=== PATIENT | female | born 1950 | race Caucasian/White ===

== ENCOUNTER → 2017-07-25 09:33 | Outpatient (CLI) | payer MEDICARE, OTHER, SELFPAY | PROVIDERS: Family Provider Family Medicine; PCP Family Medicine; Visit Provider Family Medicine | DX: R29.898 Other symptoms and signs involving the musculoskeletal system (principal) | CPT/HCPCS: 95886; 95907 ==

== ENCOUNTER → 2017-09-23 11:58 | Outpatient (CLI) | payer MEDICARE, OTHER, SELFPAY ==
--- NOTE | 2017-09-23 | DI.RAD.S_ITS ---
PROCEDURE: XR HIP W PEL IF DONE LT 2V INDICATIONS: left hip pain, osteoporosis TECHNIQUE: 2 views of the hip were acquired. COMPARISON: None. FINDINGS: Bones: No fractures or dislocations. No suspicious bony lesions. The visualized pelvic ring appears intact. Mild to moderate degenerative narrowing of the hip. No erosions. Minimal periarticular osteophytes. No gross osteoporosis. Soft tissues: No suspicious soft tissue calcifications or masses. IMPRESSION: Mild to moderate degenerative left hip narrowing. Dictated by: Pooja Hernandez M.D. on 09/23/2017 at 14:23 Approved by: Pooja Hernandez M.D. on 09/23/2017 at 14:24
== END ==
PROVIDERS: Family Provider Family Medicine; PCP Family Medicine; Visit Provider Family Medicine
DX: M16.12 Unilateral primary osteoarthritis, left hip (principal); M25.552 Pain in left hip
CPT/HCPCS: 73502

== ENCOUNTER → 2017-09-27 10:08 | Outpatient (CLI) | payer MEDICARE, OTHER, SELFPAY | PROVIDERS: Family Provider Family Medicine; PCP Family Medicine; Visit Provider Family Medicine | DX: M81.0 Age-related osteoporosis without current pathological fracture (principal); Z78.0 Asymptomatic menopausal state; E07.9 Disorder of thyroid, unspecified; Z82.62 Family history of osteoporosis | CPT/HCPCS: 77080 ==

== ENCOUNTER → 2019-04-29 09:15 | Outpatient (CLI) | payer MEDICARE, OTHER, SELFPAY ==
[2019-04-29 09:33] LABS: Bacteria Urine None Seen; RBC Urine None Seen (0-5/HPF); WBC Urine None Seen (0-5/HPF)
[2019-04-29 10:13] LABS: Add Manual Diff / Slide Review NO; Basophils Absolute Auto 100 /uL (0-100); Basophils Percent Auto 1.3 % (0-2); Eosinophils Absolute Auto 300 /uL (0-450); Eosinophils Percent Auto 5.7 % (2-4); Hematocrit 39.6 % (36-46); Hemoglobin 13.4 g/dL (12.0-16.0); Lymphocytes Absolute Auto 1600 /uL (1100-4500); Mean Corpuscular HGB Conc 33.7 % (30-36); Mean Corpuscular Hemoglobin 28.3 PG (26-34); Mean Corpuscular Volume 83.9 fL (80-100); Monocytes Absolute Auto 300 /uL (0-900); Monocytes Percent Auto 6.8 % (3-14); Neutrophils Absolute Auto 2600 /uL (1500-7000); Neutrophils Percent Auto 53.2 % (50-75); Platelet Count 252 X10^3/uL (150-400); Red Blood Cell Count 4.72 X10^6/uL (4.0-5.2); Red Cell Distribution Width 14.5 % (11.6-14.8); White Blood Cell Count 4.9 X10^3/uL (4.5-11.0)
[2019-04-29 10:21] LABS: Hemoglobin A1C% w Est Avg Glu 5.8 % (4.0-6.0)
[2019-04-29 10:24] LABS: Appearance Urine UA CLEAR; Bilirubin Urine UA NEGATIVE (NEGATIVE); Color Urine UA YELLOW; Glucose Urine UA NEGATIVE (Negative); Ketones Urine UA TRACE (NEGATIVE); Leukocyte Esterase Urine UA NEGATIVE (NEGATIVE); Nitrite Urine UA NEGATIVE (Negative); Occult Blood Urine UA NEGATIVE (Negative); Protein Urine UA NEGATIVE (Negative); Specific Gravity Urine UA 1.025 (1.000-1.035); Urobilinogen Urine UA 0.2 E.U./dL (0.2)
[2019-04-29 10:40] LABS: Culture Indicated Urine Cult Not Indicated; Urine Comments Microscopic Normal
[2019-04-29 11:15] LABS: Blood Urea Nitrogen 16 mg/dL (7-17); Calcium 9.8 mg/dL (8.4-10.2); Carbon Dioxide 29 mmol/L (22-32); Chloride 105 mmol/L (98-107); Estimated Glomerular Filt Rate > 60.0 mL/min (>60); Glucose 108 mg/dL (80-110); HEMOLYSIS < 15 (0-50); Potassium 4.4 mmol/L (3.4-5.1); Sodium 141 mmol/L (137-145)
== END ==
PROVIDERS: Family Provider Family Medicine; PCP Student in an Organized Health Care Education/Training Program; Referring Provider Orthopaedic Surgery; Visit Provider Orthopaedic Surgery
DX: Z01.818 Encounter for other preprocedural examination (principal); Z01.812 Encounter for preprocedural laboratory examination; N39.9 Disorder of urinary system, unspecified; Z13.1 Encounter for screening for diabetes mellitus; R73.9 Hyperglycemia, unspecified
CPT/HCPCS: 36415; 80048; 81001; 83036; 85025; 93005

== ENCOUNTER → 2019-05-08 09:37 | Outpatient (CLI) | payer MEDICARE, OTHER, SELFPAY ==
--- NOTE | 2019-05-08 09:42 | DI.MRI.S_ITS ---
PROCEDURE: MR KNEE LT WO CON INDICATIONS: PAIN OF LEFT KNEE TECHNIQUE: Noncontrast sagittal PD fast spin echo and T2 fast spin echo with fat saturation, sagittal 3-D FLASH with fat saturation; coronal T1 spin echo and PD fast spin echo with fat saturation, and axial PD fast spin echo with fat saturation through the knee. COMPARISON: [facility], MR, KNEE WITHOUT CONTRAST, 10/21/2014, 8:54. FINDINGS: Image quality: Excellent. Menisci: The medial and lateral menisci demonstrate normal morphology and internal signal. The meniscal root ligaments appear intact. Cruciate ligaments: Sprain and myxoid degenerative changes within the anterior cruciate ligament is seen. No evidence of ACL rupture. PCL is intact. Medial structures: The medial collateral ligament appears intact. The posterior oblique ligament, semimembranosus tendon insertions, oblique popliteal ligament, and meniscocapsular junction appear intact. Visualized portions of the pes anserinus tendons appear normal. No abnormal bursal fluid. Lateral structures: The lateral collateral ligament, long and short heads of the biceps femoris tendon appear intact. The popliteus tendon appears normal; the popliteofibular ligament appears intact. The posterosuperior and anteroinferior popliteomeniscal fascicles appear intact. The arcuate and fabellofibular ligaments appear intact, on either side of the lateral inferior geniculate artery. Iliotibial band appears normal. Anterior structures: The quadriceps and patellar tendons appear intact. Patella isabel is again seen unchanged from prior study. No femoral trochlear dysplasia or ventral trochlear prominence. No edema in the infrapatellar fat pad. Bones and cartilage: Severe patellofemoral compartment osteophytic changes are again seen, progressed since previous study with joint space narrowing, subchondral sclerosis and cyst formation, and mild marrow edema. Small osteochondral lesions are likely present. Prominent marginal osteophyte formation is also seen. 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 Joint space: There is small to moderate amount of joint fluid. No Carbone's cyst. Normal appearing synovial plicae are incidentally noted. IMPRESSION: 1. 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 No fracture or dislocation. Patella isabel is unchanged. 2. Moderate osteophytic changes and chondromalacia in medial and lateral femorotibial compartments. 3. Degenerative changes in the anterior cruciate ligament. No ACL rupture. No definite focal meniscal tear. Dictated by: Kevin Redd M.D. on 05/08/2019 at 14:43 Approved by: Kevin Redd M.D. on 05/08/2019 at 14:53
== END ==
PROVIDERS: Family Provider Family Medicine; PCP Student in an Organized Health Care Education/Training Program; Referring Provider Orthopaedic Surgery; Visit Provider Orthopaedic Surgery
DX: M25.562 Pain in left knee (principal); M22.42 Chondromalacia patellae, left knee; M25.762 Osteophyte, left knee
CPT/HCPCS: 73721

== ENCOUNTER → 2019-05-25 12:22 | Outpatient (CLI) | payer MEDICARE, OTHER, SELFPAY ==
--- NOTE | 2019-05-25 | DI.MG.S_ITS ---
BILATERAL DIGITAL SCREENING MAMMOGRAM 3D/2D WITH CAD: 05/25/2019 CLINICAL: Routine screening. Routine screening. Comparison is made to exams dated: 05/07/2017 mammogram, 02/21/2016 mammogram, and 12/24/2013 mammogram - [facility]. The tissue of both breasts is predominantly fatty. Current study was also evaluated with a Computer Aided Detection (CAD) system. No significant masses, calcifications, or other findings are seen in either breast. There has been no significant interval change. IMPRESSION: NEGATIVE There is no mammographic evidence of malignancy. A 1 year screening mammogram is recommended. This exam was interpreted at Station ID: [id number]. NOTE: For mammograms, a report in lay terms will be sent to the patient. Approximately 15% of breast malignancies will not be visualized mammographically. In the management of a palpable breast mass, a negative mammogram must not discourage biopsy of a clinically suspicious lesion. Electronically Signed By: Kyle mantilla/melba:05/25/2019 19:04:23 letter sent: Normal Exam ACR BI-RADS Category 1: Negative [id number]
== END ==
PROVIDERS: Family Provider Family Medicine; PCP Student in an Organized Health Care Education/Training Program; Referring Provider Student in an Organized Health Care Education/Training Program; Visit Provider Student in an Organized Health Care Education/Training Program
DX: Z12.31 Encounter for screening mammogram for malignant neoplasm of breast (principal)
CPT/HCPCS: 77063; 77067

== ENCOUNTER → 2019-07-31 07:55 | Outpatient (CLI) | payer MEDICARE, OTHER, SELFPAY ==
--- NOTE | 2019-07-31 08:02 | DI.ECHO.S_ITS ---
Echocardiogram Report + + :Name: ELISEO DIALLO Study Date: 07/31/2019 Height: 61 in : :[facility] Weight: 206 lb : : Gender: Female BSA: 1.9 m2 : :: 1950 Age: 69 yrs BP: 132/80 mmHg: :Reason For Study: SOB : :Ordering Physician: Radha Conway Performed By: Aline Page : + + Interpretation Summary The left ventricle is normal in size, wall thickness, and systolic function without any focal wall motion abnormalities. The ejection fraction is estimated to be 60-65%. Diastolic parameters suggest a relaxation abnormality of the left ventricle, consistent with probable normal filling pressures. The right ventricle is normal in size and function. Pulmonary artery pressures cannot be estimated because of the lack of a measurable TR jet velocity. The left atrium is moderately dilated. Right atrial size is normal. There is no significant valvular heart disease. The aortic root is normal size. Procedure: A two-dimensional transthoracic echocardiogram with color flow and Doppler was performed. The study quality was technically adequate. There is no prior echocardiogram noted for this patient. The patient was in normal sinus rhythm during the exam. Left Ventricle: The left ventricle is normal in size, wall thickness, and systolic function without any focal wall motion abnormalities. The ejection fraction is estimated to be 60-65%. Diastolic parameters suggest a relaxation abnormality of the left ventricle, consistent with probable normal filling pressures. Right Ventricle: The right ventricle is normal in size and function. Atria: The left atrium is moderately dilated. Right atrial size is normal. There is no Doppler evidence for an interatrial shunt. Mitral Valve: The mitral valve leaflets appear mildly thickened, but open well. There is mild mitral annular calcification. There is trace mitral regurgitation. Aortic Valve: The aortic valve is trileaflet. The aortic valve opens well. There is trace aortic regurgitation. Tricuspid Valve: The tricuspid valve is normal in structure and function. There is a trace or physiologic amount of tricuspid regurgitation. Pulmonary artery pressures cannot be estimated because of the lack of a measurable TR jet velocity. Pulmonic Valve: The pulmonic valve is not well seen, but is grossly normal. There is trace pulmonic regurgitation. There is no significant valvular heart disease. Great Vessels: The aortic root is normal size. The ascending aorta is normal in size. The pulmonary artery is normal size. The IVC is of normal diameter and collapses greater than 50% with a sniff. This suggests a low right atrial pressure of 3 mm Hg. Pericardium/ Pleura There is no pericardial effusion. There is no pleural effusion. MMode/2D Measurements & Calculations LVIDd: 4.2 cm LVOT diam: 1.9 cm LVIDs: 3.2 cm Ao root diam: 2.7 cm FS: 24.9 % asc Aorta Diam: 3.0 cm EPSS: 0.45 cm IVSd: 0.72 cm LVPWd: 2.3 cm LV box. diameter/BSA (cm/m^2): 2.2 LV sys. diameter/BSA (cm/m^2): 1.6 LA A2 area: 22.7 cm2 RA long axis: 4.4 cm LA A4 area: 27.2 cm2 RA area: 15.6 cm2 LA length (vol): 5.8 cm RA vol: 47.0 ml LA vol: 91.1 ml RA : 24.6 ml/m2 LA vol index: 47.6 ml/m2 IVC diam: 2.1 cm RVD1 (basal): 4.0 cm Doppler Measurements & Calculations Ao V2 max: 154.7 cm/sec LVOT Max Silvestre: 95.6 cm/sec Ao V2 mean: 107.7 cm/sec LV V1 max P.7 mmHg Ao max P.6 mmHg LV V1 VTI: 20.9 cm Ao mean P.0 mmHg AGNES(I,D): 1.7 cm2 Ao V2 VTI: 33.2 cm AGNES(V,D): 1.7 cm2 sev ratio: 0.63 AGNES indexed to BSA (cm^2/m^2): 0.90 MV E max silvestre: 93.6 cm/sec TR max silvestre: 220.2 cm/sec MV A max silvestre: 118.9 cm/sec TR max P.4 mmHg MV E/A: 0.79 PA V2 max: 84.9 cm/sec Med Peak E' Silvestre: 6.0 cm/sec PA V2 mean: 63.4 cm/sec E/E' med: 15.6 PA mean P.7 mmHg Lat Peak E' Silvestre: 9.5 cm/sec PA pr(Accel): 33.3 mmHg E/E' lat: 9.9 PA Accel Time: 0.10 sec E/e' average: 12.7 MV dec time: 0.19 sec SV(LVOT): 57.2 ml _ Reading Physician:03:39 PM
[2019-07-31 11:42] LABS: Troponin I < 0.012 ng/mL (0.01-0.034)
== END ==
PROVIDERS: Family Provider Family Medicine; PCP Student in an Organized Health Care Education/Training Program; Referring Provider Internal Medicine; Visit Provider Internal Medicine
DX: R06.02 Shortness of breath (principal); R06.00 Dyspnea, unspecified
CPT/HCPCS: 71046; 84484; 93306

== ENCOUNTER → 2019-07-31 11:23 | Outpatient (CLI) | payer MEDICARE, OTHER, SELFPAY ==
--- NOTE | 2019-07-31 | DI.RAD.S_ITS ---
PROCEDURE: XR CHEST 2V INDICATIONS: Dyspnea TECHNIQUE: 2 views of the chest were acquired. COMPARISON: None. FINDINGS: Surgical changes and devices: None. Lungs and pleura: Lungs are clear. No pleural effusions or pneumothorax. Mediastinum: Mediastinal contours are normal. Heart size is normal. Bones and chest wall: No suspicious bony abnormalities. Soft tissues appear unremarkable. IMPRESSION: Normal for age, source of current dyspnea symptoms is not seen. Dictated by: Robert Araiza M.D. on 07/31/2019 at 12:29 Approved by: Robert Araiza M.D. on 07/31/2019 at 12:29
== END ==
PROVIDERS: Family Provider Family Medicine; PCP Student in an Organized Health Care Education/Training Program; Referring Provider Student in an Organized Health Care Education/Training Program; Visit Provider Student in an Organized Health Care Education/Training Program
DX: R06.00 Dyspnea, unspecified (principal)
CPT/HCPCS: 71046

== ENCOUNTER 2019-08-11 22:17 | Emergency (ER) | payer MEDICARE, OTHER, SELFPAY ==
--- NOTE | 2019-08-11 22:28 | DI.RAD.S_ITS ---
PROCEDURE: XR CHEST 1V INDICATIONS: chest pain TECHNIQUE: One view of the chest was acquired. COMPARISON: [facility], CR, XR CHEST 2V, 07/31/2019, 11:27. FINDINGS: Surgical changes and devices: None. Lungs and pleura: Lungs are clear. No pleural effusions or pneumothorax. Mediastinum: Mediastinal contours appear normal. Heart size is normal. Bones and chest wall: No suspicious bony lesions. Overlying soft tissues appear unremarkable. IMPRESSION: No acute cardiopulmonary disease process. Dictated by: Mini Soto MD, PhD on 08/12/2019 at 8:03 Approved by: Mini Soto MD, PhD on 08/12/2019 at 8:04
[2019-08-11 22:34] VITALS: BP 176/74; PULSE 85; RESP 16; TEMP 36.7; O2SAT 97
[2019-08-11 22:37] LABS: Add Manual Diff / Slide Review NO; Basophils Absolute Auto 100 /uL (0-100); Basophils Percent Auto 1.3 % (0-2); Eosinophils Absolute Auto 200 /uL (0-450); Eosinophils Percent Auto 3.1 % (2-4); Hematocrit 40.3 % (36-46); Hemoglobin 13.7 g/dL (12.0-16.0); Lymphocytes Absolute Auto 2800 /uL (1100-4500); Lymphocytes Percent Auto 42.2 % (25-40); Mean Corpuscular Hemoglobin 28.6 PG (26-34); Monocytes Absolute Auto 600 /uL (0-900); Monocytes Percent Auto 8.8 % (3-14); Neutrophils Absolute Auto 2900 /uL (1500-7000); Neutrophils Percent Auto 44.6 % (50-75); Platelet Count 244 X10^3/uL (150-400); Red Blood Cell Count 4.79 X10^6/uL (4.0-5.2); Red Cell Distribution Width 14.1 % (11.6-14.8); White Blood Cell Count 6.5 X10^3/uL (4.5-11.0)
[2019-08-11 22:46] LABS: Alanine Aminotransferase 24 IU/L (<35); Albumin 4.7 g/dL (3.5-5.0); Albumin Globulin Ratio 1.3 (1.0-2.8); Alkaline Phosphatase 97 U/L (38-126); Aspartate Aminotransferase 31 IU/L (14-36); BUN Creatinine Ratio 18.6 (6-22); Bilirubin Total 0.6 mg/dL (0.2-1.3); Blood Urea Nitrogen 16 mg/dL (7-17); Calcium 9.6 mg/dL (8.4-10.2); Carbon Dioxide 26 mmol/L (22-32); Chloride 104 mmol/L (98-107); Creatine Kinase 73 U/L (30-135); Estimated Glomerular Filt Rate > 60.0 mL/min (>60); Globulin 3.6 g/dL (1.7-4.1); Glucose 96 mg/dL (80-110); HEMOLYSIS < 15 (0-50); Lipase 123 U/L (23-300); PTT Partial Thromboplastin Tim 31 SECONDS (26.4-36.2); Potassium 3.8 mmol/L (3.4-5.1); Sodium 138 mmol/L (137-145); Total Protein 8.3 g/dL (6.3-8.2)
[2019-08-11 22:58] LABS: Troponin I < 0.012 ng/mL (0.01-0.034)
--- NOTE | 2019-08-11 23:08 | ED_ITS ---
HPI - Chest Pain General Chief Complaint: Chest Pain Stated Complaint: CHEST PAIN Time Seen by Provider: 08/11/19 22:32 Source: patient Mode of arrival: Ambulatory Limitations: no limitations History of Present Illness HPI narrative: Patient is a 69-year-old female here for evaluation of left-sided chest pain. She states that multiple times last evening with the last episode being approximately 1 hour ago she has had sharp left-sided chest pain. Does not seem to be associated with any other symptoms to include shortness of breath. She was sitting at the time of the onset Not worse with palpation or movement or breathing. She has never had anything like this in the past. She states that it has lasted about 4-5 minutes and then completely resolved. It did occur her several times last evening. She is not currently having any symptoms. She states that she is currently being worked up by her primary d anthony for ?heart issues ?she states that she does not remember if she has ever had a stress test but is scheduled later this week to be sent to [place] for what sounds like a Holter monitor. Related Data Home Medications Medication Instructions Recorded Confirmed aspirin 81 mg PO BEDTIME #0 11/12/11 06/01/19 epinephrine 0.3 mg IM PRN PRN #0 11/12/11 06/01/19 levothyroxine [Synthroid] 125 mcg PO QDAY@0600 #0 11/12/11 06/01/19 montelukast [Singulair] 10 mg PO QPM #0 11/12/11 06/01/19 sumatriptan succinate [Imitrex] 100 mg PO PRN PRN #0 11/12/11 06/01/19 tolterodine [Detrol LA] 4 mg PO QDAY #0 11/12/11 06/01/19 topiramate [Topamax] 25 mg PO HS #0 11/12/11 06/01/19 Respironics Dreamstation CPAP #1 ea 07/31/18 07/31/18 vit C,Z-Df-ocsrq-lutein-zeaxan 1 tab PO BID 06/01/19 06/01/19 [PreserVision AREDS-2] Allergies Allergy/AdvReac Type Severity Reaction Status Date / Time amoxicillin [AMOXICILLIN] Allergy Severe YEAST Unverified 05/05/19 15:16 INFECTION, RED BLISTERS, ITCHING cephalexin [CEPHALEXIN] Allergy Severe YEAST Unverified 05/05/19 15:16 INFECTION, BLISTERS, ITCHING Sulfa (Sulfonamide Allergy Severe Rash, Verified 06/01/19 09:12 Antibiotics) blisters, itching adhesive [ADHESIVE] Allergy Intermediate NEX CARE Unverified 05/05/19 15:16 BANDAIDS - RASH, BLISTER, ITCHING clavulanic acid Allergy Unknown PT DOES Unverified 05/05/19 15:16 [From AUGMENTIN] NOT RECALL Review of Systems Constitutional Constitutional: Denies fever(s) and Denies headache(s) ENT Ears, Nose, Mouth, and Throat: Denies headache(s) Cardiovascular Cardiovascular: Denies chest pain and Denies dyspnea Respiratory Respiratory: Denies cough and Denies dyspnea Gastrointestinal Gastrointestinal: Denies abdominal pain, Denies nausea and Denies vomiting Genitourinary Genitourinary: Denies dysuria Musculoskeletal Musculoskeletal: Denies myalgias and Denies arthralgias Integumentary/Breasts Skin/Breast: Denies lesions and Denies rash Neurologic Neurologic: Denies behavioral changes and Denies headache(s) Psychiatric Psychiatric: Denies behavioral changes Hematologic/Lymphatic Hematologic/Lymphatic: Denies easy bleeding and Denies easy bruising Allergic/Immunologic Allergic/Immunologic: Denies urticaria Patient History Medical History Hypothyroidism (Chronic) Migraine headache (Chronic) Obesity (Chronic) Obstructive sleep apnea of adult (Chronic) Overactive bladder (Chronic) Primary insomnia (Chronic) Snoring (Inactive) Stress at home (Suspected) Surgical History (Updated 06/01/19 @ 09:19 by Naty Hendricks RN) H/O right wrist surgery (Acute 1965) History of arthroplasty of right knee (Acute 12/01/14) History of surgery (Acute) History of surgery (Acute 01/18/15) Hx of bilateral cataract extraction (Acute 01/2019) Social History marital status: details: to Gianni household members: spouse, family and children lives independently: Yes caregiver/support person: Yes (she is taking over the 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 of caregiver for ) housing: house Smoking Status: Never smoker alcohol intake: former substance use type: does not use Smoking Status: Never smoker Substance Use Type: does not use Exam Initial Vital Signs Initial Vital Signs: Vital Signs Temperature 98.1 F 08/11/19 22:34 Pulse Rate 85 08/11/19 22:34 Respiratory Rate 16 08/11/19 22:34 Blood Pressure 176/74 H 08/11/19 22:34 Pulse Oximetry 97 08/11/19 22:34 Const General: cooperative, healthy appearing, comfortable, well developed and well groomed Limitations: mental status not altered HENMT Head: normal to inspection and normocephalic Chest Chest: No crepitus and No tenderness Resp Effort & Inspection: normal respiratory effort Auscultation: clear to auscultation bilaterally Cardio Rate: regular rate Rhythm: regular rhythm GI Inspection: non-distended Palpation: soft Skin Lesions: no lesions Rashes: no rashes Neuro General: alert, awake and oriented x3 Cognition: normal cognition Speech: speech normal Extrem General: normal to inspection and capillary refill normal Psych Appearance: grossly normal and well kempt Scores GCS [place] coma scale eye opening: Spontaneous [place] coma scale verbal response: Orientated Shelli coma scale motor response: Obey commands Shelli coma scale total score: 15 HEART Score Heart Score history: Slightly Suspicious Heart Score EKG: Non-Specific repolarization disturbance Heart Score Age: > or = 65 years old Heart Score risk factors: No known risk factors Heart Score troponin: < or = to normal limit Heart Score Total: 3 Course Orders Ordered: ED Orders 08/11/19 22:28 XR chest 1V Stat Complete Blood Count AUTO DIFF Stat Comprehensive Metabolic Panel Stat Lipase Stat Partial Thromboplastin Time Stat Prothrombin Time INR Stat Troponin & CK Cardiac Panel Stat EKG-12 Lead Stat 08/12/19 01:25 Troponin I Stat Vital Signs Vital signs: Vital Signs - 8 hr 08/11/19 22:34 08/12/19 00:44 08/12/19 01:18 Temperature 98.1 F Pulse Rate 85 70 70 Respiratory Rate 16 18 18 Blood Pressure 176/74 H Blood Pressure [Right Arm] 160/70 H 156/72 H Pulse Oximetry 97 98 98 MDM - Chest Pain Lab Data Attestation: I reviewed the patient's lab results. Result diagrams: 08/11/19 22:28 08/11/19 22:28 Labs: Lab Results 08/11/19 08/11/19 08/11/19 Range/Units 22:28 22:28 22:28 WBC 6.5 (4.5-11.0) X10^3/uL RBC 4.79 (4.0-5.2) X10^6/uL Hgb 13.7 (12.0-16.0) g/dL Hct 40.3 (36-46) % MCV 84.0 (80-100) fL MCH 28.6 (26-34) PG MCHC 34.0 (30-36) % RDW 14.1 (11.6-14.8) % Plt Count 244 (150-400) X10^3/uL Neut % (Auto) 44.6 L (50-75) % Lymph % (Auto) 42.2 H (25-40) % Sutton % (Auto) 8.8 (3-14) % Eos % (Auto) 3.1 (2-4) % Baso % (Auto) 1.3 (0-2) % Neut # (Auto) 2900 (7462-8087) /uL Lymph # (Auto) 2800 (6275-0159) /uL Sutton # (Auto) 600 (0-900) /uL Eos # (Auto) 200 (0-450) /uL Baso # (Auto) 100 (0-100) /uL PT 12.0 (10.1-12.7) SECONDS INR 1.0 (0.9-1.3) APTT 31 (26.4-36.2) SECONDS Sodium 138 (137-145) mmol/L Potassium 3.8 (3.4-5.1) mmol/L Chloride 104 (98-107) mmol/L Carbon Dioxide 26 (22-32) mmol/L BUN 16 (7-17) mg/dL Creatinine 0.86 (0.52-1.04) mg/dL Estimated GFR > 60.0 (>60) mL/min BUN/Creatinine Ratio 18.6 (6-22) Glucose 96 (80-110) mg/dL Calcium 9.6 (8.4-10.2) mg/dL Total Bilirubin 0.6 (0.2-1.3) mg/dL AST 31 (14-36) IU/L ALT 24 (<35) IU/L Alkaline Phosphatase 97 (38-126) U/L Total Creatine Kinase 73 (30-135) U/L CK-MB (CK-2) TNP CK-MB (CK-2) Rel Index TNP Troponin I < 0.012 (0.01-0.034) ng/mL Total Protein 8.3 H (6.3-8.2) g/dL Albumin 4.7 (3.5-5.0) g/dL Globulin 3.6 (1.7-4.1) g/dL Albumin/Globulin Ratio 1.3 (1.0-2.8) Lipase 123 (23-300) U/L 05/27/20 Range/Units 01:25 WBC (4.5-11.0) X10^3/uL RBC (4.0-5.2) X10^6/uL Hgb (12.0-16.0) g/dL Hct (36-46) % MCV (80-100) fL MCH (26-34) PG MCHC (30-36) % RDW (11.6-14.8) % Plt Count (150-400) X10^3/uL Neut % (Auto) (50-75) % Lymph % (Auto) (25-40) % Sutton % (Auto) (3-14) % Eos % (Auto) (2-4) % Baso % (Auto) (0-2) % Neut # (Auto) (2189-3919) /uL Lymph # (Auto) (8774-2497) /uL Sutton # (Auto) (0-900) /uL Eos # (Auto) (0-450) /uL Baso # (Auto) (0-100) /uL PT (10.1-12.7) SECONDS INR (0.9-1.3) APTT (26.4-36.2) SECONDS Sodium (137-145) mmol/L Potassium (3.4-5.1) mmol/L Chloride (98-107) mmol/L Carbon Dioxide (22-32) mmol/L BUN (7-17) mg/dL Creatinine (0.52-1.04) mg/dL Estimated GFR (>60) mL/min BUN/Creatinine Ratio (6-22) Glucose (80-110) mg/dL Calcium (8.4-10.2) mg/dL Total Bilirubin (0.2-1.3) mg/dL AST (14-36) IU/L ALT (<35) IU/L Alkaline Phosphatase (38-126) U/L Total Creatine Kinase (30-135) U/L CK-MB (CK-2) CK-MB (CK-2) Rel Index Troponin I < 0.012 (0.01-0.034) ng/mL Total Protein (6.3-8.2) g/dL Albumin (3.5-5.0) g/dL Globulin (1.7-4.1) g/dL Albumin/Globulin Ratio (1.0-2.8) Lipase (23-300) U/L Imaging Data Chest x-ray: Attestation: I personally reviewed and interpreted this imaging study as follows: My Impression: No pneumonia, no pneumothorax, unremarkable exam ECG Data Attestation: I personally reviewed and interpreted this ECG as follows: Prior ECG tracings: not available for review Interpretation: Sinus rhythm Ventricular rate 82 Normal QRS Normal QTC LVH MDM Narrative Medical decision making narrative: EKG is unremarkable, troponins negative x2, chest x-ray is unremarkable. I did discuss the case with Dr. Mckeon who is on-call for the patient's primary doctor. She will let the patient's primary doctor no tomorrow or have the clinic in in touch with the patient about scheduling a stress test as an outpatient. Discussed return precautions and follow-up instructions with the patient. She expressed understanding and agr eement. Discharge Plan Departure Patient Disposition: Home Clinical Impression: Atypical chest pain Instructions: DI for Atypical Chest Pain Activity Restrictions/Additional Instructions: You should be receiving a call tomorrow morning from your primary doctor's office about scheduling a stress test as an outpatient. If you have not heard from them by noon please give him a call for follow-up. Continue all of your medications as directed. Return to the emergency department for any new or worsening symptoms Prescriptions: No Action tolterodine [Detrol LA] 4 MG capsule,extended release 24hr 4 mg PO QDAY Qty: 0 RF: 0 topiramate [Topamax] 25 MG tablet 25 mg PO HS Qty: 0 RF: 0 levothyroxine [Synthroid] 125 MCG tablet 125 mcg PO QDAY@0600 Qty: 0 RF: 0 aspirin 81 mg Tablet,Delayed Release (Dr/Ec) 81 mg PO BEDTIME Qty: 0 RF: 0 montelukast [Singulair] 10 MG tablet 10 mg PO QPM Qty: 0 RF: 0 sumatriptan succinate [Imitrex] 100 MG tablet 100 mg PO PRN PRN (Reason: Migraine Headache) Qty: 0 RF: 0 epinephrine 0.1 mg/0.1 mL Auto-Injector 0.3 mg IM PRN PRN (Reason: Allergy reaction) Qty: 0 RF: 0 PreserVision AREDS-2 [id number] ij-[id number]-[id number]-mg Capsule 1 tab PO BID RF: 0 (DME) Respironics Dreamstation CPAP Qty: 1 RF: 0 Referrals: Irene Hyde MD [Primary Care Provider] -
[2019-08-12 00:44] VITALS: BP 160/70; PULSE 70; RESP 18; O2SAT 98
[2019-08-12 01:18] VITALS: BP 156/72; PULSE 70; RESP 18; O2SAT 98
[2019-08-12 01:57] LABS: Troponin I < 0.012 ng/mL (0.01-0.034)
== END 2019-08-12 02:26 | disposition home or self-care (01) ==
PROVIDERS: Emergency Provider Emergency Medicine; Family Provider Family Medicine; PCP Student in an Organized Health Care Education/Training Program
DX: R07.89 Other chest pain (principal)
CPT/HCPCS: 36415; 71045; 80053; 82550; 83690; 84484; 85025; 85610; 85730; 93005; 99284

== ENCOUNTER → 2019-09-24 12:04 | Outpatient (CLI) | payer MEDICARE, OTHER, SELFPAY ==
[2019-09-24 14:01] LABS: Cholesterol 219 mg/dL (140-199); HDL Cholesterol 44 mg/dL (40-60); LDL Cholesterol Calculated 131 mg/dL (<100); Triglycerides 222 mg/dL (35-150)
== END ==
PROVIDERS: Family Provider Family Medicine; PCP Student in an Organized Health Care Education/Training Program; Referring Provider Internal Medicine Cardiovascular Disease; Visit Provider Internal Medicine Cardiovascular Disease
DX: Z00.00 Encounter for general adult medical examination without abnormal findings (principal); I10 Essential (primary) hypertension
CPT/HCPCS: 36415; 80061

== ENCOUNTER → 2019-12-17 10:32 | Outpatient (CLI) | payer MEDICARE, OTHER, SELFPAY ==
[2019-12-17 10:55] LABS: RBC Urine None Seen (0-5/HPF)
[2019-12-17 11:29] LABS: Add Manual Diff / Slide Review NO; Basophils Absolute Auto 0 /uL (0-100); Basophils Percent Auto 0.8 % (0-2); Eosinophils Absolute Auto 200 /uL (0-450); Eosinophils Percent Auto 4.7 % (2-4); Hematocrit 38.9 % (36-46); Hemoglobin 12.9 g/dL (12.0-16.0); Lymphocytes Absolute Auto 1400 /uL (1100-4500); Lymphocytes Percent Auto 32.4 % (25-40); Mean Corpuscular HGB Conc 33.2 % (30-36); Mean Corpuscular Hemoglobin 27.9 PG (26-34); Mean Corpuscular Volume 84.2 fL (80-100); Monocytes Absolute Auto 300 /uL (0-900); Monocytes Percent Auto 6.6 % (3-14); Neutrophils Absolute Auto 2300 /uL (1500-7000); Neutrophils Percent Auto 55.5 % (50-75); Platelet Count 208 X10^3/uL (150-400); Red Blood Cell Count 4.61 X10^6/uL (4.0-5.2); Red Cell Distribution Width 14.6 % (11.6-14.8); White Blood Cell Count 4.2 X10^3/uL (4.5-11.0)
[2019-12-17 11:32] LABS: Hemoglobin A1C% w Est Avg Glu 5.9 % (4.0-6.0)
[2019-12-17 12:23] LABS: HEMOLYSIS < 15 (0-50); Potassium 4.1 mmol/L (3.4-5.1)
[2019-12-17 12:24] LABS: BUN Creatinine Ratio 22.5 (6-22); Blood Urea Nitrogen 16 mg/dL (7-17); Calcium 9.3 mg/dL (8.4-10.2); Carbon Dioxide 29 mmol/L (22-32); Chloride 106 mmol/L (98-107); Estimated Glomerular Filt Rate > 60.0 mL/min (>60); Glucose 101 mg/dL (80-110); Sodium 139 mmol/L (137-145)
[2019-12-17 13:00] LABS: Appearance Urine UA CLEAR; Bilirubin Urine UA NEGATIVE (NEGATIVE); Color Urine UA YELLOW; Glucose Urine UA NEGATIVE (Negative); Ketones Urine UA NEGATIVE (NEGATIVE); Leukocyte Esterase Urine UA TRACE (NEGATIVE); Nitrite Urine UA NEGATIVE (Negative); Occult Blood Urine UA NEGATIVE (Negative); Protein Urine UA NEGATIVE (Negative); Specific Gravity Urine UA 1.015 (1.000-1.035); Urobilinogen Urine UA 0.2 E.U./dL (0.2)
[2019-12-17 13:18] LABS: Bacteria Urine Few (2-10); Culture Indicated Urine Specimen Cultured; Mucus Urine 1+ (Negative); Squamous Epithelial Cell Urine 1-5 /HPF (0-5/HPF); WBC Urine 1-5/HPF (0-5/HPF)
== END ==
PROVIDERS: Family Provider Family Medicine; PCP Student in an Organized Health Care Education/Training Program; Referring Provider Orthopaedic Surgery; Visit Provider Orthopaedic Surgery
DX: Z01.818 Encounter for other preprocedural examination (principal); Z01.812 Encounter for preprocedural laboratory examination; R73.9 Hyperglycemia, unspecified; N39.0 Urinary tract infection, site not specified
CPT/HCPCS: 36415; 80048; 81001; 83036; 85025; 87086; 93005

== ENCOUNTER → 2020-01-02 10:50 | Outpatient (CLI) | payer MEDICARE, OTHER, SELFPAY ==
[2020-01-04 05:53] LABS: COVID19 Sendout Not Detected (Not Detect)
== END ==
PROVIDERS: Family Provider Family Medicine; PCP Student in an Organized Health Care Education/Training Program; Visit Provider Physician Assistant
DX: Z01.812 Encounter for preprocedural laboratory examination (principal)
CPT/HCPCS: 87635

== ENCOUNTER 2020-01-05 06:12 | Day surgery (SDC) | payer MEDICARE, OTHER, SELFPAY ==
[2019-12-29 09:48] VITALS: BMI 34.5
[2020-01-05] VITALS (22 sets, daily range): BP systolic 102–132; BP diastolic 47–74; PULSE 68–81; RESP 10–18; TEMP 35.8–36.8; O2SAT 93–99; BMI 34.2
--- NOTE | 2020-01-05 | DI.RAD.S_ITS ---
PROCEDURE: XR KNEE LT 1TO2V INDICATIONS: post op TECHNIQUE: To view(s) of the knee acquired. COMPARISON: Merged With [facility], [facility], KNEE 3V RIGHT, 05/04/2017, 0:38. Merged With [facility], [facility], KNEE 1-2 VIEWS RIGHT, 12/01/2014, 16:23. FINDINGS: Bones: Patient is status post left knee joint arthroplasty. Hardware components are in expected positions. Visualized bony structures are intact. Soft tissues: Overlying postoperative changes are noted. IMPRESSION: Normal alignment after total knee arthroplasty on the left, earlier today. Dictated by: Robert Araiza M.D. on 01/05/2020 at 10:52 Approved by: Robert Araiza M.D. on 01/05/2020 at 10:53
[2020-01-05] MEDS: LACTATED RINGERS 1,000 ML 42 ML IV (07:17)
--- NOTE | 2020-01-05 07:35 | PM.PREOP ---
Pre-operative Note COVID-19 COVID-19 status: Negative Interval Note History & Physical reviewed/Exam performed by Physician: Yes Changes to H&P: No
[2020-01-05] MEDS: CLINDAMYCIN 900 MG/50 ML PIGGYBACK 50 MG IV (07:46)
--- NOTE | 2020-01-05 07:49 | PM.OP.1 ---
Operative Date/Time/Diagnoses Date of procedure: 01/05/20 Time of procedure: 07:59 Pre-op diagnosis: left knee OA Post-op diagnosis: same Procedure & Clinicians Procedure: left total knee arthroplasty Same procedure as scheduled: Yes Indications: The patient has had progressively worsening left knee pain with radiographic changes consistent with arthritis. Non-operative management has failed and the patient has requested total knee replacement. The risks, benefits and alternatives to surgery were discussed with the patient prior to proceeding. Risks discussed included, but were not limited to, failure to relieve pain, stiffness, infection, nerve damage, deep venous thrombosis, pulmonary embolism, stroke, coma, heart attack, permanent paralysis and , as well as the potential need for eventual revision of the prosthetic. Surgeon: Maritza Stone Freelance Programmer/App Developer: Tanner Parra Anesthesia Type: General and Spinal Operative Notes Findings: severe left knee osteoarthritis especially patellofemoral joint, good stability and alignment Closure Type: primary Specimen(s): none sent Prosthetic devices, grafts, tissues, transplants, or devices: Stone and Nephew Journey BCS 2 size 4 left femur, size 3 left tibia, +10 poly, 32 x 7.5 patella Applied: drain(s) Estimated Blood Loss (mL): 200 Blood products transfused: none Tourniquet time (min): 66 Procedure in detail: The patient was seen in the pre-operative area, where the patient identified the left knee as the operative site and this was marked with my initials. The patient received pre-operative antibiotics, and was taken to the operating room and placed on the operative table in the supine position. After satisfactory anesthesia, a interactive multimedia designer out was performed. The left leg was encircled with a tourniquet about the proximal thigh, and the leg was prepared from the toes to the tourniquet with ChloroPrep in the usual fashion and draped through sterile drapes. The leg was elevated and exsanguinated with Eschmark bandage and the tourniquet inflated to [250] mmHg pressure. The knee was approached through an approximately 18 cm incision centered over the patella and carried into the knee through a medial parapatellar arthrotomy. A portion of the medial and lateral meniscus was resected. Soft tissue was carefully mobilized around the patella the patella was measured with a caliper. Bone was resected from the patella and the patellar height was reconstituted with up an appropriate sized patellar component. For a cover was then placed on the patella. A small amount of additional medial and lateral meniscus was resected. The visionary guide fit well to the distal femur. It looked like an appropriate distal femoral cut and the cut was made without difficulty. The rotation was assessed and the appropriate size femoral guide was placed on the distal femur and finishing cuts were made. There is no evidence of notching. The anterior, posterior and chamfer cuts were then made. The posterior osteophytes and soft tissues were then removed. The posterior capsule was injected with part of a mixture of 60 ml 0.25% Marcaine mixed with 20 ml Exparel for post operative pain control. The remainder of this mixture was injected into the capsule and subcutaneous tissues during cement curing. The tibia was prepared and the visionaire guide fit well to the distal tibia. The rotation was assessed. The patient was placed in extension residual medial and lateral meniscus as well as any residual bone was carefully resected. [No] additional tibia was resected. Hemostasis was achieved especially posteriorly. Additional local was injected into the posterior capsule. The extension gap was assessed and additional releases for gap balancing were performed as necessary. It was checked with the gap multimedia artist. The femoral component was trial was placed and the notch was finished. Trial tibial and femoral components were then placed and the knee placed through a range of motion. Range of motion was [0-130], with good stability throughout the range. The trials were then removed, and the tibia was finished. The bone was prepared with pulsatile lavage, and dried with a sponge. Cement was applied and the final prosthetics placed. Excess cement was removed during and after cement curing. A brief Betadine soak was performed. After confirming there was no extruded cement posteriorly, the final tibial insert was placed. The knee was copiously irrigated and the tourniquet deflated. Hemostasis was obtained with the [ Bovie]. A drain was placed and brought out superolaterally. The capsule was closed with interrupted Vicryl suture. The subcutaneous layer was closed with barbed sutures, and the skin with a running 3-0 V-Lock suture and Surgical glue. An Aquacel Ag dressing was applied and the patient was taken to recovery having tolerated the procedure well. Complications: none Post-operative Condition: stable Disposition: Acute Care Plan for aftercare: The patient will be maintained on a standard total knee replacement protocol with weight bearing as tolerated. The patient will receive aspirin and sequential compression devices for DVT prophylaxis. The patient will be discharged home when safe for the home environment.
[2020-01-05] MEDS: VANCOMYCIN 1,000 MG/200 ML PIGGYBACK 200 MG IV ×2 (08:02→21:04)
[2020-01-05] MEDS: TRANEXAMIC ACID 1,000 MG VIAL 2000 MG INJ ×2 (08:10→09:32)
--- NOTE | 2020-01-05 08:24 | SUR.OPER ---
Supine on padded OR bed. Pillow under head, arms secured on padded armboards <90 degree abduction. Safety belt across torso. Non-operative leg secured with tape over blanket over lower leg. Operative leg secured in DeMayo/Roni positioner. Foam padded brace at thigh of operative leg.
[2020-01-05] MEDS: BUPIVACAINE LIPOSOME 266 MG/20 ML VIAL INJ (08:34)
[2020-01-05] MEDS: BUPIVACAINE 0.25% W/ EPI 30 ML VIAL 60 ML INJ (08:34)
[2020-01-05] MEDS: SODIUM CHLORIDE IRRIG SOLUTION 250 ML, POVIDONE-IODINE SPONGE STICKS 1 APPLIC IRR (08:35)
[2020-01-05] MEDS: fentaNYL 100 MCG/2 ML INJ IV ×2 (10:16→10:32)
--- NOTE | 2020-01-05 10:16 | PC.NURSE ---
Day shift: Pt not on AC unit at this time (1017).
[2020-01-05] MEDS: ACETAMINOPHEN 325 MG TABLET 975 MG PO (10:48)
[2020-01-05] MEDS: ONDANSETRON 4 MG/2 ML INJ IV (10:49)
[2020-01-05] MEDS: OXYCODONE IR 5 MG TABLET PO ×2 (10:49→12:15)
[2020-01-05] MEDS: HYDROMORPHONE 2 MG INJ IV ×2 (10:57→11:11)
--- NOTE | 2020-01-05 11:52 | PC.NURSE ---
Day shift: Pt on unit from PACU at approx 1150. She is A&Ox3. Denies nausea. NITHYA wrap is CDI. SCD's on. Oriented to room and call light. Agrees to not get OOB w/o help from staff. Bed alarm is on. Daughter in room for support. Matthew-vac patent and unclamped at this time. Pt able to wiggle toes and said yes to feeling touch BLE's. Call light in reach.
[2020-01-05] MEDS: LACTATED RINGERS 1,000 ML 100 ML IV ×2 (12:11→21:05)
[2020-01-05] MEDS: IBUPROFEN 400 MG TABLET PO ×3 (12:16→21:05)
[2020-01-05] MEDS: HYDROMORPHONE 4 MG TABLET PO ×3 (12:53→21:14)
--- NOTE | 2020-01-05 13:04 | PC.NURSE ---
Day shift: Per Dr Stone order for 4mg Q3hrs ordered for pain control. Pt's pain before and after Advil and Oxycodone per MAR remained 10/25. Continuous O2 monitor on and Pt's daughter in room. Call light in reach. Pt takes PO meds 1 at a time. No nausea but Pt did not eat anything yet as this is writen. Will continue to monitor.
--- NOTE | 2020-01-05 15:05 | PT.IIE ---
Current Diagnoses Unilateral primary osteoarthritis, left knee (01/05/20) Surgery Performed Operation Date: 01/05/20 07:45 Actual Procedures p Total Knee Arthroplasty(Left) - Maritza Stone MD Surgical History (Last Reviewed 10/03/19 @ 16:50 by AVIS Ortiz) H/O right wrist surgery (Acute 1965) History of arthroplasty of right knee (Acute 12/01/14) History of surgery (Acute) History of surgery (Acute 01/18/15) Hx of bilateral cataract extraction (Acute 01/2019) Medical History Hypothyroidism (Chronic) Migraine headache (Chronic) Obesity (Chronic) Obstructive sleep apnea of adult (Chronic) Overactive bladder (Chronic) Primary insomnia (Chronic) Snoring (Inactive) Stress at home (Suspected) Physical Therapy Inpatient Evaluation/Re-Eval M1 PT/OT-IP Prior Functional Status Start: 01/05/20 16:12 Freq: NEEDED Status: Active Protocol: Document 01/05/20 15:05 AB (Rec: 01/05/20 16:28 AB [id number]) Medical Review Prior Functional Status Medical History Reviewed Yes Communication able to make needs known Mobility and Gait pt stated that she is independent with all mobilities and ambulation without AD Social History Household Members spouse Living Arrangements House Number of Floors (Floors) One Floor Number of Stairs To Enter/Railing? 2 steps to enter without rails Home Environment Standard Height Toilet,Walk in Shower Home Equipment Front Wheel Walker,Straight Cane,Shower Seat without Backrest,Hand Held Shower Additional Social History Comment pt stated that her daughter will be staying with them to assist her at home M2 PT-IP Current Condition Start: 01/05/20 16:12 Freq: NEEDED Status: Active Protocol: Document 01/05/20 15:05 AB (Rec: 01/05/20 16:28 AB [id number]) Physical Therapy Current Condition Current Condition Evaluation Date 01/05/20 Treatment Diagnosis s/p L TKA; difficulty in walking Onset Date 01/05/20 Weight Bearing Status Weight Bearing Status Weight Bear as Tolerated Allowed Weight Bearing Amount (enter % LLE WBAT or #) (%) M3 PT-IP Subjective Start: 01/05/20 16:12 Freq: NEEDED Status: Active Protocol: Document 01/05/20 15:05 AB (Rec: 01/05/20 16:28 AB [id number]) Subjective Physical Therapy Visit Type Type Initial Evaluation Visit Start Time 15:05 Visit Stop Time 15:50 Total Visit Minutes 45 Number of SILVER SERVICE WAITER Visits 0 Physical Therapy Visit Comments Patient Comments pt is agreeable to do PT Therapy Pain Assessment Pain When Pain Assessed At Rest Pain Present Pain Present Pain Reported Location Left Knee Intensity 5 Scale Used Numeric (0 - 10) Pain Management Techniques Apply Cold,Modification of Treatment,Re-positioning, Timing of Activity with Medications M4 PT-IP Mobility and Gait Start: 01/05/20 16:12 Freq: NEEDED Status: Active Protocol: Document 01/05/20 15:05 AB (Rec: 01/05/20 16:28 AB [id number]) PT-Bed Mobility Assessment Supine to Sit Supine to Sit Standby Assistance Sit to Supine Sit to Supine Standby Assistance Scooting Scooting to Edge of Bed Standby Assistance PT-Transfer Assessment Sit to and From Stand Sit to and from Stand Contact Guard Assistance,1 Person Assistance,Use of Upper Extremities Equipment Transfer Assistive Device Gait Belt,Front Wheeled Walker Orthotic/Prosthetic Devices or Brace: No Transfers Transfer Destination Chair Transfer Technique Stand Step Pivot Transfer Ability Level of Assist Contact Guard Assistance,1 Person Assistance,Use of Upper Extremities Comments Mobility Comments BP in supine: 113/59. pt completed supine to sit SBA. pt without any complaints and stated that she feels fine but pt looks pale. BP checked in sitting 133/79. completed sit to stand CGA and initiated walking. pt was able to take a few steps but with slight tremors on UE and head and instructed to just sit on chair. BP checked again: 125/ 63. pt stated that she feels nauseated. pt requested to just go back to bed. completed sit to stand from chair CGA and took steps to transfer to bed using FWW CGA. completed sit to supine SBA. positioned pt in bed. call light and table within reach. ice pack provided. nurse aware of c/o nausea. reviewed post-op folder and exercises with pt. Gait Assessment Gait Gait Assistance Required: Contact Guard Assist Distance (Feet) 2 Able to Maintain Weight Bearing Status Yes During Gait Assistive Devices Assistive Device Gait Belt,Front Wheeled Walker Gait Deviations General Gait Pattern Antalgic Factors Limiting Gait Function Factors Limiting Gait Function Decreased Activity Tolerance, Decreased Strength,Pain,Poor Balance,Poor Safety Awareness Comments Gait Comments able to take steps during transfers but unable to ambulate farther due to c/o nausea PT-Balance Assessment Sitting Balance and Reactions Static Sitting Balance Ability Good Dynamic Sitting Balance Ability Good Standing Balance and Reactions Static Standing Balance Ability Fair Dynamic Standing Balance Ability Fair Device Used FWW M5 PT-IP Objective Assessments Start: 01/05/20 16:12 Freq: NEEDED Status: Active Protocol: Document 01/05/20 15:05 AB (Rec: 01/05/20 16:28 AB [id number]) Orientation Orientation/Cognition Level of Alertness Alert Orientation Name,Place,Situation Language Function Ability No Deficits Noted Memory Description No Deficits Noted Gross Range of Motion Lower Extremity ROM Impairments L knee flexion ~ 70 deg L knee extension ~ 20 deg less to 0 Strength Lower Extremity Strength Assessment Left Impaired Hip 3+/5 Knee 3+/5 Sensation Assessment Sensation Gross Sensation WNL M6 PT-IP Treatment Start: 01/05/20 16:12 Freq: NEEDED Status: Active Protocol: Document 01/05/20 15:05 AB (Rec: 01/05/20 16:28 [id number]) Physical Therapy Treatment Exercises Exercises Quad Sets,Heel Slides Education Education Provided Precautions,Weight Bearing Status,Post-Op Packet,Safety M7 PT-IP Assessment and Plan Start: 01/05/20 16:12 Freq: NEEDED Status: Active Protocol: Document 01/05/20 15:05 AB (Rec: 01/05/20 16:28 [id number]) PT Summary Assessment and Plan Potential Rehabilitation Potential Good Status of Condition at Evaluation Evolving Summary Impairments Pain,ROM,Strength,Balance, Coordination,Sensation,Bed Mobility,Transfers,Gait, Activity Tolerance Assessment Summary pt s/p L TKA and just had surgery this morning. pt requiring CGA with mobility but unable to tolerate much activity and ambulation due to c/o nausea. Pt will likely progress during hospital stay and plans to go home and will have her daughter to assist her. will complete caregiver training when appropriate and also have to complete stair climbing training prior to d/c . pt stated that she is scheduled for outpt PT. Goals Bed Mobility Goal Independent Transfer Goal Standby Assistance,Front Wheeled Walker Gait Goal Standby Assistance,Front Wheel Walker Gait Distance 200 Other Goals up/down 2 steps SPC/ELECTRONICS DESIGN ENGINEER CGA Days to Meet Goals 5 Frequency of Treatment Frequency Of Treatment Twice a Day Treatment Plan Physical Therapy Treatment Plan Bed Mobility Training,Transfer Training,Gait Training, Therapeutic Exercise,Balance Retraining,Post Op Education, Discharge Planning,Hot or Cold Pack,Neuromuscular Re-ed, Coordination Retraining,Manual Therapy Other Recommendations and Next Treatment ambulation, stair climbing, Focus caregiver training if appropriate Recommendations To Nursing Amount of Assist Needed 1 Person Assist Discharge Recommendations PT Discharge Recommendations Home with Assistance, Outpatient PT Transportation Needs at Discharge Private Vehicle
[2020-01-05] MEDS: ONDANSETRON 4 MG ODT PO (15:48)
[2020-01-05] MEDS: MONTELUKAST 10 MG TABLET PO (16:49)
[2020-01-05] MEDS: ACETAMINOPHEN 325 MG TABLET 650 MG PO ×2 (16:49→21:07)
[2020-01-05] MEDS: ASPIRIN EC 81 MG TABLET PO (21:07)
[2020-01-05] MEDS: DOCUSATE 100 MG CAPSULE PO (21:07)
[2020-01-05] MEDS: TOPIRAMATE 25 MG TABLET PO (21:15)
[2020-01-05] MEDS: VIT C/E/ZN/COPPR/LUTEIN/ZEAXAN CAPSULE 1 CAP PO (21:15)
[2020-01-06 00:02] VITALS: BP 108/48; PULSE 68; RESP 16; TEMP 36.4; O2SAT 95
[2020-01-06] MEDS: IBUPROFEN 400 MG TABLET PO ×3 (00:46→08:29)
--- NOTE | 2020-01-06 00:59 | PC.NURSE ---
Addendum entered by Daylin Robles R.N. 01/06/20 06:25: States pain is now 4/10 after having been out of bed to BS; medicated with Dilaudid and ice pack applied. Addendum entered by Daylin Robles R.N. 01/06/20 05:37: Slept most of shift. States she did start passing flatus. Denies pain. Up to [facility] with walker and 1 assist. Original Note: Patient seen and assessed. Is alert and oriented. Breath sounds CTA with RA sat of 95%; using home CPAP. HRR. Denies nausea. BT hypoactive; denies flatus. Previous shift reported patient up to BS with walker and 1 assist; denies dysuria, frequency or urgency. Able to move self in bed. Not been up this shift as yet so gait not assessed. Aquacel dressing covered with wilbert wrap to left knee is CDI; hemovac intact and compressed. CMS is intact. Denies pain but is receiving scheduled Ibuprofen. Bilateral ankles puffy which patient states is her normal. Fall risk score is moderate; bed alarm is activated. Wearing bilateral calf SCD's.
[2020-01-06] MEDS: LEVOTHYROXINE 112 MCG TABLET PO (05:29)
[2020-01-06 05:49] VITALS: BP 111/58; PULSE 81; RESP 16; TEMP 36.1; O2SAT 98
[2020-01-06] MEDS: HYDROMORPHONE 4 MG TABLET PO ×2 (06:23→09:39)
[2020-01-06 07:18] LABS: Hemoglobin 11.7 g/dL (12.0-16.0)
--- NOTE | 2020-01-06 07:59 | PM.PN.1 ---
Subjective Subjective Date Patient Seen: 01/06/20 Time Patient Seen: 07:59 Interval history: She notes that she is doing reasonably well. She did have significant pain in her knee overnight. He responded better to the La did then oxycodone. She has been out of bed and has voided without difficulty. Exam Vital Signs (past 8 hours): - 01/06/20 00:02 01/06/20 05:49 Temperature 97.5 F L 96.9 F L Pulse Rate 68 81 Respiratory Rate 16 16 Blood Pressure 108/48 L 111/58 L Pulse Oximetry 95 98 Oxygen Delivery Method Room Air,CPAP Oxygen Flow Rate 0 Narrative Exam Narrative: She is alert she is oriented she is resting comfortably in bed. She is able to do a straight leg raise dressings intact calf to soft and she is neurologically intact distally. Objective Labs Result Diagrams: 01/06/20 07:09 Labs: Laboratory Results - last 24 hr 01/06/20 07:09 Hgb 11.7 L Hct 35.0 L Assessment & Plan Assessment & Plan narrative: Doing well after total knee arthroplasty. Going to get her out of bed with physical therapy today and have her ambulate in the mcdonald. Going to discontinue her drain. She can be discharged to home as long as she is ambulating well with therapy. I gave her prescription for Dilaudid for pain control at home she is going to continue her aspirin for DVT prophylaxis.
[2020-01-06 08:05] VITALS: BP 124/56; PULSE 80; RESP 18; TEMP 36.2; O2SAT 98
[2020-01-06] MEDS: DOCUSATE 100 MG CAPSULE PO (08:29)
[2020-01-06] MEDS: ACETAMINOPHEN 325 MG TABLET 650 MG PO (08:29)
[2020-01-06] MEDS: TOLTERODINE LA 4 MG PO (08:29)
[2020-01-06] MEDS: VIT C/E/ZN/COPPR/LUTEIN/ZEAXAN CAPSULE 1 CAP PO (08:29)
[2020-01-06] MEDS: ASPIRIN EC 81 MG TABLET PO (08:29)
--- NOTE | 2020-01-06 09:20 | CM.DANOTE ---
Addendum entered by YURIDIA Bagley 01/06/20 12:02: ADD: PT completed CG training with Dtr Mariya and stairs and cleared pt for safe d/c home. Per RN, completed d/c instructions with pt and Dtr bedside and helped get pt to Dtr's POV for safe d/c home today. No SW needs at this time. BF Original Note: Patient is a 69 year old female who was admitted on 01/05/20 for LTKA. Pt has [facility] and [employer] for insurance and her PCP is Dr. Irene Hyde. EMR was reviewed. Per Ortho MD, pt ambulating some and MD discontinued drain and if pt does well with PT today then can d/c home later today. Per PT, will complete stairs and CG training with pt and Dtr this morning around 1030 and recommending safe d/c home with assist and outpt PT. SW met bedside with pt and explained role and pt confirms that she lives with her in [place] and they have a local supportive adult Dtr. Pt denies any hx of HH or SNF but states she has outpt PT already set up for next week. Pt states that she is independent with ADL's at baseline and drives and does not used DME to ambulate. Pt assists her as he has mild/moderate dementia and spouse can provide some assist at d/c but Dtr plans to stay at least 2 weeks in their home for assist at d/c. Plan: SW to follow after stairs and CG training this morning with Dtr bedside to determine if pt stable for d/c home today vs tomorrow. YURIDIA Bagley Discharge Planning/Care Management Advanced directive, confirm from FAMILY Start: 01/05/20 12:39 Freq: Q24H Status: Complete Protocol: Document 01/05/20 12:39 YAD (Rec: 01/05/20 12:40 YAD [id number]) Advance Directive, confirm on record Time 12:39 Person contacted Pt dropped off prior to surgery Copy received Yes Advanced directive available on record Yes CM Discharge Assessment Start: 01/06/20 09:18 Freq: Status: Active Protocol: Document 01/06/20 09:18 BF (Rec: 01/06/20 09:20 BF [id number]) Discharge Planning Assessment Assigned Administrative Assistant YURIDIA Cook DPOA/Assigned Designee Name Dtr Advance Directives? Yes Advance Directives on File No History Provided By Patient,Medical Record Has Patient been admitted in last 30 No days? Prior Living Arrangements House Household Members spouse Type of transporation used prior to Drives own vehicle admit Independent with ADL's Yes Is patient alert and oriented? Yes Caregiver for Another Yes: Spouse has mild dementia Community Services used prior to Physical Therapy admission: DME Already Rented / Owned Cane Patient/Family Preference OP PT Therapy Barriers to Discharge No Discharge Plan Home Community Services Physical Therapy Transportation Arrangement Dtr plans to be bedside today for CG training and will provide transport home Referrals Initiated None needed Whiteboard Updated in Patient Room with Yes name and ext. # of Administrative Assistant Review Status In Process Please Provide Date Initial DC 01/06/20 Assessment Was Performed Next Review Type Continued Stay Review Pre-Anesthesia Assessment Start: 12/29/19 09:48 Freq: Status: Complete Protocol: Document 12/29/19 09:48 CAB (Rec: 12/29/19 10:49 CAB [id number]) Pre-Anesthesia Assessment Patient Information Reviewed Via Phone Assessment Assessment Completed With Patient Diagnostic Results BMP/CMP,CBC,EKG,Urinalysis Comment Labs/EKG @ [facility], COVID screen @ [facility] 01/02/20 Primary Care Provider Irene Hyde Seen Specialist in Last 12 Months Yes Specialist Seen Gyroscopic Instrument Mechanic,Opthamologist/ Four Slide Machine Operator,Orthopedist Primary Language Yi Storage Battery Inspector Required No Height 154.94 cm Weight 83.007 kg Body Mass Index (BMI) 34.5 Hearing Ability Normal Visual Assist Glasses Dentition Type Teeth, Natural Present Barriers to Learning None Other Aids Yes: CPAP Hx Anesthesia Reactions Yes: PONV Hx Family Anesthesia Reaction No Hx Malignant Hyperthermia No Hx Blood Transfusions No Anesthesia Review Requested No alcohol intake former Smoking Status Never smoker Substance Use Type does not use Pain Present Pain Reported Musculoskeletal Symptoms Abnormal Gait,Back Pain, Difficulty Walking,Joint Pain, Limited Range of Motion History of Falling (Recent or History of No ) Patient is completely paralyzed or No completely immobile Mental Status Oriented to own ability Is patient on oxygen? No Does patient have MASON/SOB Yes: MASON going to mailbox due to incline, deconditioning Hx Sleep Apnea Yes CPAP/BIPAP use prescribed and used routinely Will Bring CPAP/BIPAP DOS Yes Currently Taking a Beta Cristiana No Can You Climb a Flight of Stairs Without No SOB Hx Chest Pain Yes: Went to ED 08/11/19 cardiac work up negative Hx SOB Yes: MASON going to mailbox due to incline, deconditioning Hx Syncope or Dizziness No Anti-Coagulant Therapy No Has a Gyroscopic Instrument Mechanic Yes: Dr. Dudley-last visit 08/24 Cardiac Testing Yes: Echo @ 07/31/19 EF: 60 -65%, stress test Hx Pacemaker/ICD No Pacemaker Rep Required? No Cardiac Clearance Received Not Applicable Comment Cardiac record scanned Diet Type At Home Regular dysphagia No Urinary Catheter Present No Hx Urinary Self Catheterization No Diabetes No HgbA1C 5.9 Date 12/17/19 Patient No Lactating No Presence of External or Internal Medical Yes: Rt knee prosthesis, bilat Devices eye lens, CPAP Have you had any close contact with No someone diagnosed with COVID-19? Marital Status Lives With spouse,family,other,children Prior Living Arrangements House Number of Floors (Floors) One Floor Support System Child/Children,Friend(s), Spouse Does the Patient Have Assistance After Yes: Daughter will assist, Surgery has Alzheimer's Patient Discharge Plan Description Return Home Comment Pt advised overnight length of stay per surgeon Feels Safe in Current Environment Yes Been Physically Hurt or Threatened By a No Person in Current Environment Do you have thoughts of harming yourself None or others? Are you currently considering suicide? No Do you have a plan to hurt yourself or No Plan others? Do You Have Any Spiritual Beliefs That No May Affect Your HC Choices? Do You Have Any Cultural Practices That No May Affect Your HC Choices? Comment Worship Who Can We Speak to About Patient's Care Family, friends Identifying Code for Release of Patient Declines to issue Information Health Care Proxy/Next of Kin Mariya (daughter) Health Care Proxy Emergency Contact Name Mariya (daughter) Emergency Contact Advance Directives? Yes Advance Directives on File No Power of Blankbook Forwarder No Power of Blankbook Forwarder Name Gianni () Mariya ( daughter) Power of Blankbook Forwarder Phone Number Mariya: [phone] PAC Instructions Bring CPAP/BIPAP,Do not shave/ clip surgical site,Durable medical equipment,Medications to take/avoid,Nasal antibiotic ,No ETOH/petroleum product on skin DOS,NPO,Pre-surgical wash ,Sturdy shoes/comfortable clothes,Do not bring valuables and remove jewelry
--- NOTE | 2020-01-06 11:08 | PT.IPTN ---
Current Diagnoses Unilateral primary osteoarthritis, left knee (01/05/20) Surgery Performed Operation Date: 01/05/20 07:45 Actual Procedures p Total Knee Arthroplasty(Left) - Maritza Stone MD Physical Therapy Treatment Note M2 PT-IP Current Condition Start: 01/05/20 16:12 Freq: NEEDED Status: Discharge Protocol: Document 01/05/20 15:05 AB (Rec: 01/05/20 16:28 AB [id number]) Physical Therapy Current Condition Current Condition Evaluation Date 01/05/20 Treatment Diagnosis s/p L TKA; difficulty in walking Onset Date 01/05/20 Weight Bearing Status Weight Bearing Status Weight Bear as Tolerated Allowed Weight Bearing Amount (enter % LLE WBAT or #) (%) M3 PT-IP Subjective Start: 01/05/20 16:12 Freq: NEEDED Status: Discharge Protocol: Document 01/06/20 10:27 SP (Rec: 01/06/20 14:30 SP [email or web address]) Subjective Physical Therapy Visit Type Type Treatment Note Visit Start Time 10:27 Visit Stop Time 11:08 Total Visit Minutes 41 Notes Daughter present and completed caregiver training, provided physical assist needed during tx. Number of [employer] NOVELTY Visits 1 Physical Therapy Visit Comments Patient Comments Pt is agreeable to therapy. Therapy Pain Assessment Pain When Pain Assessed At Rest Pain Present Pain Present Pain Reported Location Left Knee Intensity 2 Scale Used 2/10 at rest, 5-6/10 during mobility Pain Management Techniques Apply Cold,Re-positioning, Timing of Activity with Medications M4 PT-IP Mobility and Gait Start: 01/05/20 16:12 Freq: NEEDED Status: Discharge Protocol: Document 01/06/20 10:27 SP (Rec: 01/06/20 14:30 SP [email or web address]) PT-Bed Mobility Assessment Supine to Sit Supine to Sit Standby Assistance Sit to Supine Sit to Supine Standby Assistance Scooting Scooting to Edge of Bed Standby Assistance PT-Transfer Assessment Sit to and From Stand Sit to and from Stand Contact Guard Assistance,1 Person Assistance,Use of Upper Extremities Equipment Transfer Assistive Device Gait Belt,Front Wheeled Walker Orthotic/Prosthetic Devices or Brace: No Transfers Transfer Destination Chair Transfer Technique Ambulated usign FWW Transfer Ability Level of Assist Contact Guard Assistance,1 Person Assistance,Use of Upper Extremities Comments Mobility Comments Pt was elevated in chair when arrived. Assisted patient with lowering leg rests with support to LLE as needed. Daughter donned gait belt. sit <> stand usign BUE push from chair arms then use of FWW, CGA by daughter provided. Pt ambulated further distance in to hallway approx 40 ft then required seated rest in w/c due to tiring, cued for reaching back and slow descent into w/c. Daughter wheeled patietn down to stairs. Good safety w/c brakes applied pre sit <> stand CGA, ascend/ descend 3 stairs Mod A of 1 trunk stability and SENIOR MECHANICAL DESIGN ENGINEER on R, Min A of 1 for SPC stability in LUE (not able complete with SPC in RUE), step to gait and occasional cuing for patterning SPC and BLE. Cuing provided daughter's body positioning. Pt required low Min A of 2nd person for safety and daughter stated that her will be home to assist her and will be usign gait belt for safety. Pt was ableto walk further distance in hallway stair to room R side of bed approx 120 ft usuing fWW and w/c follow but not needed, cuing for L knee flexion and heel to gait patterning, quad facilitation awareness due to little unsteady durign mid stance to prevent buckling and normalize gait with good demonstration as distance progressed. Sitting<> supine, able to lift LLE onto bed self with no UE support, SBA. SPT bed > chair usign FWW, CGA by daughter and slow descent CGA. Reviewed LAQ, and when supine LE quad sets, ankle pumps and 10 % A wtih heel slides but knows can use gait belt for self performance on foot. INformed to walk around every hour for strength and circulation to decrease risk for DVT with verbal understanding. Pt had all needs in reach includign call light. Pt reported increased L knee pain but tolerable during mobility, premedicated approx 1 hr prior to PT and provided CP end of tx for pain control. Gait Assessment Gait Gait Assistance Required: Contact Guard Assist Distance (Feet) 120 Able to Maintain Weight Bearing Status Yes During Gait Assistive Devices Assistive Device Gait Belt,Front Wheeled Walker Orthotic/Prosthetic Devices or Brace: No Gait Deviations General Gait Pattern Antalgic Factors Limiting Gait Function Factors Limiting Gait Function Decreased Activity Tolerance, Decreased Strength,Pain,Poor Balance,Poor Safety Awareness Comments Gait Comments See mobility comments for more details. Stair Climbing Assessment Evaluation Level of Assist On Stairs Minimal Assistance,Moderate Assistance,2 Person Assistance Devices Stair Climbing Assistive Devices None,Straight Cane Technique/Endurance Stair Climbing Direction Ascend and Descend Stair Climbing Technique Step to Step Number of Steps Climbed 3 Stair Climbing Set # Repetitions (reps) 1 Comments Stair Climbing Comments See mobility comments for more details. PT-Balance Assessment Sitting Balance and Reactions Static Sitting Balance Ability Good Dynamic Sitting Balance Ability Good Standing Balance and Reactions Static Standing Balance Ability Fair Dynamic Standing Balance Ability Fair Device Used FWW M5 PT-IP Objective Assessments Start: 01/05/20 16:12 Freq: NEEDED Status: Discharge Protocol: Document 01/05/20 15:05 AB (Rec: 01/05/20 16:28 AB [id number]) Orientation Orientation/Cognition Level of Alertness Alert Orientation Name,Place,Situation Language Function Ability No Deficits Noted Memory Description No Deficits Noted Gross Range of Motion Lower Extremity ROM Impairments L knee flexion ~ 70 deg L knee extension ~ 20 deg less to 0 Strength Lower Extremity Strength Assessment Left Impaired Hip 3+/5 Knee 3+/5 Sensation Assessment Sensation Gross Sensation WNL M6 PT-IP Treatment Start: 01/05/20 16:12 Freq: NEEDED Status: Discharge Protocol: Document 01/06/20 10:27 SP (Rec: 01/06/20 14:30 SP [email or web address]) Physical Therapy Treatment Exercises Exercises Ankle Pumps,Quad Sets,Heel Slides,Seated Knee Flexion/ Extension Education Education Provided Precautions,Weight Bearing Status,Post-Op Packet,Safety M7 PT-IP Assessment and Plan Start: 01/05/20 16:12 Freq: NEEDED Status: Discharge Protocol: Document 01/06/20 10:27 SP (Rec: 01/06/20 14:30 SP [email or web address]) PT Summary Assessment and Plan Potential Rehabilitation Potential Good Status of Condition at Evaluation Evolving Summary Impairments Pain,ROM,Strength,Balance, Coordination,Sensation,Bed Mobility,Transfers,Gait, Activity Tolerance Assessment Summary Pt requiring CGA during standign activities, SBA bed mobility, Min-mod A of 1-2 persons on stairs using SPC in LUE, SENIOR MECHANICAL DESIGN ENGINEER on R and gait belt for safety balance support with good demonstration due to no hand rails at home. Pt has the support at home of her daughter and daughter's if needed, is safe to return home when medically stable. Pt stated that she is scheduled for outpt PT. Goals Bed Mobility Goal Independent Transfer Goal Standby Assistance,Front Wheeled Walker Gait Goal Standby Assistance,Front Wheel Walker Gait Distance 200 Other Goals up/down 2 steps SPC/SENIOR MECHANICAL DESIGN ENGINEER CGA Days to Meet Goals 5 Frequency of Treatment Frequency Of Treatment Twice a Day Treatment Plan Physical Therapy Treatment Plan Bed Mobility Training,Transfer Training,Gait Training, Therapeutic Exercise,Balance Retraining,Post Op Education, Discharge Planning,Hot or Cold Pack,Neuromuscular Re-ed, Coordination Retraining,Manual Therapy Other Recommendations and Next Treatment ambulation, stair climbing, LE Focus exercises Recommendations To Nursing Amount of Assist Needed 1 Person Assist Discharge Recommendations PT Discharge Recommendations Home with Assistance, Outpatient PT Transportation Needs at Discharge Private Vehicle
--- NOTE | 2020-01-06 11:25 | PC.NURSE ---
Pt's daughter Mariya arrived to take Pt home and have caregiver training. Pt has been cleared by P.T. IV and HV removed. Went over d/c instructions with Pt. and Daughter-discussed d/c meds, time of last dose, reviewed stroke education, s/s of infection, encouraged fluid intake to prevent constipation or dehydration as well as tapering narcotics as soon as she is able to decrease constipation. Encouraged Pt to ice knee for 20 minutes off/on and elevated as able to reduce swelling. Pt is aware she may remove the wilbert bandage and shower as desired but to keep the dressing in place until follow up appointment and notify MD if dressing becomes saturated or has significant drainage. Pt agrees that she will not drive while on narcotics and will follow up with her MD as scheduled. Pt out via w/c by [facility] to POV with daughter and all belongings.
== END 2020-01-06 11:49 | disposition home or self-care (01) ==
LOC: OR 06:13 → AC 06:13
PROVIDERS: Family Provider Family Medicine; PCP Student in an Organized Health Care Education/Training Program; Referring Provider Student in an Organized Health Care Education/Training Program; Visit Provider Orthopaedic Surgery
PROC: 0SRD0JZ Replacement of Left Knee Joint with Synthetic Substitute, Open Approach (ICD-10-PCS; CPT 27447; principal; 2020-01-05 07:45)
DX: M17.12 Unilateral primary osteoarthritis, left knee (principal); M81.0 Age-related osteoporosis without current pathological fracture; J45.909 Unspecified asthma, uncomplicated; E03.9 Hypothyroidism, unspecified; G47.33 Obstructive sleep apnea (adult) (pediatric); G43.909 Migraine, unspecified, not intractable, without status migrainosus
CPT/HCPCS: 27447; 36415; 73560; 85014; 85018; 97116; 97162; 97530; C1776; C9290; J1100; J1170; J2250; J2405; J2704; J3010

== ENCOUNTER → 2020-01-29 13:27 | Outpatient (CLI) | payer MEDICARE, OTHER, SELFPAY ==
[2020-01-05 12:19] VITALS: BMI 34.2
--- NOTE | 2020-01-29 | DI.RAD.S_ITS ---
PROCEDURE: XR KUB INDICATIONS: Diarrhea, unspecified TECHNIQUE: One view of the abdomen acquired. COMPARISON: None. FINDINGS: Surgical changes and devices: None. Bowel: Bowel gas pattern is normal. Soft tissues: No suspicious abdominal calcifications. Visualized solid organ contours appear normal in size. Bones: Lower lumbar spondylosis and facet arthropathy. IMPRESSION: Negative examination as above. Dictated by: Luis Pollock M.D. on 01/29/2020 at 14:18 Approved by: Luis Pollock M.D. on 01/29/2020 at 14:21
== END ==
PROVIDERS: PCP Student in an Organized Health Care Education/Training Program; Referring Provider Student in an Organized Health Care Education/Training Program; Visit Provider Student in an Organized Health Care Education/Training Program
DX: R19.7 Diarrhea, unspecified (principal)
CPT/HCPCS: 74018

== ENCOUNTER → 2020-03-23 13:08 | Outpatient (CLI) | payer MEDICARE, OTHER, SELFPAY ==
[2020-01-05 12:19] VITALS: BMI 34.2
--- NOTE | 2020-03-23 13:10 | DI.US.S_ITS ---
PROCEDURE: US PERIPH VENOUS LOW EXTREM LT INDICATIONS: LEFT CALF LUMP 2 MONTHS POST KNEE REPLACEMENT TECHNIQUE: Real-time imaging, as well as color and pulse Doppler interrogation, were performed of the lower extremity deep veins from the inguinal ligament to the popliteal fossa. COMPARISON: None. FINDINGS: The common femoral, femoral and popliteal veins are normally compressible, and free of intraluminal thrombus. Color and pulse Doppler demonstrate normal phasic intraluminal flow. There is normal augmentation response to distal compression maneuver. At the area of the calf lump, there is a nonvascular lipomas seen that measures 5.7 x 1.1 x 1.3 cm. IMPRESSION: Negative for deep venous thrombosis. A lipoma can be seen within the calf at the area of clinical concern. Dictated by: Joshua Negrete M.D. on 03/23/2020 at 13:25 Approved by: Joshua Negrete M.D. on 03/23/2020 at 13:26
== END ==
PROVIDERS: PCP Student in an Organized Health Care Education/Training Program; Referring Provider Orthopaedic Surgery; Visit Provider Orthopaedic Surgery
DX: D17.24 Benign lipomatous neoplasm of skin and subcutaneous tissue of left leg (principal); Z96.652 Presence of left artificial knee joint
CPT/HCPCS: 93971

== ENCOUNTER → 2020-05-25 11:18 | Outpatient (CLI) | payer MEDICARE, OTHER, SELFPAY ==
[2020-01-05 12:19] VITALS: BMI 34.2
--- NOTE | 2020-05-25 | DI.MG.S_ITS ---
BILATERAL DIGITAL SCREENING MAMMOGRAM 3D/2D WITH CAD: 05/25/2020 CLINICAL: Routine screening. Family history of breast cancer. Comparison is made to exams dated: 05/25/2019 mammogram, 05/07/2017 mammogram, and 02/21/2016 mammogram - [facility]. The tissue of both breasts is predominantly fatty. Current study was also evaluated with a Computer Aided Detection (CAD) system. No significant masses, calcifications, or other findings are seen in either breast. There has been no significant interval change. IMPRESSION: NEGATIVE There is no mammographic evidence of malignancy. A 1 year screening mammogram is recommended. This exam was interpreted at Station ID: [id number]. NOTE: For mammograms, a report in lay terms will be sent to the patient. Approximately 15% of breast malignancies will not be visualized mammographically. In the management of a palpable breast mass, a negative mammogram must not discourage biopsy of a clinically suspicious lesion. Electronically Signed By: Eagle Arthur M.D., jr/melba:05/25/2020 13:24:25 letter sent: Normal Exam ACR BI-RADS Category 1: Negative [id number]
== END ==
PROVIDERS: PCP Student in an Organized Health Care Education/Training Program; Referring Provider Student in an Organized Health Care Education/Training Program; Visit Provider Student in an Organized Health Care Education/Training Program
DX: Z12.31 Encounter for screening mammogram for malignant neoplasm of breast (principal); Z80.3 Family history of malignant neoplasm of breast
CPT/HCPCS: 77063; 77067

== ENCOUNTER → 2020-06-06 14:13 | Outpatient (CLI) | payer MEDICARE, OTHER, SELFPAY ==
[2020-01-05 12:19] VITALS: BMI 34.2
== END ==
PROVIDERS: PCP Student in an Organized Health Care Education/Training Program; Referring Provider Student in an Organized Health Care Education/Training Program; Visit Provider Student in an Organized Health Care Education/Training Program
DX: M81.0 Age-related osteoporosis without current pathological fracture (principal); Z78.0 Asymptomatic menopausal state; E07.9 Disorder of thyroid, unspecified; Z82.62 Family history of osteoporosis
CPT/HCPCS: 77080

== ENCOUNTER → 2021-05-26 14:07 | Outpatient (CLI) | payer MEDICARE, OTHER, SELFPAY ==
[2020-01-05 12:19] VITALS: BMI 34.2
--- NOTE | 2021-05-26 | DI.MG.S_ITS ---
BILATERAL DIGITAL SCREENING MAMMOGRAM 3D/2D WITH CAD: 05/26/2021 CLINICAL: Routine screening. Family history of breast cancer. Comparison is made to exams dated: 05/25/2020 mammogram, 05/25/2019 mammogram, and 05/07/2017 mammogram - [facility]. The tissue of both breasts is predominantly fatty. Current study was also evaluated with a Computer Aided Detection (CAD) system. No significant masses, calcifications, or other findings are seen in either breast. There has been no significant interval change. IMPRESSION: NEGATIVE There is no mammographic evidence of malignancy. A 1 year screening mammogram is recommended. This exam was interpreted at Station ID: [id number]. NOTE: For mammograms, a report in lay terms will be sent to the patient. Approximately 15% of breast malignancies will not be visualized mammographically. In the management of a palpable breast mass, a negative mammogram must not discourage biopsy of a clinically suspicious lesion. Electronically Signed By: Ace Romero acr/penrad:05/26/2021 14:51:00 letter sent: Normal Exam ACR BI-RADS Category 1: Negative [id number]
== END ==
PROVIDERS: PCP Student in an Organized Health Care Education/Training Program; Referring Provider Student in an Organized Health Care Education/Training Program; Visit Provider Student in an Organized Health Care Education/Training Program
DX: Z12.31 Encounter for screening mammogram for malignant neoplasm of breast (principal); Z80.3 Family history of malignant neoplasm of breast
CPT/HCPCS: 77063; 77067

== ENCOUNTER → 2021-09-04 10:32 | Outpatient (CLI) | payer MEDICARE, OTHER, SELFPAY ==
[2020-01-05 12:19] VITALS: BMI 34.2
--- NOTE | 2021-09-04 | DI.NM.S_ITS ---
PROCEDURE: NM BRANDIE PERF SPECT REST & STR Rest and exercise myocardial perfusion SPECT with gated imaging and ejection fraction RADIOPHARMACEUTICAL: 26.1 mCi Tc-99m sestamibi IV at rest and 24.9 mCi Tc-99m sestamibi IV at peak exercise. A 3-oke-ejhlsksu was performed. INDICATIONS: Shortness of breath TECHNIQUE: Radiopharmaceutical was injected at peak stress test, and also at rest. SPECT images were obtained. SPECT myocardial perfusion images were displayed in short axis, horizontal long axis, and vertical long axis views. Gated images were reviewed using [employer] software. COMPARISON: None. CARDIAC STRESS: A standard Derrick treadmill exercise tolerance test was performed by the patient under the supervision of an attending staff. The patient exercised for 3 minutes and 0 seconds; 4.6 METS; functional aerobic impairment (GARDEN[place]) is +43%%. Hemodynamic data: There is normal blood pressure and heart rate response to exercise stress. Patient achieved 87% of maximum predicted heart rate at peak exercise. Maximum blood pressure 202/102. Symptoms: Patient denied chest pain during exercise. EKG: No diagnostic EKG changes of ischemia; no ectopy. FINDINGS: Raw data: There is good myocardial labeling by radiotracer. No significant motion artifacts. Banl-md-bovfi ratio is 0.41 (normal is less than 0.38 for sestamibi tracer, and less than 0.50 for thallium tracer). Left ventricle function: Gated images demonstrate normal left ventricle wall thickening. No segmental wall motion abnormality. No transient ischemic dilation; TID is 0.93 (normal less than 1.3). The left ventricle resting end-diastolic volume is 79 mL. Left ventricle stress ejection fraction is >75%; normal values are above 45%. Myocardial perfusion: There is a large size, mild intensity fixed anterior and anteroseptal wall defect that resolves on prone imaging. IMPRESSION: No evidence of inducible ischemia or scar on ECG or SPECT imaging. There is a large size, mild intensity fixed anterior and anteroseptal wall defect that resolves on prone imaging. This wall also has preserved wall motion on gated imaging making this most consistent with breast attenuation. Hypertensive response to exercise. Reduced exercise capacity. Dictated by: Christin Maria D.O. on 09/05/2021 at 12:46 Approved by: Christin Maria D.O. on 09/05/2021 at 12:51
[2021-09-04 11:48] LABS: COVID19 -Nasal RAPID Negative (Negative)
== END ==
PROVIDERS: PCP Student in an Organized Health Care Education/Training Program; Referring Provider Student in an Organized Health Care Education/Training Program; Visit Provider Student in an Organized Health Care Education/Training Program
DX: R06.02 Shortness of breath (principal); R03.0 Elevated blood-pressure reading, without diagnosis of hypertension; Z20.822 Contact with and (suspected) exposure to COVID-19
CPT/HCPCS: 78452; 87635; 93017; A9502

== ENCOUNTER → 2021-10-13 14:55 | Outpatient (CLI) | payer MEDICARE, OTHER, SELFPAY ==
[2020-01-05 12:19] VITALS: BMI 34.2
--- NOTE | 2021-10-13 | DI.RAD.S_ITS ---
PROCEDURE: XR CHEST 2V INDICATIONS: Shortness of breath TECHNIQUE: 2 views of the chest were acquired. COMPARISON: [facility], CR, XR CHEST 1V, 08/11/2019, 22:31. [facility], CR, XR CHEST 2V, 07/31/2019, 11:27. FINDINGS: Surgical changes and devices: None. Lungs and pleura: No focal consolidation. Some haziness of the lower lung favored to represent overlying soft tissues. No pleural effusions. Mediastinum: Mediastinal contours are normal. Heart size is normal. Bones and chest wall: No suspicious bony abnormalities. Soft tissues appear unremarkable. IMPRESSION: No acute radiographic abnormality. Haziness in the lower lung figueroa favored represent overlying soft tissue, lateral view is reassuring. Dictated by: Shailesh Rudolph M.D. on 10/13/2021 at 17:39 Approved by: Shailesh Rudolph M.D. on 10/13/2021 at 17:41
== END ==
PROVIDERS: PCP Family Medicine; Referring Provider Family Medicine; Visit Provider Internal Medicine
DX: R06.02 Shortness of breath (principal)
CPT/HCPCS: 71046

== ENCOUNTER → 2021-10-19 10:54 | Outpatient (CLI) | payer MEDICARE, OTHER, SELFPAY ==
[2020-01-05 12:19] VITALS: BMI 34.2
[2021-10-19 11:48] LABS: COVID19 -Nasal RAPID Negative (Negative)
== END ==
PROVIDERS: PCP Family Medicine; Referring Provider Internal Medicine; Visit Provider Internal Medicine
DX: Z20.822 Contact with and (suspected) exposure to COVID-19 (principal)
CPT/HCPCS: 87635; C9803

== ENCOUNTER → 2021-10-20 11:45 | Outpatient (CLI) | payer MEDICARE, OTHER, SELFPAY ==
[2020-01-05 12:19] VITALS: BMI 34.2
--- NOTE | 2021-10-25 09:12 | PM.PFT.1 ---
Pulmonary Function Test Referral & Results Date Patient Seen: 10/20/21 Requesting provider: Anton Gee Results: The spirometry demonstrates an FVC of 1.85 L which is 73% of predicted. The FEV1 was measured at 1.47 L which is 78% of predicted. The FEV1/FVC ratio was 80 which is 106% of predicted. Following the administration of bronchodilator there was 16% improvement in FEV1 and a 73% improvement in FEF 25-75%. Lung volumes show an SVC of 2.15 L which is 86% of predicted. The diffusing capacity was measured at 16.20 which is 80% of predicted. No hemoglobin value was provided, so no correction for potential anemia could be made, if appropriate. The maximum voluntary ventilation was reduced Interpretation: This study demonstrates probably mild obstructive lung disease based on reduction FEV1 although FEV1/FVC ratio was preserved there is evidence of benefit following bronchodilator particularly in small airway flow based on improvement in FEF 25-75% as above There is a minimal reduction in lung volumes suggesting the possibility of minimal restrictive lung disease There is also minimal reduction diffusing capacity suggesting the possibility of disease at the capillary alveolar level Clinical correlation suggested
== END ==
PROVIDERS: PCP Family Medicine; Referring Provider Family Medicine; Visit Provider Family Medicine
DX: R06.02 Shortness of breath (principal); J98.8 Other specified respiratory disorders
CPT/HCPCS: 94060; 94726; 94729

== ENCOUNTER → 2021-10-24 10:59 | Outpatient (CLI) | payer MEDICARE, OTHER, SELFPAY ==
[2020-01-05 12:19] VITALS: BMI 34.2
--- NOTE | 2021-10-24 11:18 | DI.CT.S_ITS ---
PROCEDURE: CT CHEST W CON INDICATIONS: Shortness of breath TECHNIQUE: After the administration of intravenous contrast, 5 mm thick sections acquired from the pulmonary apices to the posterior costophrenic angles. 1 mm axial lung, 5 mm thick coronal and sagittal reformats and 7 mm axial MIP were acquired. For radiation dose reduction, the following was used: automated exposure control, adjustment of mA and/or kV according to patient size. COMPARISON: [facility], CR, XR CHEST 2V, 10/13/2021, 15:10. FINDINGS: Image quality: Excellent. Lungs and pleura: Scattered atelectasis or scarring. No dense consolidation. No pleural effusions. 6 mm right upper lobe nodule (3/55). There may be spiculations versus adjacent scar. Other nodules are present that are smaller and less suspicious appearing. Mediastinum: Small hiatal hernia. Heart size is normal. No thoracic aortic aneurysm. No lymphadenopathy. Bones and chest wall: Thyroid is within normal limits. Chest wall is unremarkable. Abdomen: 15 mm left adrenal nodule. IMPRESSION: No acute thoracic abnormality. There is a 6 mm right upper lobe nodule with suspected spiculations versus scarring. Follow-up chest CT is recommended in 3-6 months. 15 mm left adrenal nodule, most commonly an adenoma. This could be further evaluated with adrenal protocol CT or MRI. Other incidental findings above. Dictated by: Shailesh Rudolph M.D. on 10/24/2021 at 15:10 Approved by: Shailesh Rudolph M.D. on 10/24/2021 at 15:17
== END ==
PROVIDERS: PCP Family Medicine; Referring Provider Family Medicine; Visit Provider Family Medicine
DX: R06.02 Shortness of breath (principal); R91.1 Solitary pulmonary nodule; E27.9 Disorder of adrenal gland, unspecified
CPT/HCPCS: 71260

== ENCOUNTER → 2021-11-04 14:52 | Outpatient (CLI) | payer MEDICARE, OTHER, SELFPAY ==
[2020-01-05 12:19] VITALS: BMI 34.2
--- NOTE | 2021-11-04 | DI.MRI.S_ITS ---
PROCEDURE: MR ABDOMEN WO CON INDICATIONS: Other specified disorders of adrenal gland TECHNIQUE: Coronal HASTE, axial 2-D FLASH in- and [id number] with subtractions from the hepatic dome to the iliac crests. COMPARISON: [facility], CT, CT CHEST W CON, 10/24/2021, 11:10. FINDINGS: Image quality: Excellent. Adrenal glands: 13 mm left adrenal nodule with type 2 chemical shift artifact. Other solid organs: Nondilated partially visualized biliary tree. No pancreatic ductal dilation. There are renal cysts. Nodes and vessels: No lymphadenopathy or abdominal aortic aneurysm. Bowel and peritoneum: Colonic diverticula. Small hiatal hernia. Lung bases: Unremarkable on limited MR evaluation Bones and soft tissues: Unremarkable. IMPRESSION: 13 mm left adrenal lipid rich adenoma. Incidentally noted cholelithiasis and hepatic steatosis. Dictated by: Shailesh Rudolph M.D. on 11/06/2021 at 8:47 Approved by: Shailesh Rudolph M.D. on 11/06/2021 at 8:52
== END ==
PROVIDERS: PCP Family Medicine; Referring Provider Family Medicine; Visit Provider Family Medicine
DX: D35.02 Benign neoplasm of left adrenal gland (principal); K80.20 Calculus of gallbladder without cholecystitis without obstruction; K76.0 Fatty (change of) liver, not elsewhere classified
CPT/HCPCS: 74181

== ENCOUNTER → 2021-11-13 15:43 | Outpatient (CLI) | payer MEDICARE, OTHER, SELFPAY ==
[2020-01-05 12:19] VITALS: BMI 34.2
--- NOTE | 2021-11-13 15:45 | DI.ECHO.S_ITS ---
[facility]---------+ [facility] +---------+ : : [address] : : : : [id number] : : : : Phone: [phone]+ Echocardiogram Report + + :Name: ELISEO DIALLO Study Date: 11/13/2021 Height: 61 in : :[facility] ReadingLocation: Weight: 219 lb: : Gender: Female BSA: 2.0 m2 : :: 1950 Age: 71 yrs : :Reason For Study: SHORTNESS OF BREATH : :Ordering Physician: JOYCE, : :MATTHEW Performed By: Janey Choe : :Referring: MATTHEW COOK : + + Interpretation Summary 1) Normal left ventricular thickness, size, wall motion, and systolic function (EF 55-60%). 2) Normal right ventricular size and function. 3) Diastolic parameters suggest a pseudonormalization pattern, consistent with probable elevated filling pressures. 4) No significant valvular abnormalities. 5) Compared to the Echo done 07/31/2019, no significant change. Procedure: A two-dimensional transthoracic echocardiogram with color flow and Doppler was performed. The study quality was technically adequate. Comparison is made with the echocardiogram of 07/31/2019. The patient was in sinus rhythm with heart rates between 70-85 bpm during the exam. Left Ventricle: The left ventricle is normal in size and wall thickness. The ejection fraction is estimated to be 55-60%. Left ventricular systolic function appears normal without focal wall motion abnormalities. Diastolic parameters suggest a pseudonormalization pattern, consistent with probable elevated filling pressures. Right Ventricle: The right ventricle is normal in size and function. Atria: The left atrium is moderately dilated. Right atrial size is normal. There is no Doppler evidence for an interatrial shunt. Mitral Valve: The mitral valve is normal in structure and function. There is mild mitral regurgitation. Aortic Valve: The aortic valve is trileaflet. The aortic valve opens well. There is no aortic valve stenosis. There is mild aortic regurgitation. Tricuspid Valve: The tricuspid valve is normal in structure and function. There is trace tricuspid regurgitation. Pulmonary artery pressures cannot be estimated because of the lack of a measurable TR jet velocity. Pulmonic Valve: The pulmonic valve is not well visualized. There is mild pulmonic regurgitation. Great Vessels: The aortic root is normal size. The dimensions of the ascending aorta are normal. The IVC is dilated (diameter is greater than 2.1 cm) yet it collapses greater than 50% with a sniff. This suggests a right atrial pressure of 8 mm Hg. Pericardium/ Pleura There is no pericardial effusion. There is no pleural effusion. MMode/2D Measurements & Calculations LVIDd: 4.1 cm LVOT diam: 2.0 cm LVIDs: 2.5 cm Ao root diam: 2.7 cm FS: 38.6 % asc Aorta Diam: 3.2 cm IVSd: 0.86 cm Ao Arch Diam (Prox Trans): 2.9 cm LVPWd: 0.75 cm LV box. diameter/BSA (cm/m^2): 2.1 LV sys. diameter/BSA (cm/m^2): 1.3 LA A2 area: 23.9 cm2 RA long axis: 4.6 cm LA A4 area: 17.0 cm2 RA area: 12.3 cm2 LA length (vol): 4.8 cm RA vol: 28.0 ml LA vol: 71.7 ml RA : 14.3 ml/m2 LA vol index: 36.5 ml/m2 IVC diam: 2.3 cm RVD1 (basal): 3.6 cm RVD2 (mid): 3.5 cm TAPSE: 2.4 cm Doppler Measurements & Calculations Ao V2 max: 138.7 cm/sec LVOT Max Silvestre: 92.5 cm/sec Ao V2 mean: 99.4 cm/sec LV V1 max P.4 mmHg Ao max P.7 mmHg LV V1 VTI: 23.3 cm Ao mean P.4 mmHg AGNES(I,D): 2.2 cm2 Ao V2 VTI: 32.5 cm AGNES(V,D): 2.1 cm2 sev ratio: 0.72 AGNES indexed to BSA (cm^2/m^2): 1.1 MV E max silvestre: 99.0 cm/sec PA V2 max: 87.4 cm/sec MV A max silvestre: 114.0 cm/sec PA V2 mean: 65.3 cm/sec MV E/A: 0.87 PA mean P.9 mmHg Med Peak E' Silvestre: 4.7 cm/sec PA pr(Accel): 36.2 mmHg E/E' med: 21.0 Lat Peak E' Silvestre: 8.6 cm/sec E/E' lat: 11.5 E/e' average: 16.3 MV dec time: 0.26 sec SV(LVOT): 72.2 ml Reading Physician:05:16 PM
== END ==
PROVIDERS: PCP Family Medicine; Referring Provider Family Medicine; Visit Provider Family Medicine
DX: R06.02 Shortness of breath (principal); I08.0 Rheumatic disorders of both mitral and aortic valves
CPT/HCPCS: 93306

== ENCOUNTER → 2022-06-01 13:19 | Outpatient (CLI) | payer MEDICARE, OTHER, SELFPAY ==
[2020-01-05 12:19] VITALS: BMI 34.2
--- NOTE | 2022-06-01 | DI.MG.S_ITS ---
BILATERAL DIGITAL SCREENING MAMMOGRAM 3D/2D WITH CAD: 06/01/2022 CLINICAL: Routine screening. Family history of breast cancer. Comparison is made to exams dated: 05/26/2021 mammogram, 05/25/2020 mammogram, and 05/25/2019 mammogram - [facility]. Both breasts are almost entirely fatty (category a/<25% glandular tissue). Current study was also evaluated with a Computer Aided Detection (CAD) system. No significant masses, calcifications, or other findings are seen in either breast. There has been no significant interval change. IMPRESSION: NEGATIVE There is no mammographic evidence of malignancy. A 1 year screening mammogram is recommended. Based on the Tyrer Cuzick model (a risk assessment model) the patient's lifetime risk is 3.4% and her 10 year risk is 3.1%. According to the ACR, ACS, and NCCN guidelines, an annual breast MRI exam along with mammogram is recommended if the patient's lifetime risk is 20% or greater. This exam was interpreted at Station ID: [id number]. NOTE: For mammograms, a report in lay terms will be sent to the patient. Approximately 15% of breast malignancies will not be visualized mammographically. In the management of a palpable breast mass, a negative mammogram must not discourage biopsy of a clinically suspicious lesion. Electronically Signed By: Jessica cid/[email or web address]:06/01/2022 17:39:31 letter sent: Normal Exam ACR BI-RADS Category 1: Negative 3341F
== END ==
PROVIDERS: PCP Family Medicine; Referring Provider Family Medicine; Visit Provider Family Medicine
DX: Z12.31 Encounter for screening mammogram for malignant neoplasm of breast (principal); Z80.3 Family history of malignant neoplasm of breast
CPT/HCPCS: 77063; 77067

== ENCOUNTER → 2022-11-28 12:35 | Outpatient (CLI) | payer MEDICARE, OTHER, SELFPAY ==
[2020-01-05 12:19] VITALS: BMI 34.2
--- NOTE | 2022-11-28 12:38 | DI.CT.S_ITS ---
PROCEDURE: CT CHEST WO CON INDICATIONS: Solitary pulmonary nodule,Lumbar spondylosis TECHNIQUE: Noncontrast 5 mm thick sections acquired from the pulmonary apices to the posterior costophrenic angles. 1 mm lung window, 5 mm thick coronal and sagittal and 7 mm axial MIP reformats were then acquired. For radiation dose reduction, the following was used: automated exposure control, adjustment of mA and/or kV according to patient size. COMPARISON: [facility], CT, CT CHEST W CON, 10/24/2021, 11:10. FINDINGS: Image quality: Excellent. Lungs and pleura: Stable 6 millimeter solid nodule in the right upper lobe (series 3, image 49). New 5-6 millimeter solid nodule in the right lung apex (series 3, image 44). Scattered juxtapleural scarring and pleural parenchymal bands. Mild centrilobular emphysema. Mediastinum: Heart size is normal. No pericardial effusion. No mediastinal adenopathy by size criteria. Thoracic aorta and central pulmonary arteries are normal in size. Esophagus is normal in caliber. No hiatal hernia. Bones and chest wall: No suspicious bony lesions. No vertebral body compression fractures. No axillary or supraclavicular adenopathy by size criteria. Thyroid gland is mildly heterogeneous. Abdomen: Visualized upper abdominal solid organs and bowel loops appear normal in the absence of contrast. IMPRESSION: New solid pulmonary nodule measuring 4-5 millimeters in the right lung apex. Consider 12 month follow-up if at high risk for developing lung cancer, per Fleischner Society guidelines. Stable 6 millimeters solid nodule in the right lung apex. No further follow-up of this nodule is recommended. Dictated by: Nigel Richey M.D. on 11/28/2022 at 15:22 Approved by: Nigel Richey M.D. on 11/28/2022 at 15:26
--- NOTE | 2022-11-28 12:38 | DI.MRI.S_ITS ---
PROCEDURE: MR LUMBAR SPINE WO CON INDICATIONS: Solitary pulmonary nodule,Lumbar spondylosis TECHNIQUE: Noncontrast sagittal T1 spin echo and T2 fast echo, sagittal STIR, and T2 fast spin echo through the lumbar spine. In cases with scoliosis, additional coronal T2 fast spin echo may be performed. COMPARISON: [facility], MR, L-SPINE WITHOUT CONTRAST, 05/03/2015, 9:09. [facility] [place], CR, XR LUMBAR SPINE 2 OR 3 VIEWS, 08/09/2022, 13:26. FINDINGS: Image quality: There is motion artifact. Alignment: No significant spondylolisthesis. Marrow: No acute fracture. Multilevel disc desiccation. Cord: Conus terminates in appropriate position. Unremarkable appearance of the cauda equina nerve roots. Soft tissues: No retroperitoneal mass lesion. Nonspecific post-lumbar edema. Specific levels: T12-L1 minimal facet arthropathy. Mild right neural foraminal narrowing. L1-L2: Mild facet arthropathy. No stenosis. L2-L3: Mild facet arthropathy. Small diffuse disc bulge. No stenosis. L3-L4: Mild facet arthropathy. Mild right subarticular recess narrowing. Mild disc bulge. No stenosis elsewhere. L4-L5: Central protrusion has decreased from prior imaging. Moderate facet arthropathy. Jjlk-jb-awuzyorx central narrowing affecting the right greater left articular recesses. 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 Mild left neural foraminal narrowing. L5-S1: Jjzu-tj-orwsjgik facet arthropathy. Small diffuse disc bulge. No stenosis. IMPRESSION: Degenerative changes as described above, worst at L4-L5, without critical stenosis. The protrusion at L4-L5 previously described is decreased or resected. Dictated by: Shailesh Rudolph M.D. on 11/28/2022 at 16:38 Approved by: Shailesh Rudolph M.D. on 11/28/2022 at 16:47
== END ==
PROVIDERS: PCP Family Medicine; Referring Provider Orthopaedic Surgery Orthopaedic Surgery of the Spine; Visit Provider Orthopaedic Surgery Orthopaedic Surgery of the Spine
DX: J43.2 Centrilobular emphysema (principal); R91.8 Other nonspecific abnormal finding of lung field; M47.816 Spondylosis without myelopathy or radiculopathy, lumbar region; M47.817 Spondylosis without myelopathy or radiculopathy, lumbosacral region
CPT/HCPCS: 71250; 72148

== ENCOUNTER → 2022-12-19 14:44 | Outpatient (CLI) | payer MEDICARE, OTHER, SELFPAY ==
[2020-01-05 12:19] VITALS: BMI 34.2
--- NOTE | 2022-12-19 | DI.RAD.S_ITS ---
Bone Density Report Name: ELISEO DIALLO Age: 72 Sex: Female Ethnicity: White Date of : 1950 Indication: postmenopausal osteoporosis; monitoring treatment; Referring Provider: MATTHEW COOK Study: Bone densitometry was performed. Exam Date: December 19, 2022 Accession number: [id number] Bone Density: Region BMD T-score Z-score Classification AP Spine(L1-L4) 0.828 -2.0 0.4 Osteopenia Femoral Neck (Left) 0.413 -3.9 -1.9 Osteoporosis Total Hip (Left) 0.621 -2.6 -0.9 Osteoporosis Femoral Neck (Right) 0.543 -2.8 -0.7 Osteoporosis Total Hip (Right) 0.769 -1.4 0.4 Osteopenia Total Hip Mean 0.695 -2.0 -0.3 Osteopenia World Health Organization criteria for BMD impression classify patients as: Normal (T-score at or above -1.0), Osteopenia (T-score between -1.0 and -2.5), or Osteoporosis (T-score at or below -2.5). 10-year Fracture Risk: FRAX not reported because: Some T-score for Spine Total or Hip Total or Femoral Neck at or below -2.5 Treated for osteoporosis Previous Exams: -- Region Exam Age BMD T-score BMD Change BMD Change Date g/cm2 vs Baseline vs Previous -- AP Spine (L1-L4) 12/19/2022 72 0.828 -2.0 0.006 (0.8%)# 0.006 (0.8%)# 06/06/2020 70 0.822 -2.0 Total Hip(Left) 12/19/2022 72 0.621 -2.6 0.026 (4.3%)# 0.026 (4.3%)# 06/06/2020 70 0.596 -2.8 Total Hip(Right) 12/19/2022 72 0.769 -1.4 0.114 (17.4%)# 0.114 (17.4%)# 06/06/2020 70 0.655 -2.4 -- *Denotes significance at 95% confidence level, LSC for AP Spine = 0.022 g/cm2, LSC for Total Hip = 0.027 g/cm2 # Denotes dissimilar scan types or analysis methods Impression: The patient has osteoporosis, based on the Left Femoral Neck T-score. No significant bone loss was observed. Discussion: PATIENT UNDER TREATMENT WITH NO SIGNIFICANT BMD LOSS SINCE LAST EXAM. In an untreated patient, BMD typically declines with age. A lack of decline or gain is usually a sign that treatment is efficacious and fracture risk is reduced. It is important to ask patients whether they are taking their medications and to encourage continued and appropriate compliance with their osteoporosis therapies to reduce fracture risk. It is also important to review their risk factors and encourage appropriate calcium and vitamin D intakes, exercise, fall prevention and other lifestyle measures. Follow-Up: Consider a repeat BMD and Vertebral Fracture Assessment (VFA) exam in 2 years or sooner if medically necessary, to reassess this patient's status. Reported by: NELSON LOZANO M.D on 12/19/2022 3:09:00 PM.
== END ==
PROVIDERS: PCP Family Medicine; Referring Provider Family Medicine; Visit Provider Family Medicine
DX: M81.0 Age-related osteoporosis without current pathological fracture (principal); M85.89 Other specified disorders of bone density and structure, multiple sites
CPT/HCPCS: 77080

== ENCOUNTER 2023-07-29 13:00 | Outpatient (RCR) | payer MEDICARE, OTHER, SELFPAY ==
[2020-01-05 12:19] VITALS: BMI 34.2
--- NOTE | 2023-05-06 14:16 | PT.OIE ---
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 Migraine headache Obesity Obstructive sleep apnea of adult Overactive bladder Primary insomnia Snoring Stress at home Past Surgical History (Last Reviewed 11/27/21 @ 10:11 by Josh Iverson MD) H/O right wrist surgery (1965) History of arthroplasty of right knee (12/01/14) History of left knee replacement (01/05/20) History of surgery History of surgery (01/18/15) Hx of bilateral cataract extraction (01/2019) Visit Care Team Role Provider Type Yadira Mckeon MD Attending Provider Physician Family Provider Primary Care Provider Referring Provider Specialty: Family Practice Address: [address] [place] [address], [facility] Email: [email or web address] Physical Therapy Initial Evaluation PT-OP-A Visit Information Start: 04/25/23 10:20 Freq: Status: Active Protocol: Document 05/06/23 13:04 [facility] (Rec: 05/06/23 14:16 [facility] [id number]) Out-Patient Physical Therapy Visit Information Visit Information Visit Type Initial Evaluation Visit Note 03/27 Visit Start Time 13:03 Visit Stop Time 13:48 Visit Number 1 Number of AGENCY SALES DIRECTOR Visits 0 PT-OP-B Current Condition Start: 04/25/23 10:20 Freq: Status: Active Protocol: Document 05/06/23 13:04 [facility] (Rec: 05/06/23 14:16 [facility] [id number]) Current Condition History of Current Condition Onset Date Feb 2023 Current Complaints L achilles to calf pain History of Current Condition Pt reports L heel has been hurting especially when she sits for a while then gets up to walk. Pain has been up into L calf too. Pain started about 2 months ago. when first starts walking, hurts bad then eases up until she starts going for a long time like in a store then it really starts to hurt. Pt does report back problems. She avoids standing for long periods due to this. Back typically hurts for a long time in stores also. She had an infusion to her back in Mar and that helped dec the excrutiating pain. Hx of B TKA , osteoporosis. Pt reports SOB d/t COPD and dizziness when changing positions. She tends to stretch out her ankle. 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 No care to calf or ankle besides doctor recommending PT. Denies any specific injury. She did fall in Dec onto her buttocks. She was sitting on the bed and turned weird and got dizzy and fell to her buttocks. Unsure if this related. Denies thigh pain or numbness or tingling in leg. When it initially started, was just achillesa nd now goes up her calf. Denies flying or any surgeries in dec or hx of blood clots. Prior Treatments and Tests lumbar MRI: Specific levels: T12-L1 minimal facet arthropathy. Mild right neural foraminal narrowing. L1-L2: Mild facet arthropathy . No stenosis. L2-L3: Mild facet arthropathy . Small diffuse disc bulge. No stenosis. L3-L4: Mild facet arthropathy . Mild right subarticular recess narrowing. Mild disc bulge. No stenosis elsewhere. L4-L5: Central protrusion has decreased from prior imaging. Moderate facet arthropathy. Ywxz-ym-ueeunjqm central narrowing affecting the right greater left articular recesses. 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 Mild left neural foraminal narrowing. L5-S1: Uqzb-fr-djzccxvb facet arthropathy. Small diffuse disc bulge. No stenosis. Treatment Goals Patient/Caregiver Goals pain to not be there; be able to change positions and go grocery shopping w/o pain. PT-OP-C Subjective Start: 04/25/23 10:20 Freq: Status: Active Protocol: Document 05/06/23 13:04 [facility] (Rec: 05/06/23 14:16 [facility] [id number]) OP-PT Pain Assessment Location L lower leg Pain Location Details L achilles and calf Intensity 10 Scale Used Numeric (0 - 10) Description Sharp,With Movement Frequency Frequent Pain Aggravating Factors Changing Position,Walking Other Pain Aggravating Factors recliner or shoe press into achilles; 1st getting up Pain Alleviating Factors Cold,Inactivity Other Pain Alleviating Factors meloxicam PT-OP-D Balance Start: 04/25/23 10:20 Freq: Status: Active Protocol: Document 05/06/23 13:04 [facility] (Rec: 05/06/23 14:16 [facility] [id number]) Balance Tests Single Limb Standing Single Limb- Right 1 sec Single Limb- Left 3 sec- pain PT-OP-F Manual Assessment Start: 04/25/23 10:20 Freq: Status: Active Protocol: Document 05/06/23 13:04 [facility] (Rec: 05/06/23 14:16 [facility] [id number]) Manual Assessments Soft Tissue Assessment Soft Tissue Mobility Assessment L achilles and calf tenderness PT-OP-G Mobility & Gait Start: 04/25/23 10:20 Freq: Status: Active Protocol: Document 05/06/23 13:04 [facility] (Rec: 05/06/23 14:16 [facility] [id number]) OP Gait Assessment Comments Gait Comments Dec stance time w/lat lean L w /LLE WB; dec push off LLE PT-OP-J Posture/Palpation/Skin Start: 04/25/23 10:20 Freq: Status: Active Protocol: Document 05/06/23 13:04 [facility] (Rec: 05/06/23 14:16 [facility] [id number]) Posture Evaluation Comments Posture Comments L>R foot turned out; L >R rearfoot varus; R iliac crest higher than L PT-OP-K Range of Motion Start: 04/25/23 10:20 Freq: Status: Active Protocol: Document 05/06/23 13:04 [facility] (Rec: 05/06/23 14:16 [facility] [id number]) Ankle and Foot Goniometric Range of Motion Ankle and Foot Right Active Dorsiflexion with Knee Flexed 10 Dorsiflexion with Knee Extended 4 Plantarflexion 59 Inversion 29 Eversion 6 Comments lacking to neutral in knee ext position Left Active Dorsiflexion with Knee Flexed 2 Dorsiflexion with Knee Extended 9 Plantarflexion 58 Inversion 22 Eversion 8 Comments lacking to neutral in knee ext position PT-OP-L Special Tests Start: 04/25/23 10:20 Freq: Status: Active Protocol: Document 05/06/23 13:04 [facility] (Rec: 05/06/23 14:16 [facility] [id number]) Special Tests Lumbar Spine Special Tests Straight Leg Raise Comments positive L-feel into calf even w/o DF Slump Test Results tightness in calf at end range L Foot/Ankle Special Tests Homans test Comments neg L PT-OP-M Strength Start: 04/25/23 10:20 Freq: Status: Active Protocol: Document 05/06/23 13:04 [facility] (Rec: 05/06/23 14:16 [facility] [id number]) Hip Strength Hip Manual Muscle Testing Right Flexion (L2) 3+ Fair+ Abduction 3+ Fair+ External Rotation 4- Good- Internal Rotation 4- Good- Left Flexion (L2) 3+ Fair+ Abduction 3+ Fair+ External Rotation 3+ Fair+ Internal Rotation 3+ Fair+ Knee Strength Knee Manual Muscle Testing Right Flexion (S2) 4- Good- Extension (L3) 4 Good Left Flexion (S2) 4- Good- Extension (L3) 4- Good- Ankle/Foot Strength Ankle and Foot Manual Muscle Testing Right Dorsiflexion (L4) 5 Normal Plantarflexion (S1) 4 Good Inversion 5 Normal Eversion (S1) 5 Normal Comments pain in bottom of foot -14 heel raises Left Dorsiflexion (L4) 4 Good Plantarflexion (S1) 4- Good- Inversion 4+ Good+ Eversion (S1) 4 Good Comments 12 heel raises- pain achilles after a few;small range heel raise B Toe Strength Toe Manual Muscle Testing Right 2nd Toe Flexion 4 Good Extension 5 Normal Comments 2-5 Right Great Toe Flexion 4 Good Extension 5 Normal Left 2nd Toe Flexion 3+ Fair+ Extension 5 Normal Comments 2-5 Left Great Toe Flexion 4- Good- Extension 5 Normal PT-OP-Q Treatments Start: 04/25/23 10:20 Freq: Status: Active Protocol: Document 05/06/23 13:04 [facility] (Rec: 05/06/23 14:16 [facility] [id number]) Therapeutic Exercises Standing Exercises stretch Standing Exercise Name fwd lean gastroc Side left Reps/Minutes 30 sec Self-Care/Home Management Treatment Education Other Education 10 min: edu re: calf mm anatomy and how achilles in their tendon. Discussed how neural tension tests showed positive, but also lack of ROM and strength was noted at L ankle. Edu to stretch 2x/day for 30 sec and more if relieves pain but to stop if it inc pain. Edu on how back may be related to her current pain. PT-OP-T Assessment and Plan Start: 04/25/23 10:20 Freq: Status: Active Protocol: Document 05/06/23 13:04 [facility] (Rec: 05/06/23 14:16 [facility] [id number]) Physical Therapy Assessment Rehab Potential Rehabilitation Potential Good Evaluation Complexity Number of Personal Factors/Comorbidities 3 or More Number of Body Systems Impaired 4 or More Clinical Presentation at Evaluation Evolving Impairments Impairments Activity Tolerance,Balance, Functional Activities, Functional Mobility,Gait,Pain, Posture,ROM,Soft Tissue Mobility,Strength,Transfers Goals balance Short Term Goal (STG) Pt will be able to do SLS 5 sec B w/o inc pain in L STG Duration 06/17/23 Clinical Practice Consultant Goal (LTG) Pt will be able to do SLS 8 sec B w/o inc pain in L LTG Duration 07/28 strength Short Term Goal (STG) Pt will be indep w/HEP STG Duration 06/17/23 Clinical Practice Consultant Goal (LTG) Pt will score at least 4+/5 on BLE MMT in order to show improved stability to dec pt pain w/mobility LTG Duration 07/28 ROM Short Term Goal (STG) Pt will improved DF to neutral in knee ext position STG Duration 06/17/23 Assisted Goal (LTG) Pt will improved DF in knee flex position to at least 10 deg and knee ext position to at least 5 deg to allow greater ease with movement LTG Duration 07/29/23 activities Short Term Goal (STG) Pt will report inc ease w/ donning/doffing L shoes/socks and not feel limited through hip and knee STG Duration 06/28 Clinical Practice Consultant Goal (LTG) pt will report no pain greater than 2/10 in calf/achilles w/ walking around store or when transitioning to standing. LTG Duration 07/28 Assessment Summary Assessment Pt presents w/onset of L achilles pain about 2 months ago that progressed into L calf pain.S he does have hx of back pain with some neural tension noted during exam today, which may be contributing to the pain,b ut does have point tenderness to calf and achilles. She has significantly limited DF and weakness of L ankle compared to R. She does have dec overall strength to LLE more than R and would benefit from skilled PT to address this. Physical Therapy Plan Frequency and Duration Frequency of Treatment 2x/Week Duration of treatment (weeks) 12 Plan of Care Start Date 05/06/23 Plan of Care End Date 07/29/23 Therapeutic Interventions Therapeutic Interventions Balance Training,Gait Training ,Home Exercise Program,Joint Mobilizations,Manual Therapy, Neuromuscular Re-education, Orthotic/Prosthetic Management ,Patient/Caregiver Education, Self-Care/Home Management,Soft Tissue Mobilization,Taping, Therapeutic Activities, Therapeutic Exercises Modalities Cold Pack/Ice Massage,Electric Stimulation,Hot Packs, Infrared Therapy,Iontophoresis ,Ultrasound Other Therapeutic Interventions dexamethasone Next Visit Focus/Plan Next Note Type Treatment Note
--- NOTE | 2023-05-06 14:16 | PT.OPPOC ---
Physical, Occupational & Speech Therapy At [facility] Current Diagnoses Achilles tendinitis, left leg (05/06/23) Other specified enthesopathies of left lower limb, excluding foot (05/06/23) Visit Care Team Role Provider Type Yadira Mckeon MD Attending Provider Physician Family Provider Primary Care Provider Referring Provider Specialty: Family Practice Address: [address] [place] [address], [facility] [place], [facility] Email: [email or web address] Plan Of Care PT-OP-T Assessment and Plan Start: 04/25/23 10:20 Freq: Status: Active Protocol: Document 05/06/23 13:04 [facility] (Rec: 05/06/23 14:16 [facility] [id number]) Physical Therapy Assessment Rehab Potential Rehabilitation Potential Good Evaluation Complexity Number of Personal Factors/Comorbidities 3 or More Number of Body Systems Impaired 4 or More Clinical Presentation at Evaluation Evolving Impairments Impairments Activity Tolerance,Balance, Functional Activities, Functional Mobility,Gait,Pain, Posture,ROM,Soft Tissue Mobility,Strength,Transfers Goals balance Short Term Goal (STG) Pt will be able to do SLS 5 sec B w/o inc pain in L STG Duration 06/17/23 [facility] Goal (LTG) Pt will be able to do SLS 8 sec B w/o inc pain in L LTG Duration 07/28 strength Short Term Goal (STG) Pt will be indep w/HEP STG Duration 06/17/23 Escalator Operator Goal (LTG) Pt will score at least 4+/5 on BLE MMT in order to show improved stability to dec pt pain w/mobility LTG Duration 07/28 ROM Short Term Goal (STG) Pt will improved DF to neutral in knee ext position STG Duration 06/17/23 Escalator Operator Goal (LTG) Pt will improved DF in knee flex position to at least 10 deg and knee ext position to at least 5 deg to allow greater ease with movement LTG Duration 07/29/23 activities Short Term Goal (STG) Pt will report inc ease w/ donning/doffing L shoes/socks and not feel limited through hip and knee STG Duration 06/28 [facility] Goal (LTG) pt will report no pain greater than 2/10 in calf/achilles w/ walking around store or when transitioning to standing. LTG Duration 07/28 Assessment Summary Assessment Pt presents w/onset of L achilles pain about 2 months ago that progressed into L calf pain.S he does have hx of back pain with some neural tension noted during exam today, which may be contributing to the pain,b ut does have point tenderness to calf and achilles. She has significantly limited DF and weakness of L ankle compared to R. She does have dec overall strength to LLE more than R and would benefit from skilled PT to address this. Physical Therapy Plan Frequency and Duration Frequency of Treatment 2x/Week Duration of treatment (weeks) 12 Plan of Care Start Date 05/06/23 Plan of Care End Date 07/29/23 Therapeutic Interventions Therapeutic Interventions Balance Training,Gait Training ,Home Exercise Program,Joint Mobilizations,Manual Therapy, Neuromuscular Re-education, Orthotic/Prosthetic Management ,Patient/Caregiver Education, Self-Care/Home Management,Soft Tissue Mobilization,Taping, Therapeutic Activities, Therapeutic Exercises Modalities Cold Pack/Ice Massage,Electric Stimulation,Hot Packs, Infrared Therapy,Iontophoresis ,Ultrasound Other Therapeutic Interventions dexamethasone Next Visit Focus/Plan Next Note Type Treatment Note Plan of Care Dates Plan of Care Start Date 05/06/23 Plan of Care End Date 07/29/23 Electronically Signed by: Wanda Schmitt, PT 05/06/23 9924 If you are in agreement with this Plan of Care, please return a signed and dated copy. I have reviewed this Plan of Care and certify that the skilled therapy services above are required to meet the patient?s needs. Physician Signature Date Printed Name and Credentials Clinical Instructor Signature Printed Name and Credentials
--- NOTE | 2023-05-09 14:07 | PT.OTN ---
Current Diagnoses Achilles tendinitis, left leg (05/09/23) Other specified enthesopathies of left lower limb, excluding foot (05/09/23) Physical Therapy Treatment Note PT-OP-A Visit Information Start: 04/25/23 10:20 Freq: Status: Active Protocol: Document 05/09/23 13:05 [facility] (Rec: 05/09/23 14:07 [facility] [id number]) Out-Patient Physical Therapy Visit Information Visit Information Visit Type Treatment Note Visit Note 04/27 Visit Start Time 13:05 Visit Stop Time 13:45 Visit Number 2 Number of CONCRETE SCULPTOR Visits 0 PT-OP-B Current Condition Start: 04/25/23 10:20 Freq: Status: Active Protocol: Document 05/06/23 13:04 [facility] (Rec: 05/06/23 14:16 [facility] [id number]) Current Condition History of Current Condition Onset Date Feb 2023 Current Complaints L achilles to calf pain History of Current Condition Pt reports L heel has been hurting especially when she sits for a while then gets up to walk. Pain has been up into L calf too. Pain started about 2 months ago. when first starts walking, hurts bad then eases up until she starts going for a long time like in a store then it really starts to hurt. Pt does report back problems. She avoids standing for long periods due to this. Back typically hurts for a long time in stores also. She had an infusion to her back in Mar and that helped dec the excrutiating pain. Hx of B TKA , osteoporosis. Pt reports SOB d/t COPD and dizziness when changing positions. She tends to stretch out her ankle. 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 No care to calf or ankle besides doctor recommending PT. Denies any specific injury. She did fall in Dec onto her buttocks. She was sitting on the bed and turned weird and got dizzy and fell to her buttocks. Unsure if this related. Denies thigh pain or numbness or tingling in leg. When it initially started, was just achillesa nd now goes up her calf. Denies flying or any surgeries in dec or hx of blood clots. Prior Treatments and Tests lumbar MRI: Specific levels: T12-L1 minimal facet arthropathy. Mild right neural foraminal narrowing. L1-L2: Mild facet arthropathy . No stenosis. L2-L3: Mild facet arthropathy . Small diffuse disc bulge. No stenosis. L3-L4: Mild facet arthropathy . Mild right subarticular recess narrowing. Mild disc bulge. No stenosis elsewhere. L4-L5: Central protrusion has decreased from prior imaging. Moderate facet arthropathy. Kvgg-xh-sjobmprp central narrowing affecting the right greater left articular recesses. 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 Mild left neural foraminal narrowing. L5-S1: Znxt-wu-tiosszjk facet arthropathy. Small diffuse disc bulge. No stenosis. Treatment Goals Patient/Caregiver Goals pain to not be there; be able to change positions and go grocery shopping w/o pain. PT-OP-C Subjective Start: 04/25/23 10:20 Freq: Status: Active Protocol: Document 05/09/23 13:05 [facility] (Rec: 05/09/23 14:07 [facility] [id number]) OP-PT Subjective Patient Comments Patient Comments No change PT-OP-D Balance Start: 04/25/23 10:20 Freq: Status: Active Protocol: Document 05/06/23 13:04 [facility] (Rec: 05/06/23 14:16 [facility] [id number]) Balance Tests Single Limb Standing Single Limb- Right 1 sec Single Limb- Left 3 sec- pain PT-OP-F Manual Assessment Start: 04/25/23 10:20 Freq: Status: Active Protocol: Document 05/06/23 13:04 [facility] (Rec: 05/06/23 14:16 [facility] [id number]) Manual Assessments Soft Tissue Assessment Soft Tissue Mobility Assessment L achilles and calf tenderness PT-OP-G Mobility & Gait Start: 04/25/23 10:20 Freq: Status: Active Protocol: Document 05/06/23 13:04 [facility] (Rec: 05/06/23 14:16 [facility] [id number]) OP Gait Assessment Comments Gait Comments Dec stance time w/lat lean L w /LLE WB; dec push off LLE PT-OP-J Posture/Palpation/Skin Start: 04/25/23 10:20 Freq: Status: Active Protocol: Document 05/06/23 13:04 [facility] (Rec: 05/06/23 14:16 [facility] [id number]) Posture Evaluation Comments Posture Comments L>R foot turned out; L >R rearfoot varus; R iliac crest higher than L PT-OP-K Range of Motion Start: 04/25/23 10:20 Freq: Status: Active Protocol: Document 05/06/23 13:04 [facility] (Rec: 05/06/23 14:16 [facility] [id number]) Ankle and Foot Goniometric Range of Motion Ankle and Foot Right Active Dorsiflexion with Knee Flexed 10 Dorsiflexion with Knee Extended 4 Plantarflexion 59 Inversion 29 Eversion 6 Comments lacking to neutral in knee ext position Left Active Dorsiflexion with Knee Flexed 2 Dorsiflexion with Knee Extended 9 Plantarflexion 58 Inversion 22 Eversion 8 Comments lacking to neutral in knee ext position PT-OP-L Special Tests Start: 04/25/23 10:20 Freq: Status: Active Protocol: Document 05/06/23 13:04 [facility] (Rec: 05/06/23 14:16 [facility] [id number]) Special Tests Lumbar Spine Special Tests Straight Leg Raise Comments positive L-feel into calf even w/o DF Slump Test Results tightness in calf at end range L Foot/Ankle Special Tests Homans test Comments neg L PT-OP-M Strength Start: 04/25/23 10:20 Freq: Status: Active Protocol: Document 05/06/23 13:04 [facility] (Rec: 05/06/23 14:16 [facility] [id number]) Hip Strength Hip Manual Muscle Testing Right Flexion (L2) 3+ Fair+ Abduction 3+ Fair+ External Rotation 4- Good- Internal Rotation 4- Good- Left Flexion (L2) 3+ Fair+ Abduction 3+ Fair+ External Rotation 3+ Fair+ Internal Rotation 3+ Fair+ Knee Strength Knee Manual Muscle Testing Right Flexion (S2) 4- Good- Extension (L3) 4 Good Left Flexion (S2) 4- Good- Extension (L3) 4- Good- Ankle/Foot Strength Ankle and Foot Manual Muscle Testing Right Dorsiflexion (L4) 5 Normal Plantarflexion (S1) 4 Good Inversion 5 Normal Eversion (S1) 5 Normal Comments pain in bottom of foot -14 heel raises Left Dorsiflexion (L4) 4 Good Plantarflexion (S1) 4- Good- Inversion 4+ Good+ Eversion (S1) 4 Good Comments 12 heel raises- pain achilles after a few;small range heel raise B Toe Strength Toe Manual Muscle Testing Right 2nd Toe Flexion 4 Good Extension 5 Normal Comments 2-5 Right Great Toe Flexion 4 Good Extension 5 Normal Left 2nd Toe Flexion 3+ Fair+ Extension 5 Normal Comments 2-5 Left Great Toe Flexion 4- Good- Extension 5 Normal PT-OP-Q Treatments Start: 04/25/23 10:20 Freq: Status: Active Protocol: Document 05/09/23 13:05 [facility] (Rec: 05/09/23 14:07 [facility] [id number]) Therapeutic Exercises Supine Exercises pelvic tilt Reps/Minutes 5 sec x10 n glide Supine Exercise Name sciatic Side left Reps/Minutes 10 Comments APs at top Sitting Exercises tband Sitting Exercise Name 1. inversion 2. eversion 3. DF Side left Equipment Used L1 Reps/Minutes 10 ea Standing Exercises stretch Standing Exercise Name 1.fwd lean gastroc 2. fwd lean soleus Side left Reps/Minutes 30 sec ea Manual Therapy Treatment Soft Tissue Mobilization calf Body Location soleus and achilles Mobilization Type Rolling Intensity/Depth Moderate Body Position Supine Joint Mobilizations tib fib Joint distal sup FM calcaneus Joint distraction &lat glide FM PT-OP-T Assessment and Plan Start: 04/25/23 10:20 Freq: Status: Active Protocol: Document 05/09/23 13:05 [facility] (Rec: 05/09/23 14:07 [facility] [id number]) Physical Therapy Assessment Goals balance Short Term Goal (STG) Pt will be able to do SLS 5 sec B w/o inc pain in L STG Duration 06/17/23 Residential Goal (LTG) Pt will be able to do SLS 8 sec B w/o inc pain in L LTG Duration 07/28 strength Short Term Goal (STG) Pt will be indep w/HEP STG Duration 06/17/23 Hot Head Machine Operator Goal (LTG) Pt will score at least 4+/5 on BLE MMT in order to show improved stability to dec pt pain w/mobility LTG Duration 07/28 ROM Short Term Goal (STG) Pt will improved DF to neutral in knee ext position STG Duration 06/17/23 Residential Goal (LTG) Pt will improved DF in knee flex position to at least 10 deg and knee ext position to at least 5 deg to allow greater ease with movement LTG Duration 07/29/23 activities Short Term Goal (STG) Pt will report inc ease w/ donning/doffing L shoes/socks and not feel limited through hip and knee STG Duration 06/28 Hot Head Machine Operator Goal (LTG) pt will report no pain greater than 2/10 in calf/achilles w/ walking around store or when transitioning to standing. LTG Duration 07/28 Assessment Summary Assessment Pt had improved DF w/manual treatment. She reports no pain w/exercises and requires cues w/bands for ankle only motion . She did report fatigue w/ ankle band exercises though. Physical Therapy Plan Frequency and Duration Frequency of Treatment 2x/Week Duration of treatment (weeks) 12 Plan of Care Start Date 05/06/23 Plan of Care End Date 07/29/23 Next Visit Focus/Plan Next Note Type Treatment Note Next Visit Plan review HEP; work on L ankle mobility and calf mobility
--- NOTE | 2023-05-13 13:02 | PT.OTN ---
Current Diagnoses Achilles tendinitis, left leg (05/13/23) Other specified enthesopathies of left lower limb, excluding foot (05/13/23) Physical Therapy Treatment Note PT-OP-A Visit Information Start: 04/25/23 10:20 Freq: Status: Active Protocol: Document 05/13/23 12:17 [facility] (Rec: 05/13/23 13:06 [facility] [id number]) Out-Patient Physical Therapy Visit Information Visit Information Visit Type Treatment Note Visit Note 05/25 Visit Start Time 12:17 Visit Stop Time 13:02 Visit Number 3 Number of FLAP PRESSER Visits 1 PT-OP-B Current Condition Start: 04/25/23 10:20 Freq: Status: Active Protocol: Document 05/06/23 13:04 [facility] (Rec: 05/06/23 14:16 [facility] [id number]) Current Condition History of Current Condition Onset Date Feb 2023 Current Complaints L achilles to calf pain History of Current Condition Pt reports L heel has been hurting especially when she sits for a while then gets up to walk. Pain has been up into L calf too. Pain started about 2 months ago. when first starts walking, hurts bad then eases up until she starts going for a long time like in a store then it really starts to hurt. Pt does report back problems. She avoids standing for long periods due to this. Back typically hurts for a long time in stores also. She had an infusion to her back in Mar and that helped dec the excrutiating pain. Hx of B TKA , osteoporosis. Pt reports SOB d/t COPD and dizziness when changing positions. She tends to stretch out her ankle. 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 No care to calf or ankle besides doctor recommending PT. Denies any specific injury. She did fall in Dec onto her buttocks. She was sitting on the bed and turned weird and got dizzy and fell to her buttocks. Unsure if this related. Denies thigh pain or numbness or tingling in leg. When it initially started, was just achillesa nd now goes up her calf. Denies flying or any surgeries in dec or hx of blood clots. Prior Treatments and Tests lumbar MRI: Specific levels: T12-L1 minimal facet arthropathy. Mild right neural foraminal narrowing. L1-L2: Mild facet arthropathy . No stenosis. L2-L3: Mild facet arthropathy . Small diffuse disc bulge. No stenosis. L3-L4: Mild facet arthropathy . Mild right subarticular recess narrowing. Mild disc bulge. No stenosis elsewhere. L4-L5: Central protrusion has decreased from prior imaging. Moderate facet arthropathy. Tkwl-lv-[id number] central narrowing affecting the right greater left articular recesses. 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 Mild left neural foraminal narrowing. L5-S1: [id number]-[id number] facet arthropathy. Small diffuse disc bulge. No stenosis. Treatment Goals Patient/Caregiver Goals pain to not be there; be able to change positions and go grocery shopping w/o pain. PT-OP-C Subjective Start: 04/25/23 10:20 Freq: Status: Active Protocol: Document 05/13/23 12:17 [facility] (Rec: 05/13/23 13:06 [facility] [id number]) OP-PT Subjective Patient Comments Patient Comments Pt reports back sore from exercises pushing back intotable. She states distal achilles sensitive to touch should/anything but ok when press on areas. She states is able to asc/desc receiprocal stepping 4-6 step friend's home but very challenged LLE ascend 8 step home so usually performs step to leading RLE and carrying groceries puts 2 steps ahead but wants to get better back to normal. PT-OP-D Balance Start: 04/25/23 10:20 Freq: Status: Active Protocol: Document 05/06/23 13:04 [facility] (Rec: 05/06/23 14:16 [facility] [id number]) Balance Tests Single Limb Standing Single Limb- Right 1 sec Single Limb- Left 3 sec- pain PT-OP-F Manual Assessment Start: 04/25/23 10:20 Freq: Status: Active Protocol: Document 05/06/23 13:04 [facility] (Rec: 05/06/23 14:16 [facility] [id number]) Manual Assessments Soft Tissue Assessment Soft Tissue Mobility Assessment L achilles and calf tenderness PT-OP-G Mobility & Gait Start: 04/25/23 10:20 Freq: Status: Active Protocol: Document 05/06/23 13:04 [facility] (Rec: 05/06/23 14:16 [facility] [id number]) OP Gait Assessment Comments Gait Comments Dec stance time w/lat lean L w /LLE WB; dec push off LLE PT-OP-J Posture/Palpation/Skin Start: 04/25/23 10:20 Freq: Status: Active Protocol: Document 05/06/23 13:04 [facility] (Rec: 05/06/23 14:16 [facility] [id number]) Posture Evaluation Comments Posture Comments L>R foot turned out; L >R rearfoot varus; R iliac crest higher than L PT-OP-K Range of Motion Start: 04/25/23 10:20 Freq: Status: Active Protocol: Document 05/06/23 13:04 [facility] (Rec: 05/06/23 14:16 [facility] [id number]) Ankle and Foot Goniometric Range of Motion Ankle and Foot Right Active Dorsiflexion with Knee Flexed 10 Dorsiflexion with Knee Extended 4 Plantarflexion 59 Inversion 29 Eversion 6 Comments lacking to neutral in knee ext position Left Active Dorsiflexion with Knee Flexed 2 Dorsiflexion with Knee Extended 9 Plantarflexion 58 Inversion 22 Eversion 8 Comments lacking to neutral in knee ext position PT-OP-L Special Tests Start: 04/25/23 10:20 Freq: Status: Active Protocol: Document 05/06/23 13:04 [facility] (Rec: 05/06/23 14:16 [facility] [id number]) Special Tests Lumbar Spine Special Tests Straight Leg Raise Comments positive L-feel into calf even w/o DF Slump Test Results tightness in calf at end range L Foot/Ankle Special Tests Homans test Comments neg L PT-OP-M Strength Start: 04/25/23 10:20 Freq: Status: Active Protocol: Document 05/06/23 13:04 [facility] (Rec: 05/06/23 14:16 [facility] [id number]) Hip Strength Hip Manual Muscle Testing Right Flexion (L2) 3+ Fair+ Abduction 3+ Fair+ External Rotation 4- Good- Internal Rotation 4- Good- Left Flexion (L2) 3+ Fair+ Abduction 3+ Fair+ External Rotation 3+ Fair+ Internal Rotation 3+ Fair+ Knee Strength Knee Manual Muscle Testing Right Flexion (S2) 4- Good- Extension (L3) 4 Good Left Flexion (S2) 4- Good- Extension (L3) 4- Good- Ankle/Foot Strength Ankle and Foot Manual Muscle Testing Right Dorsiflexion (L4) 5 Normal Plantarflexion (S1) 4 Good Inversion 5 Normal Eversion (S1) 5 Normal Comments pain in bottom of foot -14 heel raises Left Dorsiflexion (L4) 4 Good Plantarflexion (S1) 4- Good- Inversion 4+ Good+ Eversion (S1) 4 Good Comments 12 heel raises- pain achilles after a few;small range heel raise B Toe Strength Toe Manual Muscle Testing Right 2nd Toe Flexion 4 Good Extension 5 Normal Comments 2-5 Right Great Toe Flexion 4 Good Extension 5 Normal Left 2nd Toe Flexion 3+ Fair+ Extension 5 Normal Comments 2-5 Left Great Toe Flexion 4- Good- Extension 5 Normal PT-OP-Q Treatments Start: 04/25/23 10:20 Freq: Status: Active Protocol: Document 05/13/23 12:17 SP (Rec: 05/13/23 13:06 SP [id number]) Therapeutic Exercises Supine Exercises core may Supine Exercise Name added to HEP Equipment Used alternating Reps/Minutes x10 Comments cued neutral PPT /c TA draw in , slow lift/lower- little wobble/painfree pelvic tilt Reps/Minutes 5 sec x10 Comments cued TA draw in and breatch awareness, not excessive press down- good form n glide Supine Exercise Name sciatic Side left Equipment Used provided towel for support aroung thigh Reps/Minutes 10 Comments APs at top end feel, good calf stretch Sitting Exercises tband Sitting Exercise Name 1. inversion 2. eversion 3. DF Side left Equipment Used L1 light blue Reps/Minutes 10 ea Comments cued long LLE/RLE over LL stewart anchor band- better effort ROM pnfree Standing Exercises step up, down Standing Exercise Name 1. fwd step up 2. Lateral step up 3. Fwd step down Side left Resistance AROM, rail support Equipment Used 4 (repeated added home each direction), 6, 8 (home) Reps/Minutes x10 each 4-6, 3 reps 8 heavy UE support reducted 2nd set post 4 repeated Comments cued contact support. CHallenged 8 needed heavy UE support stretch Standing Exercise Name 1.fwd lean gastroc 2. fwd lean soleus Side left Reps/Minutes 30 sec ea PT-OP-T Assessment and Plan Start: 04/25/23 10:20 Freq: Status: Active Protocol: Document 05/13/23 12:17 SP (Rec: 05/13/23 13:06 SP [id number]) Physical Therapy Assessment Goals balance Short Term Goal (STG) Pt will be able to do SLS 5 sec B w/o inc pain in L STG Duration 06/17/23 Concrete Engineering Technician Goal (LTG) Pt will be able to do SLS 8 sec B w/o inc pain in L LTG Duration 07/28 strength Short Term Goal (STG) Pt will be indep w/HEP STG Duration 06/17/23 Group Home Goal (LTG) Pt will score at least 4+/5 on BLE MMT in order to show improved stability to dec pt pain w/mobility LTG Duration 07/28 ROM Short Term Goal (STG) Pt will improved DF to neutral in knee ext position STG Duration 06/17/23 Group Home Goal (LTG) Pt will improved DF in knee flex position to at least 10 deg and knee ext position to at least 5 deg to allow greater ease with movement LTG Duration 07/29/23 activities Short Term Goal (STG) Pt will report inc ease w/ donning/doffing L shoes/socks and not feel limited through hip and knee STG Duration 06/28 Group Home Goal (LTG) pt will report no pain greater than 2/10 in calf/achilles w/ walking around store or when transitioning to standing. LTG Duration 07/28 Assessment Summary Assessment Pt improved TA activiation and PPT form with breath. Provided towel for sciatic nerve glide with improved form and painfree and tingling into LE reports. She was able to progress into may today while maintaining TA activation with no back recruitment discomfort reports . Pt improved ankle IV effort with modification in set up LE straight front, gave HO for set up carryover home. Level 1 band still good effort for motion today, cued slower eccentric control. Pt reports improved step up on 4-6 step at friends home but challenged with weakness in R quad during 8step ups has at home, heavy UE support. Good reports of L quad tiring and no pain in achilles and better ankle ROM wtih reps during repeated fwd/lateral/step downs off 4 step added for HEP continued carryover home. She was able to perform 8 step TKE cuing with little more activation and slight less UE support end tx response to ther ex. She would benefit from continued LE strengthening to allow enter/ exit home elevated 8 step without use rail for carrying groceries continueously vs putting on 2 steps above then step to patterning lead RLE. Physical Therapy Plan Frequency and Duration Frequency of Treatment 2x/Week Duration of treatment (weeks) 12 Plan of Care Start Date 05/06/23 Plan of Care End Date 07/29/23 Therapeutic Interventions Therapeutic Interventions Balance Training,Gait Training ,Home Exercise Program,Joint Mobilizations,Manual Therapy, Neuromuscular Re-education, Orthotic/Prosthetic Management ,Patient/Caregiver Education, Self-Care/Home Management,Soft Tissue Mobilization,Taping, Therapeutic Activities, Therapeutic Exercises Modalities Cold Pack/Ice Massage,Electric Stimulation,Hot Packs, Infrared Therapy,Iontophoresis ,Ultrasound Other Therapeutic Interventions dexamethasone Next Visit Focus/Plan Next Note Type Treatment Note Next Visit Plan review HEP; work on L ankle mobility and calf mobility
--- NOTE | 2023-05-15 13:45 | PT.OTN ---
Current Diagnoses Achilles tendinitis, left leg (05/15/23) Other specified enthesopathies of left lower limb, excluding foot (05/15/23) Physical Therapy Treatment Note PT-OP-A Visit Information Start: 04/25/23 10:20 Freq: Status: Active Protocol: Document 05/15/23 13:05 SP (Rec: 05/15/23 13:49 SP [id number]) Out-Patient Physical Therapy Visit Information Visit Information Visit Type Treatment Note Visit Note 06/25 Visit Start Time 13:05 Visit Stop Time 13:45 Visit Number 4 Number of ROTO ROOTER OPERATOR Visits 2 PT-OP-B Current Condition Start: 04/25/23 10:20 Freq: Status: Active Protocol: Document 05/06/23 13:04 LR (Rec: 05/06/23 14:16 [facility] [id number]) Current Condition History of Current Condition Onset Date Feb 2023 Current Complaints L achilles to calf pain History of Current Condition Pt reports L heel has been hurting especially when she sits for a while then gets up to walk. Pain has been up into L calf too. Pain started about 2 months ago. when first starts walking, hurts bad then eases up until she starts going for a long time like in a store then it really starts to hurt. Pt does report back problems. She avoids standing for long periods due to this. Back typically hurts for a long time in stores also. She had an infusion to her back in Mar and that helped dec the excrutiating pain. Hx of B TKA , osteoporosis. Pt reports SOB d/t COPD and dizziness when changing positions. She tends to stretch out her ankle. 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 No care to calf or ankle besides doctor recommending PT. Denies any specific injury. She did fall in Dec onto her buttocks. She was sitting on the bed and turned weird and got dizzy and fell to her buttocks. Unsure if this related. Denies thigh pain or numbness or tingling in leg. When it initially started, was just achillesa nd now goes up her calf. Denies flying or any surgeries in dec or hx of blood clots. Prior Treatments and Tests lumbar MRI: Specific levels: T12-L1 minimal facet arthropathy. Mild right neural foraminal narrowing. L1-L2: Mild facet arthropathy . No stenosis. L2-L3: Mild facet arthropathy . Small diffuse disc bulge. No stenosis. L3-L4: Mild facet arthropathy . Mild right subarticular recess narrowing. Mild disc bulge. No stenosis elsewhere. L4-L5: Central protrusion has decreased from prior imaging. Moderate facet arthropathy. Ggmp-au-tfuzknrl central narrowing affecting the right greater left articular recesses. 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 Mild left neural foraminal narrowing. L5-S1: Lwgo-eh-zslwzags facet arthropathy. Small diffuse disc bulge. No stenosis. Treatment Goals Patient/Caregiver Goals pain to not be there; be able to change positions and go grocery shopping w/o pain. PT-OP-C Subjective Start: 04/25/23 10:20 Freq: Status: Active Protocol: Document 05/15/23 13:05 SP (Rec: 05/15/23 13:49 SP [id number]) OP-PT Subjective Patient Comments Patient Comments Pt reported soreness felt over lateral R leg, wondering if step ups was more than used to but want to be able to step up better on 8 steps home eventually. PT-OP-D Balance Start: 04/25/23 10:20 Freq: Status: Active Protocol: Document 05/06/23 13:04 [facility] (Rec: 05/06/23 14:16 [facility] [id number]) Balance Tests Single Limb Standing Single Limb- Right 1 sec Single Limb- Left 3 sec- pain PT-OP-F Manual Assessment Start: 04/25/23 10:20 Freq: Status: Active Protocol: Document 05/06/23 13:04 [facility] (Rec: 05/06/23 14:16 [facility] [id number]) Manual Assessments Soft Tissue Assessment Soft Tissue Mobility Assessment L achilles and calf tenderness PT-OP-G Mobility & Gait Start: 04/25/23 10:20 Freq: Status: Active Protocol: Document 05/06/23 13:04 [facility] (Rec: 05/06/23 14:16 [facility] [id number]) OP Gait Assessment Comments Gait Comments Dec stance time w/lat lean L w /LLE WB; dec push off LLE PT-OP-J Posture/Palpation/Skin Start: 04/25/23 10:20 Freq: Status: Active Protocol: Document 05/06/23 13:04 [facility] (Rec: 05/06/23 14:16 [facility] [id number]) Posture Evaluation Comments Posture Comments L>R foot turned out; L >R rearfoot varus; R iliac crest higher than L PT-OP-K Range of Motion Start: 04/25/23 10:20 Freq: Status: Active Protocol: Document 05/06/23 13:04 [facility] (Rec: 05/06/23 14:16 [facility] [id number]) Ankle and Foot Goniometric Range of Motion Ankle and Foot Right Active Dorsiflexion with Knee Flexed 10 Dorsiflexion with Knee Extended 4 Plantarflexion 59 Inversion 29 Eversion 6 Comments lacking to neutral in knee ext position Left Active Dorsiflexion with Knee Flexed 2 Dorsiflexion with Knee Extended 9 Plantarflexion 58 Inversion 22 Eversion 8 Comments lacking to neutral in knee ext position PT-OP-L Special Tests Start: 04/25/23 10:20 Freq: Status: Active Protocol: Document 05/06/23 13:04 [facility] (Rec: 05/06/23 14:16 [facility] [id number]) Special Tests Lumbar Spine Special Tests Straight Leg Raise Comments positive L-feel into calf even w/o DF Slump Test Results tightness in calf at end range L Foot/Ankle Special Tests Homans test Comments neg L PT-OP-M Strength Start: 04/25/23 10:20 Freq: Status: Active Protocol: Document 05/06/23 13:04 [facility] (Rec: 05/06/23 14:16 [facility] [id number]) Hip Strength Hip Manual Muscle Testing Right Flexion (L2) 3+ Fair+ Abduction 3+ Fair+ External Rotation 4- Good- Internal Rotation 4- Good- Left Flexion (L2) 3+ Fair+ Abduction 3+ Fair+ External Rotation 3+ Fair+ Internal Rotation 3+ Fair+ Knee Strength Knee Manual Muscle Testing Right Flexion (S2) 4- Good- Extension (L3) 4 Good Left Flexion (S2) 4- Good- Extension (L3) 4- Good- Ankle/Foot Strength Ankle and Foot Manual Muscle Testing Right Dorsiflexion (L4) 5 Normal Plantarflexion (S1) 4 Good Inversion 5 Normal Eversion (S1) 5 Normal Comments pain in bottom of foot -14 heel raises Left Dorsiflexion (L4) 4 Good Plantarflexion (S1) 4- Good- Inversion 4+ Good+ Eversion (S1) 4 Good Comments 12 heel raises- pain achilles after a few;small range heel raise B Toe Strength Toe Manual Muscle Testing Right 2nd Toe Flexion 4 Good Extension 5 Normal Comments 2-5 Right Great Toe Flexion 4 Good Extension 5 Normal Left 2nd Toe Flexion 3+ Fair+ Extension 5 Normal Comments 2-5 Left Great Toe Flexion 4- Good- Extension 5 Normal PT-OP-Q Treatments Start: 04/25/23 10:20 Freq: Status: Active Protocol: Document 05/15/23 13:05 SP (Rec: 05/15/23 13:49 SP [id number]) Therapeutic Exercises Supine Exercises core may Supine Exercise Name 1. single x10 2. sequencial DL lift/lower Equipment Used alternating Reps/Minutes x10 Comments improved PPT /c TA draw in, slow lift/lower, good slow pacing, cued breath pelvic tilt Reps/Minutes 5 sec x10 Comments cued TA draw in and breatch awareness, not excessive press down- good form n glide Supine Exercise Name sciatic Side left Equipment Used provided towel for support around thigh Reps/Minutes 10 Comments good form, active stretch HS and calf Sitting Exercises tband Sitting Exercise Name 1. inversion 2. eversion 3. DF Side left Equipment Used L1 light blue, anchor R foot best Reps/Minutes 10 ea Comments cued for set up IV, used HOs Standing Exercises SLS star/clock glides Standing Exercise Name added to HEP: 12, 3 or 9, 6 o' clock Side bilateral Resistance AROM Equipment Used counter contact, slider Reps/Minutes 3 positions x3 reps, 2 sets Comments cued hip hinge reach only distance return from (small range)-pnfree step up, down Standing Exercise Name 1. fwd step up only 4 pnfree 2. Hold 6 and 8 fwd/bwd/lat Side left Resistance AROM, rail support Equipment Used 4 step (has aerobic step home ) Reps/Minutes x10 Comments good form painfree stretch Standing Exercise Name 1.fwd lean gastroc 2. fwd lean soleus Side left Resistance rail support Equipment Used off step felt better than facing rail Reps/Minutes 30 sec ea Comments pain R dorsal ankle soleus st, little less post manual, pnfree off step Manual Therapy Treatment Joint Mobilizations talocrual jt Joint R Direction PA Grade II Body Position Supine Comments good feedback into DF PROM pnfree, PA standing DF less pinch dorsal ankle post manual MTP Joint R Direction gross PROM rotation med/lat Grade II Body Position Supine Comments good feedback, pnfree tib fib Joint R distal Direction AP Grade II Body Position Supine Comments /c FM DF calcaneus Joint R Direction distraction & lat glide Grade II Body Position Supine PT-OP-T Assessment and Plan Start: 04/25/23 10:20 Freq: Status: Active Protocol: Document 05/15/23 13:05 SP (Rec: 05/15/23 13:49 SP [id number]) Physical Therapy Assessment Goals balance Short Term Goal (STG) Pt will be able to do SLS 5 sec B w/o inc pain in L STG Duration 06/17/23 [facility]pc Goal (LTG) Pt will be able to do SLS 8 sec B w/o inc pain in L LTG Duration 07/28 strength Short Term Goal (STG) Pt will be indep w/HEP STG Duration 06/17/23 [facility] Goal (LTG) Pt will score at least 4+/5 on BLE MMT in order to show improved stability to dec pt pain w/mobility LTG Duration 07/28 ROM Short Term Goal (STG) Pt will improved DF to neutral in knee ext position STG Duration 06/17/23 Steam Engineer Goal (LTG) Pt will improved DF in knee flex position to at least 10 deg and knee ext position to at least 5 deg to allow greater ease with movement LTG Duration 07/29/23 activities Short Term Goal (STG) Pt will report inc ease w/ donning/doffing L shoes/socks and not feel limited through hip and knee STG Duration 06/28 Steam Engineer Goal (LTG) pt will report no pain greater than 2/10 in calf/achilles w/ walking around store or when transitioning to standing. LTG Duration 07/28 Assessment Summary Assessment Pt improving with TA activiation, DC'd may progressed to sequencial DL may, cued slower lift and lower contact, reports tiring but no pain in back. Held step ups to allow R leg recovery, added star glides for ankle ROM and more low rivas hip strengthening for stair mgt progression support. Pt reports not as tired end tx today. Physical Therapy Plan Frequency and Duration Frequency of Treatment 2x/Week Duration of treatment (weeks) 12 Plan of Care Start Date 05/06/23 Plan of Care End Date 07/29/23 Therapeutic Interventions Therapeutic Interventions Balance Training,Gait Training ,Home Exercise Program,Joint Mobilizations,Manual Therapy, Neuromuscular Re-education, Orthotic/Prosthetic Management ,Patient/Caregiver Education, Self-Care/Home Management,Soft Tissue Mobilization,Taping, Therapeutic Activities, Therapeutic Exercises Modalities Cold Pack/Ice Massage,Electric Stimulation,Hot Packs, Infrared Therapy,Iontophoresis ,Ultrasound Other Therapeutic Interventions dexamethasone Next Visit Focus/Plan Next Note Type Treatment Note Next Visit Plan review HEP: added SL star glides, recheck step ups next appt if can progress height for home 8 mgt receiprocal and carry groceries eventually ; POC: work on L ankle mobility and calf mobility
--- NOTE | 2023-05-29 14:30 | PT.OTN ---
Current Diagnoses Achilles tendinitis, left leg (05/29/23) Other specified enthesopathies of left lower limb, excluding foot (05/29/23) Physical Therapy Treatment Note PT-OP-A Visit Information Start: 04/25/23 10:20 Freq: Status: Active Protocol: Document 05/29/23 13:50 SP (Rec: 05/29/23 14:34 SP [id number]) Out-Patient Physical Therapy Visit Information Visit Information Visit Type Treatment Note Visit Note 07/25 Visit Start Time 13:50 Visit Stop Time 14:30 Visit Number 5 Number of COLDFUSION Visits 3 PT-OP-B Current Condition Start: 04/25/23 10:20 Freq: Status: Active Protocol: Document 05/06/23 13:04 LR (Rec: 05/06/23 14:16 [facility] [id number]) Current Condition History of Current Condition Onset Date Feb 2023 Current Complaints L achilles to calf pain History of Current Condition Pt reports L heel has been hurting especially when she sits for a while then gets up to walk. Pain has been up into L calf too. Pain started about 2 months ago. when first starts walking, hurts bad then eases up until she starts going for a long time like in a store then it really starts to hurt. Pt does report back problems. She avoids standing for long periods due to this. Back typically hurts for a long time in stores also. She had an infusion to her back in Mar and that helped dec the excrutiating pain. Hx of B TKA , osteoporosis. Pt reports SOB d/t COPD and dizziness when changing positions. She tends to stretch out her ankle. 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 No care to calf or ankle besides doctor recommending PT. Denies any specific injury. She did fall in Dec onto her buttocks. She was sitting on the bed and turned weird and got dizzy and fell to her buttocks. Unsure if this related. Denies thigh pain or numbness or tingling in leg. When it initially started, was just achillesa nd now goes up her calf. Denies flying or any surgeries in dec or hx of blood clots. Prior Treatments and Tests lumbar MRI: Specific levels: T12-L1 minimal facet arthropathy. Mild right neural foraminal narrowing. L1-L2: Mild facet arthropathy . No stenosis. L2-L3: Mild facet arthropathy . Small diffuse disc bulge. No stenosis. L3-L4: Mild facet arthropathy . Mild right subarticular recess narrowing. Mild disc bulge. No stenosis elsewhere. L4-L5: Central protrusion has decreased from prior imaging. Moderate facet arthropathy. Ovfp-ke-agntwcrx central narrowing affecting the right greater left articular recesses. 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 Mild left neural foraminal narrowing. L5-S1: Nnsh-jw-egecmzuo facet arthropathy. Small diffuse disc bulge. No stenosis. Treatment Goals Patient/Caregiver Goals pain to not be there; be able to change positions and go grocery shopping w/o pain. PT-OP-C Subjective Start: 04/25/23 10:20 Freq: Status: Active Protocol: Document 05/29/23 13:50 SP (Rec: 05/29/23 14:34 SP [id number]) OP-PT Subjective Patient Comments Patient Comments Pt reports doing well with HEP , the calf stretch is little strong but tries to do easily. Wants to review for proper form home. SHe reports is getting easier getting up and down her steps 1 HR (wide staircase). PT-OP-D Balance Start: 04/25/23 10:20 Freq: Status: Active Protocol: Document 05/06/23 13:04 [facility] (Rec: 05/06/23 14:16 [facility] [id number]) Balance Tests Single Limb Standing Single Limb- Right 1 sec Single Limb- Left 3 sec- pain PT-OP-F Manual Assessment Start: 04/25/23 10:20 Freq: Status: Active Protocol: Document 05/06/23 13:04 [facility] (Rec: 05/06/23 14:16 [facility] [id number]) Manual Assessments Soft Tissue Assessment Soft Tissue Mobility Assessment L achilles and calf tenderness PT-OP-G Mobility & Gait Start: 04/25/23 10:20 Freq: Status: Active Protocol: Document 05/06/23 13:04 [facility] (Rec: 05/06/23 14:16 [facility] [id number]) OP Gait Assessment Comments Gait Comments Dec stance time w/lat lean L w /LLE WB; dec push off LLE PT-OP-J Posture/Palpation/Skin Start: 04/25/23 10:20 Freq: Status: Active Protocol: Document 05/06/23 13:04 [facility] (Rec: 05/06/23 14:16 [facility] [id number]) Posture Evaluation Comments Posture Comments L>R foot turned out; L >R rearfoot varus; R iliac crest higher than L PT-OP-K Range of Motion Start: 04/25/23 10:20 Freq: Status: Active Protocol: Document 05/06/23 13:04 [facility] (Rec: 05/06/23 14:16 [facility] [id number]) Ankle and Foot Goniometric Range of Motion Ankle and Foot Right Active Dorsiflexion with Knee Flexed 10 Dorsiflexion with Knee Extended 4 Plantarflexion 59 Inversion 29 Eversion 6 Comments lacking to neutral in knee ext position Left Active Dorsiflexion with Knee Flexed 2 Dorsiflexion with Knee Extended 9 Plantarflexion 58 Inversion 22 Eversion 8 Comments lacking to neutral in knee ext position PT-OP-L Special Tests Start: 04/25/23 10:20 Freq: Status: Active Protocol: Document 05/06/23 13:04 [facility] (Rec: 05/06/23 14:16 [facility] [id number]) Special Tests Lumbar Spine Special Tests Straight Leg Raise Comments positive L-feel into calf even w/o DF Slump Test Results tightness in calf at end range L Foot/Ankle Special Tests Homans test Comments neg L PT-OP-M Strength Start: 04/25/23 10:20 Freq: Status: Active Protocol: Document 05/06/23 13:04 [facility] (Rec: 05/06/23 14:16 [facility] [id number]) Hip Strength Hip Manual Muscle Testing Right Flexion (L2) 3+ Fair+ Abduction 3+ Fair+ External Rotation 4- Good- Internal Rotation 4- Good- Left Flexion (L2) 3+ Fair+ Abduction 3+ Fair+ External Rotation 3+ Fair+ Internal Rotation 3+ Fair+ Knee Strength Knee Manual Muscle Testing Right Flexion (S2) 4- Good- Extension (L3) 4 Good Left Flexion (S2) 4- Good- Extension (L3) 4- Good- Ankle/Foot Strength Ankle and Foot Manual Muscle Testing Right Dorsiflexion (L4) 5 Normal Plantarflexion (S1) 4 Good Inversion 5 Normal Eversion (S1) 5 Normal Comments pain in bottom of foot -14 heel raises Left Dorsiflexion (L4) 4 Good Plantarflexion (S1) 4- Good- Inversion 4+ Good+ Eversion (S1) 4 Good Comments 12 heel raises- pain achilles after a few;small range heel raise B Toe Strength Toe Manual Muscle Testing Right 2nd Toe Flexion 4 Good Extension 5 Normal Comments 2-5 Right Great Toe Flexion 4 Good Extension 5 Normal Left 2nd Toe Flexion 3+ Fair+ Extension 5 Normal Comments 2-5 Left Great Toe Flexion 4- Good- Extension 5 Normal PT-OP-Q Treatments Start: 04/25/23 10:20 Freq: Status: Active Protocol: Document 05/29/23 13:50 SP (Rec: 05/29/23 14:34 SP [id number]) Therapeutic Exercises Supine Exercises core may Supine Exercise Name 1. single x10 2. sequencial DL lift/lower Resistance HEP reviewed Equipment Used alternating Reps/Minutes x10 each Comments cued breath, tactile sequencing-pnfree good tight abd/stretching LB report pelvic tilt Supine Exercise Name HEP reviewed Reps/Minutes 5 sec x10 Comments cued TA draw in and breatch awareness, not excessive press down- good form n glide Supine Exercise Name sciatic- HEP reviewed Side left Equipment Used provided towel for support around thigh Reps/Minutes 15 Comments good form, active stretch HS and calf Sitting Exercises L piriformis stretch Sitting Exercise Name added to HEP: assist donning socks LLE Side left Reps/Minutes 30SH x2 , 3xday Comments hold L ankle over R thigh- good strong stretch- painfree tband Sitting Exercise Name 1. inversion 2. eversion 3. DF Side left Equipment Used L1 light blue, anchor R foot best Reps/Minutes 10 ea Comments occ cues for set up and direction, use of her HOs Standing Exercises SLS star/clock glides Standing Exercise Name reviewed HEP: 12, lateral, 6 o 'clock Side bilateral Resistance AROM Equipment Used counter near, slider Reps/Minutes 3 positions x3 reps, 3 sets Comments reviewed hip hinge LE reach only distance return from ( small range)-pnfree step up, down Standing Exercise Name 1. fwd step up 2. Lateral step up 3. Fwd step down Side left Resistance AROM, rail support Equipment Used 4 step (has aerobic step home ) Reps/Minutes 5 reps each, Comments good form painfree lat, retr, very tiring & little ankle sore fwd step down stretch Standing Exercise Name 1.fwd lean gastroc 2. fwd lean soleus Side left Resistance rail support Equipment Used off step felt better than facing rail Reps/Minutes 30 sec ea Comments pain R dorsal ankle soleus st, little less post manual, pnfree off step Manual Therapy Treatment Soft Tissue Mobilization calf Body Location L>R soleus and achilles Mobilization Type Rolling Intensity/Depth Moderate Body Position Supine Joint Mobilizations talocrual jt Joint L Direction PA Grade II Body Position Supine Comments good feedback into DF PROM pnfree, PA standing DF less pinch dorsal ankle post manual MTP Joint L Direction gross PROM rotation med/lat Grade II Body Position Supine Comments good feedback, pnfree tib fib Joint L distal Direction AP Grade II Body Position Supine Comments /c FM DF calcaneus Joint L Direction distraction & med/lat glide Grade II Body Position Supine PT-OP-T Assessment and Plan Start: 04/25/23 10:20 Freq: Status: Active Protocol: Document 05/29/23 13:50 SP (Rec: 05/29/23 14:34 SP [id number]) Physical Therapy Assessment Goals balance Short Term Goal (STG) Pt will be able to do SLS 5 sec B w/o inc pain in L STG Duration 06/17/23 [facility] Goal (LTG) Pt will be able to do SLS 8 sec B w/o inc pain in L LTG Duration 07/28 strength Short Term Goal (STG) Pt will be indep w/HEP STG Duration 06/17/23 Towel Rolling Machine Operator Goal (LTG) Pt will score at least 4+/5 on BLE MMT in order to show improved stability to dec pt pain w/mobility LTG Duration 07/28 ROM Short Term Goal (STG) Pt will improved DF to neutral in knee ext position STG Duration 06/17/23 Towel Rolling Machine Operator Goal (LTG) Pt will improved DF in knee flex position to at least 10 deg and knee ext position to at least 5 deg to allow greater ease with movement LTG Duration 07/29/23 activities Short Term Goal (STG) Pt will report inc ease w/ donning/doffing L shoes/socks and not feel limited through hip and knee STG Duration 06/28 Towel Rolling Machine Operator Goal (LTG) pt will report no pain greater than 2/10 in calf/achilles w/ walking around store or when transitioning to standing. LTG Duration 07/28 Assessment Summary Assessment Pt improved L ankle mobility post manual, stretching with reports lateral step down and back no L ankle problems and not need contact rail, challenge fwd stepping down LLE stationary advance RLE lessened with stretching, cued slow pacing with improvement. Will progress increase height for stepping down 8 step with grocery carrying next tx. Improved less tension L piriformis post initiated stretching to ease donning socks vs bent over has been demonstrating. Physical Therapy Plan Frequency and Duration Frequency of Treatment 2x/Week Duration of treatment (weeks) 12 Plan of Care Start Date 05/06/23 Plan of Care End Date 07/29/23 Therapeutic Interventions Therapeutic Interventions Balance Training,Gait Training ,Home Exercise Program,Joint Mobilizations,Manual Therapy, Neuromuscular Re-education, Orthotic/Prosthetic Management ,Patient/Caregiver Education, Self-Care/Home Management,Soft Tissue Mobilization,Taping, Therapeutic Activities, Therapeutic Exercises Modalities Cold Pack/Ice Massage,Electric Stimulation,Hot Packs, Infrared Therapy,Iontophoresis ,Ultrasound Other Therapeutic Interventions dexamethasone Next Visit Focus/Plan Next Note Type Treatment Note Next Visit Plan review HEP: progress height for home 8 mgt receiprocal and carry groceries eventually ; POC: work on L ankle mobility and calf mobility
--- NOTE | 2023-06-05 13:47 | PT.OTN ---
Current Diagnoses Achilles tendinitis, left leg (06/05/23) Other specified enthesopathies of left lower limb, excluding foot (06/05/23) Physical Therapy Treatment Note PT-OP-A Visit Information Start: 04/25/23 10:20 Freq: Status: Active Protocol: Document 06/05/23 13:01 [facility] (Rec: 06/05/23 13:47 [facility] [id number]) Out-Patient Physical Therapy Visit Information Visit Information Visit Type Treatment Note Visit Note 08/25 Visit Start Time 13:01 Visit Stop Time 13:42 Visit Number 6 Number of BLOCKMASON Visits 0 PT-OP-B Current Condition Start: 04/25/23 10:20 Freq: Status: Active Protocol: Document 05/06/23 13:04 [facility] (Rec: 05/06/23 14:16 [facility] [id number]) Current Condition History of Current Condition Onset Date Feb 2023 Current Complaints L achilles to calf pain History of Current Condition Pt reports L heel has been hurting especially when she sits for a while then gets up to walk. Pain has been up into L calf too. Pain started about 2 months ago. when first starts walking, hurts bad then eases up until she starts going for a long time like in a store then it really starts to hurt. Pt does report back problems. She avoids standing for long periods due to this. Back typically hurts for a long time in stores also. She had an infusion to her back in Mar and that helped dec the excrutiating pain. Hx of B TKA , osteoporosis. Pt reports SOB d/t COPD and dizziness when changing positions. She tends to stretch out her ankle. 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 No care to calf or ankle besides doctor recommending PT. Denies any specific injury. She did fall in Dec onto her buttocks. She was sitting on the bed and turned weird and got dizzy and fell to her buttocks. Unsure if this related. Denies thigh pain or numbness or tingling in leg. When it initially started, was just achillesa nd now goes up her calf. Denies flying or any surgeries in dec or hx of blood clots. Prior Treatments and Tests lumbar MRI: Specific levels: T12-L1 minimal facet arthropathy. Mild right neural foraminal narrowing. L1-L2: Mild facet arthropathy . No stenosis. L2-L3: Mild facet arthropathy . Small diffuse disc bulge. No stenosis. L3-L4: Mild facet arthropathy . Mild right subarticular recess narrowing. Mild disc bulge. No stenosis elsewhere. L4-L5: Central protrusion has decreased from prior imaging. Moderate facet arthropathy. Dfor-pb-rpsalixd central narrowing affecting the right greater left articular recesses. 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 Mild left neural foraminal narrowing. L5-S1: Ihgr-iv-dfocykuj facet arthropathy. Small diffuse disc bulge. No stenosis. Treatment Goals Patient/Caregiver Goals pain to not be there; be able to change positions and go grocery shopping w/o pain. PT-OP-C Subjective Start: 04/25/23 10:20 Freq: Status: Active Protocol: Document 06/05/23 13:01 [facility] (Rec: 06/05/23 13:47 [facility] [id number]) OP-PT Subjective Patient Comments Patient Comments Pt reports up/down stairs has been easier PT-OP-D Balance Start: 04/25/23 10:20 Freq: Status: Active Protocol: Document 05/06/23 13:04 [facility] (Rec: 05/06/23 14:16 [facility] [id number]) Balance Tests Single Limb Standing Single Limb- Right 1 sec Single Limb- Left 3 sec- pain PT-OP-F Manual Assessment Start: 04/25/23 10:20 Freq: Status: Active Protocol: Document 05/06/23 13:04 [facility] (Rec: 05/06/23 14:16 [facility] [id number]) Manual Assessments Soft Tissue Assessment Soft Tissue Mobility Assessment L achilles and calf tenderness PT-OP-G Mobility & Gait Start: 04/25/23 10:20 Freq: Status: Active Protocol: Document 05/06/23 13:04 [facility] (Rec: 05/06/23 14:16 [facility] [id number]) OP Gait Assessment Comments Gait Comments Dec stance time w/lat lean L w /LLE WB; dec push off LLE PT-OP-J Posture/Palpation/Skin Start: 04/25/23 10:20 Freq: Status: Active Protocol: Document 05/06/23 13:04 [facility] (Rec: 05/06/23 14:16 [facility] [id number]) Posture Evaluation Comments Posture Comments L>R foot turned out; L >R rearfoot varus; R iliac crest higher than L PT-OP-K Range of Motion Start: 04/25/23 10:20 Freq: Status: Active Protocol: Document 05/06/23 13:04 [facility] (Rec: 05/06/23 14:16 [facility] [id number]) Ankle and Foot Goniometric Range of Motion Ankle and Foot Right Active Dorsiflexion with Knee Flexed 10 Dorsiflexion with Knee Extended 4 Plantarflexion 59 Inversion 29 Eversion 6 Comments lacking to neutral in knee ext position Left Active Dorsiflexion with Knee Flexed 2 Dorsiflexion with Knee Extended 9 Plantarflexion 58 Inversion 22 Eversion 8 Comments lacking to neutral in knee ext position PT-OP-L Special Tests Start: 04/25/23 10:20 Freq: Status: Active Protocol: Document 05/06/23 13:04 [facility] (Rec: 05/06/23 14:16 [facility] [id number]) Special Tests Lumbar Spine Special Tests Straight Leg Raise Comments positive L-feel into calf even w/o DF Slump Test Results tightness in calf at end range L Foot/Ankle Special Tests Homans test Comments neg L PT-OP-M Strength Start: 04/25/23 10:20 Freq: Status: Active Protocol: Document 05/06/23 13:04 [facility] (Rec: 05/06/23 14:16 [facility] [id number]) Hip Strength Hip Manual Muscle Testing Right Flexion (L2) 3+ Fair+ Abduction 3+ Fair+ External Rotation 4- Good- Internal Rotation 4- Good- Left Flexion (L2) 3+ Fair+ Abduction 3+ Fair+ External Rotation 3+ Fair+ Internal Rotation 3+ Fair+ Knee Strength Knee Manual Muscle Testing Right Flexion (S2) 4- Good- Extension (L3) 4 Good Left Flexion (S2) 4- Good- Extension (L3) 4- Good- Ankle/Foot Strength Ankle and Foot Manual Muscle Testing Right Dorsiflexion (L4) 5 Normal Plantarflexion (S1) 4 Good Inversion 5 Normal Eversion (S1) 5 Normal Comments pain in bottom of foot -14 heel raises Left Dorsiflexion (L4) 4 Good Plantarflexion (S1) 4- Good- Inversion 4+ Good+ Eversion (S1) 4 Good Comments 12 heel raises- pain achilles after a few;small range heel raise B Toe Strength Toe Manual Muscle Testing Right 2nd Toe Flexion 4 Good Extension 5 Normal Comments 2-5 Right Great Toe Flexion 4 Good Extension 5 Normal Left 2nd Toe Flexion 3+ Fair+ Extension 5 Normal Comments 2-5 Left Great Toe Flexion 4- Good- Extension 5 Normal PT-OP-Q Treatments Start: 04/25/23 10:20 Freq: Status: Active Protocol: Document 06/05/23 13:01 [facility] (Rec: 06/05/23 13:47 [facility] [id number]) Therapeutic Exercises Sitting Exercises L piriformis stretch Sitting Exercise Name added to HEP: assist donning socks LLE Side left Reps/Minutes 30sec Comments hold L ankle over R thigh- good strong stretch- painfree tband Sitting Exercise Name 1. inversion 2. eversion 3. DF Side left Equipment Used L1 light blue, anchor R foot best Reps/Minutes 10 ea Comments min cues for slow controlled motion Standing Exercises SLS star/clock glides Standing Exercise Name reviewed HEP: 12, lateral, 6 o 'clock Side bilateral Resistance AROM Equipment Used counter near, slider Reps/Minutes 3 positions x5 ea Comments reviewed hip hinge LE reach only distance return from ( small range)-pnfree step up, down Standing Exercise Name 1. fwd step up 2. Lateral step up 3. Fwd step down Side left Resistance AROM, rail support Equipment Used 4 step Reps/Minutes 8 ea Comments cues for contorl Manual Therapy Treatment Soft Tissue Mobilization calf Body Location L soleus and achilles Mobilization Type Rolling Intensity/Depth Moderate Body Position Supine Joint Mobilizations talocrual jt Joint L talus AP and med glide Direction AP FM c/r Grade II Body Position Supine tib fib Joint L distal Direction AP Grade II Body Position Supine Comments /c FM DF calcaneus Joint L Direction distraction &lat glide/tilt FM Grade II Body Position Supine Neuro Re-Education Treatment Balance Activities tilt board Comments fwd/back wt shifts & lat wt shifts B foam Comments 1. foam marching x10b 2. WBOS w/head turns and EO/EC trials 3. NBOS 4. staggered stance B PT-OP-T Assessment and Plan Start: 04/25/23 10:20 Freq: Status: Active Protocol: Document 06/05/23 13:01 [facility] (Rec: 06/05/23 13:47 [facility] [id number]) Physical Therapy Assessment Goals balance Short Term Goal (STG) Pt will be able to do SLS 5 sec B w/o inc pain in L STG Duration 06/17/23 Hydraulic Technician Goal (LTG) Pt will be able to do SLS 8 sec B w/o inc pain in L LTG Duration 07/28 strength Short Term Goal (STG) Pt will be indep w/HEP STG Duration 06/17/23 Mcc Goal (LTG) Pt will score at least 4+/5 on BLE MMT in order to show improved stability to dec pt pain w/mobility LTG Duration 07/28 ROM Short Term Goal (STG) Pt will improved DF to neutral in knee ext position STG Duration 06/17/23 Hydraulic Technician Goal (LTG) Pt will improved DF in knee flex position to at least 10 deg and knee ext position to at least 5 deg to allow greater ease with movement LTG Duration 07/29/23 activities Short Term Goal (STG) Pt will report inc ease w/ donning/doffing L shoes/socks and not feel limited through hip and knee STG Duration 06/28 Mcc Goal (LTG) pt will report no pain greater than 2/10 in calf/achilles w/ walking around store or when transitioning to standing. LTG Duration 07/28 Assessment Summary Assessment Pt did well with balance but was challenged with these activities. no c/o pain during activity. With step activities, cues required for slow decent. Physical Therapy Plan Next Visit Focus/Plan Next Note Type Treatment Note Next Visit Plan progress height to 6 in w/8-10 reps; advance balance POC: work on L ankle mobility and calf mobility
--- NOTE | 2023-06-10 13:45 | PT.OTN ---
Current Diagnoses Achilles tendinitis, left leg (06/10/23) Other specified enthesopathies of left lower limb, excluding foot (06/10/23) Physical Therapy Treatment Note PT-OP-A Visit Information Start: 04/25/23 10:20 Freq: Status: Active Protocol: Document 06/10/23 13:03 [facility] (Rec: 06/10/23 13:48 [facility] [id number]) Out-Patient Physical Therapy Visit Information Visit Information Visit Type Treatment Note Visit Note 09/24 Visit Start Time 13:03 Visit Stop Time 13:45 Visit Number 7 Number of CAREER GUIDANCE TECHNICIAN Visits 1 PT-OP-B Current Condition Start: 04/25/23 10:20 Freq: Status: Active Protocol: Document 05/06/23 13:04 [facility] (Rec: 05/06/23 14:16 [facility] [id number]) Current Condition History of Current Condition Onset Date Feb 2023 Current Complaints L achilles to calf pain History of Current Condition Pt reports L heel has been hurting especially when she sits for a while then gets up to walk. Pain has been up into L calf too. Pain started about 2 months ago. when first starts walking, hurts bad then eases up until she starts going for a long time like in a store then it really starts to hurt. Pt does report back problems. She avoids standing for long periods due to this. Back typically hurts for a long time in stores also. She had an infusion to her back in Mar and that helped dec the excrutiating pain. Hx of B TKA , osteoporosis. Pt reports SOB d/t COPD and dizziness when changing positions. She tends to stretch out her ankle. 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 No care to calf or ankle besides doctor recommending PT. Denies any specific injury. She did fall in Dec onto her buttocks. She was sitting on the bed and turned weird and got dizzy and fell to her buttocks. Unsure if this related. Denies thigh pain or numbness or tingling in leg. When it initially started, was just achillesa nd now goes up her calf. Denies flying or any surgeries in dec or hx of blood clots. Prior Treatments and Tests lumbar MRI: Specific levels: T12-L1 minimal facet arthropathy. Mild right neural foraminal narrowing. L1-L2: Mild facet arthropathy . No stenosis. L2-L3: Mild facet arthropathy . Small diffuse disc bulge. No stenosis. L3-L4: Mild facet arthropathy . Mild right subarticular recess narrowing. Mild disc bulge. No stenosis elsewhere. L4-L5: Central protrusion has decreased from prior imaging. Moderate facet arthropathy. Eafm-ag-fmxcnlvy central narrowing affecting the right greater left articular recesses. 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 Mild left neural foraminal narrowing. L5-S1: Rdau-qn-qlyobsfe facet arthropathy. Small diffuse disc bulge. No stenosis. Treatment Goals Patient/Caregiver Goals pain to not be there; be able to change positions and go grocery shopping w/o pain. PT-OP-C Subjective Start: 04/25/23 10:20 Freq: Status: Active Protocol: Document 06/10/23 13:03 [facility] (Rec: 06/10/23 13:48 [facility] [id number]) OP-PT Subjective Patient Comments Patient Comments Pt reports just little sore but doing well with activities at home. PT-OP-D Balance Start: 04/25/23 10:20 Freq: Status: Active Protocol: Document 05/06/23 13:04 [facility] (Rec: 05/06/23 14:16 [facility] [id number]) Balance Tests Single Limb Standing Single Limb- Right 1 sec Single Limb- Left 3 sec- pain PT-OP-F Manual Assessment Start: 04/25/23 10:20 Freq: Status: Active Protocol: Document 05/06/23 13:04 [facility] (Rec: 05/06/23 14:16 [facility] [id number]) Manual Assessments Soft Tissue Assessment Soft Tissue Mobility Assessment L achilles and calf tenderness PT-OP-G Mobility & Gait Start: 04/25/23 10:20 Freq: Status: Active Protocol: Document 05/06/23 13:04 [facility] (Rec: 05/06/23 14:16 [facility] [id number]) OP Gait Assessment Comments Gait Comments Dec stance time w/lat lean L w /LLE WB; dec push off LLE PT-OP-J Posture/Palpation/Skin Start: 04/25/23 10:20 Freq: Status: Active Protocol: Document 05/06/23 13:04 [facility] (Rec: 05/06/23 14:16 [facility] [id number]) Posture Evaluation Comments Posture Comments L>R foot turned out; L >R rearfoot varus; R iliac crest higher than L PT-OP-K Range of Motion Start: 04/25/23 10:20 Freq: Status: Active Protocol: Document 05/06/23 13:04 [facility] (Rec: 05/06/23 14:16 [facility] [id number]) Ankle and Foot Goniometric Range of Motion Ankle and Foot Right Active Dorsiflexion with Knee Flexed 10 Dorsiflexion with Knee Extended 4 Plantarflexion 59 Inversion 29 Eversion 6 Comments lacking to neutral in knee ext position Left Active Dorsiflexion with Knee Flexed 2 Dorsiflexion with Knee Extended 9 Plantarflexion 58 Inversion 22 Eversion 8 Comments lacking to neutral in knee ext position PT-OP-L Special Tests Start: 04/25/23 10:20 Freq: Status: Active Protocol: Document 05/06/23 13:04 [facility] (Rec: 05/06/23 14:16 [facility] [id number]) Special Tests Lumbar Spine Special Tests Straight Leg Raise Comments positive L-feel into calf even w/o DF Slump Test Results tightness in calf at end range L Foot/Ankle Special Tests Homans test Comments neg L PT-OP-M Strength Start: 04/25/23 10:20 Freq: Status: Active Protocol: Document 05/06/23 13:04 [facility] (Rec: 05/06/23 14:16 [facility] [id number]) Hip Strength Hip Manual Muscle Testing Right Flexion (L2) 3+ Fair+ Abduction 3+ Fair+ External Rotation 4- Good- Internal Rotation 4- Good- Left Flexion (L2) 3+ Fair+ Abduction 3+ Fair+ External Rotation 3+ Fair+ Internal Rotation 3+ Fair+ Knee Strength Knee Manual Muscle Testing Right Flexion (S2) 4- Good- Extension (L3) 4 Good Left Flexion (S2) 4- Good- Extension (L3) 4- Good- Ankle/Foot Strength Ankle and Foot Manual Muscle Testing Right Dorsiflexion (L4) 5 Normal Plantarflexion (S1) 4 Good Inversion 5 Normal Eversion (S1) 5 Normal Comments pain in bottom of foot -14 heel raises Left Dorsiflexion (L4) 4 Good Plantarflexion (S1) 4- Good- Inversion 4+ Good+ Eversion (S1) 4 Good Comments 12 heel raises- pain achilles after a few;small range heel raise B Toe Strength Toe Manual Muscle Testing Right 2nd Toe Flexion 4 Good Extension 5 Normal Comments 2-5 Right Great Toe Flexion 4 Good Extension 5 Normal Left 2nd Toe Flexion 3+ Fair+ Extension 5 Normal Comments 2-5 Left Great Toe Flexion 4- Good- Extension 5 Normal PT-OP-Q Treatments Start: 04/25/23 10:20 Freq: Status: Active Protocol: Document 06/10/23 13:03 [facility] (Rec: 06/10/23 13:48 [facility] [id number]) Gym Equipment Shuttle Balance red Details WBOS, stagger- fwd Comments wt shift, stationary CG- Min A * shaky, lessened with cues rhomboid/core engagment Therapeutic Exercises Sitting Exercises hip Sitting Exercise Name hip IR/ER pre piriformis stretch, hip AROM Side left Resistance AROM Reps/Minutes x10 each Comments cued stewart taps and out side pnfree range L piriformis stretch Sitting Exercise Name reviewed HEP: assist donning socks LLE Side left Reps/Minutes 30sec Comments hold L ankle over R thigh- good strong stretch- painfree tband Sitting Exercise Name 1. inversion 2. eversion 3. DF Side left Equipment Used L1 light blue IV, L2 aqua rest . Reps/Minutes 10 ea Comments improved slow controlled motion Standing Exercises step up, down Standing Exercise Name 1. fwd step up/back down repeated 2. Lateral step up 3. Fwd step down Side left Resistance AROM, PRN rail support Equipment Used 6 step Reps/Minutes 1. 8, 10 ea 2. 4, 10 reps 3. not performed 06/09 Comments cues for contorl Other Exercises self STMs Other Exercise Name calf, HS, quad, ITB Side left Equipment Used rolling pin Reps/Minutes 2 min total Comments good feedback response with slow/gentle pressure- decr L kntension fig 4sit Manual Therapy Treatment Soft Tissue Mobilization calf Body Location L soleus and achilles Mobilization Type Myofascial Release,Rolling Intensity/Depth Moderate Body Position Prone Joint Mobilizations L knee Joint P<>A tib femoral Grade II Body Position seated Comments good response decrease L knee tension laterally during piriformis stretch. talocrual jt Joint L talus AP and med glide Direction AP FM c/r Grade II Body Position Supine Comments L PA prone. MTP Joint L Direction gross PROM rotation med/lat Grade II Body Position Supine Comments good feedback, pnfree tib fib Joint L distal Direction AP Grade II Body Position Supine Comments /c FM DF calcaneus Joint L Direction distraction &lat glide/tilt FM Grade II Body Position Supine Neuro Re-Education Treatment Balance Activities SLS Details L Surface floor Comments 8 sec, 13 sec tilt board Details fwd/bwd and lat Comments stationary HTs EC up to 30 sec each direction PT-OP-T Assessment and Plan Start: 04/25/23 10:20 Freq: Status: Active Protocol: Document 06/10/23 13:03 [facility] (Rec: 06/10/23 13:48 [facility] [id number]) Physical Therapy Assessment Goals balance Short Term Goal (STG) Pt will be able to do SLS 5 sec B w/o inc pain in L STG Duration 06/17/23 Senior Living Goal (LTG) Pt will be able to do SLS 8 sec B w/o inc pain in L LTG Duration 07/28 strength Short Term Goal (STG) Pt will be indep w/HEP STG Duration 06/17/23 Toxicologist Goal (LTG) Pt will score at least 4+/5 on BLE MMT in order to show improved stability to dec pt pain w/mobility LTG Duration 07/28 ROM Short Term Goal (STG) Pt will improved DF to neutral in knee ext position STG Duration 06/17/23 Senior Living Goal (LTG) Pt will improved DF in knee flex position to at least 10 deg and knee ext position to at least 5 deg to allow greater ease with movement LTG Duration 07/29/23 activities Short Term Goal (STG) Pt will report inc ease w/ donning/doffing L shoes/socks and not feel limited through hip and knee STG Duration 06/28 Senior Living Goal (LTG) pt will report no pain greater than 2/10 in calf/achilles w/ walking around store or when transitioning to standing. LTG Duration 07/28 Assessment Summary Assessment Pt improved self recovery with tilt board increase EC balance challenges able to progress to shuttle balance but required increase cues for wt shift and increased assist . Demonstrated improved TKE during step ups increased 6 step, tires at 8 reps but improved reps with cuing and able progress no UE support. SHe was able to increased resistance to L ankle HEP this tx. Increased L hip AAROM piriformis stretch post manual to L knee and self STMs use rolling pin. Physical Therapy Plan Frequency and Duration Frequency of Treatment 2x/Week Duration of treatment (weeks) 12 Plan of Care Start Date 05/06/23 Plan of Care End Date 07/29/23 Therapeutic Interventions Therapeutic Interventions Balance Training,Gait Training ,Home Exercise Program,Joint Mobilizations,Manual Therapy, Neuromuscular Re-education, Orthotic/Prosthetic Management ,Patient/Caregiver Education, Self-Care/Home Management,Soft Tissue Mobilization,Taping, Therapeutic Activities, Therapeutic Exercises Modalities Cold Pack/Ice Massage,Electric Stimulation,Hot Packs, Infrared Therapy,Iontophoresis ,Ultrasound Other Therapeutic Interventions dexamethasone Next Visit Focus/Plan Next Note Type Treatment Note Next Visit Plan progress height to 8 in w/8-10 reps; advance balance, uneven surfaces POC: work on L ankle mobility and calf mobility
--- NOTE | 2023-06-18 13:43 | PT.OTN ---
Current Diagnoses Achilles tendinitis, left leg (06/18/23) Other specified enthesopathies of left lower limb, excluding foot (06/18/23) Physical Therapy Treatment Note PT-OP-A Visit Information Start: 04/25/23 10:20 Freq: Status: Active Protocol: Document 06/18/23 13:05 SP (Rec: 06/18/23 13:49 SP [id number]) Out-Patient Physical Therapy Visit Information Visit Information Visit Type Treatment Note Visit Note 11/25 Visit Start Time 13:05 Visit Stop Time 13:43 Visit Number 9 Number of PILLOW AGENT Visits 3 PT-OP-B Current Condition Start: 04/25/23 10:20 Freq: Status: Active Protocol: Document 05/06/23 13:04 LR (Rec: 05/06/23 14:16 [facility] [id number]) Current Condition History of Current Condition Onset Date Feb 2023 Current Complaints L achilles to calf pain History of Current Condition Pt reports L heel has been hurting especially when she sits for a while then gets up to walk. Pain has been up into L calf too. Pain started about 2 months ago. when first starts walking, hurts bad then eases up until she starts going for a long time like in a store then it really starts to hurt. Pt does report back problems. She avoids standing for long periods due to this. Back typically hurts for a long time in stores also. She had an infusion to her back in Mar and that helped dec the excrutiating pain. Hx of B TKA , osteoporosis. Pt reports SOB d/t COPD and dizziness when changing positions. She tends to stretch out her ankle. 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 No care to calf or ankle besides doctor recommending PT. Denies any specific injury. She did fall in Dec onto her buttocks. She was sitting on the bed and turned weird and got dizzy and fell to her buttocks. Unsure if this related. Denies thigh pain or numbness or tingling in leg. When it initially started, was just achillesa nd now goes up her calf. Denies flying or any surgeries in dec or hx of blood clots. Prior Treatments and Tests lumbar MRI: Specific levels: T12-L1 minimal facet arthropathy. Mild right neural foraminal narrowing. L1-L2: Mild facet arthropathy . No stenosis. L2-L3: Mild facet arthropathy . Small diffuse disc bulge. No stenosis. L3-L4: Mild facet arthropathy . Mild right subarticular recess narrowing. Mild disc bulge. No stenosis elsewhere. L4-L5: Central protrusion has decreased from prior imaging. Moderate facet arthropathy. Tnee-ul-luixhgwr central narrowing affecting the right greater left articular recesses. 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 Mild left neural foraminal narrowing. L5-S1: Ilzc-ph-dkofiqwg facet arthropathy. Small diffuse disc bulge. No stenosis. Treatment Goals Patient/Caregiver Goals pain to not be there; be able to change positions and go grocery shopping w/o pain. PT-OP-C Subjective Start: 04/25/23 10:20 Freq: Status: Active Protocol: Document 06/18/23 13:05 SP (Rec: 06/18/23 13:49 SP [id number]) OP-PT Subjective Patient Comments Patient Comments Pt reports felt ok after last tx. Can put sock/shoes on L foot better leg over R knee. PT-OP-D Balance Start: 04/25/23 10:20 Freq: Status: Active Protocol: Document 05/06/23 13:04 [facility] (Rec: 05/06/23 14:16 [facility] [id number]) Balance Tests Single Limb Standing Single Limb- Right 1 sec Single Limb- Left 3 sec- pain PT-OP-F Manual Assessment Start: 04/25/23 10:20 Freq: Status: Active Protocol: Document 05/06/23 13:04 [facility] (Rec: 05/06/23 14:16 [facility] [id number]) Manual Assessments Soft Tissue Assessment Soft Tissue Mobility Assessment L achilles and calf tenderness PT-OP-G Mobility & Gait Start: 04/25/23 10:20 Freq: Status: Active Protocol: Document 05/06/23 13:04 [facility] (Rec: 05/06/23 14:16 [facility] [id number]) OP Gait Assessment Comments Gait Comments Dec stance time w/lat lean L w /LLE WB; dec push off LLE PT-OP-J Posture/Palpation/Skin Start: 04/25/23 10:20 Freq: Status: Active Protocol: Document 05/06/23 13:04 [facility] (Rec: 05/06/23 14:16 [facility] [id number]) Posture Evaluation Comments Posture Comments L>R foot turned out; L >R rearfoot varus; R iliac crest higher than L PT-OP-K Range of Motion Start: 04/25/23 10:20 Freq: Status: Active Protocol: Document 05/06/23 13:04 [facility] (Rec: 05/06/23 14:16 [facility] [id number]) Ankle and Foot Goniometric Range of Motion Ankle and Foot Right Active Dorsiflexion with Knee Flexed 10 Dorsiflexion with Knee Extended 4 Plantarflexion 59 Inversion 29 Eversion 6 Comments lacking to neutral in knee ext position Left Active Dorsiflexion with Knee Flexed 2 Dorsiflexion with Knee Extended 9 Plantarflexion 58 Inversion 22 Eversion 8 Comments lacking to neutral in knee ext position PT-OP-L Special Tests Start: 04/25/23 10:20 Freq: Status: Active Protocol: Document 05/06/23 13:04 [facility] (Rec: 05/06/23 14:16 [facility] [id number]) Special Tests Lumbar Spine Special Tests Straight Leg Raise Comments positive L-feel into calf even w/o DF Slump Test Results tightness in calf at end range L Foot/Ankle Special Tests Homans test Comments neg L PT-OP-M Strength Start: 04/25/23 10:20 Freq: Status: Active Protocol: Document 05/06/23 13:04 [facility] (Rec: 05/06/23 14:16 [facility] [id number]) Hip Strength Hip Manual Muscle Testing Right Flexion (L2) 3+ Fair+ Abduction 3+ Fair+ External Rotation 4- Good- Internal Rotation 4- Good- Left Flexion (L2) 3+ Fair+ Abduction 3+ Fair+ External Rotation 3+ Fair+ Internal Rotation 3+ Fair+ Knee Strength Knee Manual Muscle Testing Right Flexion (S2) 4- Good- Extension (L3) 4 Good Left Flexion (S2) 4- Good- Extension (L3) 4- Good- Ankle/Foot Strength Ankle and Foot Manual Muscle Testing Right Dorsiflexion (L4) 5 Normal Plantarflexion (S1) 4 Good Inversion 5 Normal Eversion (S1) 5 Normal Comments pain in bottom of foot -14 heel raises Left Dorsiflexion (L4) 4 Good Plantarflexion (S1) 4- Good- Inversion 4+ Good+ Eversion (S1) 4 Good Comments 12 heel raises- pain achilles after a few;small range heel raise B Toe Strength Toe Manual Muscle Testing Right 2nd Toe Flexion 4 Good Extension 5 Normal Comments 2-5 Right Great Toe Flexion 4 Good Extension 5 Normal Left 2nd Toe Flexion 3+ Fair+ Extension 5 Normal Comments 2-5 Left Great Toe Flexion 4- Good- Extension 5 Normal PT-OP-Q Treatments Start: 04/25/23 10:20 Freq: Status: Active Protocol: Document 06/18/23 13:05 SP (Rec: 06/18/23 13:49 SP [id number]) Gym Equipment Shuttle Balance red Details WBOS, stride stance Comments f/b/lateral each CG- 5%A Therapeutic Exercises Sitting Exercises hip Sitting Exercise Name 1. hip IR 2. Hip ER- in PT Side left Resistance 1. Lvl 1 TB at ankles 2. AROM stewart taps Equipment Used seated mesh chair Reps/Minutes x10 each Comments cues as needed for form, L hip ER less than R L piriformis stretch Sitting Exercise Name reviewed HEP: assist donning socks LLE Side left Reps/Minutes 30sec Comments hold L ankle over R thigh- good strong stretch- painfree tband Sitting Exercise Name 1. inversion 2. eversion 3. DF Side left Equipment Used L2 TB Reps/Minutes 15 ea Comments improved set up and form, good hard effort with L2 Standing Exercises ankle mobility Standing Exercise Name trialed in PT- stated will work on that home, declined HO Side bilateral Resistance pre stairs Equipment Used rail support, ft 2nd step Reps/Minutes x10 Comments improved ankle DF & knee flexion AAROM- pnfree reported side stepping Standing Exercise Name trialed in PT Side bilateral Resistance TB at ankles Equipment Used //bars Reps/Minutes 10 ft x2 laps Comments cued eccentric control /c trail LE clearance Gait Training Gait Activity stairs Device Used PRN R HR Treatment Focus increase R>L DF for carrying groceries into house Comments 6 4 x4 reps, 8 stairs 2x4 reps improved control DF descend. PT-OP-T Assessment and Plan Start: 04/25/23 10:20 Freq: Status: Active Protocol: Document 06/18/23 13:05 SP (Rec: 06/18/23 13:49 SP [id number]) Physical Therapy Assessment Goals balance Short Term Goal (STG) Pt will be able to do SLS 5 sec B w/o inc pain in L STG Duration 06/17/23 Tester Regulator Goal (LTG) Pt will be able to do SLS 8 sec B w/o inc pain in L LTG Duration 07/28 strength Short Term Goal (STG) Pt will be indep w/HEP STG Duration 06/17/23 Assisted Goal (LTG) Pt will score at least 4+/5 on BLE MMT in order to show improved stability to dec pt pain w/mobility LTG Duration 07/28 ROM Short Term Goal (STG) Pt will improved DF to neutral in knee ext position STG Duration 06/17/23 Assisted Goal (LTG) Pt will improved DF in knee flex position to at least 10 deg and knee ext position to at least 5 deg to allow greater ease with movement LTG Duration 07/29/23 activities Short Term Goal (STG) Pt will report inc ease w/ donning/doffing L shoes/socks and not feel limited through hip and knee STG Duration 06/28 Tester Regulator Goal (LTG) pt will report no pain greater than 2/10 in calf/achilles w/ walking around store or when transitioning to standing. LTG Duration 07/28 Assessment Summary Assessment Pt responded well to increased resistance this tx. Good challenged effort and SLS side stepping eccentric control in PT for ankle stability, good response to DF ankle mobility on step stated will incorporate home because felt helped descend 6>8 step this tx. Physical Therapy Plan Frequency and Duration Frequency of Treatment 2x/Week Duration of treatment (weeks) 12 Plan of Care Start Date 05/06/23 Plan of Care End Date 07/29/23 Therapeutic Interventions Therapeutic Interventions Balance Training,Gait Training ,Home Exercise Program,Joint Mobilizations,Manual Therapy, Neuromuscular Re-education, Orthotic/Prosthetic Management ,Patient/Caregiver Education, Self-Care/Home Management,Soft Tissue Mobilization,Taping, Therapeutic Activities, Therapeutic Exercises Modalities Cold Pack/Ice Massage,Electric Stimulation,Hot Packs, Infrared Therapy,Iontophoresis ,Ultrasound Other Therapeutic Interventions dexamethasone Next Visit Focus/Plan Next Note Type Treatment Note Next Visit Plan Recheck ankle mobility, SL activities, Continue DF and strengthening height to 8 in w /8-10 reps; advance balance, uneven surfaces POC: work on L ankle mobility and calf mobility
--- NOTE | 2023-06-20 13:45 | PT.OTN ---
Current Diagnoses Achilles tendinitis, left leg (06/20/23) Other specified enthesopathies of left lower limb, excluding foot (06/20/23) Physical Therapy Treatment Note PT-OP-A Visit Information Start: 04/25/23 10:20 Freq: Status: Active Protocol: Document 06/20/23 13:03 SP (Rec: 06/20/23 13:47 SP [id number]) Out-Patient Physical Therapy Visit Information Visit Information Visit Type Treatment Note Visit Note 12/25 Visit Start Time 13:03 Visit Stop Time 13:45 Visit Number 10 Number of DRAWING HAND Visits 4 PT-OP-B Current Condition Start: 04/25/23 10:20 Freq: Status: Active Protocol: Document 05/06/23 13:04 LR (Rec: 05/06/23 14:16 [facility] [id number]) Current Condition History of Current Condition Onset Date Feb 2023 Current Complaints L achilles to calf pain History of Current Condition Pt reports L heel has been hurting especially when she sits for a while then gets up to walk. Pain has been up into L calf too. Pain started about 2 months ago. when first starts walking, hurts bad then eases up until she starts going for a long time like in a store then it really starts to hurt. Pt does report back problems. She avoids standing for long periods due to this. Back typically hurts for a long time in stores also. She had an infusion to her back in Mar and that helped dec the excrutiating pain. Hx of B TKA , osteoporosis. Pt reports SOB d/t COPD and dizziness when changing positions. She tends to stretch out her ankle. 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 No care to calf or ankle besides doctor recommending PT. Denies any specific injury. She did fall in Dec onto her buttocks. She was sitting on the bed and turned weird and got dizzy and fell to her buttocks. Unsure if this related. Denies thigh pain or numbness or tingling in leg. When it initially started, was just achillesa nd now goes up her calf. Denies flying or any surgeries in dec or hx of blood clots. Prior Treatments and Tests lumbar MRI: Specific levels: T12-L1 minimal facet arthropathy. Mild right neural foraminal narrowing. L1-L2: Mild facet arthropathy . No stenosis. L2-L3: Mild facet arthropathy . Small diffuse disc bulge. No stenosis. L3-L4: Mild facet arthropathy . Mild right subarticular recess narrowing. Mild disc bulge. No stenosis elsewhere. L4-L5: Central protrusion has decreased from prior imaging. Moderate facet arthropathy. Wtnq-xm-rehvvyjz central narrowing affecting the right greater left articular recesses. 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 Mild left neural foraminal narrowing. L5-S1: Zpuo-tj-whroblsv facet arthropathy. Small diffuse disc bulge. No stenosis. Treatment Goals Patient/Caregiver Goals pain to not be there; be able to change positions and go grocery shopping w/o pain. PT-OP-C Subjective Start: 04/25/23 10:20 Freq: Status: Active Protocol: Document 06/20/23 13:03 SP (Rec: 06/20/23 13:47 SP [id number]) OP-PT Subjective Patient Comments Patient Comments Pt reports doing ok. Has had busy past few days, helping more. Didnt' get to her exercises yesterday. PT-OP-D Balance Start: 04/25/23 10:20 Freq: Status: Active Protocol: Document 05/06/23 13:04 [facility] (Rec: 05/06/23 14:16 [facility] [id number]) Balance Tests Single Limb Standing Single Limb- Right 1 sec Single Limb- Left 3 sec- pain PT-OP-F Manual Assessment Start: 04/25/23 10:20 Freq: Status: Active Protocol: Document 05/06/23 13:04 [facility] (Rec: 05/06/23 14:16 [facility] [id number]) Manual Assessments Soft Tissue Assessment Soft Tissue Mobility Assessment L achilles and calf tenderness PT-OP-G Mobility & Gait Start: 04/25/23 10:20 Freq: Status: Active Protocol: Document 05/06/23 13:04 [facility] (Rec: 05/06/23 14:16 [facility] [id number]) OP Gait Assessment Comments Gait Comments Dec stance time w/lat lean L w /LLE WB; dec push off LLE PT-OP-J Posture/Palpation/Skin Start: 04/25/23 10:20 Freq: Status: Active Protocol: Document 05/06/23 13:04 [facility] (Rec: 05/06/23 14:16 [facility] [id number]) Posture Evaluation Comments Posture Comments L>R foot turned out; L >R rearfoot varus; R iliac crest higher than L PT-OP-K Range of Motion Start: 04/25/23 10:20 Freq: Status: Active Protocol: Document 05/06/23 13:04 [facility] (Rec: 05/06/23 14:16 [facility] [id number]) Ankle and Foot Goniometric Range of Motion Ankle and Foot Right Active Dorsiflexion with Knee Flexed 10 Dorsiflexion with Knee Extended 4 Plantarflexion 59 Inversion 29 Eversion 6 Comments lacking to neutral in knee ext position Left Active Dorsiflexion with Knee Flexed 2 Dorsiflexion with Knee Extended 9 Plantarflexion 58 Inversion 22 Eversion 8 Comments lacking to neutral in knee ext position PT-OP-L Special Tests Start: 04/25/23 10:20 Freq: Status: Active Protocol: Document 05/06/23 13:04 [facility] (Rec: 05/06/23 14:16 [facility] [id number]) Special Tests Lumbar Spine Special Tests Straight Leg Raise Comments positive L-feel into calf even w/o DF Slump Test Results tightness in calf at end range L Foot/Ankle Special Tests Homans test Comments neg L PT-OP-M Strength Start: 04/25/23 10:20 Freq: Status: Active Protocol: Document 05/06/23 13:04 [facility] (Rec: 05/06/23 14:16 [facility] [id number]) Hip Strength Hip Manual Muscle Testing Right Flexion (L2) 3+ Fair+ Abduction 3+ Fair+ External Rotation 4- Good- Internal Rotation 4- Good- Left Flexion (L2) 3+ Fair+ Abduction 3+ Fair+ External Rotation 3+ Fair+ Internal Rotation 3+ Fair+ Knee Strength Knee Manual Muscle Testing Right Flexion (S2) 4- Good- Extension (L3) 4 Good Left Flexion (S2) 4- Good- Extension (L3) 4- Good- Ankle/Foot Strength Ankle and Foot Manual Muscle Testing Right Dorsiflexion (L4) 5 Normal Plantarflexion (S1) 4 Good Inversion 5 Normal Eversion (S1) 5 Normal Comments pain in bottom of foot -14 heel raises Left Dorsiflexion (L4) 4 Good Plantarflexion (S1) 4- Good- Inversion 4+ Good+ Eversion (S1) 4 Good Comments 12 heel raises- pain achilles after a few;small range heel raise B Toe Strength Toe Manual Muscle Testing Right 2nd Toe Flexion 4 Good Extension 5 Normal Comments 2-5 Right Great Toe Flexion 4 Good Extension 5 Normal Left 2nd Toe Flexion 3+ Fair+ Extension 5 Normal Comments 2-5 Left Great Toe Flexion 4- Good- Extension 5 Normal PT-OP-Q Treatments Start: 04/25/23 10:20 Freq: Status: Active Protocol: Document 06/20/23 13:03 SP (Rec: 06/20/23 13:47 SP [id number]) Gym Equipment Cable Column (Body Solid) LE ext Resistance 2 plates Reps/Time x8 HS curl Resistance 2.5 plates Reps/Time x10 Shuttle Recovery heel raises Details DL, SL Resistance DL 37 (1 teal), SL 25 (1 teal) Reps/Time x10 each unilateral squat Resistance 37# (1 teal) Reps/Time x10 bilateral squat Resistance 50 (2 navy)- 62 next tx Shuttle Recovery Platform Stable Reps/Time x15 Shuttle Balance red Details WBOS, NBOS, stride stance Comments f/b/lateral each CG- 5%A HTs: CG- Min Balloon Volley- CG-Min A Therapeutic Exercises Standing Exercises calf raises Standing Exercise Name DL, SL Equipment Used rail support Reps/Minutes 10 DL, 5 SL Comments cued TKE, allow DF calf stretch ankle mobility Standing Exercise Name reviewed, declined HO Side bilateral Equipment Used rail support,16 box Reps/Minutes x10 Comments improved ankle DF & knee flexion AAROM- pnfree reported Gait Training Gait Activity stairs Device Used PRN R HR Surface 6 step Distance/Duration 28 step MAP bldg stairs Treatment Focus receiprocal stepping carrying groceries into house Comments carrying bucket wt LUE PT-OP-T Assessment and Plan Start: 04/25/23 10:20 Freq: Status: Active Protocol: Document 06/20/23 13:03 SP (Rec: 06/20/23 13:47 SP [id number]) Physical Therapy Assessment Goals balance Short Term Goal (STG) Pt will be able to do SLS 5 sec B w/o inc pain in L STG Duration 06/17/23 Technical Document Writer Goal (LTG) Pt will be able to do SLS 8 sec B w/o inc pain in L LTG Duration 07/28 strength Short Term Goal (STG) Pt will be indep w/HEP STG Duration 06/17/23 Long-Term Goal (LTG) Pt will score at least 4+/5 on BLE MMT in order to show improved stability to dec pt pain w/mobility LTG Duration 07/28 ROM Short Term Goal (STG) Pt will improved DF to neutral in knee ext position STG Duration 06/17/23 Long-Term Goal (LTG) Pt will improved DF in knee flex position to at least 10 deg and knee ext position to at least 5 deg to allow greater ease with movement LTG Duration 07/29/23 activities Short Term Goal (STG) Pt will report inc ease w/ donning/doffing L shoes/socks and not feel limited through hip and knee STG Duration 06/28 Long-Term Goal (LTG) pt will report no pain greater than 2/10 in calf/achilles w/ walking around store or when transitioning to standing. LTG Duration 07/28 Assessment Summary Assessment Pt improved ankle mobility with elevated surface, more dynamic tolerance on shuttle balance with ability to complete head turns and balloon volley less UE contact . No pain 6 step navigation carrying weight bucket assimulate groceries. 8 step tiring (height has home), needs rail contact and less reps today. Good effort calf raises with initiated shuttle recovery and review self off edge step pnfree. No adverse affects to trialed cable LE ext and curl machine to support strenghtening. Physical Therapy Plan Frequency and Duration Frequency of Treatment 2x/Week Duration of treatment (weeks) 12 Plan of Care Start Date 05/06/23 Plan of Care End Date 07/29/23 Therapeutic Interventions Therapeutic Interventions Balance Training,Gait Training ,Home Exercise Program,Joint Mobilizations,Manual Therapy, Neuromuscular Re-education, Orthotic/Prosthetic Management ,Patient/Caregiver Education, Self-Care/Home Management,Soft Tissue Mobilization,Taping, Therapeutic Activities, Therapeutic Exercises Modalities Cold Pack/Ice Massage,Electric Stimulation,Hot Packs, Infrared Therapy,Iontophoresis ,Ultrasound Other Therapeutic Interventions dexamethasone Next Visit Focus/Plan Next Note Type Treatment Note Next Visit Plan Recheck ankle mobility, resisted shuttle rec, SL activities, Continue DF and strengthening height to 8 in w /8-10 reps; advance balance, uneven surfaces POC: work on L ankle mobility and calf mobility
--- NOTE | 2023-06-24 13:45 | PT.OTN ---
Current Diagnoses Achilles tendinitis, left leg (06/24/23) Other specified enthesopathies of left lower limb, excluding foot (06/24/23) Physical Therapy Treatment Note PT-OP-A Visit Information Start: 04/25/23 10:20 Freq: Status: Active Protocol: Document 06/24/23 13:02 [facility] (Rec: 06/24/23 13:45 [facility] [id number]) Out-Patient Physical Therapy Visit Information Visit Information Visit Type Progress Note Visit Note 03/27 Visit Start Time 13:03 Visit Stop Time 14:43 Visit Number 11 Number of FIELD SALES SPECIALIST Visits 0 PT-OP-B Current Condition Start: 04/25/23 10:20 Freq: Status: Active Protocol: Document 05/06/23 13:04 [facility] (Rec: 05/06/23 14:16 [facility] [id number]) Current Condition History of Current Condition Onset Date Feb 2023 Current Complaints L achilles to calf pain History of Current Condition Pt reports L heel has been hurting especially when she sits for a while then gets up to walk. Pain has been up into L calf too. Pain started about 2 months ago. when first starts walking, hurts bad then eases up until she starts going for a long time like in a store then it really starts to hurt. Pt does report back problems. She avoids standing for long periods due to this. Back typically hurts for a long time in stores also. She had an infusion to her back in Mar and that helped dec the excrutiating pain. Hx of B TKA , osteoporosis. Pt reports SOB d/t COPD and dizziness when changing positions. She tends to stretch out her ankle. 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 No care to calf or ankle besides doctor recommending PT. Denies any specific injury. She did fall in Dec onto her buttocks. She was sitting on the bed and turned weird and got dizzy and fell to her buttocks. Unsure if this related. Denies thigh pain or numbness or tingling in leg. When it initially started, was just achillesa nd now goes up her calf. Denies flying or any surgeries in dec or hx of blood clots. Prior Treatments and Tests lumbar MRI: Specific levels: T12-L1 minimal facet arthropathy. Mild right neural foraminal narrowing. L1-L2: Mild facet arthropathy . No stenosis. L2-L3: Mild facet arthropathy . Small diffuse disc bulge. No stenosis. L3-L4: Mild facet arthropathy . Mild right subarticular recess narrowing. Mild disc bulge. No stenosis elsewhere. L4-L5: Central protrusion has decreased from prior imaging. Moderate facet arthropathy. Iezo-xy-hgdtlrrc central narrowing affecting the right greater left articular recesses. 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 Mild left neural foraminal narrowing. L5-S1: Blrg-[id number] facet arthropathy. Small diffuse disc bulge. No stenosis. Treatment Goals Patient/Caregiver Goals pain to not be there; be able to change positions and go grocery shopping w/o pain. PT-OP-C Subjective Start: 04/25/23 10:20 Freq: Status: Active Protocol: Document 06/24/23 13:02 [facility] (Rec: 06/24/23 13:45 [facility] [id number]) OP-PT Subjective Patient Comments Patient Comments Pt reports compliance w/ exercises; first thing getting up after down for a while still very painful. Heel not bothering her as much Patient Reported Progress Improving PT-OP-D Balance Start: 04/25/23 10:20 Freq: Status: Active Protocol: Document 06/24/23 13:02 [facility] (Rec: 06/24/23 13:45 [facility] [id number]) Balance Tests Single Limb Standing Single Limb- Right 9 sec Single Limb- Left 11 sec PT-OP-F Manual Assessment Start: 04/25/23 10:20 Freq: Status: Active Protocol: Document 05/06/23 13:04 [facility] (Rec: 05/06/23 14:16 [facility] [id number]) Manual Assessments Soft Tissue Assessment Soft Tissue Mobility Assessment L achilles and calf tenderness PT-OP-G Mobility & Gait Start: 04/25/23 10:20 Freq: Status: Active Protocol: Document 05/06/23 13:04 [facility] (Rec: 05/06/23 14:16 [facility] [id number]) OP Gait Assessment Comments Gait Comments Dec stance time w/lat lean L w /LLE WB; dec push off LLE PT-OP-J Posture/Palpation/Skin Start: 04/25/23 10:20 Freq: Status: Active Protocol: Document 05/06/23 13:04 [facility] (Rec: 05/06/23 14:16 [facility] [id number]) Posture Evaluation Comments Posture Comments L>R foot turned out; L >R rearfoot varus; R iliac crest higher than L PT-OP-K Range of Motion Start: 04/25/23 10:20 Freq: Status: Active Protocol: Document 06/24/23 13:02 [facility] (Rec: 06/24/23 13:45 [facility] [id number]) Ankle and Foot Goniometric Range of Motion Ankle and Foot Right Active Dorsiflexion with Knee Flexed 10 Dorsiflexion with Knee Extended 2 Left Active Dorsiflexion with Knee Flexed 5 Dorsiflexion with Knee Extended 0 PT-OP-L Special Tests Start: 04/25/23 10:20 Freq: Status: Active Protocol: Document 05/06/23 13:04 [facility] (Rec: 05/06/23 14:16 [facility] [id number]) Special Tests Lumbar Spine Special Tests Straight Leg Raise Comments positive L-feel into calf even w/o DF Slump Test Results tightness in calf at end range L Foot/Ankle Special Tests Homans test Comments neg L PT-OP-M Strength Start: 04/25/23 10:20 Freq: Status: Active Protocol: Document 06/24/23 13:02 [facility] (Rec: 06/24/23 13:45 [facility] [id number]) Hip Strength Hip Manual Muscle Testing Right Flexion (L2) 4- Good- Abduction 4- Good- External Rotation 4 Good Internal Rotation 4 Good Left Flexion (L2) 4- Good- Abduction 4- Good- External Rotation 4 Good Internal Rotation 4 Good Knee Strength Knee Manual Muscle Testing Right Flexion (S2) 4 Good Extension (L3) 4+ Good+ Left Flexion (S2) 4 Good Extension (L3) 4+ Good+ Ankle/Foot Strength Ankle and Foot Manual Muscle Testing Right Dorsiflexion (L4) 5 Normal Plantarflexion (S1) 5 Normal Inversion 5 Normal Eversion (S1) 5 Normal Comments 20 heel raises Left Dorsiflexion (L4) 5 Normal Plantarflexion (S1) 5 Normal Inversion 5 Normal Eversion (S1) 5 Normal Comments 20 heel raises PT-OP-Q Treatments Start: 04/25/23 10:20 Freq: Status: Active Protocol: Document 06/24/23 13:02 [facility] (Rec: 06/24/23 13:45 [facility] [id number]) Therapeutic Exercises Standing Exercises DF Standing Exercise Name wall to back Side bilateral Reps/Minutes 2x10 ankle mobility Side bilateral Equipment Used rail support,16 box Reps/Minutes x10 Comments improved ankle DF & knee flexion AAROM- pnfree reported step up, down Standing Exercise Name 1. fwd step down w/backwards step up2. Lateral step up / down Side left Resistance AROM, PRN rail support Equipment Used 6 step Reps/Minutes x10-12 ea Comments cues for eccentric control Manual Therapy Treatment Soft Tissue Mobilization calf Body Location L soleus and achilles Mobilization Type Myofascial Release,Rolling Intensity/Depth Moderate Body Position Prone Joint Mobilizations hip Comments L inf and free madelin ball ER in hooklying FM talocrual jt Comments L talar distraction and AP FM w/DF c/r tib fib Comments L AP tibia FM calcaneus Comments distraction L PT-OP-T Assessment and Plan Start: 04/25/23 10:20 Freq: Status: Active Protocol: Document 06/24/23 13:02 [facility] (Rec: 06/24/23 13:45 [facility] [id number]) Physical Therapy Assessment Goals balance Short Term Goal (STG) Pt will be able to do SLS 5 sec B w/o inc pain in L STG Duration achieved 06/23 Online Marketing Analyst Goal (LTG) Pt will be able to do SLS 8 sec B w/o inc pain in L LTG Duration achieved 06/23 strength Short Term Goal (STG) Pt will be indep w/HEP STG Duration achieved advancing as able Online Marketing Analyst Goal (LTG) Pt will score at least 4+/5 on BLE MMT in order to show improved stability to dec pt pain w/mobility 06/23-improved LTG Duration 07/28 ROM Short Term Goal (STG) Pt will improved DF to neutral in knee ext position STG Duration achieved 06/23 Online Marketing Analyst Goal (LTG) Pt will improved DF in knee flex position to at least 10 deg and knee ext position to at least 5 deg to allow greater ease with movement LTG Duration 07/29/23 activities Short Term Goal (STG) Pt will report inc ease w/ donning/doffing L shoes/socks and not feel limited through hip and knee 06/23-a little better-still difficult STG Duration 06/28 Halfway Goal (LTG) pt will report no pain greater than 2/10 in calf/achilles w/ walking around store or when transitioning to standing. 06/23-when transitioning 8-9/10; once loosens up, okay walking LTG Duration 07/28 Assessment Summary Assessment Pt is making good progrees w/ PT and has improved ROM in ankle and improved strength and balance. Still has limited LLE ROM compared to R and limited gastroc length. Cont PT to focus on this. Physical Therapy Plan Frequency and Duration Frequency of Treatment 2x/Week Duration of treatment (weeks) 12 Plan of Care Start Date 05/06/23 Plan of Care End Date 07/29/23 Therapeutic Interventions Therapeutic Interventions Balance Training,Gait Training ,Home Exercise Program,Joint Mobilizations,Manual Therapy, Neuromuscular Re-education, Orthotic/Prosthetic Management ,Patient/Caregiver Education, Self-Care/Home Management,Soft Tissue Mobilization,Taping, Therapeutic Activities, Therapeutic Exercises Modalities Cold Pack/Ice Massage,Electric Stimulation,Hot Packs, Infrared Therapy,Iontophoresis ,Ultrasound Other Therapeutic Interventions dexamethasone Next Visit Focus/Plan Next Note Type Treatment Note Next Visit Plan resisted shuttle rec, SL activities, Continue DF and strengthening height to 8 in w /8-10 reps; advance balance, uneven surfaces POC: work on L ankle mobility and calf mobility
--- NOTE | 2023-06-26 13:48 | PT.OTN ---
Current Diagnoses Achilles tendinitis, left leg (06/26/23) Other specified enthesopathies of left lower limb, excluding foot (06/26/23) Physical Therapy Treatment Note PT-OP-A Visit Information Start: 04/25/23 10:20 Freq: Status: Active Protocol: Document 06/26/23 13:00 [facility] (Rec: 06/26/23 13:48 [facility] [id number]) Out-Patient Physical Therapy Visit Information Visit Information Visit Type Treatment Note Visit Note 04/27 Visit Start Time 13:03 Visit Stop Time 13:43 Visit Number 12 Number of ASSISTANT SOFTBALL COACH Visits 0 PT-OP-B Current Condition Start: 04/25/23 10:20 Freq: Status: Active Protocol: Document 05/06/23 13:04 [facility] (Rec: 05/06/23 14:16 [facility] [id number]) Current Condition History of Current Condition Onset Date Feb 2023 Current Complaints L achilles to calf pain History of Current Condition Pt reports L heel has been hurting especially when she sits for a while then gets up to walk. Pain has been up into L calf too. Pain started about 2 months ago. when first starts walking, hurts bad then eases up until she starts going for a long time like in a store then it really starts to hurt. Pt does report back problems. She avoids standing for long periods due to this. Back typically hurts for a long time in stores also. She had an infusion to her back in Mar and that helped dec the excrutiating pain. Hx of B TKA , osteoporosis. Pt reports SOB d/t COPD and dizziness when changing positions. She tends to stretch out her ankle. 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 No care to calf or ankle besides doctor recommending PT. Denies any specific injury. She did fall in Dec onto her buttocks. She was sitting on the bed and turned weird and got dizzy and fell to her buttocks. Unsure if this related. Denies thigh pain or numbness or tingling in leg. When it initially started, was just achillesa nd now goes up her calf. Denies flying or any surgeries in dec or hx of blood clots. Prior Treatments and Tests lumbar MRI: Specific levels: T12-L1 minimal facet arthropathy. Mild right neural foraminal narrowing. L1-L2: Mild facet arthropathy . No stenosis. L2-L3: Mild facet arthropathy . Small diffuse disc bulge. No stenosis. L3-L4: Mild facet arthropathy . Mild right subarticular recess narrowing. Mild disc bulge. No stenosis elsewhere. L4-L5: Central protrusion has decreased from prior imaging. Moderate facet arthropathy. Jnfp-[id number]-[id number] central narrowing affecting the right greater left articular recesses. 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 Mild left neural foraminal narrowing. L5-S1: Ommt-pj-dhonbewi facet arthropathy. Small diffuse disc bulge. No stenosis. Treatment Goals Patient/Caregiver Goals pain to not be there; be able to change positions and go grocery shopping w/o pain. PT-OP-C Subjective Start: 04/25/23 10:20 Freq: Status: Active Protocol: Document 06/26/23 13:00 [facility] (Rec: 06/26/23 13:48 [facility] [id number]) OP-PT Subjective Patient Comments Patient Comments Pt reports she is tired today PT-OP-D Balance Start: 04/25/23 10:20 Freq: Status: Active Protocol: Document 06/24/23 13:02 [facility] (Rec: 06/24/23 13:45 [facility] [id number]) Balance Tests Single Limb Standing Single Limb- Right 9 sec Single Limb- Left 11 sec PT-OP-F Manual Assessment Start: 04/25/23 10:20 Freq: Status: Active Protocol: Document 05/06/23 13:04 [facility] (Rec: 05/06/23 14:16 [facility] [id number]) Manual Assessments Soft Tissue Assessment Soft Tissue Mobility Assessment L achilles and calf tenderness PT-OP-G Mobility & Gait Start: 04/25/23 10:20 Freq: Status: Active Protocol: Document 05/06/23 13:04 [facility] (Rec: 05/06/23 14:16 [facility] [id number]) OP Gait Assessment Comments Gait Comments Dec stance time w/lat lean L w /LLE WB; dec push off LLE PT-OP-J Posture/Palpation/Skin Start: 04/25/23 10:20 Freq: Status: Active Protocol: Document 05/06/23 13:04 [facility] (Rec: 05/06/23 14:16 [facility] [id number]) Posture Evaluation Comments Posture Comments L>R foot turned out; L >R rearfoot varus; R iliac crest higher than L PT-OP-K Range of Motion Start: 04/25/23 10:20 Freq: Status: Active Protocol: Document 06/24/23 13:02 [facility] (Rec: 06/24/23 13:45 [facility] [id number]) Ankle and Foot Goniometric Range of Motion Ankle and Foot Right Active Dorsiflexion with Knee Flexed 10 Dorsiflexion with Knee Extended 2 Left Active Dorsiflexion with Knee Flexed 5 Dorsiflexion with Knee Extended 0 PT-OP-L Special Tests Start: 04/25/23 10:20 Freq: Status: Active Protocol: Document 05/06/23 13:04 [facility] (Rec: 05/06/23 14:16 [facility] [id number]) Special Tests Lumbar Spine Special Tests Straight Leg Raise Comments positive L-feel into calf even w/o DF Slump Test Results tightness in calf at end range L Foot/Ankle Special Tests Homans test Comments neg L PT-OP-M Strength Start: 04/25/23 10:20 Freq: Status: Active Protocol: Document 06/24/23 13:02 [facility] (Rec: 06/24/23 13:45 [facility] [id number]) Hip Strength Hip Manual Muscle Testing Right Flexion (L2) 4- Good- Abduction 4- Good- External Rotation 4 Good Internal Rotation 4 Good Left Flexion (L2) 4- Good- Abduction 4- Good- External Rotation 4 Good Internal Rotation 4 Good Knee Strength Knee Manual Muscle Testing Right Flexion (S2) 4 Good Extension (L3) 4+ Good+ Left Flexion (S2) 4 Good Extension (L3) 4+ Good+ Ankle/Foot Strength Ankle and Foot Manual Muscle Testing Right Dorsiflexion (L4) 5 Normal Plantarflexion (S1) 5 Normal Inversion 5 Normal Eversion (S1) 5 Normal Comments 20 heel raises Left Dorsiflexion (L4) 5 Normal Plantarflexion (S1) 5 Normal Inversion 5 Normal Eversion (S1) 5 Normal Comments 20 heel raises PT-OP-Q Treatments Start: 04/25/23 10:20 Freq: Status: Active Protocol: Document 06/26/23 13:00 [facility] (Rec: 06/26/23 13:48 [facility] [id number]) Therapeutic Exercises Standing Exercises DF Standing Exercise Name wall to back Side bilateral Reps/Minutes 2x10 ankle mobility Side bilateral Equipment Used rail support,16 box Reps/Minutes x10 Comments improved ankle DF & knee flexion AAROM- step up, down Standing Exercise Name 1. fwd step down w/backwards step up2. Lateral step up/down 3.step up Side bilateral Resistance AROM, PRN rail support Equipment Used 8 step Reps/Minutes 6 ea Comments cues for eccentric control stretch Standing Exercise Name 1. jose 2. stair Side bilateral Reps/Minutes 1 min ea Manual Therapy Treatment Soft Tissue Mobilization calf Body Location L soleus and achilles Mobilization Type Myofascial Release,Rolling Intensity/Depth Moderate Body Position Prone Neuro Re-Education Treatment Balance Activities tilt board Details fwd/bwd and lat Comments stationary: HTs EC tilts fwd/back & lat B foam Comments 1. WBOS w/head turns and EO/EC trials 2. NBOS w/head turns and EO/EC 3. staggered stance B PT-OP-T Assessment and Plan Start: 04/25/23 10:20 Freq: Status: Active Protocol: Document 06/26/23 13:00 [facility] (Rec: 06/26/23 13:48 [facility] [id number]) Physical Therapy Assessment Goals balance Short Term Goal (STG) Pt will be able to do SLS 5 sec B w/o inc pain in L STG Duration achieved 06/23 Top Cleaner Goal (LTG) Pt will be able to do SLS 8 sec B w/o inc pain in L LTG Duration achieved 06/23 strength Short Term Goal (STG) Pt will be indep w/HEP STG Duration achieved advancing as able Intermediate Goal (LTG) Pt will score at least 4+/5 on BLE MMT in order to show improved stability to dec pt pain w/mobility 06/23-improved LTG Duration 07/28 ROM Short Term Goal (STG) Pt will improved DF to neutral in knee ext position STG Duration achieved 06/23 Intermediate Goal (LTG) Pt will improved DF in knee flex position to at least 10 deg and knee ext position to at least 5 deg to allow greater ease with movement LTG Duration 07/29/23 activities Short Term Goal (STG) Pt will report inc ease w/ donning/doffing L shoes/socks and not feel limited through hip and knee 06/23-a little better-still difficult STG Duration 06/28 Intermediate Goal (LTG) pt will report no pain greater than 2/10 in calf/achilles w/ walking around store or when transitioning to standing. 06/23-when transitioning 8-9/10; once loosens up, okay walking LTG Duration 07/28 Assessment Summary Assessment Pt struggled w/step up/down on L>R d/t weakness. She showed improvement on unstable surfaces today. Cont achilles and calf tightness. Physical Therapy Plan Frequency and Duration Frequency of Treatment 2x/Week Duration of treatment (weeks) 12 Plan of Care Start Date 05/06/23 Plan of Care End Date 07/29/23 Next Visit Focus/Plan Next Note Type Treatment Note Next Visit Plan cont to work L ankle mobility and stability
--- NOTE | 2023-07-01 13:48 | PT.OTN ---
Current Diagnoses Achilles tendinitis, left leg (07/01/23) Other specified enthesopathies of left lower limb, excluding foot (07/01/23) Physical Therapy Treatment Note PT-OP-A Visit Information Start: 04/25/23 10:20 Freq: Status: Active Protocol: Document 07/01/23 13:02 [facility] (Rec: 07/01/23 13:48 [facility] [id number]) Out-Patient Physical Therapy Visit Information Visit Information Visit Type Treatment Note Visit Note 05/25 Visit Start Time 13:02 Visit Stop Time 13:42 Visit Number 13 Number of COACH PROFESSIONAL ATHLETES Visits 0 PT-OP-B Current Condition Start: 04/25/23 10:20 Freq: Status: Active Protocol: Document 05/06/23 13:04 [facility] (Rec: 05/06/23 14:16 [facility] [id number]) Current Condition History of Current Condition Onset Date Feb 2023 Current Complaints L achilles to calf pain History of Current Condition Pt reports L heel has been hurting especially when she sits for a while then gets up to walk. Pain has been up into L calf too. Pain started about 2 months ago. when first starts walking, hurts bad then eases up until she starts going for a long time like in a store then it really starts to hurt. Pt does report back problems. She avoids standing for long periods due to this. Back typically hurts for a long time in stores also. She had an infusion to her back in Mar and that helped dec the excrutiating pain. Hx of B TKA , osteoporosis. Pt reports SOB d/t COPD and dizziness when changing positions. She tends to stretch out her ankle. 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 No care to calf or ankle besides doctor recommending PT. Denies any specific injury. She did fall in Dec onto her buttocks. She was sitting on the bed and turned weird and got dizzy and fell to her buttocks. Unsure if this related. Denies thigh pain or numbness or tingling in leg. When it initially started, was just achillesa nd now goes up her calf. Denies flying or any surgeries in dec or hx of blood clots. Prior Treatments and Tests lumbar MRI: Specific levels: T12-L1 minimal facet arthropathy. Mild right neural foraminal narrowing. L1-L2: Mild facet arthropathy . No stenosis. L2-L3: Mild facet arthropathy . Small diffuse disc bulge. No stenosis. L3-L4: Mild facet arthropathy . Mild right subarticular recess narrowing. Mild disc bulge. No stenosis elsewhere. L4-L5: Central protrusion has decreased from prior imaging. Moderate facet arthropathy. Omqe-wk-yfpkzqbl central narrowing affecting the right greater left articular recesses. 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 Mild left neural foraminal narrowing. L5-S1: Hxnl-qf-ksnaxdyk facet arthropathy. Small diffuse disc bulge. No stenosis. Treatment Goals Patient/Caregiver Goals pain to not be there; be able to change positions and go grocery shopping w/o pain. PT-OP-C Subjective Start: 04/25/23 10:20 Freq: Status: Active Protocol: Document 07/01/23 13:02 [facility] (Rec: 07/01/23 13:48 [facility] [id number]) OP-PT Subjective Patient Comments Patient Comments Pt reports pain still w/first getting moving. PT-OP-D Balance Start: 04/25/23 10:20 Freq: Status: Active Protocol: Document 06/24/23 13:02 [facility] (Rec: 06/24/23 13:45 [facility] [id number]) Balance Tests Single Limb Standing Single Limb- Right 9 sec Single Limb- Left 11 sec PT-OP-F Manual Assessment Start: 04/25/23 10:20 Freq: Status: Active Protocol: Document 05/06/23 13:04 [facility] (Rec: 05/06/23 14:16 [facility] [id number]) Manual Assessments Soft Tissue Assessment Soft Tissue Mobility Assessment L achilles and calf tenderness PT-OP-G Mobility & Gait Start: 04/25/23 10:20 Freq: Status: Active Protocol: Document 05/06/23 13:04 [facility] (Rec: 05/06/23 14:16 [facility] [id number]) OP Gait Assessment Comments Gait Comments Dec stance time w/lat lean L w /LLE WB; dec push off LLE PT-OP-J Posture/Palpation/Skin Start: 04/25/23 10:20 Freq: Status: Active Protocol: Document 05/06/23 13:04 [facility] (Rec: 05/06/23 14:16 [facility] [id number]) Posture Evaluation Comments Posture Comments L>R foot turned out; L >R rearfoot varus; R iliac crest higher than L PT-OP-K Range of Motion Start: 04/25/23 10:20 Freq: Status: Active Protocol: Document 06/24/23 13:02 [facility] (Rec: 06/24/23 13:45 [facility] [id number]) Ankle and Foot Goniometric Range of Motion Ankle and Foot Right Active Dorsiflexion with Knee Flexed 10 Dorsiflexion with Knee Extended 2 Left Active Dorsiflexion with Knee Flexed 5 Dorsiflexion with Knee Extended 0 PT-OP-L Special Tests Start: 04/25/23 10:20 Freq: Status: Active Protocol: Document 05/06/23 13:04 [facility] (Rec: 05/06/23 14:16 [facility] [id number]) Special Tests Lumbar Spine Special Tests Straight Leg Raise Comments positive L-feel into calf even w/o DF Slump Test Results tightness in calf at end range L Foot/Ankle Special Tests Homans test Comments neg L PT-OP-M Strength Start: 04/25/23 10:20 Freq: Status: Active Protocol: Document 06/24/23 13:02 [facility] (Rec: 06/24/23 13:45 [facility] [id number]) Hip Strength Hip Manual Muscle Testing Right Flexion (L2) 4- Good- Abduction 4- Good- External Rotation 4 Good Internal Rotation 4 Good Left Flexion (L2) 4- Good- Abduction 4- Good- External Rotation 4 Good Internal Rotation 4 Good Knee Strength Knee Manual Muscle Testing Right Flexion (S2) 4 Good Extension (L3) 4+ Good+ Left Flexion (S2) 4 Good Extension (L3) 4+ Good+ Ankle/Foot Strength Ankle and Foot Manual Muscle Testing Right Dorsiflexion (L4) 5 Normal Plantarflexion (S1) 5 Normal Inversion 5 Normal Eversion (S1) 5 Normal Comments 20 heel raises Left Dorsiflexion (L4) 5 Normal Plantarflexion (S1) 5 Normal Inversion 5 Normal Eversion (S1) 5 Normal Comments 20 heel raises PT-OP-Q Treatments Start: 04/25/23 10:20 Freq: Status: Active Protocol: Document 07/01/23 13:02 [facility] (Rec: 07/01/23 13:48 [facility] [id number]) Gym Equipment Shuttle Balance red Comments fwd and side: WBOS & NBOS fwd: staggered stance B Therapeutic Exercises Standing Exercises lunge Standing Exercise Name mini w/rail Side bilateral Reps/Minutes 10 DF Standing Exercise Name wall to back Side bilateral Reps/Minutes 15 calf raises Standing Exercise Name DL Equipment Used on step w/rail Reps/Minutes 15 ankle mobility Side bilateral Equipment Used rail support,16 box Reps/Minutes x10 Comments improved ankle DF & knee flexion AAROM- step up, down Standing Exercise Name 1. fwd step down w/backwards step up2. Lateral step up/down 3.step up Side left Resistance AROM, PRN rail support-mostly w/backwards step up Equipment Used 6 step Reps/Minutes 1. 10 2. 12 3. 10 Comments cues for eccentric control throughout stretch Standing Exercise Name 1. jose 2. stair Side bilateral Reps/Minutes 1 min ea Manual Therapy Treatment Soft Tissue Mobilization calf Body Location L soleus and achilles Mobilization Type Myofascial Release,Rolling Intensity/Depth Moderate Body Position Prone Joint Mobilizations midfoot Comments gentle stretch into pronation/ supination calcaneus Comments distraction L Neuro Re-Education Treatment Balance Activities tilt board Details fwd/bwd and lat Comments stationary: HTs EC tilts fwd/back & lat B PT-OP-T Assessment and Plan Start: 04/25/23 10:20 Freq: Status: Active Protocol: Document 07/01/23 13:02 [facility] (Rec: 07/01/23 13:48 [facility] [id number]) Physical Therapy Assessment Goals balance Short Term Goal (STG) Pt will be able to do SLS 5 sec B w/o inc pain in L STG Duration achieved 06/23 Shelter Goal (LTG) Pt will be able to do SLS 8 sec B w/o inc pain in L LTG Duration achieved 06/23 strength Short Term Goal (STG) Pt will be indep w/HEP STG Duration achieved advancing as able Shelter Goal (LTG) Pt will score at least 4+/5 on BLE MMT in order to show improved stability to dec pt pain w/mobility 06/23-improved LTG Duration 07/28 ROM Short Term Goal (STG) Pt will improved DF to neutral in knee ext position STG Duration achieved 06/23 Perlite Grinder Goal (LTG) Pt will improved DF in knee flex position to at least 10 deg and knee ext position to at least 5 deg to allow greater ease with movement LTG Duration 07/29/23 activities Short Term Goal (STG) Pt will report inc ease w/ donning/doffing L shoes/socks and not feel limited through hip and knee 06/23-a little better-still difficult STG Duration 06/28 Perlite Grinder Goal (LTG) pt will report no pain greater than 2/10 in calf/achilles w/ walking around store or when transitioning to standing. 06/23-when transitioning 8-9/10; once loosens up, okay walking LTG Duration 07/28 Assessment Summary Assessment Pt improving w/balance on unstable surfaces but does tend to lose balance to R and wt bear more into RLE during activiteis. Went back to 6 in step to focus on control of motion Physical Therapy Plan Frequency and Duration Frequency of Treatment 2x/Week Duration of treatment (weeks) 12 Plan of Care Start Date 05/06/23 Plan of Care End Date 07/29/23 Next Visit Focus/Plan Next Note Type Treatment Note Next Visit Plan cont to work L ankle mobility and stability
--- NOTE | 2023-07-03 13:46 | PT.OTN ---
Current Diagnoses Achilles tendinitis, left leg (07/03/23) Other specified enthesopathies of left lower limb, excluding foot (07/03/23) Physical Therapy Treatment Note PT-OP-A Visit Information Start: 04/25/23 10:20 Freq: Status: Active Protocol: Document 07/03/23 13:02 [facility] (Rec: 07/03/23 13:45 [facility] [id number]) Out-Patient Physical Therapy Visit Information Visit Information Visit Type Treatment Note Visit Note 06/25 Visit Start Time 13:03 Visit Stop Time 13:43 Visit Number 14 Number of CARD MAKER Visits 0 PT-OP-B Current Condition Start: 04/25/23 10:20 Freq: Status: Active Protocol: Document 05/06/23 13:04 [facility] (Rec: 05/06/23 14:16 [facility] [id number]) Current Condition History of Current Condition Onset Date Feb 2023 Current Complaints L achilles to calf pain History of Current Condition Pt reports L heel has been hurting especially when she sits for a while then gets up to walk. Pain has been up into L calf too. Pain started about 2 months ago. when first starts walking, hurts bad then eases up until she starts going for a long time like in a store then it really starts to hurt. Pt does report back problems. She avoids standing for long periods due to this. Back typically hurts for a long time in stores also. She had an infusion to her back in Mar and that helped dec the excrutiating pain. Hx of B TKA , osteoporosis. Pt reports SOB d/t COPD and dizziness when changing positions. She tends to stretch out her ankle. 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 No care to calf or ankle besides doctor recommending PT. Denies any specific injury. She did fall in Dec onto her buttocks. She was sitting on the bed and turned weird and got dizzy and fell to her buttocks. Unsure if this related. Denies thigh pain or numbness or tingling in leg. When it initially started, was just achillesa nd now goes up her calf. Denies flying or any surgeries in dec or hx of blood clots. Prior Treatments and Tests lumbar MRI: Specific levels: T12-L1 minimal facet arthropathy. Mild right neural foraminal narrowing. L1-L2: Mild facet arthropathy . No stenosis. L2-L3: Mild facet arthropathy . Small diffuse disc bulge. No stenosis. L3-L4: Mild facet arthropathy . Mild right subarticular recess narrowing. Mild disc bulge. No stenosis elsewhere. L4-L5: Central protrusion has decreased from prior imaging. Moderate facet arthropathy. Wlyk-ke-gfdgvuct central narrowing affecting the right greater left articular recesses. 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 Mild left neural foraminal narrowing. L5-S1: Elhw-xh-pxvrygub facet arthropathy. Small diffuse disc bulge. No stenosis. Treatment Goals Patient/Caregiver Goals pain to not be there; be able to change positions and go grocery shopping w/o pain. PT-OP-C Subjective Start: 04/25/23 10:20 Freq: Status: Active Protocol: Document 07/03/23 13:02 [facility] (Rec: 07/03/23 13:45 [facility] [id number]) OP-PT Subjective Patient Comments Patient Comments compliance w/calf stretches and still feels really tight PT-OP-D Balance Start: 04/25/23 10:20 Freq: Status: Active Protocol: Document 06/24/23 13:02 [facility] (Rec: 06/24/23 13:45 [facility] [id number]) Balance Tests Single Limb Standing Single Limb- Right 9 sec Single Limb- Left 11 sec PT-OP-F Manual Assessment Start: 04/25/23 10:20 Freq: Status: Active Protocol: Document 05/06/23 13:04 [facility] (Rec: 05/06/23 14:16 [facility] [id number]) Manual Assessments Soft Tissue Assessment Soft Tissue Mobility Assessment L achilles and calf tenderness PT-OP-G Mobility & Gait Start: 04/25/23 10:20 Freq: Status: Active Protocol: Document 05/06/23 13:04 [facility] (Rec: 05/06/23 14:16 [facility] [id number]) OP Gait Assessment Comments Gait Comments Dec stance time w/lat lean L w /LLE WB; dec push off LLE PT-OP-J Posture/Palpation/Skin Start: 04/25/23 10:20 Freq: Status: Active Protocol: Document 05/06/23 13:04 [facility] (Rec: 05/06/23 14:16 [facility] [id number]) Posture Evaluation Comments Posture Comments L>R foot turned out; L >R rearfoot varus; R iliac crest higher than L PT-OP-K Range of Motion Start: 04/25/23 10:20 Freq: Status: Active Protocol: Document 06/24/23 13:02 [facility] (Rec: 06/24/23 13:45 [facility] [id number]) Ankle and Foot Goniometric Range of Motion Ankle and Foot Right Active Dorsiflexion with Knee Flexed 10 Dorsiflexion with Knee Extended 2 Left Active Dorsiflexion with Knee Flexed 5 Dorsiflexion with Knee Extended 0 PT-OP-L Special Tests Start: 04/25/23 10:20 Freq: Status: Active Protocol: Document 05/06/23 13:04 [facility] (Rec: 05/06/23 14:16 [facility] [id number]) Special Tests Lumbar Spine Special Tests Straight Leg Raise Comments positive L-feel into calf even w/o DF Slump Test Results tightness in calf at end range L Foot/Ankle Special Tests Homans test Comments neg L PT-OP-M Strength Start: 04/25/23 10:20 Freq: Status: Active Protocol: Document 06/24/23 13:02 [facility] (Rec: 06/24/23 13:45 [facility] [id number]) Hip Strength Hip Manual Muscle Testing Right Flexion (L2) 4- Good- Abduction 4- Good- External Rotation 4 Good Internal Rotation 4 Good Left Flexion (L2) 4- Good- Abduction 4- Good- External Rotation 4 Good Internal Rotation 4 Good Knee Strength Knee Manual Muscle Testing Right Flexion (S2) 4 Good Extension (L3) 4+ Good+ Left Flexion (S2) 4 Good Extension (L3) 4+ Good+ Ankle/Foot Strength Ankle and Foot Manual Muscle Testing Right Dorsiflexion (L4) 5 Normal Plantarflexion (S1) 5 Normal Inversion 5 Normal Eversion (S1) 5 Normal Comments 20 heel raises Left Dorsiflexion (L4) 5 Normal Plantarflexion (S1) 5 Normal Inversion 5 Normal Eversion (S1) 5 Normal Comments 20 heel raises PT-OP-Q Treatments Start: 04/25/23 10:20 Freq: Status: Active Protocol: Document 07/03/23 13:02 [facility] (Rec: 07/03/23 13:45 [facility] [id number]) Gym Equipment Shuttle Balance red Comments fwd and side: WBOS & NBOS fwd: staggered stance B Therapeutic Exercises Standing Exercises lunge Standing Exercise Name mini w/rail Side bilateral Reps/Minutes 10 DF Standing Exercise Name wall to back Side bilateral Reps/Minutes 15 calf raises Standing Exercise Name DL Equipment Used on step w/rail Reps/Minutes 15 step up, down Standing Exercise Name 1. fwd step down w/backwards step up2. Lateral step up/down 3.step up Side left Resistance AROM, PRN rail support-mostly w/backwards step up Equipment Used 6 step Reps/Minutes 12 ea Comments cues for eccentric control throughout stretch Standing Exercise Name 1. jose 2. stair Side bilateral Reps/Minutes 1 min ea Manual Therapy Treatment Soft Tissue Mobilization calf Body Location L soleus and achilles Mobilization Type Myofascial Release,Rolling Intensity/Depth Moderate Body Position Prone Joint Mobilizations talocrual jt Comments AP talus seated FM tib fib Comments PA tib FM Neuro Re-Education Treatment Balance Activities tilt board Details fwd/bwd and lat Comments stationary: HTs EC tilts fwd/back & lat B PT-OP-R Modalities Start: 04/25/23 10:20 Freq: Status: Active Protocol: Document 07/03/23 13:02 [facility] (Rec: 07/03/23 13:45 [facility] [id number]) Ultrasound Therapy Treatment achilles Patient Position Sitting Coupling Medium Ultrasound Gel Mode Setting Pulsed Duty Cycle 50% Intensity Setting (w/cm2) 1.0 Comments L achilles PT-OP-T Assessment and Plan Start: 04/25/23 10:20 Freq: Status: Active Protocol: Document 07/03/23 13:02 [facility] (Rec: 07/03/23 13:45 [facility] [id number]) Physical Therapy Assessment Goals balance Short Term Goal (STG) Pt will be able to do SLS 5 sec B w/o inc pain in L STG Duration achieved 48 Longterm Goal (LTG) Pt will be able to do SLS 8 sec B w/o inc pain in L LTG Duration achieved 48 strength Short Term Goal (STG) Pt will be indep w/HEP STG Duration achieved advancing as able Longterm Goal (LTG) Pt will score at least 4+/5 on BLE MMT in order to show improved stability to dec pt pain w/mobility 8-improved LTG Duration 07/28 ROM Short Term Goal (STG) Pt will improved DF to neutral in knee ext position STG Duration achieved 4/8 Longterm Goal (LTG) Pt will improved DF in knee flex position to at least 10 deg and knee ext position to at least 5 deg to allow greater ease with movement LTG Duration 07/29/23 activities Short Term Goal (STG) Pt will report inc ease w/ donning/doffing L shoes/socks and not feel limited through hip and knee 06/23-a little better-still difficult STG Duration 06/28 Longterm Goal (LTG) pt will report no pain greater than 2/10 in calf/achilles w/ walking around store or when transitioning to standing. 06/23-when transitioning 8-9/10; once loosens up, okay walking LTG Duration 07/28 Assessment Summary Assessment Improved control on all step up/down exercises but still fatigues by end of reps. Did best w/lat step up/down and fwd step up; difficult still w /backwards step up and control w/fwd step down. Did very well on shuttle balanc w/less rail use today Physical Therapy Plan Frequency and Duration Frequency of Treatment 2x/Week Duration of treatment (weeks) 12 Plan of Care Start Date 05/06/23 Plan of Care End Date 07/29/23 Next Visit Focus/Plan Next Note Type Treatment Note Next Visit Plan cont to work L ankle mobility and stability
--- NOTE | 2023-07-08 13:45 | PT.OTN ---
Current Diagnoses Achilles tendinitis, left leg (07/08/23) Other specified enthesopathies of left lower limb, excluding foot (07/08/23) Physical Therapy Treatment Note PT-OP-A Visit Information Start: 04/25/23 10:20 Freq: Status: Active Protocol: Document 07/08/23 13:02 [facility] (Rec: 07/08/23 13:45 [facility] [id number]) Out-Patient Physical Therapy Visit Information Visit Information Visit Type Treatment Note Visit Note 07/25 Visit Start Time 13:04 Visit Stop Time 13:43 Visit Number 15 Number of TRACK REPAIRER HELPER Visits 0 PT-OP-B Current Condition Start: 04/25/23 10:20 Freq: Status: Active Protocol: Document 05/06/23 13:04 [facility] (Rec: 05/06/23 14:16 [facility] [id number]) Current Condition History of Current Condition Onset Date Feb 2023 Current Complaints L achilles to calf pain History of Current Condition Pt reports L heel has been hurting especially when she sits for a while then gets up to walk. Pain has been up into L calf too. Pain started about 2 months ago. when first starts walking, hurts bad then eases up until she starts going for a long time like in a store then it really starts to hurt. Pt does report back problems. She avoids standing for long periods due to this. Back typically hurts for a long time in stores also. She had an infusion to her back in Mar and that helped dec the excrutiating pain. Hx of B TKA , osteoporosis. Pt reports SOB d/t COPD and dizziness when changing positions. She tends to stretch out her ankle. 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 No care to calf or ankle besides doctor recommending PT. Denies any specific injury. She did fall in Dec onto her buttocks. She was sitting on the bed and turned weird and got dizzy and fell to her buttocks. Unsure if this related. Denies thigh pain or numbness or tingling in leg. When it initially started, was just achillesa nd now goes up her calf. Denies flying or any surgeries in dec or hx of blood clots. Prior Treatments and Tests lumbar MRI: Specific levels: T12-L1 minimal facet arthropathy. Mild right neural foraminal narrowing. L1-L2: Mild facet arthropathy . No stenosis. L2-L3: Mild facet arthropathy . Small diffuse disc bulge. No stenosis. L3-L4: Mild facet arthropathy . Mild right subarticular recess narrowing. Mild disc bulge. No stenosis elsewhere. L4-L5: Central protrusion has decreased from prior imaging. Moderate facet arthropathy. Kafj-sd-gqmodgac central narrowing affecting the right greater left articular recesses. 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 Mild left neural foraminal narrowing. L5-S1: Iomf-to-hcxrzmxq facet arthropathy. Small diffuse disc bulge. No stenosis. Treatment Goals Patient/Caregiver Goals pain to not be there; be able to change positions and go grocery shopping w/o pain. PT-OP-C Subjective Start: 04/25/23 10:20 Freq: Status: Active Protocol: Document 07/08/23 13:02 [facility] (Rec: 07/08/23 13:45 [facility] [id number]) OP-PT Subjective Patient Comments Patient Comments Pt reports heel still stiffness up if sits for a long time. Its not quite as severe but still does hurt. Its easier to walk now though Patient Reported Progress Improving PT-OP-D Balance Start: 04/25/23 10:20 Freq: Status: Active Protocol: Document 06/24/23 13:02 [facility] (Rec: 06/24/23 13:45 [facility] [id number]) Balance Tests Single Limb Standing Single Limb- Right 9 sec Single Limb- Left 11 sec PT-OP-F Manual Assessment Start: 04/25/23 10:20 Freq: Status: Active Protocol: Document 05/06/23 13:04 [facility] (Rec: 05/06/23 14:16 [facility] [id number]) Manual Assessments Soft Tissue Assessment Soft Tissue Mobility Assessment L achilles and calf tenderness PT-OP-G Mobility & Gait Start: 04/25/23 10:20 Freq: Status: Active Protocol: Document 05/06/23 13:04 [facility] (Rec: 05/06/23 14:16 [facility] [id number]) OP Gait Assessment Comments Gait Comments Dec stance time w/lat lean L w /LLE WB; dec push off LLE PT-OP-J Posture/Palpation/Skin Start: 04/25/23 10:20 Freq: Status: Active Protocol: Document 05/06/23 13:04 [facility] (Rec: 05/06/23 14:16 [facility] [id number]) Posture Evaluation Comments Posture Comments L>R foot turned out; L >R rearfoot varus; R iliac crest higher than L PT-OP-K Range of Motion Start: 04/25/23 10:20 Freq: Status: Active Protocol: Document 06/24/23 13:02 [facility] (Rec: 06/24/23 13:45 [facility] [id number]) Ankle and Foot Goniometric Range of Motion Ankle and Foot Right Active Dorsiflexion with Knee Flexed 10 Dorsiflexion with Knee Extended 2 Left Active Dorsiflexion with Knee Flexed 5 Dorsiflexion with Knee Extended 0 PT-OP-L Special Tests Start: 04/25/23 10:20 Freq: Status: Active Protocol: Document 05/06/23 13:04 [facility] (Rec: 05/06/23 14:16 [facility] [id number]) Special Tests Lumbar Spine Special Tests Straight Leg Raise Comments positive L-feel into calf even w/o DF Slump Test Results tightness in calf at end range L Foot/Ankle Special Tests Homans test Comments neg L PT-OP-M Strength Start: 04/25/23 10:20 Freq: Status: Active Protocol: Document 06/24/23 13:02 [facility] (Rec: 06/24/23 13:45 [facility] [id number]) Hip Strength Hip Manual Muscle Testing Right Flexion (L2) 4- Good- Abduction 4- Good- External Rotation 4 Good Internal Rotation 4 Good Left Flexion (L2) 4- Good- Abduction 4- Good- External Rotation 4 Good Internal Rotation 4 Good Knee Strength Knee Manual Muscle Testing Right Flexion (S2) 4 Good Extension (L3) 4+ Good+ Left Flexion (S2) 4 Good Extension (L3) 4+ Good+ Ankle/Foot Strength Ankle and Foot Manual Muscle Testing Right Dorsiflexion (L4) 5 Normal Plantarflexion (S1) 5 Normal Inversion 5 Normal Eversion (S1) 5 Normal Comments 20 heel raises Left Dorsiflexion (L4) 5 Normal Plantarflexion (S1) 5 Normal Inversion 5 Normal Eversion (S1) 5 Normal Comments 20 heel raises PT-OP-Q Treatments Start: 04/25/23 10:20 Freq: Status: Active Protocol: Document 07/08/23 13:02 [facility] (Rec: 07/08/23 13:45 [facility] [id number]) Gym Equipment Shuttle Balance red Comments fwd and side: WBOS & NBOS fwd: staggered stance B Therapeutic Exercises Standing Exercises DF Standing Exercise Name wall to back Side bilateral Reps/Minutes 20 calf raises Standing Exercise Name DL Equipment Used on step w/rail Reps/Minutes 15 step up, down Standing Exercise Name 1. fwd step down w/backwards step up2. Lateral step up/down 3.step up Side left Resistance AROM, PRN rail support-mostly w/backwards step up Equipment Used 6 step w/fwd down; 8 in w/fwd up and lat Reps/Minutes 8 ea Comments cues for eccentric control throughout stretch Standing Exercise Name 1. jose 2. stair Side bilateral Reps/Minutes 1 min ea Manual Therapy Treatment Soft Tissue Mobilization calf Body Location L soleus and achilles Mobilization Type Myofascial Release,Rolling Intensity/Depth Moderate Body Position Prone Joint Mobilizations talocrual jt Comments distraction & AP talus supine FM calcaneus Comments distraction L Neuro Re-Education Treatment Balance Activities hurdles Equipment 6 hurdles Comments 1. fwd recip x6 2. lat step to x2 B tandem Comments 1. stance B 2.walk 2x20ft tilt board Details fwd/bwd and lat Comments stationary: HTs EC tilts fwd/back & lat B PT-OP-R Modalities Start: 04/25/23 10:20 Freq: Status: Active Protocol: Document 07/03/23 13:02 [facility] (Rec: 07/03/23 13:45 [facility] [id number]) Ultrasound Therapy Treatment achilles Patient Position Sitting Coupling Medium Ultrasound Gel Mode Setting Pulsed Duty Cycle 50% Intensity Setting (w/cm2) 1.0 Comments L achilles PT-OP-T Assessment and Plan Start: 04/25/23 10:20 Freq: Status: Active Protocol: Document 07/08/23 13:02 [facility] (Rec: 07/08/23 13:45 [facility] [id number]) Physical Therapy Assessment Goals balance Short Term Goal (STG) Pt will be able to do SLS 5 sec B w/o inc pain in L STG Duration achieved 4/8 Renewable Energy Trader Goal (LTG) Pt will be able to do SLS 8 sec B w/o inc pain in L LTG Duration achieved 4/8 strength Short Term Goal (STG) Pt will be indep w/HEP STG Duration achieved advancing as able Renewable Energy Trader Goal (LTG) Pt will score at least 4+/5 on BLE MMT in order to show improved stability to dec pt pain w/mobility 06/23-improved LTG Duration 07/28 ROM Short Term Goal (STG) Pt will improved DF to neutral in knee ext position STG Duration achieved 06/23 Renewable Energy Trader Goal (LTG) Pt will improved DF in knee flex position to at least 10 deg and knee ext position to at least 5 deg to allow greater ease with movement LTG Duration 07/29/23 activities Short Term Goal (STG) Pt will report inc ease w/ donning/doffing L shoes/socks and not feel limited through hip and knee 06/23-a little better-still difficult STG Duration 06/28 Intermediate Goal (LTG) pt will report no pain greater than 2/10 in calf/achilles w/ walking around store or when transitioning to standing. 06/23-when transitioning 8-9/10; once loosens up, okay walking LTG Duration 07/28 Assessment Summary Assessment Pt is showing much improved balance and activity tolerance /strength despite being tired today.She cont to have signficiant calf tension Physical Therapy Plan Frequency and Duration Frequency of Treatment 2x/Week Duration of treatment (weeks) 12 Plan of Care Start Date 05/06/23 Plan of Care End Date 07/29/23 Next Visit Focus/Plan Next Note Type Treatment Note Next Visit Plan cont to work L ankle mobility and stability
--- NOTE | 2023-07-10 13:44 | PT.OTN ---
Current Diagnoses Achilles tendinitis, left leg (07/10/23) Other specified enthesopathies of left lower limb, excluding foot (07/10/23) Physical Therapy Treatment Note PT-OP-A Visit Information Start: 04/25/23 10:20 Freq: Status: Active Protocol: Document 07/10/23 13:02 [facility] (Rec: 07/10/23 13:44 [facility] [id number]) Out-Patient Physical Therapy Visit Information Visit Information Visit Type Treatment Note Visit Note 08/25 Visit Start Time 13:03 Visit Stop Time 13:43 Visit Number 16 Number of WEATHER FORECASTER Visits 0 PT-OP-B Current Condition Start: 04/25/23 10:20 Freq: Status: Active Protocol: Document 05/06/23 13:04 [facility] (Rec: 05/06/23 14:16 [facility] [id number]) Current Condition History of Current Condition Onset Date Feb 2023 Current Complaints L achilles to calf pain History of Current Condition Pt reports L heel has been hurting especially when she sits for a while then gets up to walk. Pain has been up into L calf too. Pain started about 2 months ago. when first starts walking, hurts bad then eases up until she starts going for a long time like in a store then it really starts to hurt. Pt does report back problems. She avoids standing for long periods due to this. Back typically hurts for a long time in stores also. She had an infusion to her back in Mar and that helped dec the excrutiating pain. Hx of B TKA , osteoporosis. Pt reports SOB d/t COPD and dizziness when changing positions. She tends to stretch out her ankle. 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 No care to calf or ankle besides doctor recommending PT. Denies any specific injury. She did fall in Dec onto her buttocks. She was sitting on the bed and turned weird and got dizzy and fell to her buttocks. Unsure if this related. Denies thigh pain or numbness or tingling in leg. When it initially started, was just achillesa nd now goes up her calf. Denies flying or any surgeries in dec or hx of blood clots. Prior Treatments and Tests lumbar MRI: Specific levels: T12-L1 minimal facet arthropathy. Mild right neural foraminal narrowing. L1-L2: Mild facet arthropathy . No stenosis. L2-L3: Mild facet arthropathy . Small diffuse disc bulge. No stenosis. L3-L4: Mild facet arthropathy . Mild right subarticular recess narrowing. Mild disc bulge. No stenosis elsewhere. L4-L5: Central protrusion has decreased from prior imaging. Moderate facet arthropathy. Szly-mq-[id number] central narrowing affecting the right greater left articular recesses. 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 Mild left neural foraminal narrowing. L5-S1: Jiyy-lo-fgtnhmwf facet arthropathy. Small diffuse disc bulge. No stenosis. Treatment Goals Patient/Caregiver Goals pain to not be there; be able to change positions and go grocery shopping w/o pain. PT-OP-C Subjective Start: 04/25/23 10:20 Freq: Status: Active Protocol: Document 07/10/23 13:02 [facility] (Rec: 07/10/23 13:44 [facility] [id number]) OP-PT Subjective Patient Comments Patient Comments Pt reports stiffness when sitting. Has been doing stretches PT-OP-D Balance Start: 04/25/23 10:20 Freq: Status: Active Protocol: Document 06/24/23 13:02 [facility] (Rec: 06/24/23 13:45 [facility] [id number]) Balance Tests Single Limb Standing Single Limb- Right 9 sec Single Limb- Left 11 sec PT-OP-F Manual Assessment Start: 04/25/23 10:20 Freq: Status: Active Protocol: Document 05/06/23 13:04 [facility] (Rec: 05/06/23 14:16 [facility] [id number]) Manual Assessments Soft Tissue Assessment Soft Tissue Mobility Assessment L achilles and calf tenderness PT-OP-G Mobility & Gait Start: 04/25/23 10:20 Freq: Status: Active Protocol: Document 05/06/23 13:04 [facility] (Rec: 05/06/23 14:16 [facility] [id number]) OP Gait Assessment Comments Gait Comments Dec stance time w/lat lean L w /LLE WB; dec push off LLE PT-OP-J Posture/Palpation/Skin Start: 04/25/23 10:20 Freq: Status: Active Protocol: Document 05/06/23 13:04 [facility] (Rec: 05/06/23 14:16 [facility] [id number]) Posture Evaluation Comments Posture Comments L>R foot turned out; L >R rearfoot varus; R iliac crest higher than L PT-OP-K Range of Motion Start: 04/25/23 10:20 Freq: Status: Active Protocol: Document 06/24/23 13:02 [facility] (Rec: 06/24/23 13:45 [facility] [id number]) Ankle and Foot Goniometric Range of Motion Ankle and Foot Right Active Dorsiflexion with Knee Flexed 10 Dorsiflexion with Knee Extended 2 Left Active Dorsiflexion with Knee Flexed 5 Dorsiflexion with Knee Extended 0 PT-OP-L Special Tests Start: 04/25/23 10:20 Freq: Status: Active Protocol: Document 05/06/23 13:04 [facility] (Rec: 05/06/23 14:16 [facility] [id number]) Special Tests Lumbar Spine Special Tests Straight Leg Raise Comments positive L-feel into calf even w/o DF Slump Test Results tightness in calf at end range L Foot/Ankle Special Tests Homans test Comments neg L PT-OP-M Strength Start: 04/25/23 10:20 Freq: Status: Active Protocol: Document 06/24/23 13:02 [facility] (Rec: 06/24/23 13:45 [facility] [id number]) Hip Strength Hip Manual Muscle Testing Right Flexion (L2) 4- Good- Abduction 4- Good- External Rotation 4 Good Internal Rotation 4 Good Left Flexion (L2) 4- Good- Abduction 4- Good- External Rotation 4 Good Internal Rotation 4 Good Knee Strength Knee Manual Muscle Testing Right Flexion (S2) 4 Good Extension (L3) 4+ Good+ Left Flexion (S2) 4 Good Extension (L3) 4+ Good+ Ankle/Foot Strength Ankle and Foot Manual Muscle Testing Right Dorsiflexion (L4) 5 Normal Plantarflexion (S1) 5 Normal Inversion 5 Normal Eversion (S1) 5 Normal Comments 20 heel raises Left Dorsiflexion (L4) 5 Normal Plantarflexion (S1) 5 Normal Inversion 5 Normal Eversion (S1) 5 Normal Comments 20 heel raises PT-OP-Q Treatments Start: 04/25/23 10:20 Freq: Status: Active Protocol: Document 07/10/23 13:02 [facility] (Rec: 07/10/23 13:44 [facility] [id number]) Therapeutic Exercises Sitting Exercises n glide Sitting Exercise Name sciatic Side left Reps/Minutes 15 Standing Exercises resisted walk Standing Exercise Name fwd/back Side bilateral Equipment Used L2 at ankles Reps/Minutes 2x10 ft ea lunge Standing Exercise Name mini w/rail Side bilateral Reps/Minutes 10 DF Standing Exercise Name wall to back Side bilateral Reps/Minutes 20 ankle mobility Side bilateral Equipment Used rail support,16 box Reps/Minutes x10 Comments improved ankle DF & knee flexion AAROM- side stepping Standing Exercise Name w/PF in abd position Side bilateral Resistance lvl 2 TB at ankles Equipment Used rail prn Reps/Minutes 10 ft x2 laps Comments cued eccentric control /c trail LE clearance step up, down Standing Exercise Name 1. fwd step down w/backwards step up2. Lateral step up/down 3.step up Side left Resistance AROM, PRN rail support-mostly w/backwards step up Equipment Used 6 step w/fwd down; 8 in w/fwd up and lat Reps/Minutes 10 ea Comments cues for eccentric control throughout PT-OP-R Modalities Start: 04/25/23 10:20 Freq: Status: Active Protocol: Document 07/10/23 13:02 [facility] (Rec: 07/10/23 13:44 [facility] [id number]) Ultrasound Therapy Treatment achilles Patient Position Sitting Coupling Medium Ultrasound Gel Mode Setting Pulsed Duty Cycle 50% Intensity Setting (w/cm2) 1.0 Comments L achilles PT-OP-T Assessment and Plan Start: 04/25/23 10:20 Freq: Status: Active Protocol: Document 07/10/23 13:02 [facility] (Rec: 07/10/23 13:44 [facility] [id number]) Physical Therapy Assessment Goals balance Short Term Goal (STG) Pt will be able to do SLS 5 sec B w/o inc pain in L STG Duration achieved 48 Gastroenterology Teacher Goal (LTG) Pt will be able to do SLS 8 sec B w/o inc pain in L LTG Duration achieved 48 strength Short Term Goal (STG) Pt will be indep w/HEP STG Duration achieved advancing as able Gastroenterology Teacher Goal (LTG) Pt will score at least 4+/5 on BLE MMT in order to show improved stability to dec pt pain w/mobility 4/8-improved LTG Duration 07/28 ROM Short Term Goal (STG) Pt will improved DF to neutral in knee ext position STG Duration achieved 48 Gastroenterology Teacher Goal (LTG) Pt will improved DF in knee flex position to at least 10 deg and knee ext position to at least 5 deg to allow greater ease with movement LTG Duration 07/29/23 activities Short Term Goal (STG) Pt will report inc ease w/ donning/doffing L shoes/socks and not feel limited through hip and knee 06/23-a little better-still difficult STG Duration 06/28 Fpc Goal (LTG) pt will report no pain greater than 2/10 in calf/achilles w/ walking around store or when transitioning to standing. 06/23-when transitioning 8-10; once loosens up, okay walking LTG Duration 07/28 Assessment Summary Assessment Pt did better w/step exercises but does still show overall dec hip and LE strength on L w /slight dec mobility. Encouraged cont exercsies at home Physical Therapy Plan Frequency and Duration Frequency of Treatment 2x/Week Duration of treatment (weeks) 12 Plan of Care Start Date 05/06/23 Plan of Care End Date 07/29/23 Next Visit Focus/Plan Next Note Type Treatment Note Next Visit Plan cont to work L ankle mobility and stability and Le strength/ stability
--- NOTE | 2023-07-15 13:47 | PT.OTN ---
Current Diagnoses Achilles tendinitis, left leg (07/15/23) Other specified enthesopathies of left lower limb, excluding foot (07/15/23) Physical Therapy Treatment Note PT-OP-A Visit Information Start: 04/25/23 10:20 Freq: Status: Active Protocol: Document 07/15/23 13:29 [facility] (Rec: 07/15/23 13:47 [facility] [id number]) Out-Patient Physical Therapy Visit Information Visit Information Visit Type Treatment Note Visit Note 09/24 Visit Start Time 13:02 Visit Stop Time 13:42 Visit Number 17 Number of SOAKERS SUPERVISOR Visits 0 PT-OP-B Current Condition Start: 04/25/23 10:20 Freq: Status: Active Protocol: Document 05/06/23 13:04 [facility] (Rec: 05/06/23 14:16 [facility] [id number]) Current Condition History of Current Condition Onset Date Feb 2023 Current Complaints L achilles to calf pain History of Current Condition Pt reports L heel has been hurting especially when she sits for a while then gets up to walk. Pain has been up into L calf too. Pain started about 2 months ago. when first starts walking, hurts bad then eases up until she starts going for a long time like in a store then it really starts to hurt. Pt does report back problems. She avoids standing for long periods due to this. Back typically hurts for a long time in stores also. She had an infusion to her back in Mar and that helped dec the excrutiating pain. Hx of B TKA , osteoporosis. Pt reports SOB d/t COPD and dizziness when changing positions. She tends to stretch out her ankle. 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 No care to calf or ankle besides doctor recommending PT. Denies any specific injury. She did fall in Dec onto her buttocks. She was sitting on the bed and turned weird and got dizzy and fell to her buttocks. Unsure if this related. Denies thigh pain or numbness or tingling in leg. When it initially started, was just achillesa nd now goes up her calf. Denies flying or any surgeries in dec or hx of blood clots. Prior Treatments and Tests lumbar MRI: Specific levels: T12-L1 minimal facet arthropathy. Mild right neural foraminal narrowing. L1-L2: Mild facet arthropathy . No stenosis. L2-L3: Mild facet arthropathy . Small diffuse disc bulge. No stenosis. L3-L4: Mild facet arthropathy . Mild right subarticular recess narrowing. Mild disc bulge. No stenosis elsewhere. L4-L5: Central protrusion has decreased from prior imaging. Moderate facet arthropathy. Yqbt-dy-unhroqxz central narrowing affecting the right greater left articular recesses. 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 Mild left neural foraminal narrowing. L5-S1: Rwht-hu-emgnmgms facet arthropathy. Small diffuse disc bulge. No stenosis. Treatment Goals Patient/Caregiver Goals pain to not be there; be able to change positions and go grocery shopping w/o pain. PT-OP-C Subjective Start: 04/25/23 10:20 Freq: Status: Active Protocol: Document 07/15/23 13:29 [facility] (Rec: 07/15/23 13:47 [facility] [id number]) OP-PT Subjective Patient Comments Patient Comments Pt reports calf is no longer hurting but 6-7/10 for pain when first get up and gets better once walks from bedroom to kitchen PT-OP-D Balance Start: 04/25/23 10:20 Freq: Status: Active Protocol: Document 06/24/23 13:02 [facility] (Rec: 06/24/23 13:45 [facility] [id number]) Balance Tests Single Limb Standing Single Limb- Right 9 sec Single Limb- Left 11 sec PT-OP-F Manual Assessment Start: 04/25/23 10:20 Freq: Status: Active Protocol: Document 05/06/23 13:04 [facility] (Rec: 05/06/23 14:16 [facility] [id number]) Manual Assessments Soft Tissue Assessment Soft Tissue Mobility Assessment L achilles and calf tenderness PT-OP-G Mobility & Gait Start: 04/25/23 10:20 Freq: Status: Active Protocol: Document 05/06/23 13:04 [facility] (Rec: 05/06/23 14:16 [facility] [id number]) OP Gait Assessment Comments Gait Comments Dec stance time w/lat lean L w /LLE WB; dec push off LLE PT-OP-J Posture/Palpation/Skin Start: 04/25/23 10:20 Freq: Status: Active Protocol: Document 05/06/23 13:04 [facility] (Rec: 05/06/23 14:16 [facility] [id number]) Posture Evaluation Comments Posture Comments L>R foot turned out; L >R rearfoot varus; R iliac crest higher than L PT-OP-K Range of Motion Start: 04/25/23 10:20 Freq: Status: Active Protocol: Document 06/24/23 13:02 [facility] (Rec: 06/24/23 13:45 [facility] [id number]) Ankle and Foot Goniometric Range of Motion Ankle and Foot Right Active Dorsiflexion with Knee Flexed 10 Dorsiflexion with Knee Extended 2 Left Active Dorsiflexion with Knee Flexed 5 Dorsiflexion with Knee Extended 0 PT-OP-L Special Tests Start: 04/25/23 10:20 Freq: Status: Active Protocol: Document 05/06/23 13:04 [facility] (Rec: 05/06/23 14:16 [facility] [id number]) Special Tests Lumbar Spine Special Tests Straight Leg Raise Comments positive L-feel into calf even w/o DF Slump Test Results tightness in calf at end range L Foot/Ankle Special Tests Homans test Comments neg L PT-OP-M Strength Start: 04/25/23 10:20 Freq: Status: Active Protocol: Document 06/24/23 13:02 [facility] (Rec: 06/24/23 13:45 [facility] [id number]) Hip Strength Hip Manual Muscle Testing Right Flexion (L2) 4- Good- Abduction 4- Good- External Rotation 4 Good Internal Rotation 4 Good Left Flexion (L2) 4- Good- Abduction 4- Good- External Rotation 4 Good Internal Rotation 4 Good Knee Strength Knee Manual Muscle Testing Right Flexion (S2) 4 Good Extension (L3) 4+ Good+ Left Flexion (S2) 4 Good Extension (L3) 4+ Good+ Ankle/Foot Strength Ankle and Foot Manual Muscle Testing Right Dorsiflexion (L4) 5 Normal Plantarflexion (S1) 5 Normal Inversion 5 Normal Eversion (S1) 5 Normal Comments 20 heel raises Left Dorsiflexion (L4) 5 Normal Plantarflexion (S1) 5 Normal Inversion 5 Normal Eversion (S1) 5 Normal Comments 20 heel raises PT-OP-Q Treatments Start: 04/25/23 10:20 Freq: Status: Active Protocol: Document 07/15/23 13:29 [facility] (Rec: 07/15/23 13:47 [facility] [id number]) Therapeutic Exercises Standing Exercises lunge Standing Exercise Name mini w/rail Side bilateral Reps/Minutes 10 DF Standing Exercise Name wall to back Side bilateral Reps/Minutes 20 ankle mobility Standing Exercise Name fwd knee bend w/big toe on lower end Side bilateral Equipment Used on 6 deg incline Reps/Minutes 10 stretch Standing Exercise Name 1. jose Side bilateral Reps/Minutes 1 min Manual Therapy Treatment Soft Tissue Mobilization calf Body Location L soleus and achilles Mobilization Type Myofascial Release,Rolling Intensity/Depth Moderate Body Position Prone Joint Mobilizations midfoot Comments gentle stretch into pronation/ supination talocrual jt Comments talus med glide FM Neuro Re-Education Treatment Balance Activities bosu Comments 1. step ups L x12 w/1 rail 2. blue side balance 3. mini squats blue sidex10 railprn PT-OP-R Modalities Start: 04/25/23 10:20 Freq: Status: Active Protocol: Document 07/15/23 13:29 [facility] (Rec: 07/15/23 13:47 [facility] [id number]) Ultrasound Therapy Treatment achilles Patient Position Sitting Coupling Medium Ultrasound Gel Mode Setting Pulsed Duty Cycle 50% Intensity Setting (w/cm2) 1.0 Comments L achilles PT-OP-T Assessment and Plan Start: 04/25/23 10:20 Freq: Status: Active Protocol: Document 07/15/23 13:29 [facility] (Rec: 07/15/23 13:47 [facility] [id number]) Physical Therapy Assessment Goals balance Short Term Goal (STG) Pt will be able to do SLS 5 sec B w/o inc pain in L STG Duration achieved 8 Edge Bonder Goal (LTG) Pt will be able to do SLS 8 sec B w/o inc pain in L LTG Duration achieved 06/23 strength Short Term Goal (STG) Pt will be indep w/HEP STG Duration achieved advancing as able Edge Bonder Goal (LTG) Pt will score at least 4+/5 on BLE MMT in order to show improved stability to dec pt pain w/mobility 06/23-improved LTG Duration 07/28 ROM Short Term Goal (STG) Pt will improved DF to neutral in knee ext position STG Duration achieved 06/23 Halfway Goal (LTG) Pt will improved DF in knee flex position to at least 10 deg and knee ext position to at least 5 deg to allow greater ease with movement LTG Duration 07/29/23 activities Short Term Goal (STG) Pt will report inc ease w/ donning/doffing L shoes/socks and not feel limited through hip and knee 06/23-a little better-still difficult STG Duration 06/28 Edge Bonder Goal (LTG) pt will report no pain greater than 2/10 in calf/achilles w/ walking around store or when transitioning to standing. 06/23-when transitioning 8-9/10; once loosens up, okay walking LTG Duration 07/28 Assessment Summary Assessment Pt did well with advancement to bosu but was very cahllenged by this activity. She is improving with her ankle mobility and encouraged to cont to stretch when sitting before getting up. Physical Therapy Plan Frequency and Duration Frequency of Treatment 2x/Week Duration of treatment (weeks) 12 Plan of Care Start Date 05/06/23 Plan of Care End Date 07/29/23 Next Visit Focus/Plan Next Note Type Progress Note Next Visit Plan cont to work L ankle mobility and stability and Le strength/ stability
--- NOTE | 2023-07-17 13:41 | PT.OTN ---
Current Diagnoses Achilles tendinitis, left leg (07/17/23) Other specified enthesopathies of left lower limb, excluding foot (07/17/23) Physical Therapy Treatment Note PT-OP-A Visit Information Start: 04/25/23 10:20 Freq: Status: Active Protocol: Document 07/17/23 13:31 [facility] (Rec: 07/17/23 13:39 [facility] [id number]) Out-Patient Physical Therapy Visit Information Visit Information Visit Type Progress Note Visit Note 03/27 Visit Start Time 13:01 Visit Stop Time 13:41 Visit Number 18 Number of POST PARTUM NURSE Visits 0 PT-OP-B Current Condition Start: 04/25/23 10:20 Freq: Status: Active Protocol: Document 05/06/23 13:04 [facility] (Rec: 05/06/23 14:16 [facility] [id number]) Current Condition History of Current Condition Onset Date Feb 2023 Current Complaints L achilles to calf pain History of Current Condition Pt reports L heel has been hurting especially when she sits for a while then gets up to walk. Pain has been up into L calf too. Pain started about 2 months ago. when first starts walking, hurts bad then eases up until she starts going for a long time like in a store then it really starts to hurt. Pt does report back problems. She avoids standing for long periods due to this. Back typically hurts for a long time in stores also. She had an infusion to her back in Mar and that helped dec the excrutiating pain. Hx of B TKA , osteoporosis. Pt reports SOB d/t COPD and dizziness when changing positions. She tends to stretch out her ankle. 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 No care to calf or ankle besides doctor recommending PT. Denies any specific injury. She did fall in Dec onto her buttocks. She was sitting on the bed and turned weird and got dizzy and fell to her buttocks. Unsure if this related. Denies thigh pain or numbness or tingling in leg. When it initially started, was just achillesa nd now goes up her calf. Denies flying or any surgeries in dec or hx of blood clots. Prior Treatments and Tests lumbar MRI: Specific levels: T12-L1 minimal facet arthropathy. Mild right neural foraminal narrowing. L1-L2: Mild facet arthropathy . No stenosis. L2-L3: Mild facet arthropathy . Small diffuse disc bulge. No stenosis. L3-L4: Mild facet arthropathy . Mild right subarticular recess narrowing. Mild disc bulge. No stenosis elsewhere. L4-L5: Central protrusion has decreased from prior imaging. Moderate facet arthropathy. Hoqm-ap-tcyhmnda central narrowing affecting the right greater left articular recesses. 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 Mild left neural foraminal narrowing. L5-S1: Hxfg-bu-xjfaoiok facet arthropathy. Small diffuse disc bulge. No stenosis. Treatment Goals Patient/Caregiver Goals pain to not be there; be able to change positions and go grocery shopping w/o pain. PT-OP-C Subjective Start: 04/25/23 10:20 Freq: Status: Active Protocol: Document 07/17/23 13:31 [facility] (Rec: 07/17/23 13:39 [facility] [id number]) OP-PT Subjective Patient Comments Patient Comments pt reports she deosn't remember having any heel pain today PT-OP-D Balance Start: 04/25/23 10:20 Freq: Status: Active Protocol: Document 06/24/23 13:02 [facility] (Rec: 06/24/23 13:45 [facility] [id number]) Balance Tests Single Limb Standing Single Limb- Right 9 sec Single Limb- Left 11 sec PT-OP-F Manual Assessment Start: 04/25/23 10:20 Freq: Status: Active Protocol: Document 05/06/23 13:04 [facility] (Rec: 05/06/23 14:16 [facility] [id number]) Manual Assessments Soft Tissue Assessment Soft Tissue Mobility Assessment L achilles and calf tenderness PT-OP-G Mobility & Gait Start: 04/25/23 10:20 Freq: Status: Active Protocol: Document 05/06/23 13:04 [facility] (Rec: 05/06/23 14:16 [facility] [id number]) OP Gait Assessment Comments Gait Comments Dec stance time w/lat lean L w /LLE WB; dec push off LLE PT-OP-J Posture/Palpation/Skin Start: 04/25/23 10:20 Freq: Status: Active Protocol: Document 05/06/23 13:04 [facility] (Rec: 05/06/23 14:16 [facility] [id number]) Posture Evaluation Comments Posture Comments L>R foot turned out; L >R rearfoot varus; R iliac crest higher than L PT-OP-K Range of Motion Start: 04/25/23 10:20 Freq: Status: Active Protocol: Document 07/17/23 13:31 [facility] (Rec: 07/17/23 13:39 [facility] [id number]) Ankle and Foot Goniometric Range of Motion Ankle and Foot Right Active Dorsiflexion with Knee Flexed 10 Dorsiflexion with Knee Extended 5 Left Active Dorsiflexion with Knee Flexed 4 Dorsiflexion with Knee Extended 0 Comments 2.25in knee to wall PT-OP-L Special Tests Start: 04/25/23 10:20 Freq: Status: Active Protocol: Document 05/06/23 13:04 [facility] (Rec: 05/06/23 14:16 [facility] [id number]) Special Tests Lumbar Spine Special Tests Straight Leg Raise Comments positive L-feel into calf even w/o DF Slump Test Results tightness in calf at end range L Foot/Ankle Special Tests Homans test Comments neg L PT-OP-M Strength Start: 04/25/23 10:20 Freq: Status: Active Protocol: Document 07/17/23 13:31 [facility] (Rec: 07/17/23 13:39 [facility] [id number]) Hip Strength Hip Manual Muscle Testing Right Flexion (L2) 4 Good Abduction 5 Normal External Rotation 5 Normal Internal Rotation 5 Normal Left Flexion (L2) 4 Good Abduction 4 Good External Rotation 4 Good Internal Rotation 4+ Good+ Knee Strength Knee Manual Muscle Testing Right Flexion (S2) 5 Normal Extension (L3) 4+ Good+ Left Flexion (S2) 5 Normal Extension (L3) 4+ Good+ Ankle/Foot Strength Ankle and Foot Manual Muscle Testing Right Dorsiflexion (L4) 5 Normal Plantarflexion (S1) 5 Normal Inversion 5 Normal Eversion (S1) 5 Normal Comments 20 heel raises Left Dorsiflexion (L4) 5 Normal Plantarflexion (S1) 5 Normal Inversion 5 Normal Eversion (S1) 5 Normal Comments 20 heel raises Toe Strength Toe Manual Muscle Testing Left 2nd Toe Flexion 4 Good Extension 5 Normal Comments 2-5 Left Great Toe Flexion 4- Good- Extension 5 Normal PT-OP-Q Treatments Start: 04/25/23 10:20 Freq: Status: Active Protocol: Document 07/17/23 13:31 [facility] (Rec: 07/17/23 13:39 [facility] [id number]) Therapeutic Exercises Sidelying Exercises clamshell Side left Equipment Used L1 Reps/Minutes 15 Sitting Exercises marbles Sitting Exercise Name picker operator Side bilateral Reps/Minutes 15 ea Comments inc difficulty on L-attempted standing but too difficult DF Sitting Exercise Name AROM supine and sit Side bilateral Standing Exercises lunge Standing Exercise Name mini w/rail Side bilateral Reps/Minutes 10 Other Exercises isometrics Other Exercise Name BLE MMTs Manual Therapy Treatment Soft Tissue Mobilization calf Body Location L soleus and achilles Mobilization Type Myofascial Release,Rolling Intensity/Depth Moderate Body Position Standing Comments w/knee flex Joint Mobilizations talocrual jt Comments AP talus in standing w/knee bends PT-OP-R Modalities Start: 04/25/23 10:20 Freq: Status: Active Protocol: Document 07/17/23 13:31 [facility] (Rec: 07/17/23 13:39 [facility] [id number]) Ultrasound Therapy Treatment achilles Patient Position Sitting Coupling Medium Ultrasound Gel Mode Setting Pulsed Duty Cycle 50% Intensity Setting (w/cm2) 1.0 Comments L achilles PT-OP-T Assessment and Plan Start: 04/25/23 10:20 Freq: Status: Active Protocol: Document 07/17/23 13:31 [facility] (Rec: 07/17/23 13:39 [facility] [id number]) Physical Therapy Assessment Goals balance Short Term Goal (STG) Pt will be able to do SLS 5 sec B w/o inc pain in L STG Duration achieved 48 Half-Way Goal (LTG) Pt will be able to do SLS 8 sec B w/o inc pain in L LTG Duration achieved 06/23 strength Short Term Goal (STG) Pt will be indep w/HEP STG Duration achieved advancing as able Auto Wash Buffer Goal (LTG) Pt will score at least 4+/5 on BLE MMT in order to show improved stability to dec pt pain w/mobility 06/23-improved 07/16-cont to improve LTG Duration 08/27 ROM Short Term Goal (STG) Pt will improved DF to neutral in knee ext position STG Duration achieved 06/23 Auto Wash Buffer Goal (LTG) Pt will improved DF in knee flex position to at least 10 deg and knee ext position to at least 5 deg to allow greater ease with movement 07/16-still limited LTG Duration 08/27 activities Short Term Goal (STG) Pt will report inc ease w/ donning/doffing L shoes/socks and not feel limited through hip and knee 06/23-a little better-still difficult 07/16-can get it up w/assist w/ hand and doesn't slide off anymore STG Duration 08/01 Half-Way Goal (LTG) pt will report no pain greater than 2/10 in calf/achilles w/ walking around store or when transitioning to standing. 06/23-when transitioning 8-9/10; once loosens up, okay walking 07/16-today no pain so far but pain noted earlier this week LTG Duration 08/27 Assessment Summary Assessment Pt is making good progress w/ PT and cont to improve strength and functional mobility w/less c/o L heel pain, but still pain noted earlier this week. She would benefit from cont PT to cont to work on DF and strength and stability of L. Physical Therapy Plan Frequency and Duration Frequency of Treatment 1-2x/wk Duration of treatment (weeks) 6 Plan of Care Start Date 07/17/23 Plan of Care End Date 08/28/23 Therapeutic Interventions Therapeutic Interventions Balance Training,Gait Training ,Home Exercise Program,Joint Mobilizations,Manual Therapy, Neuromuscular Re-education, Orthotic/Prosthetic Management ,Patient/Caregiver Education, Self-Care/Home Management,Soft Tissue Mobilization,Taping, Therapeutic Activities, Therapeutic Exercises Modalities Cold Pack/Ice Massage,Electric Stimulation,Hot Packs, Infrared Therapy,Iontophoresis ,Ultrasound Other Therapeutic Interventions dexamethasone Next Visit Focus/Plan Next Note Type Treatment Note Next Visit Plan cont to work L ankle mobility and stability and Le strength/ stability
--- NOTE | 2023-07-17 13:41 | PT.OPPOC ---
Physical, Occupational & Speech Therapy At [facility] Current Diagnoses Achilles tendinitis, left leg (07/17/23) Other specified enthesopathies of left lower limb, excluding foot (07/17/23) Visit Care Team Role Provider Type Yadira Mckeon MD Attending Provider Physician Family Provider Primary Care Provider Referring Provider Specialty: Family Practice Address: [address] [place] [address], [facility] [place], [facility] Email: Plan Of Care PT-OP-T Assessment and Plan Start: 04/25/23 10:20 Freq: Status: Active Protocol: Document 07/17/23 13:31 [facility] (Rec: 07/17/23 13:39 [facility] [id number]) Physical Therapy Assessment Goals balance Short Term Goal (STG) Pt will be able to do SLS 5 sec B w/o inc pain in L STG Duration achieved 8 Environmental Web Crawler Goal (LTG) Pt will be able to do SLS 8 sec B w/o inc pain in L LTG Duration achieved 06/23 strength Short Term Goal (STG) Pt will be indep w/HEP STG Duration achieved advancing as able Senior Care Goal (LTG) Pt will score at least 4+/5 on BLE MMT in order to show improved stability to dec pt pain w/mobility 06/23-improved 07/16-cont to improve LTG Duration 08/27 ROM Short Term Goal (STG) Pt will improved DF to neutral in knee ext position STG Duration achieved 06/23 Senior Care Goal (LTG) Pt will improved DF in knee flex position to at least 10 deg and knee ext position to at least 5 deg to allow greater ease with movement 07/16-still limited LTG Duration 08/27 activities Short Term Goal (STG) Pt will report inc ease w/ donning/doffing L shoes/socks and not feel limited through hip and knee 06/23-a little better-still difficult 07/16-can get it up w/assist w/ hand and doesn't slide off anymore STG Duration 08/01 Environmental Web Crawler Goal (LTG) pt will report no pain greater than 2/10 in calf/achilles w/ walking around store or when transitioning to standing. 06/23-when transitioning 8-9/10; once loosens up, okay walking 07/16-today no pain so far but pain noted earlier this week LTG Duration 08/27 Assessment Summary Assessment Pt is making good progress w/ PT and cont to improve strength and functional mobility w/less c/o L heel pain, but still pain noted earlier this week. She would benefit from cont PT to cont to work on DF and strength and stability of L. Physical Therapy Plan Frequency and Duration Frequency of Treatment 1-2x/wk Duration of treatment (weeks) 6 Plan of Care Start Date 07/17/23 Plan of Care End Date 08/28/23 Therapeutic Interventions Therapeutic Interventions Balance Training,Gait Training ,Home Exercise Program,Joint Mobilizations,Manual Therapy, Neuromuscular Re-education, Orthotic/Prosthetic Management ,Patient/Caregiver Education, Self-Care/Home Management,Soft Tissue Mobilization,Taping, Therapeutic Activities, Therapeutic Exercises Modalities Cold Pack/Ice Massage,Electric Stimulation,Hot Packs, Infrared Therapy,Iontophoresis ,Ultrasound Other Therapeutic Interventions dexamethasone Next Visit Focus/Plan Next Note Type Treatment Note Next Visit Plan cont to work L ankle mobility and stability and Le strength/ stability Plan of Care Dates Plan of Care Start Date 07/17/23 Plan of Care End Date 08/28/23 Electronically Signed by: Wanda Schmitt, PT 07/17/23 [id number] If you are in agreement with this Plan of Care, please return a signed and dated copy. I have reviewed this Plan of Care and certify that the skilled therapy services above are required to meet the patient?s needs. Physician Signature Date Printed Name and Credentials Clinical Instructor Signature Printed Name and Credentials
--- NOTE | 2023-07-29 13:44 | PT.OTN ---
Current Diagnoses Achilles tendinitis, left leg (07/29/23) Other specified enthesopathies of left lower limb, excluding foot (07/29/23) Physical Therapy Treatment Note PT-OP-A Visit Information Start: 04/25/23 10:20 Freq: Status: Active Protocol: Document 07/29/23 13:04 [facility] (Rec: 07/29/23 13:42 [facility] [id number]) Out-Patient Physical Therapy Visit Information Visit Information Visit Type Discharge Summary Visit Start Time 13:04 Visit Stop Time 13:42 Visit Number 19 Number of [employer] Visits 0 PT-OP-B Current Condition Start: 04/25/23 10:20 Freq: Status: Active Protocol: Document 05/06/23 13:04 [facility] (Rec: 05/06/23 14:16 [facility] [id number]) Current Condition History of Current Condition Onset Date Feb 2023 Current Complaints L achilles to calf pain History of Current Condition Pt reports L heel has been hurting especially when she sits for a while then gets up to walk. Pain has been up into L calf too. Pain started about 2 months ago. when first starts walking, hurts bad then eases up until she starts going for a long time like in a store then it really starts to hurt. Pt does report back problems. She avoids standing for long periods due to this. Back typically hurts for a long time in stores also. She had an infusion to her back in Mar and that helped dec the excrutiating pain. Hx of B TKA , osteoporosis. Pt reports SOB d/t COPD and dizziness when changing positions. She tends to stretch out her ankle. 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 No care to calf or ankle besides doctor recommending PT. Denies any specific injury. She did fall in Dec onto her buttocks. She was sitting on the bed and turned weird and got dizzy and fell to her buttocks. Unsure if this related. Denies thigh pain or numbness or tingling in leg. When it initially started, was just achillesa nd now goes up her calf. Denies flying or any surgeries in dec or hx of blood clots. Prior Treatments and Tests lumbar MRI: Specific levels: T12-L1 minimal facet arthropathy. Mild right neural foraminal narrowing. L1-L2: Mild facet arthropathy . No stenosis. L2-L3: Mild facet arthropathy . Small diffuse disc bulge. No stenosis. L3-L4: Mild facet arthropathy . Mild right subarticular recess narrowing. Mild disc bulge. No stenosis elsewhere. L4-L5: Central protrusion has decreased from prior imaging. Moderate facet arthropathy. Hydt-sb-bglnjche central narrowing affecting the right greater left articular recesses. 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 Mild left neural foraminal narrowing. L5-S1: Fcnk-un-ifadbitz facet arthropathy. Small diffuse disc bulge. No stenosis. Treatment Goals Patient/Caregiver Goals pain to not be there; be able to change positions and go grocery shopping w/o pain. PT-OP-C Subjective Start: 04/25/23 10:20 Freq: Status: Active Protocol: Document 07/29/23 13:04 [facility] (Rec: 07/29/23 13:42 [facility] [id number]) OP-PT Subjective Patient Comments Patient Comments Pt reports heel only gives her 1-2/10. She only feels it when she gets up in the AMs. PT-OP-D Balance Start: 04/25/23 10:20 Freq: Status: Active Protocol: Document 06/24/23 13:02 [facility] (Rec: 06/24/23 13:45 [facility] [id number]) Balance Tests Single Limb Standing Single Limb- Right 9 sec Single Limb- Left 11 sec PT-OP-F Manual Assessment Start: 04/25/23 10:20 Freq: Status: Active Protocol: Document 05/06/23 13:04 [facility] (Rec: 05/06/23 14:16 [facility] [id number]) Manual Assessments Soft Tissue Assessment Soft Tissue Mobility Assessment L achilles and calf tenderness PT-OP-G Mobility & Gait Start: 04/25/23 10:20 Freq: Status: Active Protocol: Document 05/06/23 13:04 [facility] (Rec: 05/06/23 14:16 [facility] [id number]) OP Gait Assessment Comments Gait Comments Dec stance time w/lat lean L w /LLE WB; dec push off LLE PT-OP-J Posture/Palpation/Skin Start: 04/25/23 10:20 Freq: Status: Active Protocol: Document 05/06/23 13:04 [facility] (Rec: 05/06/23 14:16 [facility] [id number]) Posture Evaluation Comments Posture Comments L>R foot turned out; L >R rearfoot varus; R iliac crest higher than L PT-OP-K Range of Motion Start: 04/25/23 10:20 Freq: Status: Active Protocol: Document 07/17/23 13:31 [facility] (Rec: 07/17/23 13:39 [facility] [id number]) Ankle and Foot Goniometric Range of Motion Ankle and Foot Right Active Dorsiflexion with Knee Flexed 10 Dorsiflexion with Knee Extended 5 Left Active Dorsiflexion with Knee Flexed 4 Dorsiflexion with Knee Extended 0 Comments 2.25in knee to wall PT-OP-L Special Tests Start: 04/25/23 10:20 Freq: Status: Active Protocol: Document 05/06/23 13:04 [facility] (Rec: 05/06/23 14:16 [facility] [id number]) Special Tests Lumbar Spine Special Tests Straight Leg Raise Comments positive L-feel into calf even w/o DF Slump Test Results tightness in calf at end range L Foot/Ankle Special Tests Homans test Comments neg L PT-OP-M Strength Start: 04/25/23 10:20 Freq: Status: Active Protocol: Document 07/17/23 13:31 [facility] (Rec: 07/17/23 13:39 [facility] [id number]) Hip Strength Hip Manual Muscle Testing Right Flexion (L2) 4 Good Abduction 5 Normal External Rotation 5 Normal Internal Rotation 5 Normal Left Flexion (L2) 4 Good Abduction 4 Good External Rotation 4 Good Internal Rotation 4+ Good+ Knee Strength Knee Manual Muscle Testing Right Flexion (S2) 5 Normal Extension (L3) 4+ Good+ Left Flexion (S2) 5 Normal Extension (L3) 4+ Good+ Ankle/Foot Strength Ankle and Foot Manual Muscle Testing Right Dorsiflexion (L4) 5 Normal Plantarflexion (S1) 5 Normal Inversion 5 Normal Eversion (S1) 5 Normal Comments 20 heel raises Left Dorsiflexion (L4) 5 Normal Plantarflexion (S1) 5 Normal Inversion 5 Normal Eversion (S1) 5 Normal Comments 20 heel raises Toe Strength Toe Manual Muscle Testing Left 2nd Toe Flexion 4 Good Extension 5 Normal Comments 2-5 Left Great Toe Flexion 4- Good- Extension 5 Normal PT-OP-Q Treatments Start: 04/25/23 10:20 Freq: Status: Active Protocol: Document 07/29/23 13:04 [facility] (Rec: 07/29/23 13:42 [facility] [id number]) Therapeutic Exercises Sitting Exercises DF Sitting Exercise Name AROM testing Side left hip Sitting Exercise Name ER Side left Reps/Minutes 6 L piriformis stretch Side left Reps/Minutes 30 sec Comments figure 4 Standing Exercises lunge Standing Exercise Name mini w/rail Side bilateral Reps/Minutes 10 DF Standing Exercise Name DL Side bilateral Reps/Minutes 5 SLS star/clock glides Standing Exercise Name 1. SLS 2. slider to 12, 3, 6 Side bilateral Resistance AROM Equipment Used counter near, slider Reps/Minutes 1. trials 2. 8 ea direction Comments reviewed hip hinge LE reach only distance return from ( small range)-pnfree step up, down Standing Exercise Name fwd Side left Resistance AROM, PRN rail support-mostly w/backwards step up Equipment Used 8 in Reps/Minutes 10 ea Comments cues for eccentric control throughout stretch Standing Exercise Name fwd lean gastroc and soleus Side bilateral Reps/Minutes [id number] ea Comments inc time to get set up correct Manual Therapy Treatment Soft Tissue Mobilization calf Body Location L soleus and achilles Mobilization Type Myofascial Release,Rolling Intensity/Depth Moderate Body Position Standing Comments w/knee flex PT-OP-R Modalities Start: 04/25/23 10:20 Freq: Status: Active Protocol: Document 07/29/23 13:04 [facility] (Rec: 07/29/23 13:44 [facility] [id number]) Ultrasound Therapy Treatment achilles Patient Position Sitting Coupling Medium Ultrasound Gel Mode Setting Pulsed Duty Cycle 50% Intensity Setting (w/cm2) 1.0 Comments L achilles PT-OP-T Assessment and Plan Start: 04/25/23 10:20 Freq: Status: Active Protocol: Document 07/29/23 13:04 [facility] (Rec: 07/29/23 13:42 [facility] [id number]) Physical Therapy Assessment Goals balance Short Term Goal (STG) Pt will be able to do SLS 5 sec B w/o inc pain in L STG Duration achieved 4/8 Paraffin Machine Operator Goal (LTG) Pt will be able to do SLS 8 sec B w/o inc pain in L LTG Duration achieved 4/8 strength Short Term Goal (STG) Pt will be indep w/HEP STG Duration achieved advancing as able Fdc Goal (LTG) Pt will score at least 4+/5 on BLE MMT in order to show improved stability to dec pt pain w/mobility 06/23-improved 07/16-cont to improve LTG Duration 08/27 ROM Short Term Goal (STG) Pt will improved DF to neutral in knee ext position STG Duration achieved 06/23 Fdc Goal (LTG) Pt will improved DF in knee flex position to at least 10 deg and knee ext position to at least 5 deg to allow greater ease with movement 07/16-still limited 07/28-knee flex 8; ext:2 LTG Duration improved activities Short Term Goal (STG) Pt will report inc ease w/ donning/doffing L shoes/socks and not feel limited through hip and knee 06/23-a little better-still difficult 07/16-can get it up w/assist w/ hand and doesn't slide off anymore STG Duration 08/01 Paraffin Machine Operator Goal (LTG) pt will report no pain greater than 2/10 in calf/achilles w/ walking around store or when transitioning to standing. 06/23-when transitioning 8-9/10; once loosens up, okay walking 07/16-today no pain so far but pain noted earlier this week LTG Duration achieved 07/28 Assessment Summary Assessment Pt noting min pain at this time and did well on her own for the past 2 weeks w/o PT sessions. SHe had made excellent progress w/ROM, strength and functional activity. DC d/t meeting most goals and cont HEP to focus on balance and strength cont progression. Physical Therapy Plan Discharge Physical Therapy Discharge Reasons Goals Met
== END 2023-07-31 13:30 | disposition home or self-care (01) ==
LOC: PHYS 13:00
PROVIDERS: Family Provider Family Medicine; PCP Family Medicine; Referring Provider Family Medicine; Visit Provider Family Medicine
DX: M76.892 Other specified enthesopathies of left lower limb, excluding foot (principal); M76.62 Achilles tendinitis, left leg
CPT/HCPCS: 97035; 97110; 97112; 97140; 97162; 97535

== ENCOUNTER → 2023-08-05 13:10 | Outpatient (CLI) | payer MEDICARE, OTHER, SELFPAY ==
[2020-01-05 12:19] VITALS: BMI 34.2
--- NOTE | 2023-08-05 13:12 | DI.MG.S_ITS ---
BILATERAL DIGITAL SCREENING MAMMOGRAM 3D/2D WITH CAD: 08/05/2023 CLINICAL: Routine screening. Family history of breast cancer. Comparison is made to exams dated: 06/01/2022 mammogram, 05/26/2021 mammogram, 05/25/2020 mammogram, and 05/07/2017 mammogram - [facility]. Both breasts are almost entirely fatty (category a/<25% glandular tissue). Current study was also evaluated with a Computer Aided Detection (CAD) system. No significant masses, calcifications, or other findings are seen in either breast. There has been no significant interval change. IMPRESSION: NEGATIVE There is no mammographic evidence of malignancy. A 1 year screening mammogram is recommended. Based on the Tyrer Cuzick model (a risk assessment model) the patient's lifetime risk is 3.1% and her 10 year risk is 3.1%. According to the ACR, ACS, and NCCN guidelines, an annual breast MRI exam along with mammogram is recommended if the patient's lifetime risk is 20% or greater. This exam was interpreted at Station ID: [id number]. NOTE: For mammograms, a report in lay terms will be sent to the patient. Approximately 15% of breast malignancies will not be visualized mammographically. In the management of a palpable breast mass, a negative mammogram must not discourage biopsy of a clinically suspicious lesion. Electronically Signed By: Frantz chaparro/melba:08/05/2023 18:40:04 letter sent: Normal Exam ACR BI-RADS Category 1: Negative [id number]
== END ==
PROVIDERS: Family Provider Family Medicine; PCP Family Medicine; Referring Provider Family Medicine; Visit Provider Family Medicine
DX: Z12.31 Encounter for screening mammogram for malignant neoplasm of breast (principal); Z80.3 Family history of malignant neoplasm of breast; R92.313 Mammographic fatty tissue density, bilateral breasts
CPT/HCPCS: 77063; 77067

== ENCOUNTER → 2023-09-09 12:26 | Outpatient (CLI) | payer MEDICARE, OTHER, SELFPAY ==
[2020-01-05 12:19] VITALS: BMI 34.2
[2023-09-09 13:37] LABS: Add Manual Diff / Slide Review NO; Basophils Absolute Auto 0 /uL (0-100); Basophils Percent Auto 0.6 % (0-2); Eosinophils Absolute Auto 200 /uL (0-450); Eosinophils Percent Auto 4.7 % (2-4); Hematocrit 38.1 % (36-46); Hemoglobin 12.7 g/dL (12.0-16.0); Lymphocytes Absolute Auto 1700 /uL (1100-4500); Lymphocytes Percent Auto 31.5 % (25-40); Mean Corpuscular HGB Conc 33.4 % (30-36); Mean Corpuscular Volume 83.7 fL (80-100); Monocytes Absolute Auto 300 /uL (0-900); Monocytes Percent Auto 6.5 % (3-14); Neutrophils Absolute Auto 3000 /uL (1500-7000); Neutrophils Percent Auto 56.7 % (50-75); Platelet Count 240 X10^3/uL (150-400); Red Blood Cell Count 4.55 X10^6/uL (4.0-5.2); Red Cell Distribution Width 15.1 % (11.6-14.8); White Blood Cell Count 5.3 X10^3/uL (4.5-11.0)
[2023-09-09 14:11] LABS: Hemoglobin A1C% w Est Avg Glu 5.9 % (4.0-6.0)
[2023-09-09 14:13] LABS: Alanine Aminotransferase 30 IU/L (<35); Albumin 4.3 g/dL (3.5-5.0); Albumin Globulin Ratio 1.5 (1.0-2.8); Alkaline Phosphatase 78 U/L (38-126); Aspartate Aminotransferase 29 IU/L (14-36); BUN Creatinine Ratio 21.3 (6-22); Bilirubin Total 0.8 mg/dL (0.2-1.3); Blood Urea Nitrogen 17 mg/dL (7-17); Calcium 9.2 mg/dL (8.4-10.2); Carbon Dioxide 28 mmol/L (22-32); Chloride 106 mmol/L (98-107); Estimated Glomerular Filt Rate > 60 mL/min (>60); Globulin 2.9 g/dL (1.7-4.1); Glucose 102 mg/dL (80-110); HEMOLYSIS < 15 (0-50); Potassium 4.4 mmol/L (3.4-5.1); Sodium 138 mmol/L (137-145); Total Protein 7.2 g/dL (6.3-8.2)
[2023-09-09 14:43] LABS: Thyroid Stimulating Hormone 1.28 uIU/mL (0.47-4.68)
== END ==
LOC: LAB 12:43
PROVIDERS: Family Provider Family Medicine; PCP Family Medicine; Referring Provider Family Medicine; Visit Provider Family Medicine
DX: Z13.0 Encounter for screening for diseases of the blood and blood-forming organs and certain disorders involving the immune mechanism (principal); E78.00 Pure hypercholesterolemia, unspecified; R73.01 Impaired fasting glucose; G43.909 Migraine, unspecified, not intractable, without status migrainosus; F32.0 Major depressive disorder, single episode, mild; M19.90 Unspecified osteoarthritis, unspecified site; Z63.79 Other stressful life events affecting family and household
CPT/HCPCS: 36415; 80053; 83036; 84443; 85025

== ENCOUNTER → 2023-09-25 12:06 | Outpatient (CLI) | payer MEDICARE, OTHER, SELFPAY ==
[2020-01-05 12:19] VITALS: BMI 34.2
--- NOTE | 2023-09-25 12:08 | DI.CT.S_ITS ---
PROCEDURE: CT CHEST WO CON INDICATIONS: RIGHT UPPER LOB PULM NODULE / ADRENAL NODULE TECHNIQUE: Noncontrast 5 mm thick sections acquired from the pulmonary apices to the posterior costophrenic angles. 1 mm lung window, 5 mm thick coronal and sagittal and 7 mm axial MIP reformats were then acquired. For radiation dose reduction, the following was used: automated exposure control, adjustment of mA and/or kV according to patient size. COMPARISON: [facility], CT, CT CHEST W CON, 10/24/2021, 11:10. [facility], CT, CT CHEST WO CON, 11/28/2022, 12:41. FINDINGS: Image quality: Diagnostic. Lower Neck: No enlarged lymph nodes. Thyroid: No thyroid nodules which require sonographic follow up, per consensus guidelines. Axillae: No enlarged lymph nodes. Chest Wall: Unremarkable. Bones: Unremarkable. Lungs and Pleura: No pneumothorax or pleural effusions. Previously identified 8 mm in 5 mm right apical nodules on series 3, images 49 and 47 are unchanged. No new nodules are present. Heart: Heart size is normal. No pericardial effusion. Thoracic Vessels: The aorta and pulmonary arteries demonstrate normal size. Mediastinum and Syl: No enlarged lymph nodes. Esophagus: No wall thickening. Mild hiatal hernia. Upper Abdomen: Visualized upper abdomen solid organs and bowel loops appear normal. IMPRESSION: Unchanged appearance of subcentimeter apical pulmonary nodules. Given size and stability, no additional follow-up is recommended. Dictated by: Pooja Hernandez M.D. on 09/26/2023 at 23:07 Approved by: Pooja Hernandez M.D. on 09/26/2023 at 23:09
--- NOTE | 2023-09-25 13:00 | DI.MRI.S_ITS ---
PROCEDURE: MR ABDOMEN ADRENAL PROTOCOL COMPARISON: [facility], CT, CT CHEST WO CON, 11/28/2022, 12:41. [facility], CT, CT CHEST WO CON, 09/25/2023, 12:17. INDICATIONS: RIGHT UPPER LOB PULM NODULE / ADRENAL NODULE Technique: MRI images were obtained of the abdomen without contrast. Focused imaging of the adrenals were obtained with clinical shift imaging. FINDINGS: Image quality: Diagnostic Lower chest: No pleural effusions. Lungs are not well evaluated on this study Liver: Unremarkable on this noncontrast study possible mild hepatic steatosis is present. Gallbladder and biliary system: Cholelithiasis. Nondilated biliary system Pancreas: No ductal dilation Spleen: Nonenlarged Adrenals: 1.6 cm in long axis left adrenal nodule is present, with chemical shift artifact on opposed phase imaging. No right adrenal nodule identified. Kidneys: No contour deforming mass on these noncontrast images. Suspected cysts are present. No hydronephrosis Vessels and lymph nodes: No abdominal aortic aneurysm. No pathologic lymph nodes by size criteria Bowel and peritoneum: No small bowel obstruction. No pathologic ascites. Body wall: Unremarkable Bones: Degenerative changes. 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 Correlate with biochemical testing to determine functional status. Mild hepatic steatosis is also suspected. Chest findings are separately dictated. Dictated by: Shailesh Rudolph M.D. on 09/25/2023 at 17:11 Approved by: Shailesh Rudolph M.D. on 09/25/2023 at 17:15
== END ==
LOC: CT 12:07
PROVIDERS: Family Provider Family Medicine; PCP Family Medicine; Referring Provider Family Medicine; Visit Provider Family Medicine
DX: E27.8 Other specified disorders of adrenal gland (principal); R91.8 Other nonspecific abnormal finding of lung field; K80.20 Calculus of gallbladder without cholecystitis without obstruction; K44.9 Diaphragmatic hernia without obstruction or gangrene
CPT/HCPCS: 71250; 74181

== ENCOUNTER → 2024-05-21 13:10 | Outpatient (CLI) | payer MEDICARE, OTHER, SELFPAY ==
[2020-01-05 12:19] VITALS: BMI 34.2
--- NOTE | 2024-05-21 13:12 | DI.RAD.S_ITS ---
PROCEDURE: XR DEXA AXIAL SKELETON INDICATIONS: SCREENING FOR OSTEOPOROSIS COMPARISON: [facility], [place], XR DEXA AXIAL SKELETON, 12/19/2022, 14:59. FINDINGS: Lumbar Spine: Bone mineral density 0.803 (previously 0.828) g/cm2, T score -1.9 (previously-2.0). Left Femoral Neck: Bone mineral density 0.486 (previously 0.413) g/cm2, T score -3.3 (previously-3.9) Left Hip: Bone mineral density 0.640 (previously 0.621) g/cm2, T score -2.5 (previously-2.6). Fracture Risk Calculation (when applicable): 10-year fracture risk of a major osteoporotic fracture 39 percent and of a hip fracture 29 percent. (T score greater or equal to -1.0 to: NORMAL) (T score from -1.1 to -2.4: OSTEOPENIA) (T score less than or equal to -2.5: OSTEOPOROSIS) IMPRESSION: Osteoporosis---recommend repeat DEXA in 2 years or less for reassessment of response to treatment. Follow-up guidelines as follows: Osteoporosis: Consider a repeat DEXA and Vertebral Fracture Assessment (VFA) exam in 2 years or sooner if medically necessary, to reassess this patient's status. Osteopenia: Consider a repeat DEXA in 2-3 years to reassess this patient's status, or if there is a new clinical indication. Normal: Consider a repeat DEXA in 5 years or sooner, or if there is a new clinical indication. All treatment decisions require clinical judgment and consideration of individual patient factors, including patient preferences, comorbidities, previous drug use, risk factors not captured in the FRAX model (e.g., frailty, falls, vitamin D deficiency, increased bone turnover, interval significant decline in bone density ) and possible under- or over-estimation of fracture risk by FRAX. In addition, the NOF Guide recommends that FDA-approved medical therapies be considered in postmenopausal women and men age >= 50 years with a: * Hip or vertebral (clinical or morphometric) fracture * T-score of <=-2.5 at the spine or hip * Ten-year fracture probability by FRAX of >= 3% for hip fracture or >=20% for major osteoporotic fracture. Dictated by: Talat Grant M.D. on 05/23/2024 at 5:55 Approved by: Talat Grant M.D. on 05/23/2024 at 5:57
== END ==
PROVIDERS: Family Provider Family Medicine; PCP Family Medicine; Referring Provider Family Medicine; Visit Provider Family Medicine
DX: M81.0 Age-related osteoporosis without current pathological fracture (principal)
CPT/HCPCS: 77080

== ENCOUNTER → 2024-06-24 12:21 | Outpatient (CLI) | payer MEDICARE, OTHER, SELFPAY ==
[2020-01-05 12:19] VITALS: BMI 34.2
--- NOTE | 2024-06-24 12:23 | DI.RAD.S_ITS ---
PROCEDURE: XR RIBS LT MIN 3V W CXR1V INDICATIONS: Left rib injury TECHNIQUE: 5 views of the ribs were acquired, along with a single view chest. COMPARISON: None. FINDINGS AND IMPRESSION: No displaced fractures identified. No dislocation. No pneumothorax. Left lung base linear opacities likely atelectasis. If there is high concern for occult injury, consider repeat radiography or cross-sectional imaging. Heart size is at the upper limit of normal. Dictated by: Shailesh Rudolph M.D. on 06/24/2024 at 15:31 Approved by: Shaliesh Rudolph M.D. on 06/24/2024 at 15:36
== END ==
PROVIDERS: Family Provider Family Medicine; PCP Family Medicine; Referring Provider Registered Nurse; Visit Provider Registered Nurse
DX: R07.81 Pleurodynia (principal)
CPT/HCPCS: 71101

== ENCOUNTER → 2024-06-30 15:45 | Outpatient (CLI) | payer MEDICARE, OTHER, SELFPAY ==
[2020-01-05 12:19] VITALS: BMI 34.2
--- NOTE | 2024-06-30 15:47 | DI.RAD.S_ITS ---
PROCEDURE: XR LUMBAR SPINE MIN 4V INDICATIONS: BACK PAIN TECHNIQUE: 5 views of the lumbar spine were acquired, including bilateral oblique views. COMPARISON: None. FINDINGS: Bones: 5 nonrib-bearing vertebrae are present. Levocurvature of the lumbar spine. Mild anterolisthesis of L4 on L5. Decreased osseous mineralization. No vertebral body compression fractures. No suspicious bony lesions. Mild multilevel degenerative changes with mild disc height loss and facet arthropathy. Soft tissues: Overlying bowel gas pattern is normal. No suspicious soft tissue calcifications. Atherosclerotic vascular calcifications. Oblique images: No definite pars defects. IMPRESSION: Mild multilevel degenerative changes of the lumbar spine. Dictated by: Grabiel Soriano M.D. on 06/30/2024 at 16:57 Approved by: Grabiel Soriano M.D. on 06/30/2024 at 16:58
== END ==
PROVIDERS: Family Provider Family Medicine; PCP Family Medicine; Referring Provider Physical Medicine & Rehabilitation; Visit Provider Physical Medicine & Rehabilitation
DX: M47.816 Spondylosis without myelopathy or radiculopathy, lumbar region (principal); M54.9 Dorsalgia, unspecified
CPT/HCPCS: 72110

== ENCOUNTER → 2024-07-06 11:02 | Outpatient (CLI) | payer MEDICARE, OTHER, SELFPAY ==
[2020-01-05 12:19] VITALS: BMI 34.2
--- NOTE | 2024-07-06 11:03 | DI.MRI.S_ITS ---
PROCEDURE: MR THORACIC SPINE WO CON INDICATIONS: thoracic radic TECHNIQUE: Noncontrast sagittal T1 spine echo and T2 fast spin echo, sagittal STIR, and T2 fast spin echo through the thoracic spine. COMPARISON: None. FINDINGS: Image quality: Excellent. Alignment and Curvature: There is normal bony alignment. Bone Marrow: Marrow is of normal overall signal. No acute vertebral body compression fractures. Spinal Cord: Visualized spinal cord is normal in size and signal. Paraspinous Soft Tissues: No paravertebral masses. Small left pleural effusion. Miscellaneous: Mild disc desiccation. Mild disc bulge T12-L1. No significant central canal or neural foraminal stenosis. IMPRESSION: Mild degenerative changes without significant central canal or neural foraminal stenosis. Dictated by: Grabiel Soriano M.D. on 07/06/2024 at 14:43 Approved by: Grabiel Soriano M.D. on 07/06/2024 at 14:48
== END ==
LOC: MRI 11:03
PROVIDERS: Family Provider Family Medicine; PCP Family Medicine; Referring Provider Physical Medicine & Rehabilitation; Visit Provider Physical Medicine & Rehabilitation
DX: M47.24 Other spondylosis with radiculopathy, thoracic region (principal); M99.08 Segmental and somatic dysfunction of rib cage
CPT/HCPCS: 72146

== ENCOUNTER → 2024-10-08 15:05 | Outpatient (CLI) | payer MEDICARE, OTHER, SELFPAY ==
[2020-01-05 12:19] VITALS: BMI 34.2
--- NOTE | 2024-10-08 15:06 | DI.MG.S_ITS ---
MM screening mammo BI: 10/08/2024. BI-RADS: 1 CLINICAL: 74-year old female for bilateral screening mammogram. Tyrer-Cuzick lifetime risk of 1.2%. No personal or first-degree family history of breast cancer. PRIOR EXAMS 08/05/2023, 06/01/2022, 05/26/2021, 05/25/2020. MAMMOGRAPHY TECHNIQUE: 2D and 3D (tomosynthesis) digital mammographic views obtained, with additional images as needed for full coverage. Current study was also evaluated with a Computer Aided Detection (CAD) system. DENSITY A. The breasts are almost entirely fatty. MAMMOGRAPHY FINDINGS Bilateral: No suspicious mass, asymmetry, microcalcification, or other abnormality seen. No significant change from comparison. IMPRESSION: * No evidence of malignancy. RECOMMENDATIONS Bilateral * Annual screening mammography. OVERALL ASSESSMENT CATEGORY BI-RADS-1: Negative. [employer] recommends annual screening mammography beginning at age 40 for women with average risk of breast cancer. ELECTRONICALLY SIGNED: Jessica Poe M.D. on 10/09/2024 at 09:10:00 AM PT Interpreting Station ID: [id number]
== END ==
PROVIDERS: Family Provider Family Medicine; PCP Family Medicine; Referring Provider Family Medicine; Visit Provider Family Medicine
DX: Z12.31 Encounter for screening mammogram for malignant neoplasm of breast (principal); R92.313 Mammographic fatty tissue density, bilateral breasts
CPT/HCPCS: 77063; 77067

== ENCOUNTER 2024-10-15 10:45 | Outpatient (RCR) | payer MEDICARE, OTHER, SELFPAY ==
[2020-01-05 12:19] VITALS: BMI 34.2
--- NOTE | 2024-08-26 10:06 | PT.OIE ---
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 Migraine headache Obesity Obstructive sleep apnea of adult Overactive bladder Primary insomnia Rib cage dysfunction Snoring Spondylolisthesis at L4-L5 level Stress at home Thoracic radiculopathy due to degenerative joint disease of spine Past Surgical History (Last Reviewed 07/01/24 @ 11:43 by Adam Shaw DO) H/O right wrist surgery (1965) History of arthroplasty of right knee (12/01/14) History of left knee replacement (01/05/20) History of surgery History of surgery (01/18/15) Hx of bilateral cataract extraction (01/2019) Visit Care Team Role Provider Type Yadira Mckeon MD Family Provider Physician Primary Care Provider Specialty: Family Practice Address: [address] [place] [address], [id number] Email: [email or web address] Adam Shaw DO Attending Provider Physician Referring Provider Specialty: Interventional Radiology Physiatry Pain Management Address: [address] [place] [address], [id number] Email: [email or web address] Physical Therapy Initial Evaluation PT-OP-A Visit Information Start: 08/25/24 17:04 Freq: Status: Active Protocol: Document 08/25/24 17:05 BL (Rec: 08/25/24 19:09 BL Laptop) Out-Patient Physical Therapy Visit Information Visit Information Visit Type Initial Evaluation Visit Start Time 17:00 Visit Stop Time 17:45 Visit Number (1) 03/27 (PN 09/24/24) Number of TAX STAFF ACCOUNTANT Visits 0 Evaluation Information Evaluation Date 08/25/24 PT-OP-C Subjective Start: 08/25/24 17:04 Freq: Status: Active Protocol: Document 08/25/24 17:05 BL (Rec: 08/25/24 19:09 BL Laptop) OP-PT Subjective Patient Comments Patient Comments Pt presents to the clinic this date with increased symptoms of LBP. Pt stats this has been going on for some time, states she has put off dealing with the pain for several years due to caregiving for spouse who recently passed. Pt states walking and standing causes the greatest increase in symptoms, pt reports resting on a cart at the grocery store helps as well as sitting easies her pain. Reports she can sit a few minutes and the pain is gone. Pt reports she can stand for 15 minutes before needing to sit down. Pt reports goals are to decrease pain and be able to complete ADLs ( sweeping vacuuming). Patient Reported Same Progress Patient Questionnaires Oswestry Low Back Index Oswestry Score 42% disability PT-OP-F Manual Assessment Start: 08/25/24 17:04 Freq: Status: Active Protocol: Document 08/25/24 17:05 BL (Rec: 08/25/24 19:09 BL Laptop) Manual Assessments Soft Tissue Assessment Soft Tissue Mobility Increased tissue tightness noted through sunny Assessment paraspinals in the lumbar region. Pt point tender with palpation through R posterior hip. PT-OP-H Neuro Start: 08/25/24 17:04 Freq: Status: Active Protocol: Document 08/25/24 17:05 BL (Rec: 08/25/24 19:09 BL Laptop) Sensation Evaluation Comments Summary Comments No sensation loss noted Coordination Evaluation Comments Coordination No coordination deficits noted Comments PT-OP-J Posture/Palpation/Skin Start: 08/25/24 17:04 Freq: Status: Active Protocol: Document 08/25/24 17:05 BL (Rec: 08/25/24 19:09 BL Laptop) Posture Evaluation Comments Posture Comments Pt sits with posterior pelvic tilt and increased kyphosis. Pt has large body habitus. PT-OP-K Range of Motion Start: 08/25/24 17:04 Freq: Status: Active Protocol: Document 08/25/24 17:05 BL (Rec: 08/25/24 19:09 BL Laptop) Lumbar Spine Range of Motion Lumbar Spine Active Percentage Testing Position Standing Flexion 50 Extension 50 Rotation Left 75 Rotation Right 75 Lateral Flexion Left 100 Lateral Flexion 100 Right Shoulder Goniometric Range of Motion Shoulder sunny Comments WFL PT-OP-L Special Tests Start: 08/25/24 17:04 Freq: Status: Active Protocol: Document 08/25/24 17:05 BL (Rec: 08/25/24 19:09 BL Laptop) Special Tests Lumbar Spine Special Tests Martir Test Results positive Straight Leg Raise Test Results negative Slump Test Results negative Other Special Tests Special Tests Pt demos 5 sec SLS on L LE and 8 sec SLS on R LE PT-OP-M Strength Start: 08/25/24 17:04 Freq: Status: Active Protocol: Document 08/25/24 17:05 BL (Rec: 08/25/24 19:10 BL Laptop) Trunk Strength Trunk Manual Muscle Testing Testing Position Supine Flexion 4- Good- Extension 4- Good- Rotation Left 4 Good Rotation Right 4 Good Lateral Flexion Left 4 Good Lateral Flexion 4 Good Right Hip Strength Hip Manual Muscle Testing Right Flexion (L2) 4 Good Extension (S1) 4- Good- Abduction 4 Good Adduction 4 Good Left Flexion (L2) 4 Good Extension (S1) 4- Good- Abduction 4 Good Adduction 4 Good Knee Strength Knee Manual Muscle Testing Right Flexion (S2) 4+ Good+ Extension (L3) 4+ Good+ Left Flexion (S2) 4+ Good+ Extension (L3) 4+ Good+ PT-OP-Q Treatments Start: 08/25/24 17:04 Freq: Status: Active Protocol: Document 08/25/24 17:05 BL (Rec: 08/25/24 19:09 BL Laptop) Therapeutic Exercises Supine Exercises ROM Supine Exercise Name LTR, Pelvic tilt Comments Educated on importance of core activation for spinal stability. PT-OP-T Assessment and Plan Start: 08/25/24 17:04 Freq: Status: Active Protocol: Document 08/25/24 17:05 BL (Rec: 08/25/24 19:09 BL Laptop) Physical Therapy Assessment Rehab Potential Rehabilitation Good Potential Evaluation Complexity Number of Personal 1-2 Factors/ Comorbidities Number of Body 3 Systems Impaired Clinical Evolving Presentation at Evaluation Impairments Impairments Activity Tolerance,Balance,Coordination,Functional Activities,Functional Mobility,Gait,Pain,Posture,ROM, Soft Tissue Mobility,Strength,Transfers Goals 3 Mortgage Originator Goal (LTG) Pt will report being able to ambulate 30 minutes or greater by DC for improved mobility. 2 Mortgage Originator Goal (LTG) Pt will demo improved LE hip extension strength to 4+/5 by DC bilateral for improved support with ADLS. 1 Short Term Goal (STG pt will be ind with HEP within 2 visits in order to ) progress toward fpc therapy goals outside of therapy visits. Mortgage Originator Goal (LTG) Pt will demo improved OSWESTRY score to 25% disability or better by DC for improved quality of life. Assessment Summary Assessment Pt presents with long standing history of low back pain , pt demos difficulty with ambulating and completing ADLS due to increased pain. Pt demos hip and core weakness on todays exam. Previous imaging demos degenerative changes to lumbar vertebral levels. Pt will benefit from skilled Physical Therapy intervention for strength and endurance training to improve spinal stability and allow improved quality of life. Physical Therapy Plan Frequency and Duration Frequency of 2x/Week Treatment Duration of 8 treatment (weeks) Plan of Care Start 08/25/24 Date Plan of Care End 10/20/24 Date Therapeutic Interventions Therapeutic Balance Training,Gait Training,Home Exercise Program, Interventions Joint Mobilizations,Manual Therapy,Neuromuscular Re- education,Orthotic/Prosthetic Management,Patient/ Caregiver Education,Self-Care/Home Management,Soft Tissue Mobilization,Therapeutic Activities,Therapeutic Exercises Modalities Cold Pack/Ice Massage,Electric Stimulation,Hot Packs, Infrared Therapy,Iontophoresis,Traction- Mechanical, Ultrasound Next Visit Focus/Plan Next Note Type Treatment Note Next Visit Plan Advance core and LE strengthening, manual work to paraspinal
--- NOTE | 2024-08-26 10:08 | PT.OPPOC ---
Physical, Occupational & Speech Therapy At [facility] Current Diagnoses Spondylolisthesis, lumbar region (08/25/24) Other spondylosis with radiculopathy, thoracic region (08/25/24) Segmental and somatic dysfunction of rib cage (08/25/24) Visit Care Team Role Provider Type Yadira Mckeon MD Family Provider Physician Primary Care Provider Specialty: Family Practice Address: [address] [place] [address], [facility] [place], [address] Email: [email or web address] Adam Shaw DO Attending Provider Physician Referring Provider Specialty: Interventional Radiology Physiatry Pain Management Address: [address] [place] [address], [id number] Email: [email or web address] Plan Of Care PT-OP-T Assessment and Plan Start: 08/25/24 17:04 Freq: Status: Active Protocol: Document 08/25/24 17:05 BL (Rec: 08/25/24 19:09 BL Laptop) Physical Therapy Assessment Rehab Potential Rehabilitation Good Potential Evaluation Complexity Number of Personal 1-2 Factors/ Comorbidities Number of Body 3 Systems Impaired Clinical Evolving Presentation at Evaluation Impairments Impairments Activity Tolerance,Balance,Coordination,Functional Activities,Functional Mobility,Gait,Pain,Posture,ROM, Soft Tissue Mobility,Strength,Transfers Goals 3 Prospecting Driller Goal (LTG) Pt will report being able to ambulate 30 minutes or greater by DC for improved mobility. 2 Prospecting Driller Goal (LTG) Pt will demo improved LE hip extension strength to 4+/5 by DC bilateral for improved support with ADLS. 1 Short Term Goal (STG pt will be ind with HEP within 2 visits in order to ) progress toward emt intermediate therapy goals outside of therapy visits. Prospecting Driller Goal (LTG) Pt will demo improved OSWESTRY score to 25% disability or better by DC for improved quality of life. Assessment Summary Assessment Pt presents with long standing history of low back pain , pt demos difficulty with ambulating and completing ADLS due to increased pain. Pt demos hip and core weakness on todays exam. Previous imaging demos degenerative changes to lumbar vertebral levels. Pt will benefit from skilled Physical Therapy intervention for strength and endurance training to improve spinal stability and allow improved quality of life. Physical Therapy Plan Frequency and Duration Frequency of 2x/Week Treatment Duration of 8 treatment (weeks) Plan of Care Start 08/25/24 Date Plan of Care End 10/20/24 Date Therapeutic Interventions Therapeutic Balance Training,Gait Training,Home Exercise Program, Interventions Joint Mobilizations,Manual Therapy,Neuromuscular Re- education,Orthotic/Prosthetic Management,Patient/ Caregiver Education,Self-Care/Home Management,Soft Tissue Mobilization,Therapeutic Activities,Therapeutic Exercises Modalities Cold Pack/Ice Massage,Electric Stimulation,Hot Packs, Infrared Therapy,Iontophoresis,Traction- Mechanical, Ultrasound Next Visit Focus/Plan Next Note Type Treatment Note Next Visit Plan Advance core and LE strengthening, manual work to paraspinal Plan of Care Dates Plan of Care Start Date 08/25/24 Plan of Care End Date 10/20/24 Electronically Signed by: Terence Echols PT 08/26/24 1002 If you are in agreement with this Plan of Care, please return a signed and dated copy. I have reviewed this Plan of Care and certify that the skilled therapy services above are required to meet the patient?s needs. Physician Signature Date Printed Name and Credentials Clinical Instructor Signature Printed Name and Credentials
--- NOTE | 2024-08-27 18:06 | PT.OTN ---
Current Diagnoses Spondylolisthesis, lumbar region (08/27/24) Other spondylosis with radiculopathy, thoracic region (08/27/24) Segmental and somatic dysfunction of rib cage (08/27/24) Physical Therapy Treatment Note PT-OP-A Visit Information Start: 08/25/24 17:04 Freq: Status: Active Protocol: Document 08/27/24 16:35 BL (Rec: 08/27/24 18:04 BL Laptop) Out-Patient Physical Therapy Visit Information Visit Information Visit Type Treatment Note Visit Start Time 17:00 Visit Stop Time 17:40 Visit Number (2) 2/ (PN 09/24/24) Number of SPECTACLE TRUER Visits 0 PT-OP-C Subjective Start: 08/25/24 17:04 Freq: Status: Active Protocol: Document 08/27/24 16:35 BL (Rec: 08/27/24 18:04 BL Laptop) OP-PT Subjective Patient Comments Patient Comments Pt presents to the clinic this date and reports she is doing ok, states overall HEP is going well. PT-OP-F Manual Assessment Start: 08/25/24 17:04 Freq: Status: Active Protocol: Document 08/25/24 17:05 BL (Rec: 08/25/24 19:09 BL Laptop) Manual Assessments Soft Tissue Assessment Soft Tissue Mobility Increased tissue tightness noted through sunny Assessment paraspinals in the lumbar region. Pt point tender with palpation through R posterior hip. PT-OP-H Neuro Start: 08/25/24 17:04 Freq: Status: Active Protocol: Document 08/25/24 17:05 BL (Rec: 08/25/24 19:09 BL Laptop) Sensation Evaluation Comments Summary Comments No sensation loss noted Coordination Evaluation Comments Coordination No coordination deficits noted Comments PT-OP-J Posture/Palpation/Skin Start: 08/25/24 17:04 Freq: Status: Active Protocol: Document 08/25/24 17:05 BL (Rec: 08/25/24 19:09 BL Laptop) Posture Evaluation Comments Posture Comments Pt sits with posterior pelvic tilt and increased kyphosis. Pt has large body habitus. PT-OP-K Range of Motion Start: 08/25/24 17:04 Freq: Status: Active Protocol: Document 08/25/24 17:05 BL (Rec: 08/25/24 19:09 BL Laptop) Lumbar Spine Range of Motion Lumbar Spine Active Percentage Testing Position Standing Flexion 50 Extension 50 Rotation Left 75 Rotation Right 75 Lateral Flexion Left 100 Lateral Flexion 100 Right Shoulder Goniometric Range of Motion Shoulder sunny Comments WFL PT-OP-L Special Tests Start: 08/25/24 17:04 Freq: Status: Active Protocol: Document 08/25/24 17:05 BL (Rec: 08/25/24 19:09 BL Laptop) Special Tests Lumbar Spine Special Tests Martir Test Results positive Straight Leg Raise Test Results negative Slump Test Results negative Other Special Tests Special Tests Pt demos 5 sec SLS on L LE and 8 sec SLS on R LE PT-OP-M Strength Start: 08/25/24 17:04 Freq: Status: Active Protocol: Document 08/25/24 17:05 BL (Rec: 08/25/24 19:10 BL Laptop) Trunk Strength Trunk Manual Muscle Testing Testing Position Supine Flexion 4- Good- Extension 4- Good- Rotation Left 4 Good Rotation Right 4 Good Lateral Flexion Left 4 Good Lateral Flexion 4 Good Right Hip Strength Hip Manual Muscle Testing Right Flexion (L2) 4 Good Extension (S1) 4- Good- Abduction 4 Good Adduction 4 Good Left Flexion (L2) 4 Good Extension (S1) 4- Good- Abduction 4 Good Adduction 4 Good Knee Strength Knee Manual Muscle Testing Right Flexion (S2) 4+ Good+ Extension (L3) 4+ Good+ Left Flexion (S2) 4+ Good+ Extension (L3) 4+ Good+ PT-OP-Q Treatments Start: 08/25/24 17:04 Freq: Status: Active Protocol: Document 08/27/24 16:35 BL (Rec: 08/27/24 18:04 BL Laptop) Therapeutic Exercises Supine Exercises hip strength Supine Exercise Name concetta mascorro Comments 10x ROM Supine Exercise Name LTR, Pelvic tilt, open book, Comments 2x10 Sitting Exercises NuStep Sitting Exercise Cardiovascular warm up Name Comments 3 minutes lvl 3 Manual Therapy Treatment Consent Patient gave verbal Yes consent for manual treatment Soft Tissue Mobilization 1 Comments TPR and DTM for sunny paraspinals with improved tissue mobility following PT-OP-T Assessment and Plan Start: 08/25/24 17:04 Freq: Status: Active Protocol: Document 08/27/24 16:35 BL (Rec: 08/27/24 18:04 BL Laptop) Physical Therapy Assessment Goals 3 Mcc Goal (LTG) Pt will report being able to ambulate 30 minutes or greater by DC for improved mobility. 2 Mcc Goal (LTG) Pt will demo improved LE hip extension strength to 4+/5 by DC bilateral for improved support with ADLS. 1 Short Term Goal (STG pt will be ind with HEP within 2 visits in order to ) progress toward superintendent terminal therapy goals outside of therapy visits. Customer Account Coordinator Goal (LTG) Pt will demo improved OSWESTRY score to 25% disability or better by DC for improved quality of life. Assessment Summary Assessment Pt progress in HEP for hip strengthening and spinal mobility. Pt tolerates manual therapy well for improved tissue mobility. PT demos improved ROM following. Physical Therapy Plan Next Visit Focus/Plan Next Note Type Treatment Note Next Visit Plan Advance core and LE strengthening, manual work to paraspinal
--- NOTE | 2024-09-01 16:56 | PT.OTN ---
Current Diagnoses Spondylolisthesis, lumbar region (09/01/24) Other spondylosis with radiculopathy, thoracic region (09/01/24) Segmental and somatic dysfunction of rib cage (09/01/24) Physical Therapy Treatment Note PT-OP-A Visit Information Start: 08/25/24 17:04 Freq: Status: Active Protocol: Document 09/01/24 16:18 BL (Rec: 09/01/24 16:56 BL Laptop) Out-Patient Physical Therapy Visit Information Visit Information Visit Type Treatment Note Visit Start Time 16:15 Visit Stop Time 17:40 Visit Number (3) 3/ (PN 09/24/24) Number of BOILER ENGINEER Visits 0 PT-OP-C Subjective Start: 08/25/24 17:04 Freq: Status: Active Protocol: Document 09/01/24 16:18 BL (Rec: 09/01/24 16:56 BL Laptop) OP-PT Subjective Patient Comments Patient Comments Pt presents to the clinic this date and reports she is doing well, feels tired but reports she was able to vacuum without needing to rest. PT-OP-F Manual Assessment Start: 08/25/24 17:04 Freq: Status: Active Protocol: Document 08/25/24 17:05 BL (Rec: 08/25/24 19:09 BL Laptop) Manual Assessments Soft Tissue Assessment Soft Tissue Mobility Increased tissue tightness noted through sunny Assessment paraspinals in the lumbar region. Pt point tender with palpation through R posterior hip. PT-OP-H Neuro Start: 08/25/24 17:04 Freq: Status: Active Protocol: Document 08/25/24 17:05 BL (Rec: 08/25/24 19:09 BL Laptop) Sensation Evaluation Comments Summary Comments No sensation loss noted Coordination Evaluation Comments Coordination No coordination deficits noted Comments PT-OP-J Posture/Palpation/Skin Start: 08/25/24 17:04 Freq: Status: Active Protocol: Document 08/25/24 17:05 BL (Rec: 08/25/24 19:09 BL Laptop) Posture Evaluation Comments Posture Comments Pt sits with posterior pelvic tilt and increased kyphosis. Pt has large body habitus. PT-OP-K Range of Motion Start: 08/25/24 17:04 Freq: Status: Active Protocol: Document 08/25/24 17:05 BL (Rec: 08/25/24 19:09 BL Laptop) Lumbar Spine Range of Motion Lumbar Spine Active Percentage Testing Position Standing Flexion 50 Extension 50 Rotation Left 75 Rotation Right 75 Lateral Flexion Left 100 Lateral Flexion 100 Right Shoulder Goniometric Range of Motion Shoulder sunny Comments WFL PT-OP-L Special Tests Start: 08/25/24 17:04 Freq: Status: Active Protocol: Document 08/25/24 17:05 BL (Rec: 08/25/24 19:09 BL Laptop) Special Tests Lumbar Spine Special Tests Martir Test Results positive Straight Leg Raise Test Results negative Slump Test Results negative Other Special Tests Special Tests Pt demos 5 sec SLS on L LE and 8 sec SLS on R LE PT-OP-M Strength Start: 08/25/24 17:04 Freq: Status: Active Protocol: Document 08/25/24 17:05 BL (Rec: 08/25/24 19:10 BL Laptop) Trunk Strength Trunk Manual Muscle Testing Testing Position Supine Flexion 4- Good- Extension 4- Good- Rotation Left 4 Good Rotation Right 4 Good Lateral Flexion Left 4 Good Lateral Flexion 4 Good Right Hip Strength Hip Manual Muscle Testing Right Flexion (L2) 4 Good Extension (S1) 4- Good- Abduction 4 Good Adduction 4 Good Left Flexion (L2) 4 Good Extension (S1) 4- Good- Abduction 4 Good Adduction 4 Good Knee Strength Knee Manual Muscle Testing Right Flexion (S2) 4+ Good+ Extension (L3) 4+ Good+ Left Flexion (S2) 4+ Good+ Extension (L3) 4+ Good+ PT-OP-Q Treatments Start: 08/25/24 17:04 Freq: Status: Active Protocol: Document 09/01/24 16:18 BL (Rec: 09/01/24 16:56 BL Laptop) Therapeutic Exercises Supine Exercises hip strength Supine Exercise Name clamshells, bridges Resistance lvl 2 Comments 10x ROM Supine Exercise Name LTR, Pelvic tilt, open book, (reviewed) Comments 2x10 Sitting Exercises NuStep Sitting Exercise Cardiovascular warm up Name Comments 3 minutes lvl 3 Manual Therapy Treatment Consent Patient gave verbal Yes consent for manual treatment Soft Tissue Mobilization 1 Comments TPR and DTM for sunny paraspinals with improved tissue mobility following PT-OP-T Assessment and Plan Start: 08/25/24 17:04 Freq: Status: Active Protocol: Document 09/01/24 16:18 BL (Rec: 09/01/24 16:56 BL Laptop) Physical Therapy Assessment Goals 3 Shelter Goal (LTG) Pt will report being able to ambulate 30 minutes or greater by DC for improved mobility. 2 Shelter Goal (LTG) Pt will demo improved LE hip extension strength to 4+/5 by DC bilateral for improved support with ADLS. 1 Short Term Goal (STG pt will be ind with HEP within 2 visits in order to ) progress toward mcc therapy goals outside of therapy visits. Joint Maker Machine Goal (LTG) Pt will demo improved OSWESTRY score to 25% disability or better by DC for improved quality of life. Assessment Summary Assessment Pt progress in HEP for hip strengthening and spinal mobility, able to add resistance band this date, pt provided with band for home. Pt tolerates manual therapy well for improved tissue mobility. PT demos improved ROM following. Physical Therapy Plan Next Visit Focus/Plan Next Note Type Treatment Note Next Visit Plan Advance core and LE strengthening, manual work to paraspinal
--- NOTE | 2024-09-03 17:58 | PT.OTN ---
Current Diagnoses Spondylolisthesis, lumbar region (09/03/24) Other spondylosis with radiculopathy, thoracic region (09/03/24) Segmental and somatic dysfunction of rib cage (09/03/24) Physical Therapy Treatment Note PT-OP-A Visit Information Start: 08/25/24 17:04 Freq: Status: Active Protocol: Document 09/03/24 15:49 AB (Rec: 09/03/24 17:57 AB Laptop) Out-Patient Physical Therapy Visit Information Visit Information Visit Type Treatment Note Visit Note Access Code: [email or web address] Visit Start Time 16:17 Visit Stop Time 17:00 Visit Number (4) 4/ (PN 09/24/24) Number of OPERATIONS SYSTEMS SPECIALIST Visits 1 PT-OP-C Subjective Start: 08/25/24 17:04 Freq: Status: Active Protocol: Document 09/03/24 15:49 AB (Rec: 09/03/24 17:57 AB Laptop) OP-PT Subjective Patient Comments Patient Comments Patient declines massage, reports back has been hurting since the massage. Patient rates back pain 6/10, reports ambulating into session 6/10, at home it was 10 /10 when you standing up doing things. Patient agreeable to STM to illiopsoas post education. PT-OP-F Manual Assessment Start: 08/25/24 17:04 Freq: Status: Active Protocol: Document 08/25/24 17:05 BL (Rec: 08/25/24 19:09 BL Laptop) Manual Assessments Soft Tissue Assessment Soft Tissue Mobility Increased tissue tightness noted through sunny Assessment paraspinals in the lumbar region. Pt point tender with palpation through R posterior hip. PT-OP-H Neuro Start: 08/25/24 17:04 Freq: Status: Active Protocol: Document 08/25/24 17:05 BL (Rec: 08/25/24 19:09 BL Laptop) Sensation Evaluation Comments Summary Comments No sensation loss noted Coordination Evaluation Comments Coordination No coordination deficits noted Comments PT-OP-J Posture/Palpation/Skin Start: 08/25/24 17:04 Freq: Status: Active Protocol: Document 08/25/24 17:05 BL (Rec: 08/25/24 19:09 BL Laptop) Posture Evaluation Comments Posture Comments Pt sits with posterior pelvic tilt and increased kyphosis. Pt has large body habitus. PT-OP-K Range of Motion Start: 08/25/24 17:04 Freq: Status: Active Protocol: Document 08/25/24 17:05 BL (Rec: 08/25/24 19:09 BL Laptop) Lumbar Spine Range of Motion Lumbar Spine Active Percentage Testing Position Standing Flexion 50 Extension 50 Rotation Left 75 Rotation Right 75 Lateral Flexion Left 100 Lateral Flexion 100 Right Shoulder Goniometric Range of Motion Shoulder sunny Comments WFL PT-OP-L Special Tests Start: 08/25/24 17:04 Freq: Status: Active Protocol: Document 08/25/24 17:05 BL (Rec: 08/25/24 19:09 BL Laptop) Special Tests Lumbar Spine Special Tests Martir Test Results positive Straight Leg Raise Test Results negative Slump Test Results negative Other Special Tests Special Tests Pt demos 5 sec SLS on L LE and 8 sec SLS on R LE PT-OP-M Strength Start: 08/25/24 17:04 Freq: Status: Active Protocol: Document 08/25/24 17:05 BL (Rec: 08/25/24 19:10 BL Laptop) Trunk Strength Trunk Manual Muscle Testing Testing Position Supine Flexion 4- Good- Extension 4- Good- Rotation Left 4 Good Rotation Right 4 Good Lateral Flexion Left 4 Good Lateral Flexion 4 Good Right Hip Strength Hip Manual Muscle Testing Right Flexion (L2) 4 Good Extension (S1) 4- Good- Abduction 4 Good Adduction 4 Good Left Flexion (L2) 4 Good Extension (S1) 4- Good- Abduction 4 Good Adduction 4 Good Knee Strength Knee Manual Muscle Testing Right Flexion (S2) 4+ Good+ Extension (L3) 4+ Good+ Left Flexion (S2) 4+ Good+ Extension (L3) 4+ Good+ PT-OP-Q Treatments Start: 08/25/24 17:04 Freq: Status: Active Protocol: Document 09/03/24 15:49 AB (Rec: 09/03/24 17:57 AB Laptop) Therapeutic Exercises Supine Exercises breathing from diaphragm Supine Exercise Name HEP Reps/Minutes throughout session Comments Patient ed self tactile cues piriformis stretch Side right Reps/Minutes 60 sec each LE Comments assist for set up Modified, modified Martir stretch Supine Exercise Name one LE on bolster one on mat, then one LE on pillow and bolster opp on mat Side bilateral Reps/Minutes one min each position each LE Comments assist to position hip strength Supine Exercise Name bridges Comments 10x Manual Therapy Treatment Consent Patient gave verbal Yes consent for manual treatment Soft Tissue Mobilization hips Body Location illiopsoas Mobilization Type Cross-Friction,Rolling Intensity/Depth Superficial Body Position Hooklying Comments Monitored for pain/tolerance PT-OP-T Assessment and Plan Start: 08/25/24 17:04 Freq: Status: Active Protocol: Document 09/03/24 15:49 AB (Rec: 09/03/24 17:57 AB Laptop) Physical Therapy Plan Frequency and Duration Frequency of 2x/Week Treatment Duration of 8 treatment (weeks) Plan of Care Start 08/25/24 Date Plan of Care End 10/20/24 Date Next Visit Focus/Plan Next Note Type Treatment Note Next Visit Plan Advance core and LE strengthening, manual work to paraspinal
--- NOTE | 2024-09-08 11:34 | PT.OTN ---
Current Diagnoses Spondylolisthesis, lumbar region (09/08/24) Other spondylosis with radiculopathy, thoracic region (09/08/24) Segmental and somatic dysfunction of rib cage (09/08/24) Physical Therapy Treatment Note PT-OP-A Visit Information Start: 08/25/24 17:04 Freq: Status: Active Protocol: Document 09/08/24 10:52 BL (Rec: 09/08/24 11:33 BL Laptop) Out-Patient Physical Therapy Visit Information Visit Information Visit Type Treatment Note Visit Note Access Code: [email or web address] Visit Start Time 16:17 Visit Stop Time 17:00 Visit Number (5) 07/25 (PN 09/24/24) Number of EVENT PROMOTIONS COORDINATOR Visits 1 PT-OP-C Subjective Start: 08/25/24 17:04 Freq: Status: Active Protocol: Document 09/08/24 10:52 BL (Rec: 09/08/24 11:33 BL Laptop) OP-PT Subjective Patient Comments Patient Comments Pt reports she is doing much better today. States overall feels improvement, states the L hip continues to be pretty painful with PT-OP-F Manual Assessment Start: 08/25/24 17:04 Freq: Status: Active Protocol: Document 08/25/24 17:05 BL (Rec: 08/25/24 19:09 BL Laptop) Manual Assessments Soft Tissue Assessment Soft Tissue Mobility Increased tissue tightness noted through sunny Assessment paraspinals in the lumbar region. Pt point tender with palpation through R posterior hip. PT-OP-H Neuro Start: 08/25/24 17:04 Freq: Status: Active Protocol: Document 08/25/24 17:05 BL (Rec: 08/25/24 19:09 BL Laptop) Sensation Evaluation Comments Summary Comments No sensation loss noted Coordination Evaluation Comments Coordination No coordination deficits noted Comments PT-OP-J Posture/Palpation/Skin Start: 08/25/24 17:04 Freq: Status: Active Protocol: Document 08/25/24 17:05 BL (Rec: 08/25/24 19:09 BL Laptop) Posture Evaluation Comments Posture Comments Pt sits with posterior pelvic tilt and increased kyphosis. Pt has large body habitus. PT-OP-K Range of Motion Start: 08/25/24 17:04 Freq: Status: Active Protocol: Document 08/25/24 17:05 BL (Rec: 08/25/24 19:09 BL Laptop) Lumbar Spine Range of Motion Lumbar Spine Active Percentage Testing Position Standing Flexion 50 Extension 50 Rotation Left 75 Rotation Right 75 Lateral Flexion Left 100 Lateral Flexion 100 Right Shoulder Goniometric Range of Motion Shoulder sunny Comments WFL PT-OP-L Special Tests Start: 08/25/24 17:04 Freq: Status: Active Protocol: Document 08/25/24 17:05 BL (Rec: 08/25/24 19:09 BL Laptop) Special Tests Lumbar Spine Special Tests Martir Test Results positive Straight Leg Raise Test Results negative Slump Test Results negative Other Special Tests Special Tests Pt demos 5 sec SLS on L LE and 8 sec SLS on R LE PT-OP-M Strength Start: 08/25/24 17:04 Freq: Status: Active Protocol: Document 08/25/24 17:05 BL (Rec: 08/25/24 19:10 BL Laptop) Trunk Strength Trunk Manual Muscle Testing Testing Position Supine Flexion 4- Good- Extension 4- Good- Rotation Left 4 Good Rotation Right 4 Good Lateral Flexion Left 4 Good Lateral Flexion 4 Good Right Hip Strength Hip Manual Muscle Testing Right Flexion (L2) 4 Good Extension (S1) 4- Good- Abduction 4 Good Adduction 4 Good Left Flexion (L2) 4 Good Extension (S1) 4- Good- Abduction 4 Good Adduction 4 Good Knee Strength Knee Manual Muscle Testing Right Flexion (S2) 4+ Good+ Extension (L3) 4+ Good+ Left Flexion (S2) 4+ Good+ Extension (L3) 4+ Good+ PT-OP-Q Treatments Start: 08/25/24 17:04 Freq: Status: Active Protocol: Document 09/08/24 10:52 BL (Rec: 09/08/24 11:33 BL Laptop) Therapeutic Exercises Supine Exercises breathing from diaphragm Supine Exercise Name HEP (reviewed) Reps/Minutes throughout session Comments Patient ed self tactile cues piriformis stretch Supine Exercise Name towel through opposite leg Side right Reps/Minutes 60 sec each LE Comments assist for set up Modified, modified Martir stretch Supine Exercise Name one LE on bolster one on mat, then one LE on pillow and bolster opp on mat Side bilateral Reps/Minutes one min each position each LE Comments assist to position hip strength Supine Exercise Name bridges, lateral step ups, standing hip extension Comments 10x ROM Supine Exercise Name LTR, Pelvic tilt, open book, (reviewed) Comments 2x10 PT-OP-T Assessment and Plan Start: 08/25/24 17:04 Freq: Status: Active Protocol: Document 09/08/24 10:52 BL (Rec: 09/08/24 11:33 BL Laptop) Physical Therapy Assessment Goals 3 Mcc Goal (LTG) Pt will report being able to ambulate 30 minutes or greater by DC for improved mobility. 2 Sheriff Goal (LTG) Pt will demo improved LE hip extension strength to 4+/5 by DC bilateral for improved support with ADLS. 1 Short Term Goal (STG pt will be ind with HEP within 2 visits in order to ) progress toward retirement therapy goals outside of therapy visits. Sheriff Goal (LTG) Pt will demo improved OSWESTRY score to 25% disability or better by DC for improved quality of life. Assessment Summary Assessment Pt progress in HEP for hip strengthening and spinal mobility. Continue to focus on Latera hip stability. Physical Therapy Plan Next Visit Focus/Plan Next Note Type Treatment Note Next Visit Plan Advance core and LE strengthening, manual work to paraspinal
--- NOTE | 2024-09-10 10:29 | PT.OTN ---
Current Diagnoses Spondylolisthesis, lumbar region (09/10/24) Other spondylosis with radiculopathy, thoracic region (09/10/24) Segmental and somatic dysfunction of rib cage (09/10/24) Physical Therapy Treatment Note PT-OP-A Visit Information Start: 08/25/24 17:04 Freq: Status: Active Protocol: Document 09/10/24 09:48 BL (Rec: 09/10/24 10:29 BL Laptop) Out-Patient Physical Therapy Visit Information Visit Information Visit Type Treatment Note Visit Note Access Code: [email or web address] Visit Start Time 09:45 Visit Stop Time 10:25 Visit Number (6) 08/25 (PN 09/24/24) Number of MOLDING ROOM SUPERVISOR Visits 0 PT-OP-C Subjective Start: 08/25/24 17:04 Freq: Status: Active Protocol: Document 09/10/24 09:48 BL (Rec: 09/10/24 10:29 BL Laptop) OP-PT Subjective Patient Comments Patient Comments Pt reports she is doing ok today, states she has felt ok since our last session, reports maybe a little muscle soreness in the afternoon but felt fine the next date. PT-OP-F Manual Assessment Start: 08/25/24 17:04 Freq: Status: Active Protocol: Document 08/25/24 17:05 BL (Rec: 08/25/24 19:09 BL Laptop) Manual Assessments Soft Tissue Assessment Soft Tissue Mobility Increased tissue tightness noted through sunny Assessment paraspinals in the lumbar region. Pt point tender with palpation through R posterior hip. PT-OP-H Neuro Start: 08/25/24 17:04 Freq: Status: Active Protocol: Document 08/25/24 17:05 BL (Rec: 08/25/24 19:09 BL Laptop) Sensation Evaluation Comments Summary Comments No sensation loss noted Coordination Evaluation Comments Coordination No coordination deficits noted Comments PT-OP-J Posture/Palpation/Skin Start: 08/25/24 17:04 Freq: Status: Active Protocol: Document 08/25/24 17:05 BL (Rec: 08/25/24 19:09 BL Laptop) Posture Evaluation Comments Posture Comments Pt sits with posterior pelvic tilt and increased kyphosis. Pt has large body habitus. PT-OP-K Range of Motion Start: 08/25/24 17:04 Freq: Status: Active Protocol: Document 08/25/24 17:05 BL (Rec: 08/25/24 19:09 BL Laptop) Lumbar Spine Range of Motion Lumbar Spine Active Percentage Testing Position Standing Flexion 50 Extension 50 Rotation Left 75 Rotation Right 75 Lateral Flexion Left 100 Lateral Flexion 100 Right Shoulder Goniometric Range of Motion Shoulder sunny Comments WFL PT-OP-L Special Tests Start: 08/25/24 17:04 Freq: Status: Active Protocol: Document 08/25/24 17:05 BL (Rec: 08/25/24 19:09 BL Laptop) Special Tests Lumbar Spine Special Tests Martir Test Results positive Straight Leg Raise Test Results negative Slump Test Results negative Other Special Tests Special Tests Pt demos 5 sec SLS on L LE and 8 sec SLS on R LE PT-OP-M Strength Start: 08/25/24 17:04 Freq: Status: Active Protocol: Document 08/25/24 17:05 BL (Rec: 08/25/24 19:10 BL Laptop) Trunk Strength Trunk Manual Muscle Testing Testing Position Supine Flexion 4- Good- Extension 4- Good- Rotation Left 4 Good Rotation Right 4 Good Lateral Flexion Left 4 Good Lateral Flexion 4 Good Right Hip Strength Hip Manual Muscle Testing Right Flexion (L2) 4 Good Extension (S1) 4- Good- Abduction 4 Good Adduction 4 Good Left Flexion (L2) 4 Good Extension (S1) 4- Good- Abduction 4 Good Adduction 4 Good Knee Strength Knee Manual Muscle Testing Right Flexion (S2) 4+ Good+ Extension (L3) 4+ Good+ Left Flexion (S2) 4+ Good+ Extension (L3) 4+ Good+ PT-OP-Q Treatments Start: 08/25/24 17:04 Freq: Status: Active Protocol: Document 09/10/24 09:48 BL (Rec: 09/10/24 10:29 BL Laptop) Therapeutic Exercises Supine Exercises IT band stretch Supine Exercise Name leg cross over st Comments 3 x 30 sec breathing from diaphragm Supine Exercise Name HEP (reviewed) Reps/Minutes throughout session Comments Patient ed self tactile cues piriformis stretch Supine Exercise Name towel through opposite leg Side right Reps/Minutes 60 sec each LE Comments assist for set up hip strength Supine Exercise Name bridges, clamshells Resistance lvl 3 band Comments 10x ROM Supine Exercise Name LTR, Pelvic tilt, open book, (reviewed) Comments 2x10 Sitting Exercises NuStep Sitting Exercise for cardiovascular warm up Name Comments lvl 5 3 min Standing Exercises strength Standing Exercise lateral step ups Name Comments 2x10 PT-OP-T Assessment and Plan Start: 08/25/24 17:04 Freq: Status: Active Protocol: Document 09/10/24 09:48 BL (Rec: 09/10/24 10:29 BL Laptop) Physical Therapy Assessment Goals 3 Detention Goal (LTG) Pt will report being able to ambulate 30 minutes or greater by DC for improved mobility. 2 Performance Improvement Analyst Goal (LTG) Pt will demo improved LE hip extension strength to 4+/5 by DC bilateral for improved support with ADLS. 1 Short Term Goal (STG pt will be ind with HEP within 2 visits in order to ) progress toward shelter therapy goals outside of therapy visits. Detention Goal (LTG) Pt will demo improved OSWESTRY score to 25% disability or better by DC for improved quality of life. Assessment Summary Assessment Pt continues to progress in strengthening, is able to tolerate advancement in core and hip stability. Physical Therapy Plan Next Visit Focus/Plan Next Note Type Treatment Note Next Visit Plan Advance core and LE strengthening, manual work to paraspinal
--- NOTE | 2024-09-15 13:45 | PT.OTN ---
Current Diagnoses Spondylolisthesis, lumbar region (09/15/24) Other spondylosis with radiculopathy, thoracic region (09/15/24) Segmental and somatic dysfunction of rib cage (09/15/24) Physical Therapy Treatment Note PT-OP-A Visit Information Start: 08/25/24 17:04 Freq: Status: Active Protocol: Document 09/15/24 13:16 BL (Rec: 09/15/24 13:45 BL Laptop) Out-Patient Physical Therapy Visit Information Visit Information Visit Type Treatment Note Visit Note Access Code: [email or web address] Visit Start Time 13:00 Visit Stop Time 13:40 Visit Number (7) 09/24 (PN 09/24/24) Number of RUGBY LEAGUE FOOTBALLER Visits 0 PT-OP-C Subjective Start: 08/25/24 17:04 Freq: Status: Active Protocol: Document 09/15/24 13:16 BL (Rec: 09/15/24 13:45 BL Laptop) OP-PT Subjective Patient Comments Patient Comments Pt presents to the clinic this date and reports improved symptom relief. States she did have some discomfort with loading and unloading the elevator installer this date. PT-OP-F Manual Assessment Start: 08/25/24 17:04 Freq: Status: Active Protocol: Document 08/25/24 17:05 BL (Rec: 08/25/24 19:09 BL Laptop) Manual Assessments Soft Tissue Assessment Soft Tissue Mobility Increased tissue tightness noted through sunny Assessment paraspinals in the lumbar region. Pt point tender with palpation through R posterior hip. PT-OP-H Neuro Start: 08/25/24 17:04 Freq: Status: Active Protocol: Document 08/25/24 17:05 BL (Rec: 08/25/24 19:09 BL Laptop) Sensation Evaluation Comments Summary Comments No sensation loss noted Coordination Evaluation Comments Coordination No coordination deficits noted Comments PT-OP-J Posture/Palpation/Skin Start: 08/25/24 17:04 Freq: Status: Active Protocol: Document 08/25/24 17:05 BL (Rec: 08/25/24 19:09 BL Laptop) Posture Evaluation Comments Posture Comments Pt sits with posterior pelvic tilt and increased kyphosis. Pt has large body habitus. PT-OP-K Range of Motion Start: 08/25/24 17:04 Freq: Status: Active Protocol: Document 08/25/24 17:05 BL (Rec: 08/25/24 19:09 BL Laptop) Lumbar Spine Range of Motion Lumbar Spine Active Percentage Testing Position Standing Flexion 50 Extension 50 Rotation Left 75 Rotation Right 75 Lateral Flexion Left 100 Lateral Flexion 100 Right Shoulder Goniometric Range of Motion Shoulder sunny Comments WFL PT-OP-L Special Tests Start: 08/25/24 17:04 Freq: Status: Active Protocol: Document 08/25/24 17:05 BL (Rec: 08/25/24 19:09 BL Laptop) Special Tests Lumbar Spine Special Tests Martir Test Results positive Straight Leg Raise Test Results negative Slump Test Results negative Other Special Tests Special Tests Pt demos 5 sec SLS on L LE and 8 sec SLS on R LE PT-OP-M Strength Start: 08/25/24 17:04 Freq: Status: Active Protocol: Document 08/25/24 17:05 BL (Rec: 08/25/24 19:10 BL Laptop) Trunk Strength Trunk Manual Muscle Testing Testing Position Supine Flexion 4- Good- Extension 4- Good- Rotation Left 4 Good Rotation Right 4 Good Lateral Flexion Left 4 Good Lateral Flexion 4 Good Right Hip Strength Hip Manual Muscle Testing Right Flexion (L2) 4 Good Extension (S1) 4- Good- Abduction 4 Good Adduction 4 Good Left Flexion (L2) 4 Good Extension (S1) 4- Good- Abduction 4 Good Adduction 4 Good Knee Strength Knee Manual Muscle Testing Right Flexion (S2) 4+ Good+ Extension (L3) 4+ Good+ Left Flexion (S2) 4+ Good+ Extension (L3) 4+ Good+ PT-OP-Q Treatments Start: 08/25/24 17:04 Freq: Status: Active Protocol: Document 09/15/24 13:16 BL (Rec: 09/15/24 13:45 BL Laptop) Therapeutic Exercises Supine Exercises IT band stretch Supine Exercise Name leg cross over st (reviewed) Comments 3 x 30 sec breathing from diaphragm Supine Exercise Name HEP (reviewed) Reps/Minutes throughout session Comments Patient ed self tactile cues piriformis stretch Supine Exercise Name towel through opposite leg (reviewed) Side right Reps/Minutes 60 sec each LE Comments assist for set up hip strength Supine Exercise Name bridges, clamshells Resistance lvl 3 band Comments 10x ROM Supine Exercise Name LTR, Pelvic tilt, open book, (reviewed) Comments 2x10 Standing Exercises strength Standing Exercise lateral step ups, lateral banded walking Name Resistance lvl 3 Comments 2x10 Manual Therapy Treatment Consent Patient gave verbal Yes consent for manual treatment Soft Tissue Mobilization hips Comments DTM and TPR: light to lateral and posterior hip, improved mobility following:) PT-OP-T Assessment and Plan Start: 08/25/24 17:04 Freq: Status: Active Protocol: Document 09/15/24 13:16 BL (Rec: 09/15/24 13:45 BL Laptop) Physical Therapy Assessment Goals 3 Fdc Goal (LTG) Pt will report being able to ambulate 30 minutes or greater by DC for improved mobility. 2 Composition Board Press Operator Goal (LTG) Pt will demo improved LE hip extension strength to 4+/5 by DC bilateral for improved support with ADLS. 1 Short Term Goal (STG pt will be ind with HEP within 2 visits in order to ) progress toward ocean transportation intermediary therapy goals outside of therapy visits. Fdc Goal (LTG) Pt will demo improved OSWESTRY score to 25% disability or better by DC for improved quality of life. Assessment Summary Assessment Pt continues to progress in strengthening, is able to tolerate advancement in core and hip stability with improved mobility following. Physical Therapy Plan Next Visit Focus/Plan Next Note Type Treatment Note Next Visit Plan Advance core and LE strengthening, manual work to paraspinal
--- NOTE | 2024-09-17 12:19 | PT.OTN ---
Current Diagnoses Spondylolisthesis, lumbar region (09/17/24) Other spondylosis with radiculopathy, thoracic region (09/17/24) Segmental and somatic dysfunction of rib cage (09/17/24) Physical Therapy Treatment Note PT-OP-A Visit Information Start: 08/25/24 17:04 Freq: Status: Active Protocol: Document 09/17/24 11:36 BL (Rec: 09/17/24 12:19 BL Laptop) Out-Patient Physical Therapy Visit Information Visit Information Visit Type Treatment Note Visit Note Access Code: [email or web address] Visit Start Time 11:30 Visit Stop Time 12:10 Visit Number (8) 8 (PN 09/24/24) Number of STONE PAVER Visits 0 PT-OP-C Subjective Start: 08/25/24 17:04 Freq: Status: Active Protocol: Document 09/17/24 11:36 BL (Rec: 09/17/24 12:19 BL Laptop) OP-PT Subjective Patient Comments Patient Comments Pt presents to the clinic this date and reports her L hip is a bit sore today. Reports doing well otherwise. PT-OP-F Manual Assessment Start: 08/25/24 17:04 Freq: Status: Active Protocol: Document 08/25/24 17:05 BL (Rec: 08/25/24 19:09 BL Laptop) Manual Assessments Soft Tissue Assessment Soft Tissue Mobility Increased tissue tightness noted through sunny Assessment paraspinals in the lumbar region. Pt point tender with palpation through R posterior hip. PT-OP-H Neuro Start: 08/25/24 17:04 Freq: Status: Active Protocol: Document 08/25/24 17:05 BL (Rec: 08/25/24 19:09 BL Laptop) Sensation Evaluation Comments Summary Comments No sensation loss noted Coordination Evaluation Comments Coordination No coordination deficits noted Comments PT-OP-J Posture/Palpation/Skin Start: 08/25/24 17:04 Freq: Status: Active Protocol: Document 08/25/24 17:05 BL (Rec: 08/25/24 19:09 BL Laptop) Posture Evaluation Comments Posture Comments Pt sits with posterior pelvic tilt and increased kyphosis. Pt has large body habitus. PT-OP-K Range of Motion Start: 08/25/24 17:04 Freq: Status: Active Protocol: Document 08/25/24 17:05 BL (Rec: 08/25/24 19:09 BL Laptop) Lumbar Spine Range of Motion Lumbar Spine Active Percentage Testing Position Standing Flexion 50 Extension 50 Rotation Left 75 Rotation Right 75 Lateral Flexion Left 100 Lateral Flexion 100 Right Shoulder Goniometric Range of Motion Shoulder sunny Comments WFL PT-OP-L Special Tests Start: 08/25/24 17:04 Freq: Status: Active Protocol: Document 08/25/24 17:05 BL (Rec: 08/25/24 19:09 BL Laptop) Special Tests Lumbar Spine Special Tests Martir Test Results positive Straight Leg Raise Test Results negative Slump Test Results negative Other Special Tests Special Tests Pt demos 5 sec SLS on L LE and 8 sec SLS on R LE PT-OP-M Strength Start: 08/25/24 17:04 Freq: Status: Active Protocol: Document 08/25/24 17:05 BL (Rec: 08/25/24 19:10 BL Laptop) Trunk Strength Trunk Manual Muscle Testing Testing Position Supine Flexion 4- Good- Extension 4- Good- Rotation Left 4 Good Rotation Right 4 Good Lateral Flexion Left 4 Good Lateral Flexion 4 Good Right Hip Strength Hip Manual Muscle Testing Right Flexion (L2) 4 Good Extension (S1) 4- Good- Abduction 4 Good Adduction 4 Good Left Flexion (L2) 4 Good Extension (S1) 4- Good- Abduction 4 Good Adduction 4 Good Knee Strength Knee Manual Muscle Testing Right Flexion (S2) 4+ Good+ Extension (L3) 4+ Good+ Left Flexion (S2) 4+ Good+ Extension (L3) 4+ Good+ PT-OP-Q Treatments Start: 08/25/24 17:04 Freq: Status: Active Protocol: Document 09/17/24 11:36 BL (Rec: 09/17/24 12:19 BL Laptop) Therapeutic Exercises Supine Exercises IT band stretch Supine Exercise Name leg cross over st (reviewed) Comments 3 x 30 sec breathing from diaphragm Supine Exercise Name HEP (reviewed) Reps/Minutes throughout session Comments Patient ed self tactile cues hip strength Supine Exercise Name bridges, clamshells Resistance lvl 3 band Comments 2x15 ROM Supine Exercise Name LTR, Pelvic tilt, (reviewed) Comments 2x10 Standing Exercises shuttle Standing Exercise 75# sunny Name Comments 3x15 strength Standing Exercise lateral step ups, lateral banded walking, SL step ups, Name Resistance lvl 3 Comments 2x10 PT-OP-T Assessment and Plan Start: 08/25/24 17:04 Freq: Status: Active Protocol: Document 09/17/24 11:36 BL (Rec: 09/17/24 12:19 BL Laptop) Physical Therapy Assessment Goals 3 Hedge Fund Manager Goal (LTG) Pt will report being able to ambulate 30 minutes or greater by DC for improved mobility. 2 Half-Way Goal (LTG) Pt will demo improved LE hip extension strength to 4+/5 by DC bilateral for improved support with ADLS. 1 Short Term Goal (STG pt will be ind with HEP within 2 visits in order to ) progress toward terminal operations supervisor therapy goals outside of therapy visits. Hedge Fund Manager Goal (LTG) Pt will demo improved OSWESTRY score to 25% disability or better by DC for improved quality of life. Assessment Summary Assessment Pt continues to do well, able to advance HEP for LE strengthening and core control. Physical Therapy Plan Next Visit Focus/Plan Next Note Type Treatment Note Next Visit Plan Advance core and LE strengthening, manual work to paraspinal
--- NOTE | 2024-09-22 16:02 | PT.OPPN ---
Current Diagnoses Spondylolisthesis, lumbar region (09/22/24) Other spondylosis with radiculopathy, thoracic region (09/22/24) Segmental and somatic dysfunction of rib cage (09/22/24) Physical Therapy Progress Note PT-OP-A Visit Information Start: 08/25/24 17:04 Freq: Status: Active Protocol: Document 09/22/24 15:52 BL (Rec: 09/22/24 16:02 BL Laptop) Out-Patient Physical Therapy Visit Information Visit Information Visit Type Progress Note Visit Start Time 10:45 Visit Stop Time 11:25 Visit Number (9) 03/27 () Number of CLIENT SERVICE ASSOCIATE Visits 0 PT-OP-C Subjective Start: 08/25/24 17:04 Freq: Status: Active Protocol: Document 09/22/24 15:52 BL (Rec: 09/22/24 16:02 BL Laptop) OP-PT Subjective Patient Comments Patient Comments Pt presents to the clinic this date and reports HEP continues to go well, is able to get them in daily, reports her pain is 10/10 with forward bending activities, and 7/10 after standing greater than 10 minutes, reports once she sits the pain relieves almost instantly. PT-OP-F Manual Assessment Start: 08/25/24 17:04 Freq: Status: Active Protocol: Document 08/25/24 17:05 BL (Rec: 08/25/24 19:09 BL Laptop) Manual Assessments Soft Tissue Assessment Soft Tissue Mobility Increased tissue tightness noted through sunny Assessment paraspinals in the lumbar region. Pt point tender with palpation through R posterior hip. PT-OP-H Neuro Start: 08/25/24 17:04 Freq: Status: Active Protocol: Document 08/25/24 17:05 BL (Rec: 08/25/24 19:09 BL Laptop) Sensation Evaluation Comments Summary Comments No sensation loss noted Coordination Evaluation Comments Coordination No coordination deficits noted Comments PT-OP-J Posture/Palpation/Skin Start: 08/25/24 17:04 Freq: Status: Active Protocol: Document 08/25/24 17:05 BL (Rec: 08/25/24 19:09 BL Laptop) Posture Evaluation Comments Posture Comments Pt sits with posterior pelvic tilt and increased kyphosis. Pt has large body habitus. PT-OP-K Range of Motion Start: 08/25/24 17:04 Freq: Status: Active Protocol: Document 08/25/24 17:05 BL (Rec: 08/25/24 19:09 BL Laptop) Lumbar Spine Range of Motion Lumbar Spine Active Percentage Testing Position Standing Flexion 50 Extension 50 Rotation Left 75 Rotation Right 75 Lateral Flexion Left 100 Lateral Flexion 100 Right Shoulder Goniometric Range of Motion Shoulder Measured in Degrees sunny Comments WFL PT-OP-L Special Tests Start: 08/25/24 17:04 Freq: Status: Active Protocol: Document 08/25/24 17:05 BL (Rec: 08/25/24 19:09 BL Laptop) Special Tests Lumbar Spine Special Tests Martir Test Results positive Straight Leg Raise Test Results negative Slump Test Results negative Other Special Tests Special Tests Pt demos 5 sec SLS on L LE and 8 sec SLS on R LE PT-OP-M Strength Start: 08/25/24 17:04 Freq: Status: Active Protocol: Document 08/25/24 17:05 BL (Rec: 08/25/24 19:10 BL Laptop) Trunk Strength Trunk Manual Muscle Testing Testing Position Supine Flexion 4- Good- Extension 4- Good- Rotation Left 4 Good Rotation Right 4 Good Lateral Flexion Left 4 Good Lateral Flexion 4 Good Right Hip Strength Hip Manual Muscle Testing Right Flexion (L2) 4 Good Extension (S1) 4- Good- Abduction 4 Good Adduction 4 Good Left Flexion (L2) 4 Good Extension (S1) 4- Good- Abduction 4 Good Adduction 4 Good Knee Strength Knee Manual Muscle Testing Right Flexion (S2) 4+ Good+ Extension (L3) 4+ Good+ Left Flexion (S2) 4+ Good+ Extension (L3) 4+ Good+ PT-OP-T Assessment and Plan Start: 08/25/24 17:04 Freq: Status: Active Protocol: Document 09/22/24 15:52 BL (Rec: 09/22/24 16:02 BL Laptop) Physical Therapy Assessment Goals 3 Jail Goal (LTG) Pt will report being able to ambulate 30 minutes or greater by DC for improved mobility. 09/22/24: progressing- able to ambulate 10 minutes prior to onset of symptoms now 2 Pressfitter Goal (LTG) Pt will demo improved LE hip extension strength to 4+/5 by DC bilateral for improved support with ADLS. (Goal Met) 1 Short Term Goal (STG pt will be ind with HEP within 2 visits in order to ) progress toward alf therapy goals outside of therapy visits. (Goal Met) Pressfitter Goal (LTG) Pt will demo improved OSWESTRY score to 25% disability or better by DC for improved quality of life. 09/22/24: progressing per pt report Assessment Summary Assessment Pt continues to demo improved mobility, demos improved hip mobility and LE strength however continues to have low back pain with being activities, pt will continue to benefit from skilled PT intervention for strength and endurance training for core stability and activity modification to decrease pain with ADLS. Physical Therapy Plan Next Visit Focus/Plan Next Note Type Treatment Note Next Visit Plan Advance core and LE strengthening, manual work to paraspinal
--- NOTE | 2024-09-24 11:28 | PT.OTN ---
Current Diagnoses Spondylolisthesis, lumbar region (09/24/24) Other spondylosis with radiculopathy, thoracic region (09/24/24) Segmental and somatic dysfunction of rib cage (09/24/24) Physical Therapy Treatment Note PT-OP-A Visit Information Start: 08/25/24 17:04 Freq: Status: Active Protocol: Document 09/24/24 10:37 BL (Rec: 09/24/24 11:28 BL Laptop) Out-Patient Physical Therapy Visit Information Visit Information Visit Type Treatment Note Visit Start Time 10:45 Visit Stop Time 11:25 Visit Number (10) 04/27 () Number of QUALITY SYSTEMS MANAGER Visits 0 PT-OP-C Subjective Start: 08/25/24 17:04 Freq: Status: Active Protocol: Document 09/24/24 10:37 BL (Rec: 09/24/24 11:28 BL Laptop) OP-PT Subjective Patient Comments Patient Comments Pt presents to the clinic this date and reports she is doing much better, states less pain. More consistent with her HEP and awareness with activity. PT-OP-F Manual Assessment Start: 08/25/24 17:04 Freq: Status: Active Protocol: Document 08/25/24 17:05 BL (Rec: 08/25/24 19:09 BL Laptop) Manual Assessments Soft Tissue Assessment Soft Tissue Mobility Increased tissue tightness noted through sunny Assessment paraspinals in the lumbar region. Pt point tender with palpation through R posterior hip. PT-OP-H Neuro Start: 08/25/24 17:04 Freq: Status: Active Protocol: Document 08/25/24 17:05 BL (Rec: 08/25/24 19:09 BL Laptop) Sensation Evaluation Comments Summary Comments No sensation loss noted Coordination Evaluation Comments Coordination No coordination deficits noted Comments PT-OP-J Posture/Palpation/Skin Start: 08/25/24 17:04 Freq: Status: Active Protocol: Document 08/25/24 17:05 BL (Rec: 08/25/24 19:09 BL Laptop) Posture Evaluation Comments Posture Comments Pt sits with posterior pelvic tilt and increased kyphosis. Pt has large body habitus. PT-OP-K Range of Motion Start: 08/25/24 17:04 Freq: Status: Active Protocol: Document 08/25/24 17:05 BL (Rec: 08/25/24 19:09 BL Laptop) Lumbar Spine Range of Motion Lumbar Spine Active Percentage Testing Position Standing Flexion 50 Extension 50 Rotation Left 75 Rotation Right 75 Lateral Flexion Left 100 Lateral Flexion 100 Right Shoulder Goniometric Range of Motion Shoulder sunny Comments WFL PT-OP-L Special Tests Start: 08/25/24 17:04 Freq: Status: Active Protocol: Document 08/25/24 17:05 BL (Rec: 08/25/24 19:09 BL Laptop) Special Tests Lumbar Spine Special Tests Martir Test Results positive Straight Leg Raise Test Results negative Slump Test Results negative Other Special Tests Special Tests Pt demos 5 sec SLS on L LE and 8 sec SLS on R LE PT-OP-M Strength Start: 08/25/24 17:04 Freq: Status: Active Protocol: Document 08/25/24 17:05 BL (Rec: 08/25/24 19:10 BL Laptop) Trunk Strength Trunk Manual Muscle Testing Testing Position Supine Flexion 4- Good- Extension 4- Good- Rotation Left 4 Good Rotation Right 4 Good Lateral Flexion Left 4 Good Lateral Flexion 4 Good Right Hip Strength Hip Manual Muscle Testing Right Flexion (L2) 4 Good Extension (S1) 4- Good- Abduction 4 Good Adduction 4 Good Left Flexion (L2) 4 Good Extension (S1) 4- Good- Abduction 4 Good Adduction 4 Good Knee Strength Knee Manual Muscle Testing Right Flexion (S2) 4+ Good+ Extension (L3) 4+ Good+ Left Flexion (S2) 4+ Good+ Extension (L3) 4+ Good+ PT-OP-Q Treatments Start: 08/25/24 17:04 Freq: Status: Active Protocol: Document 09/24/24 10:37 BL (Rec: 09/24/24 11:28 BL Laptop) Therapeutic Exercises Supine Exercises pelvic neutral Supine Exercise Name Pelvic tilt with marching breathing from diaphragm Supine Exercise Name HEP (reviewed), with PN activation Reps/Minutes throughout session Comments Patient ed self tactile cues hip strength Supine Exercise Name bridges, clamshells, reverse clamshells (0#) Resistance lvl 3 band Comments 2x15 Sitting Exercises strength Sitting Exercise banded sit<>stands, hip abdcution Name Resistance lvl 4 Comments 2x8 Standing Exercises min squat Standing Exercise chair taps Name Resistance lvl 4 band Comments 2x8 strength Standing Exercise HR on step, lateral step ups, lateral banded walking, Name SL step ups, Resistance lvl 3 Comments 2x10 PT-OP-T Assessment and Plan Start: 08/25/24 17:04 Freq: Status: Active Protocol: Document 09/24/24 10:37 BL (Rec: 09/24/24 11:28 BL Laptop) Physical Therapy Assessment Goals 3 Nursing Home Goal (LTG) Pt will report being able to ambulate 30 minutes or greater by DC for improved mobility. 09/22/24: progressing- able to ambulate 10 minutes prior to onset of symptoms now 2 Nursing Home Goal (LTG) Pt will demo improved LE hip extension strength to 4+/5 by DC bilateral for improved support with ADLS. (Goal Met) 1 Short Term Goal (STG pt will be ind with HEP within 2 visits in order to ) progress toward rodent exterminator therapy goals outside of therapy visits. (Goal Met) Chief Operator Synthesis Goal (LTG) Pt will demo improved OSWESTRY score to 25% disability or better by DC for improved quality of life. 09/22/24: progressing per pt report Assessment Summary Assessment Pt tolerates session well, continue to advance HEP for core and LE strength. Physical Therapy Plan Next Visit Focus/Plan Next Note Type Treatment Note Next Visit Plan Advance core and LE strengthening, manual work to paraspinal
--- NOTE | 2024-10-08 13:42 | PT.OTN ---
Current Diagnoses Spondylolisthesis, lumbar region (10/08/24) Other spondylosis with radiculopathy, thoracic region (10/08/24) Segmental and somatic dysfunction of rib cage (10/08/24) Physical Therapy Treatment Note PT-OP-A Visit Information Start: 08/25/24 17:04 Freq: Status: Active Protocol: Document 10/08/24 13:03 BL (Rec: 10/08/24 13:42 BL Laptop) Out-Patient Physical Therapy Visit Information Visit Information Visit Type Treatment Note Visit Start Time 10:45 Visit Stop Time 11:25 Visit Number (11) 3/ (PN 10/23/24) Number of MANAGER LABOR DELIVERY Visits 0 PT-OP-C Subjective Start: 08/25/24 17:04 Freq: Status: Active Protocol: Document 10/08/24 13:03 BL (Rec: 10/08/24 13:42 BL Laptop) OP-PT Subjective Patient Comments Patient Comments Pt present so the clinic this date and reports she is doing well, state improved symptoms this date. PT-OP-F Manual Assessment Start: 08/25/24 17:04 Freq: Status: Active Protocol: Document 08/25/24 17:05 BL (Rec: 08/25/24 19:09 BL Laptop) Manual Assessments Soft Tissue Assessment Soft Tissue Mobility Increased tissue tightness noted through sunny Assessment paraspinals in the lumbar region. Pt point tender with palpation through R posterior hip. PT-OP-H Neuro Start: 08/25/24 17:04 Freq: Status: Active Protocol: Document 08/25/24 17:05 BL (Rec: 08/25/24 19:09 BL Laptop) Sensation Evaluation Comments Summary Comments No sensation loss noted Coordination Evaluation Comments Coordination No coordination deficits noted Comments PT-OP-J Posture/Palpation/Skin Start: 08/25/24 17:04 Freq: Status: Active Protocol: Document 08/25/24 17:05 BL (Rec: 08/25/24 19:09 BL Laptop) Posture Evaluation Comments Posture Comments Pt sits with posterior pelvic tilt and increased kyphosis. Pt has large body habitus. PT-OP-K Range of Motion Start: 08/25/24 17:04 Freq: Status: Active Protocol: Document 08/25/24 17:05 BL (Rec: 08/25/24 19:09 BL Laptop) Lumbar Spine Range of Motion Lumbar Spine Active Percentage Testing Position Standing Flexion 50 Extension 50 Rotation Left 75 Rotation Right 75 Lateral Flexion Left 100 Lateral Flexion 100 Right Shoulder Goniometric Range of Motion Shoulder sunny Comments WFL PT-OP-L Special Tests Start: 08/25/24 17:04 Freq: Status: Active Protocol: Document 08/25/24 17:05 BL (Rec: 08/25/24 19:09 BL Laptop) Special Tests Lumbar Spine Special Tests Martir Test Results positive Straight Leg Raise Test Results negative Slump Test Results negative Other Special Tests Special Tests Pt demos 5 sec SLS on L LE and 8 sec SLS on R LE PT-OP-M Strength Start: 08/25/24 17:04 Freq: Status: Active Protocol: Document 08/25/24 17:05 BL (Rec: 08/25/24 19:10 BL Laptop) Trunk Strength Trunk Manual Muscle Testing Testing Position Supine Flexion 4- Good- Extension 4- Good- Rotation Left 4 Good Rotation Right 4 Good Lateral Flexion Left 4 Good Lateral Flexion 4 Good Right Hip Strength Hip Manual Muscle Testing Right Flexion (L2) 4 Good Extension (S1) 4- Good- Abduction 4 Good Adduction 4 Good Left Flexion (L2) 4 Good Extension (S1) 4- Good- Abduction 4 Good Adduction 4 Good Knee Strength Knee Manual Muscle Testing Right Flexion (S2) 4+ Good+ Extension (L3) 4+ Good+ Left Flexion (S2) 4+ Good+ Extension (L3) 4+ Good+ PT-OP-Q Treatments Start: 08/25/24 17:04 Freq: Status: Active Protocol: Document 10/08/24 13:03 BL (Rec: 10/08/24 13:42 BL Laptop) Therapeutic Exercises Supine Exercises pelvic neutral Supine Exercise Name Pelvic tilt with marching breathing from diaphragm Supine Exercise Name HEP (reviewed), with PN activation Reps/Minutes throughout session Comments Patient ed self tactile cues hip strength Supine Exercise Name bridges, clamshells, reverse clamshells (0#) Resistance lvl 3 band Comments 2x15 Sitting Exercises strength Sitting Exercise banded sit<>stands, hip abdcution Name Resistance lvl 4 Comments 2x8 Standing Exercises min squat Standing Exercise chair taps Name Resistance lvl 4 band Comments 2x8 strength Standing Exercise HR on step, lateral step ups, lateral banded walking, Name SL step ups, Resistance lvl 3 Comments 2x10 PT-OP-T Assessment and Plan Start: 08/25/24 17:04 Freq: Status: Active Protocol: Document 10/08/24 13:03 BL (Rec: 10/08/24 13:42 BL Laptop) Physical Therapy Assessment Goals 3 Residential Goal (LTG) Pt will report being able to ambulate 30 minutes or greater by DC for improved mobility. 09/22/24: progressing- able to ambulate 10 minutes prior to onset of symptoms now 2 Residential Goal (LTG) Pt will demo improved LE hip extension strength to 4+/5 by DC bilateral for improved support with ADLS. (Goal Met) 1 Short Term Goal (STG pt will be ind with HEP within 2 visits in order to ) progress toward dedicated intermodal truck driver therapy goals outside of therapy visits. (Goal Met) Residential Goal (LTG) Pt will demo improved OSWESTRY score to 25% disability or better by DC for improved quality of life. 09/22/24: progressing per pt report Assessment Summary Assessment Pt tolerates session well, continues to focus on core strengthening an LE strength training. Physical Therapy Plan Next Visit Focus/Plan Next Note Type Treatment Note Next Visit Plan Advance core and LE strengthening, manual work to paraspinal PT-Therapy Code Fee Billing Start: 08/25/24 17:04 Freq: Status: Active Protocol: Document 10/08/24 13:03 BL (Rec: 10/08/24 13:42 BL Laptop) Physical Therapy Total Visit Minutes 40 PT Charge Codes - Fee KX Modifier Therapy Cap No Exclusion Modifier Therapeutic Exercise (18424) Minutes 40 PT Unit(s) per 15 3 min MANAGER LABOR DELIVERY-Therapy Code Fee Billing Start: 08/25/24 17:04 Freq: Status: Active Protocol: Document 09/03/24 15:49 AB (Rec: 09/03/24 17:57 AB Laptop) Physical Therapy Total Visit Minutes 43 MANAGER LABOR DELIVERY Charge Codes - Fee KX Modifier Therapy Cap No Exclusion Modifier Therapeutic Exercise (99307) Minutes 16 MANAGER LABOR DELIVERY Unit(s) per 15 1 min Manual Therapy (29776) Minutes 24 MANAGER LABOR DELIVERY Unit(s) per 15 2 min
--- NOTE | 2024-10-13 15:14 | PT.OTN ---
Current Diagnoses Spondylolisthesis, lumbar region (10/13/24) Other spondylosis with radiculopathy, thoracic region (10/13/24) Segmental and somatic dysfunction of rib cage (10/13/24) Physical Therapy Treatment Note PT-OP-A Visit Information Start: 08/25/24 17:04 Freq: Status: Active Protocol: Document 10/13/24 14:34 BL (Rec: 10/13/24 15:14 BL Laptop) Out-Patient Physical Therapy Visit Information Visit Information Visit Type Treatment Note Visit Start Time 14:30 Visit Stop Time 15:10 Visit Number (12) 4/ (PN 10/23/24) Number of [employer] Visits 0 PT-OP-C Subjective Start: 08/25/24 17:04 Freq: Status: Active Protocol: Document 10/13/24 14:34 BL (Rec: 10/13/24 15:14 BL Laptop) OP-PT Subjective Patient Comments Patient Comments Pt presents to the clinic this date and reports she is doing well, states overall improved symptoms, states she has less bad days. PT-OP-F Manual Assessment Start: 08/25/24 17:04 Freq: Status: Active Protocol: Document 08/25/24 17:05 BL (Rec: 08/25/24 19:09 BL Laptop) Manual Assessments Soft Tissue Assessment Soft Tissue Mobility Increased tissue tightness noted through sunny Assessment paraspinals in the lumbar region. Pt point tender with palpation through R posterior hip. PT-OP-H Neuro Start: 08/25/24 17:04 Freq: Status: Active Protocol: Document 08/25/24 17:05 BL (Rec: 08/25/24 19:09 BL Laptop) Sensation Evaluation Comments Summary Comments No sensation loss noted Coordination Evaluation Comments Coordination No coordination deficits noted Comments PT-OP-J Posture/Palpation/Skin Start: 08/25/24 17:04 Freq: Status: Active Protocol: Document 08/25/24 17:05 BL (Rec: 08/25/24 19:09 BL Laptop) Posture Evaluation Comments Posture Comments Pt sits with posterior pelvic tilt and increased kyphosis. Pt has large body habitus. PT-OP-K Range of Motion Start: 08/25/24 17:04 Freq: Status: Active Protocol: Document 08/25/24 17:05 BL (Rec: 08/25/24 19:09 BL Laptop) Lumbar Spine Range of Motion Lumbar Spine Active Percentage Testing Position Standing Flexion 50 Extension 50 Rotation Left 75 Rotation Right 75 Lateral Flexion Left 100 Lateral Flexion 100 Right Shoulder Goniometric Range of Motion Shoulder sunny Comments WFL PT-OP-L Special Tests Start: 08/25/24 17:04 Freq: Status: Active Protocol: Document 08/25/24 17:05 BL (Rec: 08/25/24 19:09 BL Laptop) Special Tests Lumbar Spine Special Tests Martir Test Results positive Straight Leg Raise Test Results negative Slump Test Results negative Other Special Tests Special Tests Pt demos 5 sec SLS on L LE and 8 sec SLS on R LE PT-OP-M Strength Start: 08/25/24 17:04 Freq: Status: Active Protocol: Document 08/25/24 17:05 BL (Rec: 08/25/24 19:10 BL Laptop) Trunk Strength Trunk Manual Muscle Testing Testing Position Supine Flexion 4- Good- Extension 4- Good- Rotation Left 4 Good Rotation Right 4 Good Lateral Flexion Left 4 Good Lateral Flexion 4 Good Right Hip Strength Hip Manual Muscle Testing Right Flexion (L2) 4 Good Extension (S1) 4- Good- Abduction 4 Good Adduction 4 Good Left Flexion (L2) 4 Good Extension (S1) 4- Good- Abduction 4 Good Adduction 4 Good Knee Strength Knee Manual Muscle Testing Right Flexion (S2) 4+ Good+ Extension (L3) 4+ Good+ Left Flexion (S2) 4+ Good+ Extension (L3) 4+ Good+ PT-OP-Q Treatments Start: 08/25/24 17:04 Freq: Status: Active Protocol: Document 10/13/24 14:34 BL (Rec: 10/13/24 15:14 BL Laptop) Therapeutic Exercises Supine Exercises pelvic neutral Supine Exercise Name Pelvic tilt with marching (reviewed) breathing from diaphragm Supine Exercise Name HEP (reviewed), with PN activation Reps/Minutes throughout session Comments Patient ed self tactile cues hip strength Supine Exercise Name bridges w/hip abduction Resistance lvl 3 band Comments 2x15 Prone Exercises strength Prone Exercise Name prone hip extension Sidelying Exercises strength Sidelying Exercise calamshells, reverse clamshells Name Resistance lvl 3, lvl 1, hip abduction with IR Sitting Exercises strength Sitting Exercise banded sit<>stands, hip abdcution Name Resistance lvl 4 Comments 2x8 Standing Exercises min squat Standing Exercise chair taps (reviewed for home) Name Resistance lvl 4 band Comments 2x8 Manual Therapy Treatment Consent Patient gave verbal Yes consent for manual treatment Soft Tissue Mobilization hips Comments DTM and TPR to L piriformis area. Pt reports improved symptoms relief following. PT-OP-T Assessment and Plan Start: 08/25/24 17:04 Freq: Status: Active Protocol: Document 10/13/24 14:34 BL (Rec: 10/13/24 15:14 BL Laptop) Physical Therapy Assessment Goals 3 Half-Way Goal (LTG) Pt will report being able to ambulate 30 minutes or greater by DC for improved mobility. 09/22/24: progressing- able to ambulate 10 minutes prior to onset of symptoms now 2 Rotary Cutter Feeder Goal (LTG) Pt will demo improved LE hip extension strength to 4+/5 by DC bilateral for improved support with ADLS. (Goal Met) 1 Short Term Goal (STG pt will be ind with HEP within 2 visits in order to ) progress toward [facility] therapy goals outside of therapy visits. (Goal Met) Rotary Cutter Feeder Goal (LTG) Pt will demo improved OSWESTRY score to 25% disability or better by DC for improved quality of life. 09/22/24: progressing per pt report Assessment Summary Assessment Pt tolerates the session well, continue to focus on hip flexion stretching and hip extension strength. Physical Therapy Plan Next Visit Focus/Plan Next Note Type Treatment Note Next Visit Plan Advance core and LE strengthening, manual work to paraspinal
--- NOTE | 2024-10-15 12:34 | PT.OTN ---
Current Diagnoses Spondylolisthesis, lumbar region (10/15/24) Other spondylosis with radiculopathy, thoracic region (10/15/24) Segmental and somatic dysfunction of rib cage (10/15/24) Physical Therapy Treatment Note PT-OP-A Visit Information Start: 08/25/24 17:04 Freq: Status: Active Protocol: Document 10/15/24 10:42 BL (Rec: 10/15/24 11:31 BL Laptop) Out-Patient Physical Therapy Visit Information Visit Information Visit Type Discharge Summary Visit Start Time 10:45 Visit Stop Time 11:25 Visit Number (13) 07/25 Number of [employer] Visits 0 PT-OP-C Subjective Start: 08/25/24 17:04 Freq: Status: Active Protocol: Document 10/15/24 10:42 BL (Rec: 10/15/24 11:31 BL Laptop) OP-PT Subjective Patient Comments Patient Comments Pt presents to the clinic this date and reports she is doing well, states when she left last session she went to the grocery store she was sore but otherwise feels improvement. Feels she is ready go DC this date. Patient Questionnaires Oswestry Low Back Index Oswestry Score 28% disability PT-OP-F Manual Assessment Start: 08/25/24 17:04 Freq: Status: Active Protocol: Document 08/25/24 17:05 BL (Rec: 08/25/24 19:09 BL Laptop) Manual Assessments Soft Tissue Assessment Soft Tissue Mobility Increased tissue tightness noted through sunny Assessment paraspinals in the lumbar region. Pt point tender with palpation through R posterior hip. PT-OP-H Neuro Start: 08/25/24 17:04 Freq: Status: Active Protocol: Document 08/25/24 17:05 BL (Rec: 08/25/24 19:09 BL Laptop) Sensation Evaluation Comments Summary Comments No sensation loss noted Coordination Evaluation Comments Coordination No coordination deficits noted Comments PT-OP-J Posture/Palpation/Skin Start: 08/25/24 17:04 Freq: Status: Active Protocol: Document 08/25/24 17:05 BL (Rec: 08/25/24 19:09 BL Laptop) Posture Evaluation Comments Posture Comments Pt sits with posterior pelvic tilt and increased kyphosis. Pt has large body habitus. PT-OP-K Range of Motion Start: 08/25/24 17:04 Freq: Status: Active Protocol: Document 08/25/24 17:05 BL (Rec: 08/25/24 19:09 BL Laptop) Lumbar Spine Range of Motion Lumbar Spine Active Percentage Testing Position Standing Flexion 50 Extension 50 Rotation Left 75 Rotation Right 75 Lateral Flexion Left 100 Lateral Flexion 100 Right Shoulder Goniometric Range of Motion Shoulder sunny Comments WFL PT-OP-L Special Tests Start: 08/25/24 17:04 Freq: Status: Active Protocol: Document 08/25/24 17:05 BL (Rec: 08/25/24 19:09 BL Laptop) Special Tests Lumbar Spine Special Tests Martir Test Results positive Straight Leg Raise Test Results negative Slump Test Results negative Other Special Tests Special Tests Pt demos 5 sec SLS on L LE and 8 sec SLS on R LE PT-OP-M Strength Start: 08/25/24 17:04 Freq: Status: Active Protocol: Document 08/25/24 17:05 BL (Rec: 08/25/24 19:10 BL Laptop) Trunk Strength Trunk Manual Muscle Testing Testing Position Supine Flexion 4- Good- Extension 4- Good- Rotation Left 4 Good Rotation Right 4 Good Lateral Flexion Left 4 Good Lateral Flexion 4 Good Right Hip Strength Hip Manual Muscle Testing Right Flexion (L2) 4 Good Extension (S1) 4- Good- Abduction 4 Good Adduction 4 Good Left Flexion (L2) 4 Good Extension (S1) 4- Good- Abduction 4 Good Adduction 4 Good Knee Strength Knee Manual Muscle Testing Right Flexion (S2) 4+ Good+ Extension (L3) 4+ Good+ Left Flexion (S2) 4+ Good+ Extension (L3) 4+ Good+ PT-OP-Q Treatments Start: 08/25/24 17:04 Freq: Status: Active Protocol: Document 10/15/24 10:42 BL (Rec: 10/15/24 11:31 BL Laptop) Therapeutic Exercises Supine Exercises pelvic neutral Supine Exercise Name Pelvic tilt with marching (reviewed) breathing from diaphragm Supine Exercise Name HEP (reviewed), with PN activation Reps/Minutes throughout session Comments Patient ed self tactile cues Modified, modified Martir stretch Comments 3x 60 sec hip strength Supine Exercise Name bridges w/hip abduction (reviewed for home HEP) Resistance lvl 3 band Comments 2x15 Sitting Exercises strength Sitting Exercise banded sit<>stands, hip abdcution (reviewed for home Name HEP) Resistance lvl 4 Comments 2x8 NuStep Comments 4 min lvl 5 for tissue mobility. Standing Exercises min squat Standing Exercise chair taps (reviewed for home) Name Resistance lvl 4 band Comments 2x8 PT-OP-T Assessment and Plan Start: 08/25/24 17:04 Freq: Status: Active Protocol: Document 10/15/24 10:42 BL (Rec: 10/15/24 11:31 BL Laptop) Physical Therapy Assessment Goals 3 Fci Goal (LTG) Pt will report being able to ambulate 30 minutes or greater by DC for improved mobility. 09/22/24: progressing- able to ambulate 10 minutes prior to onset of symptoms now. 10/15/24: Goal not met: 15 minutes 2 Plant And Equipment Worker Goal (LTG) Pt will demo improved LE hip extension strength to 4+/5 by DC bilateral for improved support with ADLS. (Goal Met) 1 Short Term Goal (STG pt will be ind with HEP within 2 visits in order to ) progress toward intermediate therapy goals outside of therapy visits. (Goal Met) Fci Goal (LTG) Pt will demo improved OSWESTRY score to 25% disability or better by DC for improved quality of life. 09/22/24: progressing per pt report 11/15/24: progressed to 28% disability this date, which is an improvement from prior sessions. Goal Not Met Assessment Summary Assessment Pt has made good progress in skilled PT intervention and has met 2/4 goals this date. Pt demos improved symptom relief and strength however continues to benefit from cueing for sequenceing and form with functional activities to decrease strain on low back. Pt will continue to benefit from core stabilization activity at home to decrease strain through posterior spinal stabilizers. Pt provided HEP to continue to focus on ROM and strengthening and will plan to DC per pt request. Pt plans to follow up in a few months if she feels her symptoms do not continue to improve.
== END 2024-10-16 10:17 | disposition home or self-care (01) ==
LOC: PHYS 10:45
PROVIDERS: Family Provider Family Medicine; PCP Family Medicine; Referring Provider Physical Medicine & Rehabilitation; Visit Provider Physical Medicine & Rehabilitation
DX: M99.08 Segmental and somatic dysfunction of rib cage (principal); M43.16 Spondylolisthesis, lumbar region; M47.24 Other spondylosis with radiculopathy, thoracic region
CPT/HCPCS: 97110; 97140; 97162; 97530

== ENCOUNTER → 2024-10-21 17:02 | Outpatient (CLI) | payer MEDICARE, OTHER, SELFPAY ==
[2020-01-05 12:19] VITALS: BMI 34.2
--- NOTE | 2024-10-21 | DI.MRI.S_ITS ---
PROCEDURE: MR ABDOMEN ADRENAL PROTOCOL INDICATIONS: Adenoma of left adrenal gland TECHNIQUE: Coronal HASTE, axial 2-D FLASH in- and [id number] with subtractions from the hepatic dome to the iliac crests. COMPARISON: [facility], , MR ABDOMEN ADRENAL PROTOCOL, 09/25/2023, 12:22. FINDINGS: Image quality: Diagnostic. Adrenal Glands: An ovoid 1.3 x 1.2 cm mass in the medial left adrenal gland demonstrates mild signal loss on T1 out of phase imaging suggesting microscopic lipid content. T2 signal is hypointense. No significant growth. No right adrenal nodule. OTHER: Lung bases: Very small hiatal hernia. No pleural effusion. Liver: Normal size liver. Minimal diffuse steatosis. No visible cystic or solid mass. Gallbladder: Numerous stones filling the gallbladder, the largest measuring up to 2.2 cm. No gallbladder wall thickening. Biliary ducts: No biliary dilatation. Pancreas: Normal size and signal without ductal dilatation. Spleen: Size is within normal limits. Splenule at the hilum. Kidneys and Ureters: No hydronephrosis. No solid mass. No complex renal cystic lesion which requires follow up. No visible ureteral dilatation. Several small cortical cysts. Stomach and Bowel: Stomach and visible bowel loops are within normal limits. Peritoneum: No abnormal intraperitoneal fluid. No free air. Ventral Wall: No hernia. Abdominal Nodes: No retroperitoneal or mesenteric adenopathy by size criteria. Vessels: The abdominal aorta, IVC, and portal vein are of normal caliber. Bones: No aggressive osseous abnormality. IMPRESSION: Stable, benign-appearing left adrenal adenoma Cholelithiasis. Dictated by: Jessica Poe M.D. on 10/22/2024 at 9:04 Approved by: Jessica Poe M.D. on 10/22/2024 at 9:13
== END ==
PROVIDERS: Family Provider Family Medicine; PCP Family Medicine; Referring Provider Family Medicine; Visit Provider Family Medicine
DX: D35.02 Benign neoplasm of left adrenal gland (principal); E27.8 Other specified disorders of adrenal gland; K80.20 Calculus of gallbladder without cholecystitis without obstruction
CPT/HCPCS: 74181

== ENCOUNTER → 2024-12-24 12:22 | Outpatient (CLI) | payer MEDICARE, OTHER, SELFPAY ==
[2020-01-05 12:19] VITALS: BMI 34.2
[2024-12-22 10:39] VITALS: BMI 34.2
--- NOTE | 2024-12-24 12:24 | DI.ECHO.S_ITS ---
[facility]---------+ [facility] : : [address] : : [place] : : [id number] : : Phone: [phone] Echocardiogram Report + + :Name: ELISEO DIALLO Study Date: 12/24/2024 Height: 61 in : :Hospital ReadingLocation: Weight: 219 lb : : Gender: Female BSA: 2.0 m2 : :: 1950 Age: 74 yrs BP: 149/87 mmHg: :Reason For Study: PSVT : :Ordering Physician: JOYCE, : :MATTHEW Performed By: Eagle Garcia : :Referring: MATTHEW COOK : + + Interpretation Summary Normal sinus rhythm. Normal left ventricular thickness, size, wall motion, and systolic function (EF 55-60%). Normal right ventricular size and function. Stage I diastolic dysfunction. No significant valvular abnormalities. Compared to the Echo 11/13/2021, diastolic dysfunction is better, down from stage II to stage I. Procedure: A two-dimensional transthoracic echocardiogram with color flow and Doppler was performed. The study quality was technically adequate. Comparison is made with the echocardiogram of 11/13/2021. The patient was in normal sinus rhythm during the exam. Left Ventricle: The left ventricle is normal in size. There is normal left ventricular wall thickness. There is no ventricular septal defect visualized. The ejection fraction is estimated to be 60-65%. There are no focal wall motion abnormalities. Diastolic parameters suggest a relaxation abnormality of the left ventricle, consistent with probable normal filling pressures. Right Ventricle: The right ventricle is mildly dilated. The right ventricular systolic function is normal. Atria: The left atrial size is normal. Right atrial size is normal. There is no Doppler evidence for an interatrial shunt. Mitral Valve: The mitral valve leaflets appear normal. There is no evidence of stenosis, fluttering, or prolapse. There is mild mitral annular calcification. There is trace mitral regurgitation. Aortic Valve: The aortic valve is not well visualized. There is trace aortic regurgitation. Tricuspid Valve: The tricuspid valve leaflets are thin and pliable. There is trace tricuspid regurgitation. Pulmonic Valve: The pulmonic valve is not well seen, but is grossly normal. There is trace pulmonic regurgitation. Great Vessels: The aortic root is normal size. The ascending aorta could not be visualized. The pulmonary artery is not well visualized, but is probably normal size. The IVC is dilated (diameter is greater than 2.1 cm) yet it collapses greater than 50% with a sniff. This suggests a right atrial pressure of 8 mm Hg. Pericardium/ Pleura There is no pericardial effusion. There is no pleural effusion. MMode/2D Measurements & Calculations LVIDd: 4.7 cm LVOT diam: 2.0 cm LVIDs: 3.2 cm Ao root diam: 2.8 cm FS: 31.0 % EPSS: 0.61 cm IVSd: 0.99 cm LVPWd: 0.97 cm LV box. diameter/BSA (cm/m^2): 2.4 LV sys. diameter/BSA (cm/m^2): 1.6 LA A2 area: 22.3 cm2 RA long axis: 3.6 cm LA A4 area: 18.6 cm2 RA area: 9.6 cm2 LA length (vol): 5.5 cm RA vol: 21.9 ml LA vol: 64.1 ml RA : 11.1 ml/m2 LA vol index: 32.7 ml/m2 IVC diam: 2.1 cm RVD1 (basal): 4.1 cm RVD2 (mid): 3.9 cm TAPSE: 3.6 cm Doppler Measurements & Calculations Ao V2 max: 155.5 cm/sec LVOT Max Silvestre: 107.4 cm/sec Ao V2 mean: 112.6 cm/sec LV V1 max P.6 mmHg Ao max P.7 mmHg LV V1 VTI: 27.8 cm Ao mean P.6 mmHg AGNES(I,D): 2.4 cm2 Ao V2 VTI: 38.6 cm AGNES(V,D): 2.3 cm2 sev ratio: 0.72 AGNES indexed to BSA (cm^2/m^2): 1.2 MV E max silvestre: 90.4 cm/sec TR max silvestre: 240.6 cm/sec MV A max silvestre: 111.9 cm/sec TR max P.1 mmHg MV E/A: 0.81 PA V2 max: 103.3 cm/sec Med Peak E' Silvestre: 6.1 cm/sec PA V2 mean: 74.3 cm/sec E/E' med: 14.8 PA mean P.4 mmHg Lat Peak E' Silvestre: 9.7 cm/sec PA pr(Accel): 43.0 mmHg E/E' lat: 9.3 E/e' average: 12.1 MV dec time: 0.26 sec SV(LVOT): 90.7 ml Electronically signed by: Leena Barnett M.D. on Reading Physician:12/25/2024 02:59 AM
== END ==
LOC: ECHO 12:24
PROVIDERS: Family Provider Family Medicine; PCP Family Medicine; Referring Provider Family Medicine; Visit Provider Family Medicine
DX: I34.81 Nonrheumatic mitral (valve) annulus calcification (principal); I47.10 Supraventricular tachycardia, unspecified
CPT/HCPCS: 93306

== ENCOUNTER 2025-02-08 16:58 | Emergency (ER) | payer MEDICARE, OTHER, SELFPAY ==
[2024-12-22 10:39] VITALS: BMI 34.2
[2025-02-08 17:07] VITALS: BP 179/79; PULSE 87; RESP 16; TEMP 36.8; O2SAT 97; BMI 40.0
--- NOTE | 2025-02-08 17:15 | ED.FALL ---
HPI - Fall General Chief Complaint: Fall Stated Complaint: Fall @1:30, head head on cement, rib & finger pn Time Seen by Provider: 02/08/25 17:15 Source: patient Mode of arrival: Ambulatory History of Present Illness HPI Narrative: 74-year-old female patient with a history of COPD, hypertension, dyslipidemia who lost her balance and fell forward landing on her knees and bumping her forehead. No loss of consciousness. She complains of mild knee pain and left chest wall/rib pain. She is able to ambulate. She also has slight pain in the right thumb. No headache or dizziness. She is not on anticoagulants. Related Data Home Medications ?Medication ?Instructions ?Recorded ?Confirmed aspirin 81 mg tablet,delayed 81 mg PO BEDTIME ##0 11/12/11 09/07/24 release levothyroxine 125 mcg tablet 112 mcg PO QDAY@0600 ##0 11/12/11 09/07/24 (Synthroid) montelukast 10 mg tablet 10 mg PO QPM ##0 11/12/11 09/07/24 (Singulair) sumatriptan succinate 100 mg 100 mg PO PRN PRN Migraine 11/12/11 09/07/24 tablet (Imitrex) Headache ##0 tolterodine 4 mg capsule,extended 4 mg PO QDAY ##0 11/12/11 09/07/24 release 24 hr (Detrol LA) topiramate 25 mg tablet (Topamax) 25 mg PO HS ##0 11/12/11 09/07/24 Respironics Dreamstation CPAP #1 ea 07/31/18 09/07/24 vit C 250 mg-vit E 90 mg-zinc 40 1 tab PO BID 06/01/19 09/07/24 mg-copper 1 [id number] capsule (PreserVision AREDS-2) atorvastatin 20 mg tablet 20 mg PO BEDTIME 11/22/22 09/07/24 cholecalciferol (vitamin D3) 125 125 mcg PO DAILY 11/22/22 09/07/24 mcg (5,000 unit) capsule meloxicam 7.5 mg tablet 7.5 mg PO DAILY 03/27/23 09/07/24 epinephrine 0.3 mg/0.3 mL IM 05/19/24 09/07/24 injection, auto-injector fluticasone 250 mcg-salmeterol 50 inhalation 05/19/24 09/07/24 mcg/dose blistr powdr for inhalation losartan 25 mg tablet 125 mg PO DAILY 05/19/24 09/07/24 sertraline 100 mg tablet 100 mg PO DAILY 07/01/24 09/07/24 Previous Rx's ?Medication ?Instructions ?Recorded acetaminophen 325 mg tablet 650 mg (2 x 325 mg) PO TID #90 tabs 01/06/20 albuterol sulfate 90 mcg/actuation 1 puff inhalation Q4-6H PRN 11/05/23 aerosol inhaler (ProAir HFA) shortness of breath or wheezing #6.7 grams Allergies Allergy/AdvReac Type Severity Reaction Status Date / Time adhesive tape Allergy Severe Rash, Verified 09/07/24 15:10 itching amoxicillin (AMOXICILLIN) Allergy Severe YEAST Verified 09/07/24 15:10 INFECTION, RED BLISTERS, ITCHING cephalexin (CEPHALEXIN) Allergy Severe YEAST Verified 09/07/24 15:10 INFECTION, BLISTERS, ITCHING Sulfa (Sulfonamide Allergy Severe Rash, Verified 09/07/24 15:10 Antibiotics) blisters, itching adhesive (ADHESIVE) Allergy Intermediate NEX CARE Verified 09/07/24 15:10 BANDAIDS - RASH, BLISTER, ITCHING hydromorphone Allergy Intermediate Rash; no Verified 09/07/24 15:10 respiratory distress clavulanic acid (From Allergy Unknown YEAST Verified 09/07/24 15:10 AUGMENTIN) INFECTION, BLISTERS, ITCHING Review of Systems Review of Systems ROS Unobtainable: All systems reviewed & are unremarkable except as noted in HPI and below ENT Ears, Nose, Mouth, and Throat: Reports as per HPI Musculoskeletal Musculoskeletal: Reports as per HPI Patient History Medical History 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 Migraine headache Obesity Obstructive sleep apnea of adult Overactive bladder Primary insomnia Rib cage dysfunction Snoring Spondylolisthesis at L4-L5 level Stress at home Thoracic radiculopathy due to degenerative joint disease of spine Surgical History H/O right wrist surgery (1965) History of arthroplasty of right knee (12/01/14) History of left knee replacement (01/05/20) History of surgery History of surgery (01/18/15) Hx of bilateral cataract extraction (01/2019) Social History marital status: details: ritesh Archer household members: spouse lives independently: Yes caregiver/support person: Yes (she is the role of caregiver for ) housing: house pets and animals: Yes (2 cats) alcohol intake: former substance use type: does not use Exam Narrative Exam Narrative: General: Alert and conversant. No distress. Appears well nourished and well hydrated Craniofacial: Small contusion abrasion on the forehead but otherwise No evidence of trauma. Nontender and no swelling. Eyes: PERRLA EOMI conjunctiva clear HEENT: Tragus, pinnae nontender. Tympanic membranes normal appearance. Oropharynx clear with no swelling, exudate or asymmetry of the pharynx. Nares clear. No sinus tenderness Neck: No tenderness or adenopathy. No meningismus. No JVD Lungs: Clear to auscultation with good air movement. No wheezing, rales or rhonchi. No respiratory distress Cardiac: Regular rate and rhythm with no appreciable murmur or gallop Abdomen: Soft, nontender with no distention or masses. Normal bowel sounds. No rebound or guarding Musculoskeletal: Mild soft tissue tenderness of the anterior knees with no bony tenderness, effusion or deformity. Mild tenderness to the left chest wall with no specific rib tenderness and no tenderness to AP compression or deep inspiration. Otherwise Exam of the extremities, axial spine and ribcage reveals no deformity, bony tenderness or swelling. Range of motion intact Neuro: Alert and oriented. Cranial nerves, motor, sensory and cerebellar all grossly intact. No focal deficit Skin: Warm and normal color. No rashes Psychological: Normal affect and interaction. No evidence of delusion or psychosis. Normal mood. Initial Vital Signs Initial Vital Signs: Vital Signs Temperature 98.3 F 02/08/25 17:07 Pulse Rate 87 02/08/25 17:07 Respiratory Rate 16 02/08/25 17:07 Blood Pressure 179/79 H 02/08/25 17:07 Pulse Oximetry 97 02/08/25 17:07 Oxygen Delivery Method Room Air 02/08/25 17:07 Course Orders Ordered: ED Orders 02/08/25 17:21 CT cervical spine wo con Stat CT head/brain wo con Stat Vital Signs Vital signs: Vital Signs - 8 hr 02/08/25 17:07 02/08/25 18:27 Temperature 98.3 F Pulse Rate 87 80 Respiratory Rate 16 15 Blood Pressure 179/79 H 170/76 H Pulse Oximetry 97 96 Oxygen Delivery Method Room Air Room Air MDM - Fall Imaging Data CT scan - head: Radiologist's Impression: Impression: No acute intracranial pathology. CT - cervical spine: Radiologist's Impression: Impression: No displaced fracture or traumatic subluxation. [facility] Narrative Medical decision making narrative: Based on patient's age and history of head trauma I obtained head and C-spine CTs which were negative for acute trauma findings. Otherwise her exam and ambulation were reassuring and unremarkable for any findings that would require imaging. I do not believe she has findings that indicate rib fractures based on exam and symptoms. She has chest wall/rib contusion, mild bilateral knee contusions and a right thumb sprain. Forehead contusion and minor head injury with no evidence of concussion at this point. Patient was given home care instructions on managing her various injuries and also on fall prevention. She is to return to the emergency room for any worsening symptoms especially severe headache, repetitive vomiting or altered mental status. Discharge Plan Departure Patient Disposition: Home Clinical Impression: Ground-level fall, Minor closed head injury, Contusion of rib on left side, Contusion of knee, Sprain of hand, thumb, right Instructions: Contusion, DI for Rib Contusion, How to Prevent Falls, Closed Head Injury Activity Restrictions/Additional Instructions: Plan: Hydration, rest and supportive care with [id number] pain medicine as needed. Follow up with your doctor if not improving. Return to the ER if worse. Prescriptions: No Action tolterodine [Detrol LA] 4 MG capsule,extended release 24hr 4 mg PO QDAY Qty: 0 topiramate [Topamax] 25 MG tablet 25 mg PO HS Qty: 0 levothyroxine [Synthroid] 125 MCG tablet 112 mcg PO QDAY@0600 Qty: 0 aspirin 81 mg Tablet,Delayed Release (Dr/Ec) 81 mg PO BEDTIME Qty: 0 montelukast [Singulair] 10 MG tablet 10 mg PO QPM Qty: 0 sumatriptan succinate [Imitrex] 100 MG tablet 100 mg PO PRN PRN (Reason: Migraine Headache) Qty: 0 PreserVision AREDS-2 [id number]-mg Capsule 1 tab PO BID acetaminophen 325 mg Tablet 650 mg PO TID Qty: 90 0RF sertraline 100 mg tablet 100 mg PO DAILY albuterol sulfate [ProAir HFA] 90 mcg/actuation HFA aerosol inhaler 1 puff inhalation Q4-6H PRN (Reason: shortness of breath or wheezing) Qty: 6.7 11RF fluticasone propion-salmeterol 250-50 mcg/dose blister with device inhalation losartan 25 mg tablet 125 mg PO DAILY epinephrine 0.3 mg/0.3 mL auto-injector IM atorvastatin 20 mg tablet 20 mg PO BEDTIME cholecalciferol (vitamin D3) 125 mcg (5,000 unit) capsule 125 mcg PO DAILY meloxicam 7.5 mg tablet 7.5 mg PO DAILY (DME) Respironics Dreamstation CPAP Qty: 1 Dose Instruction: As directed Patient Comments: Pressure: 8-16 cmH2O DME: [facility] Rx Instructions: As directed Referrals: Yadira Mckeon MD [Primary Care Provider, Family Practice] Stand Alone Forms: Patient Portal/API
--- NOTE | 2025-02-08 17:21 | DI.CT.S_ITS ---
PROCEDURE: CT HEAD/BRAIN WO CON INDICATIONS: Head trauma age greater than 65 TECHNIQUE: Noncontrast 4.5 mm thick angled axial sections acquired from the foramen magnum to the vertex, with coronal and sagittal reformats. For radiation dose reduction, the following was used: automated exposure control, adjustment of mA and/or kV according to patient size. COMPARISON: None. FINDINGS: Image quality: Diagnostic. CSF spaces: Basal cisterns are patent. No extra-axial fluid collections. The ventricles are symmetric in size and shape. Brain: No intracranial bleeds or mass effect. There is cerebral volume loss, with resultant ventricular and sulcal prominence. There are periventricular and deep white matter chronic small vessel ischemic changes. There is intracranial internal carotid artery atherosclerosis. Skull and face: Calvarium and visualized facial bones appear intact, without suspicious lesions. Sinuses: Visualized sinuses and mastoids are clear. IMPRESSION: No acute intracranial pathology. Dictated by: Grabiel Soriano M.D. on 02/08/2025 at 17:49 Approved by: Grabiel Soriano M.D. on 02/08/2025 at 17:50
--- NOTE | 2025-02-08 17:21 | DI.CT.S_ITS ---
PROCEDURE: CT CERVICAL SPINE WO CON INDICATIONS: Head trauma TECHNIQUE: Noncontrast 3 mm thick sections acquired from the skull base to the T4 level. Sagittal and coronal reformats were then constructed. For radiation dose reduction, the following was used: automated exposure control, adjustment of mA and/or kV according to patient size. COMPARISON: None. FINDINGS: Image quality: Excellent. Bones: No fractures or dislocations. Multilevel degenerative changes of the cervical spine. Visualized superior ribs are intact. Soft tissues: Prevertebral soft tissues are normal in thickness. No paravertebral hematomas. No apical pneumothoraces. IMPRESSION: No displaced fracture or traumatic subluxation. Dictated by: Grabiel Soriano M.D. on 02/08/2025 at 17:51 Approved by: Grabiel Soriano M.D. on 02/08/2025 at 17:53
[2025-02-08 18:27] VITALS: BP 170/76; PULSE 80; RESP 15; O2SAT 96
== END 2025-02-08 18:28 | disposition home or self-care (01) ==
PROVIDERS: Emergency Provider Emergency Medicine; Family Provider Family Medicine; PCP Family Medicine
DX: S09.90XA Unspecified injury of head, initial encounter (principal); S80.02XA Contusion of left knee, initial encounter; S80.01XA Contusion of right knee, initial encounter; S20.212A Contusion of left front wall of thorax, initial encounter; S63.601A Unspecified sprain of right thumb, initial encounter; W18.30XA Fall on same level, unspecified, initial encounter
CPT/HCPCS: 70450; 72125; 99281; 99284